=== PATIENT | female | born 1955 | race Caucasian/White ===

== ENCOUNTER 2020-03-14 09:48 | Outpatient (REF) | payer MEDICARE, MEDICAID, SELFPAY | END 2020-03-14 09:49 | disposition home or self-care (01) | LOC: HO.MAMMO 09:48 | PROVIDERS: PCP Nurse Practitioner Family; Visit Provider Nurse Practitioner Family | DX: Z13.89 Encounter for screening for other disorder (principal) ==

== ENCOUNTER 2020-03-14 10:40 | Outpatient (REF) | payer MEDICARE, SELFPAY | END 2020-03-14 10:41 | disposition home or self-care (01) | LOC: HO.LAB 10:40 | PROVIDERS: PCP Nurse Practitioner Family; Visit Provider Internal Medicine | DX: Z20.828 Contact with and (suspected) exposure to other viral communicable diseases (principal) | CPT/HCPCS: C9803; U0003 ==

== ENCOUNTER 2020-04-03 13:41 | Outpatient (REF) | payer MEDICARE, SELFPAY ==
--- NOTE | 2020-04-03 | XR_ITS ---
EXAMINATION: XR CHEST CLINICAL INFORMATION: Smoker, asthma. Nodule/granuloma right upper lobe. COMPARISON: Chest radiographs 08/18/2018, 12/06/2013. TECHNIQUE: 2 views of the chest were obtained. FINDINGS: There is old granuloma central right upper lobe on frontal view, unchanged since prior exam of 2013. The lungs are otherwise clear. There is no airspace consolidation or ground-glass opacity. No pleural reaction or effusion. The heart is normal in size. The hilar and mediastinal contours are unremarkable. No acute bony abnormality. XR/XR chest 2V IMPRESSION: No acute intrathoracic disease. Stable granuloma right upper lobe similar to 2014.
== END 2020-04-03 13:42 | disposition home or self-care (01) ==
LOC: HO.XRAY 13:41
PROVIDERS: PCP Nurse Practitioner Family; Visit Provider Nurse Practitioner Family
DX: R91.1 Solitary pulmonary nodule (principal)
CPT/HCPCS: 71046

== ENCOUNTER 2020-05-15 11:20 | Outpatient (REF) | payer MEDICARE, SELFPAY | END 2020-05-15 11:21 | disposition home or self-care (01) | LOC: HO.LAB 11:20 | PROVIDERS: PCP Nurse Practitioner Family; Visit Provider Internal Medicine | DX: Z20.822 Contact with and (suspected) exposure to COVID-19 (principal) | CPT/HCPCS: 36415; C9803; U0003; U0005 ==

== ENCOUNTER → 2020-05-19 09:45 | Outpatient (BNVA) | payer MEDICARE, SELFPAY | PROVIDERS: PCP Nurse Practitioner Family; Visit Provider Physician Assistant | DX: Z12.11 Encounter for screening for malignant neoplasm of colon (principal) | CPT/HCPCS: Q3014 ==

== ENCOUNTER 2020-06-19 08:53 | Outpatient (REF) | payer MEDICARE, SELFPAY | END 2020-06-19 08:54 | disposition home or self-care (01) | LOC: HO.LAB 08:53 | PROVIDERS: Visit Provider Internal Medicine | DX: Z20.822 Contact with and (suspected) exposure to COVID-19 (principal) | CPT/HCPCS: 36415; C9803; U0003; U0005 ==

== ENCOUNTER 2020-08-14 07:25 | Day surgery (SDC) | payer MEDICARE, SELFPAY ==
--- NOTE | 2020-08-13 09:16 | HO.ANESPROP2 ---
Documented by User: Acacia Benítez 08/13/20 09:17 HPI - Anesthesia Eval Consult details Narrative: 65yo F for Colonoscopy PMFSH Active Problems Active Problems: All Active Problems (Updated 08/08/20 @ 08:58 by Katarzyna Kern) Encounter for screening colonoscopy (Acute) Asthma (Acute) Past Medical History Medical History Arthritis Asthma COVID-19 vaccine administered Elevated cholesterol Hx of migraine headaches Family History Family History Father Hypertension Mother Liver cancer Social History Social History Household Members: Spouse Alcohol intake: current Alcohol intake frequency: holidays/special occasions only Alcohol type: beer Smoking Status: Current every day smoker Cigarettes Per Day: 4 Years Smoked: 53 Smoked in Last 30 Days: Yes Use of substances other than those prescribed or required for medical reasons: No Are you DNR?: No Advance Directives: No Advance Directives Information Provided: Yes Current occupational status: disabled Meds Allergies Allergy/AdvReac Type Severity Reaction Status Date / Time amitriptyline Allergy Unknown Unknown Verified 05/19/20 09:46 Home Medications Medication Instructions Recorded Confirmed Last Taken Type diclofenac sodium 75 mg 75 mg PO BID 05/19/20 08/08/20 Unknown History tablet,delayed release fluticasone propionate 50 1 inh INHALATION BID 05/19/20 08/08/20 Unknown History mcg/actuation blister powder for inhalation simvastatin 20 mg tablet 20 mg PO DAILY 05/19/20 08/08/20 Unknown History tramadol 50 mg tablet 50 mg PO BID PRN 05/19/20 08/08/20 Unknown History albuterol sulfate 2.5 mg INHALATION Q4H PRN 08/08/20 08/08/20 Unknown History albuterol sulfate [ProAir HFA] 2 puff INHALATION Q4-6H PRN 08/08/20 08/08/20 Unknown History cholecalciferol (vitamin D3) 50 mcg PO DAILY 08/08/20 08/08/20 Unknown History [Vitamin D3] loratadine 1 tab PO DAILY PRN 08/08/20 08/08/20 Unknown History sumatriptan succinate 1 tab PO DAILY PRN 08/08/20 08/08/20 Unknown History trazodone 1 tab PO BEDTIME 08/08/20 08/08/20 Unknown History Exam Exam Date and Time: August 13, 2020915 Assessment and Plan Assessment Anesthesia Assessment: Chart Reviewed Documented by User: Jayden Williamson MD 08/14/20 08:28 [facility] Past Medical History Medical History Arthritis Asthma COVID-19 vaccine administered Elevated cholesterol Hx of migraine headaches Family History Family History Father Hypertension Mother Liver cancer Social History Social History Household Members: Spouse Alcohol intake: current Alcohol intake frequency: holidays/special occasions only Alcohol type: beer Smoking Status: Current every day smoker Cigarettes Per Day: 4 Years Smoked: 53 Smoked in Last 30 Days: Yes Use of substances other than those prescribed or required for medical reasons: No Are you DNR?: No Advance Directives: No Advance Directives Information Provided: Yes Current occupational status: disabled Meds Allergies Allergy/AdvReac Type Severity Reaction Status Date / Time amitriptyline Allergy Unknown Unknown Verified 05/19/20 09:46 Home Medications Medication Instructions Recorded Confirmed Last Taken Type diclofenac sodium 75 mg 75 mg PO BID 05/19/20 08/08/20 Unknown History tablet,delayed release fluticasone propionate 50 1 inh INHALATION BID 05/19/20 08/08/20 Unknown History mcg/actuation blister powder for inhalation simvastatin 20 mg tablet 20 mg PO DAILY 05/19/20 08/08/20 Unknown History tramadol 50 mg tablet 50 mg PO BID PRN 05/19/20 08/08/20 Unknown History albuterol sulfate 2.5 mg INHALATION Q4H PRN 08/08/20 08/08/20 Unknown History albuterol sulfate [ProAir HFA] 2 puff INHALATION Q4-6H PRN 08/08/20 08/08/20 Unknown History cholecalciferol (vitamin D3) 50 mcg PO DAILY 08/08/20 08/08/20 Unknown History [Vitamin D3] loratadine 1 tab PO DAILY PRN 08/08/20 08/08/20 Unknown History sumatriptan succinate 1 tab PO DAILY PRN 08/08/20 08/08/20 Unknown History trazodone 1 tab PO BEDTIME 08/08/20 08/08/20 Unknown History Exam Airway Mallampati Class: III TM Dist: >3cm Neck ROM: Full Denture: Upper and Lower Loose/Missing/Broken Teeth: Yes Assessment and Plan Assessment Anesthesia Assessment: Anesthesia Plan Discussed Final Anesthetic Review NPO: Yes ASA Class: II Final Preanesthetic Review: No Changes in Pt Med Stat, Meds/Allgs Chart Reviewed, Consent Obtained/Reviewed and Anes Risks/Benef Reviewed Patient Risk: Intermediate Procedure Risk: Low Anesthetic Plan Anesthetic Plan: MAC: Disposition: Standard PACU
[2020-08-14 07:38] VITALS: BMI 29.9
[2020-08-14 07:46] VITALS: BP 112/45; PULSE 97; RESP 16; TEMP 36.6; O2SAT 97
[2020-08-14] MEDS: Lactated Ringers 1,000 ML 100 ML IVCONT (08:14)
--- NOTE | 2020-08-14 08:37 | MHC.SHP ---
Pre-Procedural Eval Section B Chief Complaint: Screening Relevant Family History (Specify if Yes): No Relevant Social History: Tobacco Use Present Medications: see Short Stay Collaborative assessment Medical History: Significant History (Arthritis Asthma COVID-19 vaccine administered Elevated cholesterol Hx of migraine headaches) History of Previous Operations: No relevant previous surgery Allergies: Allergies Allergy/AdvReac Type Severity Reaction Status Date / Time amitriptyline Allergy Unknown Unknown Verified 05/19/20 09:46 Review of Systems Sugical H&P ROS: Negative: Constitution, Cardiovascular, Respiratory, Neurological, Psychiatric, Hem-Onc, Allergic/Immunologic, Gastrointestinal, Genitourinary, Musculoskeletal, Integumentary, Endocrine and Eyes/Ears/Nose/Throat Exam Surgical H&P Exam: Normal: HEENT, Normal: Heart, Normal: Lungs, Normal: Extremities, Normal: Abdomen, Normal: Skin and Normal: Neurological Plan Diagnosis/Plan: Unchanged I have reviewed the history and physical and performed a pertinent physical examination on my patient. No changes have occurred unless specified.
--- NOTE | 2020-08-14 08:55 | P.BOP_ITS ---
Brief Operative Note Date of Service: 08/14/20 Pre-op diagnosis: colon screening Post-op diagnosis: same Procedure: see op note Surgeon: Tommie Prieto MD Anesthesia: MAC Was an Project [employer] used for this Procedure?: No Estimated blood loss (mL): 0 Condition: stable Disposition: PACU
--- NOTE | 2020-08-14 08:56 | W.PM.OPN ---
Operative Note Operative Note Date of Service: 08/14/20 Narrative: Operative Information Procedure Description: Colonoscopy COLONOSCOPY Instrument: Olympus variable stiffness pediatric scope 190L Colonoscopy Monitoring: Vital signs and clinical assessment, continuous EKG monitoring, Pulse oximetry, Carbon Dioxide monitoring and blood pressure monitoring were done throughout the procedure. Colon withdrawal time was 11 minutes. Procedure: The patient was placed in the left lateral decubitis position and pre-procedure medications were administered. After a digital rectal examination of the ano-rectum, the video colonoscope was inserted into the rectum and advanced through the colon to the cecum/TI. The colonoscope was slowly withdrawn in a retrograde panoramic fashion and the colon mucosa was carefully examined including a retroflexed view of the rectum. Findings and interventions are described below. Procedure Difficulty: easy Findings: Terminal Ileum-normal Cecum:normal Ascending Colon: normal Transverse Colon -normal Descending Colon:normal Sigmoid Colon: normal Rectum: Retroflexion with small internal hemorrhoids, grade I Anorectum - normal Colon preparation: [place] Bowel Preparation Scale Right colon; 3 Transverse colon: 3 Left colon; 2 (0 = Unprepared colon segment with mucosa not seen due to solid stool that cannot be cleared. 1 = Portion of mucosa of the colon segment seen, but other areas of the colon segment not well seen due to staining, residual stool and/or opaque liquid. 2 = Minor amount of residual staining, small fragments of stool and/or opaque liquid, but mucosa of colon segment seen well. 3 = Entire mucosa of colon segment seen well with no residual staining, small fragments of stool or opaque liquid) Impression and Post Procedure Diagnosis: internal hemorrhoids Plan: High fiber diet leaflet Avoid straining at stool, epsom salts and sitz bath, anusol supps or cream PRN Repeat Colonoscopy in 10 years or earlier if clinically indicated Above findings were reviewed with the patient and relevant handouts were provided if indicated.
[2020-08-14 09:00] VITALS: BP 85/44; PULSE 99; RESP 16; TEMP 36.1; O2SAT 99
[2020-08-14 09:15] VITALS: BP 124/70; PULSE 92; RESP 18; O2SAT 99
== END 2020-08-14 09:45 | disposition home or self-care (01) ==
PROVIDERS: PCP Nurse Practitioner Family; Visit Provider Internal Medicine Gastroenterology
PROC: 0DJD8ZZ Inspection of Lower Intestinal Tract, Via Natural or Artificial Opening Endoscopic (ICD-10-PCS; CPT 45378; principal; 2020-08-14 08:30)
DX: Z12.11 Encounter for screening for malignant neoplasm of colon (principal); K64.0 First degree hemorrhoids; E78.00 Pure hypercholesterolemia, unspecified; M19.90 Unspecified osteoarthritis, unspecified site; J45.909 Unspecified asthma, uncomplicated; Z79.51 Long term (current) use of inhaled steroids; Z79.899 Other long term (current) drug therapy; F17.210 Nicotine dependence, cigarettes, uncomplicated
CPT/HCPCS: G0121

== ENCOUNTER → 2020-09-02 10:53 | Outpatient (REF) | payer MEDICARE, SELFPAY ==
--- NOTE | ~2020-09-02 | NM_ITS ---
EXAMINATION: NM KIDNEY IMAGING WITH LASIX CLINICAL INFORMATION: Hydronephrosis. COMPARISON: Renal scan 08/08/2019. TECHNIQUE: Following intravenous administration of 10 mCi of 90m technetium DTPA, imaging over the posterior abdomen with attention to kidneys was obtained up to 30 minutes. At 30 minutes, 34 mg of IV Lasix is administered and imaging was obtained for another 30 minutes. FINDINGS: There is normal bilateral symmetrical renal perfusion with normal bilateral cortical uptake on the scan. There is progressive accumulation of activity in the right kidney pelvis. After Lasix administration, there is normal emptying of right kidney pelvis to almost baseline by 30 minutes. The left kidney pelvis was emptying prior to the Lasix administration and reached baseline at 20 minutes after Lasix injection. On renal analysis, the right kidney contributes 53.7% and left kidney contributes 46.3% of the renal function. Time from Lasix to half Lasix right kidney is 18.2 minutes and left kidney is 6.09 minutes. NM/NM renal flow w pharm int IMPRESSION: Normal left renal perfusion, cortical function and excretion with no obstruction. Normal right renal perfusion and cortical function with slight delayed excretion but no obstruction seen post Lasix. On reviewing CT abdomen exam 06/29/2019, there is not much difference in the size; however, the orientation of kidneys or angulation is slightly different resulting in different size measurements.
== END ==
LOC: HO.NUCMED 10:53
PROVIDERS: Visit Provider Urology
DX: N13.30 Unspecified hydronephrosis (principal)
CPT/HCPCS: 78708; A9539; J1940

== ENCOUNTER → 2020-09-24 13:00 | Outpatient (BNVA) | payer MEDICARE, SELFPAY | PROVIDERS: PCP Internal Medicine; Visit Provider Physician Assistant | DX: K64.9 Unspecified hemorrhoids (principal) | CPT/HCPCS: Q3014 ==

== ENCOUNTER 2020-12-25 11:08 | Outpatient (REF) | payer MEDICARE, SELFPAY ==
--- NOTE | ~2020-12-25 | MM_ITS ---
EXAMINATION: MM SCREENING DIGITAL BREAST TOMOSYNTHESIS, BILATERAL CLINICAL INFORMATION: Screening. Asymptomatic. The lifetime risk of breast cancer based on the Tyrer-Cuzick Model is 4%. COMPARISON: Mammography: 11/16/2018, 10/28/2017, 10/05/2016 TECHNIQUE: Digital breast tomosynthesis is performed in both the craniocaudal and mediolateral oblique views along with computer-aided detection (CAD). Synthesized 2D images are generated from the tomosynthesis. FINDINGS: There are scattered areas of fibroglandular density (ACR BI-RADS breast composition Category b). There are no significant masses, abnormal calcifications, or other abnormalities. Small circumscribed nodule mid upper outer left breast is decreased from prior exam. The axilla and skin contours are unremarkable. No significant changes. MM/MM tomosynthesis screening BI IMPRESSION: No mammographic evidence of malignancy. ASSESSMENT: BI-RADS 2: Benign RECOMMENDATION: Routine annual mammography screening. This patient's information was entered into a reminder system with a target due date for their next mammogram.
== END 2020-12-25 11:09 | disposition home or self-care (01) ==
LOC: HO.MAMMO 11:08
PROVIDERS: PCP Internal Medicine; Visit Provider Internal Medicine
DX: Z12.31 Encounter for screening mammogram for malignant neoplasm of breast (principal)
CPT/HCPCS: 77063; 77067

== ENCOUNTER 2021-01-06 12:48 | Outpatient (REF) | payer MEDICARE, SELFPAY ==
--- NOTE | ~2021-01-06 | MM_ITS ---
EXAMINATION: BONE DENSITOMETRY CLINICAL INDICATION: Encounter for screening for osteoporosis. COMPARISON: Previous BD dated 05/17/2013 and baseline BD dated 02/16/2011. TECHNIQUE: Using a [employer] DXA System (software version: 13.1) manufactured by [employer], dual-energy x-ray absorptiometry was performed of the lumbar spine and left hip. The images are of good technical quality. Summary results are attached. FINDINGS: AP SPINE L1-L2 (excluding L3 and L4): The data of L1-L4 has been changed to exclude the L3 and L4 vertebral bodies, because degenerative sclerosis at these levels may cause overestimation of lumbar spine density. Current: BMD 0.923 g/cm2, Z-score -0.4, T-score -2.0, osteopenia, 0.1% increase from previous, 12.0% decrease from baseline (<5% change is not significant). Prior: BMD 0.922 g/cm2. Baseline: BMD 1.049 g/cm2. LEFT FEMUR, NECK: Current: BMD 0.739 g/cm2, Z-score -0.6, T-score -2.2, osteopenia. Prior: BMD 0.796 g/cm2. Baseline: BMD 0.738 g/cm2. LEFT FEMUR, TOTAL: Current: BMD 0.909 g/cm2, Z-score 0.5, T-score -0.8, normal, 0.4% decrease from previous, 0.1% decrease from baseline (<5% change is not significant). Prior: BMD 0.913 g/cm2. Baseline: BMD 0.910 g/cm2. IDENTIFIED RISK FACTORS: Menopause, history of fracture (adult), tobacco use (current smoker). HISTORY OF FRACTURE: Other. MEDICATIONS: Calcium supplements or multivitamin, vitamin D. MM/XR DEXA axial skeleton IMPRESSION: 1. DIAGNOSIS: Osteopenia based on the lowest T-score value of -2.2 in the femoral neck applying World Health Organization criteria. 2. 10-YEAR FRACTURE RISK PREDICTION, FRAX: Major osteoporotic fracture (clinical spine, forearm, hip or shoulder) 11.4%. Hip fracture 3.1%. 3. Treatment Recommendations: NOF guidelines recommend consideration for treatment in postmenopausal women and men age 50 and older presenting with the following: -A hip or vertebral (clinical or morphometric) fracture. -T-score less than or equal to -2.5 at the femoral neck or spine after appropriate evaluation to exclude secondary causes. -Low bone mass at the hip or spine and a 10-year fracture probability by FRAX of greater than or equal to 3% for hip fracture or greater than or equal to 20% for major osteoporotic fracture based on the [place] adapted WHO algorithm. 4. Other Recommendations: All treatment decisions require clinical judgment and consideration of individual patient factors, including patient preferences, comorbidities, previous drug use, risk factors not captured in the FRAX model (e.g. frailty, falls, vitamin D deficiency, increased bone turnover, interval significant decline in bone density) and possible under or overestimation of fracture risk by FRAX. Additional medical evaluation for secondary cause of low bone mineral density may be appropriate. FUTURE SCAN RECOMMENDATION: People with diagnosed cases of osteoporosis or at high risk for fracture should have regular bone mineral density tests. For patients eligible for Medicare, routine testing is allowed once every 2 years. The testing frequency can be increased to one year for patients who have rapidly progressing disease, those who are receiving or discontinuing medical therapy to restore bone mass, or have additional risk factors.
== END 2021-01-06 12:49 | disposition home or self-care (01) ==
LOC: HO.MAMMO 12:48
PROVIDERS: Visit Provider Internal Medicine
DX: Z13.820 Encounter for screening for osteoporosis (principal); Z78.0 Asymptomatic menopausal state; F17.200 Nicotine dependence, unspecified, uncomplicated
CPT/HCPCS: 77080

== ENCOUNTER → 2021-02-25 11:04 | Outpatient (BNVA) | payer MEDICARE, SELFPAY | PROVIDERS: PCP Internal Medicine; Visit Provider Nurse Practitioner Family | DX: M25.521 Pain in right elbow (principal); M25.522 Pain in left elbow | CPT/HCPCS: 99212 ==

== ENCOUNTER 2021-03-13 08:27 | Outpatient (REF) | payer MEDICARE, SELFPAY ==
[2021-03-13 10:16] LABS: COVID-19 Test Negative (Negative); IDNOW Serial# 16C4AD1C
== END 2021-03-13 08:28 | disposition home or self-care (01) ==
LOC: HO.LAB 08:27
PROVIDERS: Visit Provider Internal Medicine
DX: Z20.822 Contact with and (suspected) exposure to COVID-19 (principal)
CPT/HCPCS: 36415; 87635; C9803

== ENCOUNTER 2021-08-12 12:15 | Outpatient (REF) | payer OTHER, SELFPAY ==
--- NOTE | ~2021-08-12 | XR_ITS ---
EXAMINATION: XR CHEST CLINICAL INFORMATION: Pulmonary nodule. COMPARISON: Chest radiographs 04/03/2020, 08/18/2018, 12/06/2013. TECHNIQUE: 2 views of the chest were obtained. FINDINGS: There is a chronic circumscribed granuloma or approximately 5 mm central right upper lobe similar to prior studies. This is associated with chronic calcified lower right peritracheal lymph nodes, again similar to prior exams. There is no interval new nodule, mass, airspace consolidation, or effusion. Heart is normal in size. The vascularity is normal. The hilar and mediastinal contours and bony structures are similar to prior studies. XR/XR chest 2V IMPRESSION: -No acute intrathoracic disease. -Old calcified granuloma central right upper lobe with calcified right paratracheal nodes similar to prior exams dating back to 2013.
== END 2021-08-12 12:16 | disposition home or self-care (01) ==
LOC: HO.XRAY 12:15
PROVIDERS: PCP Internal Medicine; Visit Provider Internal Medicine
DX: R91.1 Solitary pulmonary nodule (principal)
CPT/HCPCS: 71046

== ENCOUNTER 2021-12-31 10:37 | Outpatient (REF) | payer OTHER, SELFPAY ==
--- NOTE | ~2021-12-31 | MM_ITS ---
EXAMINATION: MM SCREENING DIGITAL BREAST TOMOSYNTHESIS, BILATERAL CLINICAL INFORMATION: Screening. Asymptomatic. The lifetime risk of breast cancer based on the Tyrer-Cuzick Model is 4%. COMPARISON: Mammography: 12/25/2020, 11/16/2018, 10/28/2017 TECHNIQUE: Digital breast tomosynthesis is performed in both the craniocaudal and mediolateral oblique views along with computer-aided detection (CAD). Synthesized 2D images are generated from the tomosynthesis. FINDINGS: There are scattered areas of fibroglandular density (ACR BI-RADS breast composition Category b). There are no significant masses, abnormal calcifications, or other abnormalities. Parenchymal pattern is similar to prior exams. There is no developing density or architectural abnormality. There is a small circumscribed nodule mid upper outer left breast, decreased in size since 2018 likely regressing cyst. Incidental low left axillary tail node again seen. The axilla and skin contours are unremarkable. MM/MM tomosynthesis screening BI IMPRESSION: No mammographic evidence of malignancy. ASSESSMENT: BI-RADS 2: Benign RECOMMENDATION: Routine annual mammography screening. This patient's information was entered into a reminder system with a target due date for their next mammogram.
== END 2021-12-31 10:38 | disposition home or self-care (01) ==
LOC: HO.MAMMO 10:37
PROVIDERS: Visit Provider Internal Medicine
DX: Z12.31 Encounter for screening mammogram for malignant neoplasm of breast (principal)
CPT/HCPCS: 77063; 77067

== ENCOUNTER 2022-01-20 13:59 | Outpatient (REF) | payer OTHER, SELFPAY ==
--- NOTE | ~2022-01-20 | CT_ITS ---
EXAMINATION: CT CHEST WITHOUT CONTRAST CLINICAL INFORMATION: Pulmonary nodule COMPARISON: Previous chest x-ray most recent July [address] of the abdomen and pelvis June 2019 TECHNIQUE: Multidetector volumetric CT imaging of the chest was done. Axial MIP volume rendering provided. Sagittal and coronal reformatted images were obtained. This CT examination was performed using dose optimization techniques as appropriate, variously including the following: *Automated exposure control *Adjustment of mA and/or kV according to patient size (this includes techniques or standardized protocols for targeted exams where dose is matched to indication/reason for exam; i.e. 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 2 mm question calcified right lower lobe nodule axial image 280 series 7. 2 mm question calcified right lower lobe nodule axial 278 series 7. MEDIASTINUM: There are calcified mediastinal and right hilar lymph nodes suggestive of old granulomatous disease. No other adenopathy. The mediastinum is otherwise normal. CORONARY ARTERY CALCIFICATION: Mild PLEURA: There is no pleural effusion. No pleural mass or thickening. AXILLA: No lymphadenopathy. UPPER ABDOMEN: Small calcification in the spleen likely related to old granulomatous disease. Stable small low-attenuation liver lesions likely representing cysts in the left lobe caudate lobe from the abdomen and pelvis June 2019 OSSEOUS STRUCTURES: Unremarkable. CT/CT chest wo IV con IMPRESSION: Calcified right pulmonary nodules and right hilar and mediastinal lymph nodes probably related to old granulomatous disease. Fleischner guidelines were followed.
== END 2022-01-20 14:00 | disposition home or self-care (01) ==
LOC: HO.CT 13:59
PROVIDERS: PCP Internal Medicine; Visit Provider Internal Medicine
DX: R91.1 Solitary pulmonary nodule (principal)
CPT/HCPCS: 71250

== ENCOUNTER → 2022-04-05 13:45 | Outpatient (BNVA) | payer OTHER, SELFPAY | PROVIDERS: PCP Internal Medicine; Visit Provider Nurse Practitioner Family | DX: R20.0 Anesthesia of skin (principal); R20.2 Paresthesia of skin | CPT/HCPCS: 99212 ==

== ENCOUNTER 2022-10-20 10:49 | Outpatient (REF) | payer OTHER, SELFPAY ==
--- NOTE | ~2022-10-20 | XR_ITS ---
EXAMINATION: XR PELVIS, HIP RIGHT CLINICAL INFORMATION: Elevated right hip pain. COMPARISON: None available. TECHNIQUE: AP view of the pelvis and right hip. FINDINGS: No fracture. Hip joint spaces are maintained. Alignment is anatomic. Sacroiliac joints and pubic symphysis are normal. No abnormal soft tissue calcifications. XR/XR pelvis 1-2V IMPRESSION: Unremarkable examination.
--- NOTE | ~2022-10-20 | XR_ITS ---
EXAMINATION: XR PELVIS, HIP RIGHT CLINICAL INFORMATION: Elevated right hip pain. COMPARISON: None available. TECHNIQUE: AP view of the pelvis and right hip. FINDINGS: No fracture. Hip joint spaces are maintained. Alignment is anatomic. Sacroiliac joints and pubic symphysis are normal. No abnormal soft tissue calcifications. XR/XR hip RT min 2V IMPRESSION: Unremarkable examination.
== END 2022-10-20 10:50 | disposition home or self-care (01) ==
LOC: HO.HHCX 10:49
PROVIDERS: Visit Provider Registered Nurse
DX: M25.551 Pain in right hip (principal); G89.29 Other chronic pain
CPT/HCPCS: 72170; 73502

== ENCOUNTER 2023-01-11 09:26 | Outpatient (REF) | payer OTHER, SELFPAY ==
[2023-01-11 12:20] LABS: Cholesterol 187 mg/dL (<200); HDL Cholesterol 49 mg/dL (>40); LDL Cholesterol Calculated 97 mg/dL (<100); Triglycerides 205 mg/dL (<150)
[2023-01-11 12:40] LABS: Vitamin D 25-OH Total 65.5 ng/mL (>30)
[2023-01-11 13:08] LABS: Reflex LDLD? No
== END 2023-01-11 09:27 | disposition home or self-care (01) ==
LOC: HO.HHCL 09:26
PROVIDERS: Visit Provider Internal Medicine
DX: E78.00 Pure hypercholesterolemia, unspecified (principal); M25.559 Pain in unspecified hip
CPT/HCPCS: 36415; 80061; 82306

== ENCOUNTER 2023-01-11 14:03 | Outpatient (REF) | payer OTHER, SELFPAY ==
--- NOTE | ~2023-01-11 | MM_ITS ---
EXAMINATION: MM SCREENING DIGITAL BREAST TOMOSYNTHESIS, BILATERAL CLINICAL INFORMATION: Screening. Asymptomatic. COMPARISON: Mammography: This study is compared with prior exams dating back to 2017. TECHNIQUE: Digital breast tomosynthesis is performed in both the craniocaudal and mediolateral oblique views along with computer-aided detection (CAD). Synthesized 2D images are generated from the tomosynthesis. FINDINGS: The breasts are almost entirely fatty (ACR BI-RADS breast composition Category a). There are no significant masses, abnormal calcifications, or other abnormalities. MM/MM tomosynthesis screening BI IMPRESSION: No mammographic evidence of malignancy. ASSESSMENT: BI-RADS BI-RADS 1 - Negative RECOMMENDATION: Routine annual mammography screening. 1 year F/U This examination should not preclude the clinical evaluation of a suspicious palpable abnormality. This patient's information was entered into a reminder system with a target due date for their next mammogram.
== END 2023-01-11 14:04 | disposition home or self-care (01) ==
LOC: HO.MAMMO 14:03
PROVIDERS: Visit Provider Internal Medicine
DX: Z12.31 Encounter for screening mammogram for malignant neoplasm of breast (principal)
CPT/HCPCS: 77063; 77067

== ENCOUNTER → 2023-01-11 14:30 | Outpatient (BNV) | payer OTHER, SELFPAY | PROVIDERS: Visit Provider Radiology Diagnostic Radiology | DX: Z12.31 Encounter for screening mammogram for malignant neoplasm of breast (principal) | CPT/HCPCS: 77063; 77067 ==

== ENCOUNTER 2023-01-21 11:01 | Outpatient (REF) | payer OTHER, SELFPAY ==
[2023-01-21 14:02] LABS: Blood Urea Nitrogen 13 mg/dL (9-16); Estimated Glomerular Filt Rate > 60
== END 2023-01-21 11:02 | disposition home or self-care (01) ==
LOC: HO.HHCL 11:01
PROVIDERS: Visit Provider Internal Medicine
DX: J45.30 Mild persistent asthma, uncomplicated (principal)
CPT/HCPCS: 36415; 82565; 84520

== ENCOUNTER 2023-03-15 10:10 | Outpatient (REF) | payer OTHER, SELFPAY | END 2023-03-15 10:11 | disposition home or self-care (01) | LOC: HO.CT 10:10 | PROVIDERS: PCP Internal Medicine; Visit Provider Internal Medicine | DX: R91.8 Other nonspecific abnormal finding of lung field (principal) | CPT/HCPCS: 71250 ==

== ENCOUNTER 2023-04-05 13:28 | Outpatient (AMB) | payer OTHER, SELFPAY ==
--- NOTE | 2023-04-05 13:29 | MHC.OFFVIS ---
Intake Vital Signs 04/05/23 13:30 Height 4 ft 9 in Weight 158 lb 1.143 oz BMI 34.2 BP 128/64 Blood Pressure Location Lt brachial Position Sitting Pulse 114 H Pulse Source Pulse Oximeter Temp 97.7 F Temp Source Skin Pulse Oximetry (%) 96 Oxygen Delivery Method Room Air Intake Visit Reasons: osteoarthritis Intake Note: Patient last seen 04/05/22 by Hawa, presents today for yearly follow up. Swimming Pool Serviceperson Required: Yes Swimming Pool Serviceperson Language: Software Release Manager Name: Erin Information Interpreted: clinical only Accompanied by: FLORENCE Khan Allergies sumatriptan Adverse Reaction (Severe, Verified 04/05/23 13:38) Facial Numbness HPI HPI Comments History of Present Illness Details Ms. Valles, a 66yoF presents for follow-up of osteoarthritis. Last seen in March 2022. Her primary language is Palauan and she presents today with her [employer] Osiris who she would like to translate for her. She currently takes tramadol 50 mg b.i.d. as needed and finds it to be helpful. Patient reports intermittent stabbing, shooting pain from the elbows to the hands x 2 years. She admits to hand numbness and tingling, worse on the right. Pain tends to be worse at night while in bed and improves with position changes and tramadol. Pain is worse with use. She admits to morning stiffness that lasts for under 1 hour. She states that she has braces to wear at night but finds them too uncomfortable. She denies joint swelling. Patient admits to long-term sleep disturbance, depression and anxiety. She admits to skin sensitivity and a feeling of ants crawling on her skin. [facility] Medical History (Updated 04/05/23 @ 13:49 by Jaylyn Mckee [facility]) Primary osteoarthritis involving multiple joints Numbness and tingling in both hands COVID-19 vaccine administered Arthritis Hx of migraine headaches Elevated cholesterol Asthma Surgical History Hx of LASIK H/O colonoscopy Family History Father Hypertension Mother Liver cancer Social History Household Members: Spouse Alcohol intake: current Alcohol intake frequency: holidays/special occasions only Alcohol type: beer Patient Tobacco Use Status: Current everyday Tobacco user Cigarettes Per Day: 1 Years Smoked: 53 Current occupational status: disabled Review of Systems Const All systems reviewed & are unremarkable except as noted in HPI and below Physical Exam Vital Signs: Last Vital Signs Temp 97.7 F 04/05/23 13:30 Pulse 114 H 04/05/23 13:30 BP 128/64 04/05/23 13:30 Pulse Ox 96 04/05/23 13:30 Oxygen Delivery Method Room Air 04/05/23 13:30 BMI result Body Mass Index 34.2 APPEARANCE: Patient in no acute distress, groomed, nourished EYES: no redness, eyelids normal EARS: External ear normal, canal clear and tympanic membrane normal. NOSE/SINUS: Airflow through both nares, no nasal discharge, no bleeding THROAT: Oral mucosa moist, no ulcerations HEART: Regular rhythm, S1-S2 heard, no murmurs, rubs or gallops. LUNG: Clear to auscultation, respiratory rate regular nonlabored. EXTREMITIES: No edema, no calf tenderness, normal peripheral pulses. NEURO: Oriented and alert x3. No focal weakness. Gait normal. SKIN: No inflammatory or neoplastic lesions. Normal color and turgor JOINT EXAM:?? Cervical Spine:? Full range of motion without pain; no tenderness. Thoracic Spine:? No scoliosis.? No tenderness on palpation. Lumbar Spine:? Alignment normal.? Full range of motion without pain, no tenderness. Hands: LEFT:? Normal pain-free range of motion without swelling, increased warmth or erythema. Slight tenderness to palpation at the base of the CMC and 5th MCP. Able to make a full fist and has a good tongue and groove machine operator strength. Negative Phalen's test. RIGHT: Normal pain-free range of motion without swelling, increased warmth or erythema. Slight tenderness to palpation at the base of the CMC and 5th MCP. Able to make a full fist and has a good tongue and groove machine operator strength. Negative Phalen's test. Wrists:? Normal pain-free range of motion without tenderness, swelling, increased warmth or erythema. Elbows: Normal pain-free range of motion without tenderness, swelling, increased warmth or erythema. Shoulders:?? Full range of motion without pain. No tenderness, weakness, swelling, increased warmth or erythema. Hips:? Full range of motion without pain. Hip bursa:? No tenderness. Knees:? Normal pain-free range of motion without tenderness, swelling, increased warmth or erythema.? There is no effusion or crepitation Ankles:? Normal pain-free range of motion without tenderness, swelling, increased warmth or erythema. Feet:? Normal pain-free range of motion without tenderness, swelling, increased warmth or erythema. Tender points:? Tenderness to digital palpation at the occiput, trapezius, second rib, lateral epicondyle, knees, greater trochanter and gluteal area bilaterally. Assessment & Plan Assessment & Plan (1) Numbness and tingling in both hands: Comment: Will trial cock-up splints. Code(s): R20.0 - Anesthesia of skin; R20.2 - Paresthesia of skin (2) Primary osteoarthritis involving multiple joints: Code(s): M15.9 - Polyosteoarthritis, unspecified (3) Carpal tunnel syndrome, bilateral: Code(s): G56.03 - Carpal tunnel syndrome, bilateral upper limbs Plan The patient has had multiple rheumatology work-up one in 2011 and again in September 2017 for joint pain and positive MIGUEL ANGEL. MIGUEL ANGEL titer was 1:80 on 10/13/2017: All subsequent serology negative for: Rheumatoid factor negative, CCP negative, CPK 73, sed rate 12, CRP 0.24, double-stranded DNA negative, scleroderma antibodies negative, ZOYA negative, Sjogren's antibodies negative, Lyme negative. #OA multiple Joints: Patient does not appear to have any active signs of inflammatory or autoimmune disease on exam today. She is experiencing pain from her elbows to hands with numbness and tingling, bilateral knee and shoulder pain. Her pain is worse with use. On exam she has mild tenderness to palpation at the base of the CMC and 5th MCP bilaterally. I think Osteoarthritis may be a contributing factor to her multiple joint pain. Patient also has with multiple fibromyalgia tender points on exam, history of long-term sleep disturbance and depression. There may be an aspect of fibromyalgia contributing to her pain. Encouraged patient to continue light daily activity. Continue amitriptyline and p.r.n. tramadol prescribed by PCP. Will obtain updated labs. I will add Voltarean gel that she can use forher knees. #CTS:Although she had a negative Phalen test on exam, carpal tunnel may be contributing to her pain numbness and tingling as well. Discussed EMG nerve conduction study but she wants to continue with cock-up splints for for now. She will contact the office if she has increased symptoms. 25 minutes spent reviewing chart, evaluating patient and documenting. Return to clinic 1 year or sooner if needed. Orders: Orders Aspartate Amino Transferase Today M15.9 - Polyosteoarthritis, unspecified, Z79.899 - Other detention (current) drug therapy Erythrocyte Sedimentation Rate Today M15.9 - Polyosteoarthritis, unspecified Alanine Aminotransferase Today M15.9 - Polyosteoarthritis, unspecified, Z79.899 - Other detention (current) drug therapy C Reactive Protein Today M15.9 - Polyosteoarthritis, unspecified Complete Blood Count Auto Diff Today M15.9 - Polyosteoarthritis, unspecified, Z79.899 - Other detention (current) drug therapy Creatinine Today M15.9 - Polyosteoarthritis, unspecified, Z79.899 - Other detention (current) drug therapy Medications: New diclofenac sodium 1% apply to knees, ankle, foot; for foot includes sole/toes/top of foot 2 grams topical BID 100 grams 1RF M15.9 - Polyosteoarthritis, unspecified Coding Level of Care Code Tele Est Pt Level 3 (52026) Diagnoses Numbness and tingling in both hands R20.0; R20.2 Primary osteoarthritis involving multiple joints M15.9 Carpal tunnel syndrome, bilateral G56.03
[2023-04-05 13:30] VITALS: BP 128/64; PULSE 114; TEMP 36.5; O2SAT 96; BMI 34.2
== END 2023-04-05 13:51 | disposition home or self-care (01) ==
LOC: HO.RHE 13:28
PROVIDERS: PCP Internal Medicine; Visit Provider Nurse Practitioner Family
DX: R20.0 Anesthesia of skin (principal); R20.2 Paresthesia of skin; M15.9 Polyosteoarthritis, unspecified; G56.03 Carpal tunnel syndrome, bilateral upper limbs
CPT/HCPCS: 99213

== ENCOUNTER → 2023-04-05 13:28 | Outpatient (BNVA) | payer OTHER, SELFPAY | PROVIDERS: PCP Internal Medicine; Visit Provider Nurse Practitioner Family ==

== ENCOUNTER 2023-08-18 10:21 | Outpatient (REF) | payer OTHER, SELFPAY ==
[2023-08-18 12:01] LABS: Alanine Aminotransferase 32 U/L (0-31); Albumin Level 4.2 g/dL (3.5-5.0); Alkaline Phosphatase 90 U/L (39-117); Anion Gap 14 (12-20); Aspartate Amino Transferase 32 U/L (5-31); Bilirubin Total 0.6 mg/dL (0.0-1.0); Blood Urea Nitrogen 13 mg/dL (9-16); Calcium 9.9 mg/dL (8.4-10.2); Carbon Dioxide 25 mmol/L (22-29); Chloride 106 mmol/L (96-108); Cholesterol 153 mg/dL (<200); Estimated Glomerular Filt Rate > 60; Glucose Random 87 mg/dL (60-115); HDL Cholesterol 60 mg/dL (>40); LDL Cholesterol Calculated 68 mg/dL (<100); Potassium 4.2 mmol/L (3.3-5.1); Sodium 141 mmol/L (135-145); Total Protein 7.7 g/dL (6.5-8.0); Triglycerides 125 mg/dL (<150)
[2023-08-18 12:20] LABS: Vitamin D 25-OH Total 30.1 ng/mL (>30)
[2023-08-18 12:29] LABS: Reflex LDLD? No
== END 2023-08-18 10:22 | disposition home or self-care (01) ==
LOC: HO.LAB 10:21
PROVIDERS: PCP Internal Medicine; Visit Provider Internal Medicine
DX: F17.210 Nicotine dependence, cigarettes, uncomplicated (principal); J45.21 Mild intermittent asthma with (acute) exacerbation
CPT/HCPCS: 36415; 80053; 80061; 82306

== ENCOUNTER 2024-02-08 09:45 | Outpatient (REF) | payer OTHER, SELFPAY ==
[2024-02-08 11:29] LABS: Alanine Aminotransferase 30 U/L (0-31); Albumin Level 4.2 g/dL (3.5-5.0); Alkaline Phosphatase 102 U/L (39-117); Aspartate Amino Transferase 37 U/L (5-31); Bilirubin Direct 0.2 mg/dL (0.0-0.5); Bilirubin Total 0.6 mg/dL (0.0-1.0); Total Protein 7.7 g/dL (6.5-8.0)
[2024-02-08 12:00] LABS: Gamma Glutamyl Transpeptidase 27 U/L (7-33)
[2024-02-08 12:13] LABS: HBS Num1 1.53 mIU/mL (0-7.99); HBc Num1 0.16 S/CO (0.00-0.79); Hepatitis A Antibody IgM 0.37 Index (0-0.79); Hepatitis B Core Antibody Nonreactive (Nonreactive); Hepatitis B Surface Antigen Negative (Negative); ~HepC Num1 0.23 S/CO (0.00-0.79); ~Hepatitis A Antibody IgM Nonreactive (Nonreactive); ~Hepatitis B Surface Antibody NONREACTIVE (Nonreactive); ~Hepatitis C Antibody Nonreactive (Nonreactive)
== END 2024-02-08 09:46 | disposition home or self-care (01) ==
LOC: HO.HHCL 09:45
PROVIDERS: Visit Provider Internal Medicine
DX: R79.89 Other specified abnormal findings of blood chemistry (principal)
CPT/HCPCS: 36415; 80076; 82977; 86704; 86706; 86709; 86803; 87340

== ENCOUNTER 2024-02-29 09:43 | Outpatient (REF) | payer OTHER, SELFPAY ==
--- NOTE | ~2024-02-29 | MM_ITS ---
EXAMINATION: MM SCREENING DIGITAL BREAST TOMOSYNTHESIS, BILATERAL CLINICAL INFORMATION: Screening. Asymptomatic. COMPARISON: Mammography: Comparison is made with available priors TECHNIQUE: Digital breast mammography with tomosynthesis is performed in both the craniocaudal and mediolateral oblique views along with computer-aided detection (CAD). FINDINGS: There are scattered areas of fibroglandular density (ACR BI-RADS breast composition Category b). There are no significant masses, abnormal calcifications, or other abnormalities. MM/MM tomosynthesis screening BI IMPRESSION: No mammographic evidence of malignancy. ASSESSMENT: BI-RADS BI-RADS 1 - Negative RECOMMENDATION: Routine annual mammography screening. 1 year F/U This examination should not preclude the clinical evaluation of a suspicious palpable abnormality. This patient's information was entered into a reminder system with a target due date for their next mammogram. Electronically signed by: Lena Church DO 03/06/2024 11:50 AM ALVARO
== END 2024-02-29 09:44 | disposition home or self-care (01) ==
LOC: HO.MAMMO 09:43
PROVIDERS: PCP Internal Medicine; Visit Provider Internal Medicine
DX: Z12.31 Encounter for screening mammogram for malignant neoplasm of breast (principal)
CPT/HCPCS: 77063; 77067

== ENCOUNTER → 2024-02-29 10:30 | Outpatient (BNV) | payer OTHER, SELFPAY | PROVIDERS: PCP Internal Medicine; Visit Provider Internal Medicine | DX: Z12.31 Encounter for screening mammogram for malignant neoplasm of breast (principal) | CPT/HCPCS: 77063; 77067 ==

== ENCOUNTER 2024-03-27 08:54 | Outpatient (REF) | payer OTHER, SELFPAY ==
--- NOTE | ~2024-03-27 | US_ITS ---
CLINICAL HISTORY: ELEVATED LIVER US abdomen complete with duplex and color Doppler Comparison: None Findings: The visualized pancreas, aorta, and inferior vena cava are unremarkable. Liver normal size and mildly echogenic throughout. Right lobe 15.1 cm length. Hepatic cysts caudate lobe measuring 1.5 x 1.1 x 1.1 cm and left lobe measuring 0.8 x 0.7 x 0.4 cm. Common duct mm diameter. Physiologic distention of the gallbladder. No gallstones or sludge. No gallbladder wall thickening. No pericholecystic fluid. No sonographic Goldstein sign. Main portal vein antegrade. Right kidney normal size, 9.1 cm in length. Normal cortical width and echotexture. No solid or cystic renal masses. No nephrolithiasis or hydronephrosis. Left kidney normal, 9.2 cm in length. Normal cortical width and echotexture. Parapelvic cyst measuring 0.9 x 0.9 x 0.7 cm. No nephrolithiasis or hydronephrosis. Spleen measures 9.1 cm. No splenic masses. Calcified splenic granulomas. No ascites. No lymphadenopathy. Impression: 1. Hepatic steatosis versus diffuse hepatocellular disease. Probable incidental hepatic cysts MRI would be confirmatory. 2. Parapelvic renal cyst on the left. This document has been electronically signed by: Adama Mei MD on 03/29/2024 10:13:08
== END 2024-03-27 08:55 | disposition home or self-care (01) ==
LOC: HO.US 08:54
PROVIDERS: PCP Internal Medicine; Visit Provider Internal Medicine
DX: K76.89 Other specified diseases of liver (principal); R74.01 Elevation of levels of liver transaminase levels
CPT/HCPCS: 76700

== ENCOUNTER → 2024-03-27 08:57 | Outpatient (BNV) | payer OTHER, SELFPAY | PROVIDERS: PCP Internal Medicine; Visit Provider Radiology Diagnostic Radiology | DX: K76.0 Fatty (change of) liver, not elsewhere classified (principal); N28.1 Cyst of kidney, acquired; K82.8 Other specified diseases of gallbladder; D73.89 Other diseases of spleen | CPT/HCPCS: 76700; 93976 ==

== ENCOUNTER 2024-04-05 13:04 | Outpatient (AMB) | payer OTHER, SELFPAY ==
[2024-04-05 13:13] VITALS: BP 142/80; PULSE 102; BMI 34.4
--- NOTE | 2024-04-05 13:13 | A.OFFVIS_ITS ---
Vital Signs 04/05/24 13:13 Height 4 ft 9 in Weight 159 lb 2.78 oz BMI 34.4 BP 142/80 H Blood Pressure Location Rt brachial Position Sitting Pulse 102 H Pulse Source Pulse Oximeter Intake Visit Reasons: Osteoarthritis multiple Joints Intake Note: Patient last seen by Jaylyn Mckee on 04/05/23. Presents today for Osteoarthritis multiple joints follow up. Plasma Specialist Required: No Accompanied by: Self / Same As Patient Allergies sumatriptan Adverse Reaction (Severe, Verified 04/05/24 13:16) Facial Numbness Medication List - Last Reconciled 04/05/24 by Mayelin Sandhu MD albuterol sulfate 2.5 mg inhalation Q4H PRN albuterol sulfate 90 mcg/actuation (ProAir HFA) 2 puffs inhalation Q4-6H PRN amitriptyline 25 mg PO BEDTIME cholecalciferol (vitamin D3) (Vitamin D3) 50 mcg PO DAILY [cock up splints As directed] diclofenac sodium 1% 2 grams topical BID fluticasone propionate 220 mcg/actuation (Flovent HFA) 0 mcg inhalation BID loratadine 1 tab PO DAILY PRN simvastatin 20 mg PO DAILY tramadol 50 mg PO BID PRN trazodone 1 tab PO BEDTIME HPI Comments Details: Patient is a 68-year-old Swedish-speaking female current everyday smoker who presents for follow up of polyarticular osteoarthritis. Provider spoke with patient in her confederated yakama language. Interval History: Patient last seen 03/2023 with Jaylyn Mckee. At that time she was complaining of symptoms concerning for carpal tunnel syndrome. She was recommended splinting however patient preferred other conservative management. Today patient does complain of left medial elbow pain well as hand pain. Rheumatologic History: Presents to Rheumatology for evaluation of polyarthralgia in the setting of positive MIGUEL ANGEL. The patient has had multiple rheumatology work-up one in 2011 and again in September 2017 for joint pain and positive MIGUEL ANGEL. MIGUEL ANGEL titer was 1:80 on 10/13/2017: All subsequent serology negative for: Rheumatoid factor negative, CCP negative, CPK 73, sed rate 12, CRP 0.24, double-stranded DNA negative, scleroderma antibodies negative, ZOYA negative, Sjogren's antibodies negative, Lyme negative. Current Rheumatology Medication(s): Tramadol 50mg 1-2 times per day [facility] Medical History (Updated 04/05/24 @ 14:20 by Mayelin Sandhu MD) Osteopenia Medial epicondylitis Primary osteoarthritis involving multiple joints Numbness and tingling in both hands COVID-19 vaccine administered Arthritis Hx of migraine headaches Elevated cholesterol Asthma Surgical History Hx of LASIK H/O colonoscopy Family History Father Hypertension Mother Liver cancer Social History Household Members: Spouse Alcohol intake: current Alcohol intake frequency: holidays/special occasions only Alcohol type: beer Patient Tobacco Use Status: Current everyday Tobacco user Cigarettes Per Day: 1 Years Smoked: 53 Current occupational status: disabled Review of Systems Const Details: Review of Systems Constitutional: Denies fever, chills, weight loss ENT: Denies vision changes, eye pain or eye redness, dental caries, dry mouth GI: Denies nausea, vomiting, diarrhea, abdominal pain, change in BM Pulm: Denies SOB, DING, hemoptysis, wheezing Cards: Denies chest pain, palpitations Skin: Denies Raynaud's, rash, nail changes, photosensitivity, CONFERENCE PLANNER: Denies headaches, weakness, paresthesias, recurrent falls MSK: as per HPI All other systems reviewed and are unremarkable except noted above Physical Exam Vital Signs: Last Vital Signs Pulse 102 H 04/05/24 13:13 BP 142/80 H 04/05/24 13:13 BMI result Body Mass Index 34.4 Const Other: Physical Examination CONSTITUITIONAL Patient alert and cooperative. Well appearing and in no apparent painful distress HEENT Conjunctiva and sclera clear. ?Pupils equal round and reactive to light. ?No ly mphadenopathy. ? CHEST/RESPIRATORY SYSTEM Normal respiratory effort and able to speak in complete sentences. ?Clear to auscultation bilaterally. ?No crackles, rales, rhonchi, wheezes heard. CARDIAC SYSTEM Regular rate and rhythm. ?S1 and S2 heard no murmurs. ?Radial pulses intact bilaterally MSK Hands: ?Good exhaust and muffler fitter strength bilaterally. No deformities noted. ?No synovitis noted to the MCPs, PIPs or DIPs. ?No tenderness to palpation of these joints. Wrists: ?Full range of motion at the wrists without pain. ?No tenderness to palpation or synovitis noted to the wrists. Elbows: Full range of motion without pain. No tenderness, weakness, swelling, increased warmth or erythema. Tenderness to palpation of the left medial epicondyle. Pain is exacerbated by resisted wrist flexion. This is a no tenderness of the right medial epicondyle. Shoulders: Full range of motion without pain. No tenderness, weakness, swelling, increased warmth or erythema. Knees: ?Full range of motion. ?No tenderness, swelling, increased warmth or erythema. Tender points:?No tenderness to palpation of the bilateral trapezius, sup raspinatus, greater trochanters, anterior costochondral junctions, bilateral gluteal areas, bilateral suboccipital muscle insertions SKIN Skin intact without rashes. Results Reviewed Results Reviewed: No recent labs for review. Assessment & Plan Assessment & Plan (1) Primary osteoarthritis involving multiple joints: Code(s): M15.9 - Polyosteoarthritis, unspecified Category: Medical Plan: #Polyarticular OA Patient with polyarticular osteoarthritis. Responding well to topical diclofenac. Continue same. Also responds well to 1-2 tablets per day of 50 mg tramadol Plan - Continue topical diclofenac 1% - Continue Tramadol 50mg 1-2 times per day - RTC 1 year (2) Medial epicondylitis: Code(s): M77.00 - Medial epicondylitis, unspecified elbow Category: Medical Qualifiers: Laterality: left Qualified Code(s): M77.02 - Medial epicondylitis, left elbow Plan: #Left medial epicondylitis Patient with examination consistent with left medial epicondylitis. Printed exercises for her and told her that she could also apply topical diclofenac to her elbow. Plan - Topical diclofenac - Printed exercises (3) Osteopenia: Code(s): M85.80 - Other specified disorders of bone density and structure, unspecified site Category: Medical Qualifiers: Osteopenia location: multiple sites Qualified Code(s): M85.89 - Other specified disorders of bone density and structure, multiple sites Plan: #Osteopenia Patient with osteopenia of the AP spine and left femur neck. Highest T-score - 2.2 Ensure vitamin-D supplementation Weight-bearing exercises Repeat DEXA Plan I spent 20 minutes reviewing the record and labs, taking a history, examining the patient, discussing the treatment plan and documenting in the medical record Orders: Orders XR DEXA axial skeleton Today M81.0 - Age-related osteoporosis without current pathological fracture Medications: Refilled diclofenac sodium 1% apply to knees, ankle, foot; for foot includes sole/toes/top of foot 2 grams topical BID 100 grams 1RF M15.9 - Polyosteoarthritis, unspecified Coding Level of Care Code Est Pt Level 3 (12582) Diagnoses Primary osteoarthritis involving multiple joints M15.9 Medial epicondylitis of left elbow M77.02 Laterality: left Osteopenia of multiple sites M85.89 Osteopenia location: multiple sites
== END 2024-04-05 13:49 | disposition home or self-care (01) ==
PROVIDERS: PCP Internal Medicine; Visit Provider Student in an Organized Health Care Education/Training Program
DX: M15.9 Polyosteoarthritis, unspecified (principal); M77.02 Medial epicondylitis, left elbow; M85.89 Other specified disorders of bone density and structure, multiple sites
CPT/HCPCS: 99213

== ENCOUNTER → 2024-04-05 13:04 | Outpatient (BNVA) | payer OTHER, SELFPAY | PROVIDERS: PCP Internal Medicine; Visit Provider Student in an Organized Health Care Education/Training Program | DX: M15.9 Polyosteoarthritis, unspecified (principal); M77.02 Medial epicondylitis, left elbow; M85.89 Other specified disorders of bone density and structure, multiple sites | CPT/HCPCS: 99212 ==

== ENCOUNTER → 2024-04-23 10:55 | Outpatient (BNV) | payer OTHER, SELFPAY | PROVIDERS: PCP Internal Medicine; Visit Provider Radiology Diagnostic Radiology | DX: N28.1 Cyst of kidney, acquired (principal); K76.0 Fatty (change of) liver, not elsewhere classified; Q44.6 Cystic disease of liver | CPT/HCPCS: 74183 ==

== ENCOUNTER 2024-04-23 11:09 | Outpatient (REF) | payer OTHER, SELFPAY ==
--- NOTE | ~2024-04-23 | MR_ITS ---
EXAMINATION: MRI Abdomen without and with contrast HISTORY: liver and renal cysts, please identify and r/o malignant features COMPARISON: Correlation is made with an abdominal ultrasound dated 03/27/2024. TECHNIQUE: Axial in and out of phase T1-weighted gradient echo, axial diffusion weighted, and axial and coronal haste T2 with fat saturation images were obtained through the abdomen. 3D MRCP Reconstructed images and thick slab imaging of the biliary tree were obtained. Subsequently, fat suppressed axial and coronal T1-weighted images were obtained after the intravenous administration of 7 mL Gadavist. FINDINGS: There is diffuse loss of signal intensity within the liver on opposed phase imaging consistent with steatosis. There is a 9 mm T2 hyperintense mass at the dome of the left lobe of the liver which does not demonstrate enhancement, consistent with a cyst. There is a 12 mm cyst in the caudate lobe. A smaller cyst is seen in the inferior tip of the right lobe. No enhancing liver mass is identified. There is no intra or extrahepatic biliary ductal dilatation. The hepatic and portal veins are patent. The gallbladder, spleen, pancreas, adrenals, and right kidney are unremarkable. There is a 1.3 cm cyst at the lower pole of the left kidney. No retroperitoneal lymphadenopathy or ascites is identified in the upper abdomen. The visualized bones demonstrate normal marrow signal intensity. MR/MR abdomen wo/w con IMPRESSION: 1. Hepatic steatosis. 2. Hepatic and left renal cysts as described. Electronically signed by: Preet Schwartz MD 04/23/2024 01:07 PM ALVARO
[2024-04-23] MEDS: gadobutroL 7.5 ML VIAL IVPUSH (12:14)
--- OUTSIDE RECORDS SUMMARY | 2024-04-23 16:04 | XMS_ITS | Encounter Summary ---
Demographics Address [address] [place] [address] Mobile Phone Home Phone Preferred Language es Marital Status Voodoo Affiliation Unknown Race Other Race Ethnic Group or Author Organization [employer] Address [address] [place] [address] Care Team Providers Care Assistant Strength Coach Name Role Phone Gracie Singer MD Primary Care Provider + Reason for Visit * Reason Onset Date Comments Durable Medical Equipment 04/10/2024 Encounter Details Date Type Department Care Team (Late st Contact Info) Description 04/10/2024 Telephone [facility] [address] [place], [place] [phone] Luly Stokes MA Durable Medical Equipment Social History Tobacco Use Types Packs/Day Years Used Date Smoking Tobacco: Every Day Cigarettes 0.5 49.8 Started: [birth year]/1974 Smokeless Tobacco: Never Comments:Started at age 13 y o, smoked 1/2ppd x 45y, cut down to 3 cig/d for the past year Alcohol Use Standard Drinks/Week Comments Yes 0 (1 standard drink = 0.6 oz pur e alcohol) oca Housing Stability Answer Date Recorded What is your housing situation today? I have miguel graves 07/25/[address] you li ve. Do you have problems with any of the following? None of the above 07/25/2023 Food Insecurity Answer Date Recorded Within the past 12 months, y ou worried that your food would run out before you got money to buy more: Never True 07/25/2023 Within the past 12 months,th e food you bought just didn't last and you didn't have enough money to get more: Never True Transportation Answer Date Recorded In the past 12 months, has l ack of transportation kept you from medical appts, meetings, work or from getting things needed for daily living? No 07/25/2023 Utilities Answer Date Recorded In the past 12 months, has t he electric, gas, oil or water company threatened to shut off services in your home? No 07/25/2023 Depression Answer Date Recorded Patient Health Questionnaire-2 Score 0 07/25/2023 Comments No Sex and Gender Information Value Date Recorded Sex Assigned at Female 01/25/2022 10:16 AM EDT Legal Sex Female 10:16 AM EDT Gender Identity Female 01/25/2022 10:16 AM EDT Sexual Orientation Straight 01/25/2022 10 :16 AM EDT documented as of this encounter Miscellaneous Notes * Telephone Encounter - Luly Stokes MA - 04/10/2024 11:49 AM EST Script for right ankle brace submitted through [employer] for processing. Supplier should contact patient. documented in this encounter Plan of Treatment Not on file documented as of this encounter Visit Diagnoses Not on filedocumented in this encounter Care Teams Assistant Strength Coach Relationship Specialty Start Date End Date Gracie Singer MD [address] [place] [id number] PCP - General Family Medicine 05/14/20 documented as of this encounter
--- OUTSIDE RECORDS SUMMARY | 2024-04-23 16:05 | XMS_ITS ---
Author Name Tio HAZEL Rodríguez Paul Gilliam Address [address] [place] [address] Phone [phone] [facility] Care Team Providers Care Senior Engineering Specialist Name Role Phone Julienne Kinsey Unavailable [phone] Unavailable Unavailable Unavailable Castrenone, Ashleigh Unavailable Unavailable Reason for Referral Not Available Allergies, adverse reactions, alerts No known allergies History of medication use Medication Class Instructions Start Date End Date traZODone 50 mg Tab TOME HANK TABLETA TOD OS LOS D AL ACOST2021-05-11 No Data Available VITAMIN D3 50 MCG (2,000 UNIT) TOME HANK C PSULA TODOS LOS D 2020-11-17 No Data Available Flovent HFA 220 MCG/ACT Aerosol TOME DOS INHALACIONES POR V A ORAL DOS VECES AL D A 2021-08-11 No Data Available Diclofenac Sodium 75 mg Tab delayed rel TOME HANK TABLETA DOS VECES AL D A CON ALIMENTO 2021-06-15 No Data Available Simvastatin 20 mg Tab TOME HANK TABLETA T ODOS LOS D EN LA NOCHE 2021-02-13 No Data Available Amitriptyline 25 mg Tab 1 tablet as needed 2022-02-01 No Data Available traMADol 50 mg Tab 1 tablet orally q 12 hours as needed 2022-02-01 No Data Available Artificial Tears 0.2-0.2-1 % Solution Ophthalmic 1 drop each eye at bedtime 2022-02-01 No Data Avail able Cyclobenzaprine 10 mg Tab TAKE 1/2 TABLE T POR V A ORAL TODOS LOS D AL ACOSTARSE 2022-10-20 No Data Available Naproxen 500 mg Tab TOME HANK TABLETA DOS VECES AL D A 2022-10-20 No Data Available SUMAtriptan Succinate 50 mg Tab TAKE 1 TABLET (50 MG) BY MOUTH 1 (ONE) TIME IF NEEDED FOR MIGRAINE. 2022-10-27 No Data Available Vitamin D3 50 MCG (1999 UT) Cap TOME HANK C PSULA TODOS LOS D 2023-05-11 No Data Available predniSONE 20 mg Tab TOME DOS TABLETAS P OR V A ORAL TODOS LOS D POR 5 D 2023-07-25 2023-09-16 CALCIUM 600 MG-VIT D3 5 MCG TB TOME 1 TA BLETA POR V A ORAL DOS VECES AL D A 2023-07-25 No Data Available Ventolin HFA 108 (90 Base) MCG/ACT Aerosol Solution TOME DOS INHALACIONES POR V A ORAL CUATRO VECES AL D A CUANDO SEA NECESARIO 2023-07-28 No Data Available Problem List Problem Status Onset Date Resolved Date Vitamin D deficiency Active 2022-02-01 N/A Insomnia Active 2022-02-01 N/A Dry eye syndrome of bilateral lacrimal glands Active 2022-02-01 N/A Obesity due to excess calories Active 2023-01-24 N/A Opioid use, uncomplicated Active 2022-02-01 N/ A Pulmonary fibrosis, unspecified Active 7 N/A Sacroiliitis, not elsewhere classified Active 16-02-07 N/A Migraine Active 2023-01-24 N/A Hyperlipidemia Active 2022-02-01 N/A 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 N/A Nerve pain Active 2023-09-16 N/A Major depressive disorder, recurrent, mild Active 2023-09-16 N/A Other problems related to [facility] facilities and other health care Active 2023-09-16 N/A Encounters Encounters Type Facility Date of Service Diagnosis/Co mplaint New patient,40-59min; chronic exacerbation, 2 stable chronic or 1 acute illness add add modifier 95 for video (do not use for phone, instead use 24038-77) [facility] [place] 02/01/2022 Hyperlipidemia, unspecifiedInsomnia, unspecifiedUnspecified asthma, uncomplicatedVitamin D deficiency, unspecifiedLow back pain, unspecifiedOpioid dependence, uncomplicatedDry eye syndrome of bilateral lacrimal glands New patient,40-59min; chronic exacerbation, 2 stable chronic or 1 acute illness add add modifier 95 for video (do not use for phone, instead use 49582-88) [facility], [place] 02[place]/2022 New patient,40-59min; chronic exacerbation, 2 stable chronic or 1 acute illness add add modifier 95 for video (do not use for phone, instead use 14352-69) [facility], ([place]) 02/[place]/2022 New patient,40-59min; chronic exacerbation, 2 stable chronic or 1 acute illness add add modifier 95 for video (do not use for phone, instead use 53316-62) [facility], [place] 02/[place]/2022 New patient,40-59min; chronic exacerbation, 2 stable chronic or 1 acute illness add add modifier 95 for video (do not use for phone, instead use 69755-48) [facility], [place] 02/[place]/2022 New patient,40-59min; chronic exacerbation, 2 stable chronic or 1 acute illness add add modifier 95 for video (do not use for phone, instead use 22004-18) [facility], [place] 02/[place]/2022 New patient,40-59min; chronic exacerbation, 2 stable chronic or 1 acute illness add add modifier 95 for video (do not use for phone, instead use 33156-08) [facility], [place] 02[place]/2022 New patient,40-59min; chronic exacerbation, 2 stable chronic or 1 acute illness add add modifier 95 for video (do not use for phone, instead use 43804-05) [facility], [place] 02/[place]/20[place] New patient,40-59min; chronic exacerbation, 2 stable chronic or 1 acute illness add add modifier 95 for video (do not use for phone, instead use 82222-93) [facility], [place] 02/[place]/2022 Estab. patient 30-39min; chronic exacerbation, 2 stable chronic or 1 acute illness add add modifier 95 for video, (do not use for phone, instead use 09751-32) [facility], [place] 01/24/2023 Hyperlipidemia, unspecifiedInsomnia, unspecifiedPulmonary fibrosis, unspecifiedVitamin D deficiency, unspecifiedSacroiliitis, not elsewhere classifiedOpioid dependence, uncomplicatedDry eye syndrome of bilateral lacrimal glandsOther obesity due to excess caloriesBody mass index (bmi) 31.0-31.9, adultMigraine, unspecified, not intractable, without status migrainosus Estab. patient 30-39min; chronic exacerbation, 2 stable chronic or 1 acute illness add add modifier 95 for video, (do not use for phone, instead use 73970-81) [facility], ([place] 01[place]/20[place] Estab. patient 30-39min; chronic exacerbation, 2 stable chronic or 1 acute illness add add modifier 95 for video, (do not use for phone, instead use 68218-82) [facility], [place]/20[place] Estab. patient 30-39min; chronic exacerbation, 2 stable chronic or 1 acute illness add add modifier 95 for video, (do not use for phone, instead use 40859-79) [facility], [place] 01[place]24/20[place] Estab. patient 30-39min; chronic exacerbation, 2 stable chronic or 1 acute illness add add modifier 95 for video, (do not use for phone, instead use 26109-16) [facility], ([place] 01[place]24/20[place] Estab. patient 30-39min; chronic exacerbation, 2 stable chronic or 1 acute illness add add modifier 95 for video, (do not use for phone, instead use 90109-70) [facility], ([place] 01[place]24/20[place] Estab. patient 30-39min; chronic exacerbation, 2 stable chronic or 1 acute illness add add modifier 95 for video, (do not use for phone, instead use 73914-39) [facility], ([place] 09[place]16/2023 Hyperlipidemia, unspecifiedInsomnia, unspecifiedPulmonary fibrosis, unspecifiedVitamin D deficiency, unspecifiedSacroiliitis, not elsewhere classifiedOpioid use, unspecified, uncomplicatedDry eye syndrome of bilateral lacrimal glandsOther obesity due to excess caloriesMigraine, unspecified, not intractable, without status migrainosusMajor depressive disorder, recurrent, mildFunctional disorders of polymorphonuclear neutrophilsNeuralgia and neuritis, unspecifiedOther problems related to medical facilities and other health care Estab. patient 30-39min; chronic exacerbation, 2 stable chronic or 1 acute illness add add modifier 95 for video, (do not use for phone, instead use 16199-33) [facility], [place] 09[place]/20[place] Estab. patient 30-39min; chronic exacerbation, 2 stable chronic or 1 acute illness add add modifier 95 for video, (do not use for phone, instead use 18356-59) [facility], [place] 09[place]16/2023 Estab. patient 30-39min; chronic exacerbation, 2 stable chronic or 1 acute illness add add modifier 95 for video, (do not use for phone, instead use 50746-67) [facility] ([place] 09[place]16/2023 Estab. patient 30-39min; chronic exacerbation, 2 stable chronic or 1 acute illness add add modifier 95 for video, (do not use for phone, instead use 67462-05) [facility] ([place] 09/16/2023 Estab. patient 30-39min; chronic exacerbation, 2 stable chronic or 1 acute illness add add modifier 95 for video, (do not use for phone, instead use 49529-22) [facility], [place] 09/16/2023 Estab. patient 30-39min; chronic exacerbation, 2 stable chronic or 1 acute illness add add modifier 95 for video, (do not use for phone, instead use 50115-85) [facility], [place] 09/[place]/2023 Immunizations Vaccine Date Status pneumococcal, unspecified formulation (PCV13) 17-12-29 Complete SARS-COV-2 (COVID-19) vaccine, UNSPECIFIED (covi d-19) 2021-04-18 Complete influenza, unspecified formulation (Influenza) 2 Complete zoster, unspecified formulation 2021-01-25 Complete Vital Signs Date of Collection Vitals 2022-02-01 04:58:22 Height - 144.78 cmWe ight - 62.6 kgBody Mass Index (BMI) - 29.86 kg/m2BP Diastolic - 74.0 mm[Hg]BP Systolic - 128.0 mm[Hg] 2023-01-24 11:05:42 Height - 149.86 cmWe ight - 69.85 kgBody Mass Index (BMI) - 31.1 kg/m2 2023-09-16 06:13:09 Height - 149.86 cmWe ight - 69.4 kgBody Mass Index (BMI) - 30.9 kg/m2 Social History Social History Social History Observation Description Effec tive Time Current Smoking Status Current every day smoker 2024-04-23 Sex Female History of Procedures Procedures Service Procedure code Service date Servicing provider Phone# New patient,40-59min; chronic exacerbation, 2 stable chronic or 1 acute illness add add modifier 95 for video (do not use for phone, instead use 32490-74) 12025 2022-02-01 No Data Available No Data Availa ble Pain Assessment - Pain Documented (1125F) 1125F 2022-02-01 No Data Available No Data Availa ble Medication List Documented (1159F) 1159F 2022-02-01 No Data Available No Data Kassie ilable Medication Review by prescribing provider or pharmacist documented (1160F) 1160F 2022-02-01 No Data Available No Data Kassie ilable Functional Status Assessed (1170F) 1170F 2022-02-01 No Data Available No Data Avail able Advance Care Directive Advance care planning discussion documented in the medical record (1158F) 1158F 2022-02-01 No Data Available No Data Availa ble SBP < 130 (3074F) 3074F 2022-02-01 No Data Available No Data Available DBP <80 (3078F) 3078F 2022-02-01 No Data Available No Data Available BMI obtained (3008F) 3008F 2022-02-01 No Data Availab le No Data Available Estab. patient 30-39min; chronic exacerbation, 2 stable chronic or 1 acute illness add add modifier 95 for video, (do not use for phone, instead use 48367-48) 54633 2023-01-24 No Data Available No Data Availa ble Medication List Documented (1159F) 1159F 2023-01-24 No Data Available No Data Kassie ilable Medication Review by prescribing provider or pharmacist documented (1160F) 1160F 2023-01-24 No Data Available No Data Kassie ilable Pain Assessment - Pain Documented (1125F) 1125F 2023-01-24 No Data Available No Data Availa ble BMI obtained (3008F) 3008F 2023-01-24 No Data Availab le No Data Available Advance care planning discussed and documented ? advance care plan or surrogate decision-maker was documented in the medical record. (1123F) 1123F 2023-01-24 No Data Available No Data Availa ble Estab. patient 30-39min; chronic exacerbation, 2 stable chronic or 1 acute illness add add modifier 95 for video, (do not use for phone, instead use 49546-54) 81621 2023-09-16 No Data Available No Data Availa ble Medication List Documented (1159F) 1159F 2023-09-16 No Data Available No Data Kassie ilable Medication Review by prescribing provider or pharmacist documented (1160F) 1160F 2023-09-16 No Data Available No Data Kassie ilable Pain Assessment - Pain Documented (1125F) 1125F 2023-09-16 No Data Available No Data Availa ble BMI obtained (3008F) 3008F 2023-09-16 No Data Availab le No Data Available Pain Assessment - Pain Documented (1125F) 1125F 2023-09-16 No Data Available No Data Availa ble Functional Status Assessed (1170F) 1170F 2023-09-16 No Data Available No Data Avail able Functional Status Functional Category Effective Dates Cognition Status: Oriented to Person, Pl dawna and Time 2022-02-01 ADL: Bathing Independent , D ressing Independent , Eating Independent , Ambulation Independent , Transferring Independent and Toileting Independent 2022-02-01 IADL: Medication Independent , Meal Prep Independent , Shopping Independent and Driving or Public Transport Needs Assistance 2022-02-01 Falls in last 6 Months: no 2022-02-01 Denies using assistive devices to ambula te. 2023-01-24 Mental Status Status Date AOx3 2023-01-24 Assessments Date of Service Assessments 2022-02-01 04:58:22 HyperlipidemiaInsomn iaAsthmaVitamin D deficiencyLumbagoOpioid dependence, uncomplicatedDry eye syndrome of bilateral lacrimal glands 2023-01-24 11:05:42 HyperlipidemiaInsomn iaPulmonary fibrosis, unspecifiedVitamin D deficiencySacroiliitis, not elsewhere classifiedOpioid dependence, uncomplicatedDry eye syndrome of bilateral lacrimal glandsObesity due to excess caloriesMigraine 2023-09-16 06:13:09 Other problems relat ed to medical facilities and other health careHyperlipidemiaInsomniaPulmonary fibrosis, unspecifiedVitamin D deficiencySacroiliitis, not elsewhere classifiedOpioid use, uncomplicatedDry eye syndrome of bilateral lacrimal glandsObesity due to excess caloriesMigraineMajor depressive disorder, recurrent, mildFunctional disorders of polymorphonuclear neutrophilsNerve pain Plan of Care Date of Service Plans 2022-02-01 04:58:22 Pain Assessment - NO pain documented (1126F)Medication Review by prescribing provider or pharmacist documented (1160F)Medication List Documented (1159F)Functional Status Assessed (1170F)Advance Care Directive Advance care planning discussion documented in the medical record (1158F)BMI obtained (3008F)sbdbTelevideo new patient,40-59min; chronic exacerbation, 2 stable chronic or 1 acute illness add modifier 95Continue to see PCP. Follow-up with [facility] as needed for any acute or disease education needs that may arise.Srnmbuv-keuybkqpdylaEiicbnv-olvatewkp-amitriptyline prnManaged-flovent HFAManagedvitamin D ajzupegrinTnmihdq-qjhbooxjXtlumqi-ibhefffj-follow up every 3 monthsManaged-artificial tears 2023-01-24 11:05:42 Medication Review by prescribing provider or pharmacist documented (1160F)Medication List Documented (1159F)Functional Status Assessed (1170F)Advance Care Directive Advance care planning discussion documented in the medical record (1158F)BMI obtained (3008F)Televideo 30-39min; chronic exacerbation, 2 stable chronic or 1 acute illness add modifier 95Advance care planning discussed and documented ? advance care plan or surrogate decision-maker was documented in the medical record. (1123F)Pain Assessment - Pain Documented (1125F)Advance care planning discussed and documented in the medical record ? beneficiary/patient did not wish to or was unable to provide an advance care plan or name a surrogate decision-maker. (1124F)Continue to see PCP. Follow-up with [facility] as needed for any acute or disease education needs that may arise.Dmrzhum-utlpyhdbrioqFyqxkpm-htzwczqnp-amitriptyline prnManaged-flovent HFAManagedvitamin D qtkncpyyrsPdronfw-nmcywvjmAzgcixo-ydgiyipv-follow up every 3 monthsManaged-artificial tearsBMI: 31.10Lifestyle interventions and continue f/u care with PCP.Sumatriptan Continue f/u care with PCP. 2023-09-16 06:13:09 Medication Review by prescribing provider or pharmacist documented (1160F)Medication List Documented (1159F)Functional Status Assessed (1170F)Advance Care Directive Advance care planning discussion documented in the medical record (1158F)BMI obtained (3008F)Televideo 30-39min; chronic exacerbation, 2 stable chronic or 1 acute illness add modifier 95Pain Assessment - Pain Documented (1125F)Advance care planning discussed and documented ? advance care plan or surrogate decision-maker was documented in the medical record. (1123F)Continue to see PCP. Follow-up with [facility] as needed for any acute or disease education needs that may arise.PAIN CONTINGENCY PLANWorsening Pain Member to call for the following symptoms: Decreased mobility/ Fall??/ Increased pain/ Increased pain meds/ Joint swellingPlanned intervention: Tylenol 1,000mg q6h/ Lidoderm patch 4% to affected area/ Voltaren gel to affected area/ Apply heat to affected areaManaged-atorvastatinDietary interventions, exercise as tolerable, and continue with PCP.Gietmmb-dxipngtkb-mbquowwjwsqks prnManaged-flovent HFAContinue f/u care with pulmonology.Managedvitamin D supplementManaged-tramadolContinue with PCP.Ikjtxyn-levdrbys-lnzowy up every 3 monthsManaged-artificial tearsBMI: 31.10Lifestyle interventions and continue f/u care with PCP.StableSumatriptan Continue f/u care with PCP and neurology.StableDecline wanting to start antidepressant. Denies SI/HIMonitor for worsening depression, coping mechanisms, and continue with PCP.StableMonitor for s/sx of infection and continue with PCP.StableAmitriptyline ROM exercises, monitor for adverse effects and continue with PCP. Goals Date Goal 2022-02-01 Remember to 2022-02-01 Call me if 2022-02-01 Keep it up 2023-01-24 Remember to contact EMS if developing emergent symptoms. 2023-01-24 Contact us if develo ping worsening migraines, s/sx of respiratory distress, difficulty sleeping or worsening pain. 2023-01-24 Continue taking medi cations as prescribed and f/u care and monitoring with PCP every 3-6 months. 2023-09-16 Remember to adhere t o dietary interventions and exercise as tolerable. 2023-09-16 Contact us if develo ping worsening pain, worsening depression, migraines, s/sx infection, excessive sedation or health-related concerns. 2023-09-16 Continue taking medi cations as prescribed and f/u care and monitoring with PCP every 3-6 months. Health Concerns Date Concern 2023-09-16 Visit completed usin g audio/video. Patient/Guardian agreed to visit via telehealth. Today, patient has chief complaint of: follow up care and comprehensive review.Reviewed Allergies, Medications, Active Medical conditions, past medical/surgical history, Social history. 2023-09-16 HCP: yes (Martha Vasquez s - sister). ACP: yes. Full code. 2023-09-16 Most recent hospital stay(s) or ER visit(s) and precipitating factors: denies in the last month. 2023-09-16 Informed verbal cons ent was obtained from this patient to communicate and provide care using virtual and other telecommunications tools. This patient has been explained the risks, if any, related to the encounter. I explained that care provided through video or audio communication cannot replace the need for physical examination or an in-person visit for some disorders or urgent problems.
--- OUTSIDE RECORDS SUMMARY | 2024-04-23 16:05 | XMS_ITS | Encounter Summary ---
Author Organization [employer] [facility] Address [address] [place] [address] Care Team Providers Care Psychological Operations Officer Name Role Phone Gracie Singer MD Primary Care Provider + Reason for Referral * Imaging (Routine) - Canceled Specialty Diagnoses / Procedures Referred By Karolyn cohen Referred To Contact Radiology Diagnoses Elevated liver function tests Liver cyst Renal cyst, acquired, left Procedures MRI (ABDOMEN AND PELVIS) WANDW/O CONTRAST Gracie Singer MD [address] [place] [address] Phone: tel: fax: [address] Phone: tel: fax: Referral ID Status Reason Start Date Expiration Date V isits Requested Visits Authorized [id number] Canceled 04/06/2024 04/06/2025 1 1 Encounter Details Date Type Department Care Team (Late st Contact Info) Description 04/04/2024 Telephone [facility] [address] [place], [place] [phone] Gracie Singer MD [address] [place], [place] [phone] Social History Tobacco Use Types Packs/Day Years [...] as of this encounter Miscellaneous Notes * Addendum Note - Gracie Singer MD - 04/06/2024 4:39 PM ESTAddended by: GRACIE SINGER on: 04/06/2024 04:39 PM Modules accepted: Orders * Telephone Encounter - Gracie Singer MD - 04/06/2024 4:37 PM EST MRI abd replaced as below. * Telephone Encounter - Shannan Flores - 04/04/2024 9:03 AM EST Incoming call from Mandie at [facility] requesting MRI order to be update to MRI Abdomen WWO Contrast . Please review and advise . documented in this encounter Plan of Treatment Scheduled Orders Name Type Priority Associated Diagnoses Orde r Schedule MRI (ABDOMEN AND PELVIS) WANDW/O CONTRAST Imaging Routine Elevated liver function tests Liver cyst Renal cyst, acquired, left Expected: 04/06/2024 (Approximate), Expires: 04/06/2025 documented as of this encounter Visit Diagnoses Diagnosis Elevated liver function tests- Primary Other abnormal blood chemistry Liver cyst Other specified disorders of liver Renal cyst, acquired, left documented in this encounter Care Teams Psychological Operations Officer Relationship Specialty Start Date End Date Gracie Singer MD [address] [place] [id number] PCP - General Family Medicine 05/14/20 documented as of this encounter
--- OUTSIDE RECORDS SUMMARY | 2024-04-23 16:05 | XMS_ITS | Encounter Summary ---
Demographics Address [address] [place] [address] Mobile Phone Home Phone Preferred Language es Marital Status Episcopal Affiliation Unknown Race Other Race Ethnic Group or Author Organization [employer] Address [address] [place] [address] Care Team Providers Care Candy Catcher Name Role Phone Gracie Singer MD Primary Care Provider + Reason for Visit * Reason Onset Date Comments Med Refill 10/14/2023 Encounter Details Date Type Department Care Team ([facility] st Contact Info) Description 10/14/2023 Telephone [facility] [address] [place], [place] [phone] Gracie Singer MD [address] [place], [place] [phone] Med Refill Social History Tobacco Use Types Packs/Day Years Used Date Smoking Tobacco: Some Days Cigarettes 0.5 49.8 Started: 07/12/1975 Smokeless Tobacco: [...] Patient Health Questionnaire-2 Score 0 07/25/2023 Comments Unknown Sex and Gender Information Value Date Recorded Sex Assigned at Female 01/25/2022 10:16 AM EDT Legal Sex Female 10:16 AM EDT Gender Identity Female 01/25/2022 10:16 AM EDT Sexual Orientation Straight 01/25/2022 10 :16 AM EDT documented as of this encounter Miscellaneous Notes * Telephone Encounter - Elizabet Epps LPN - 10/14/2023 1:18 PM EDT Medication was sent to [facility] #[id number] on 05/09/23 #90 with 3 refills. * Telephone Encounter - David Gallo - 10/14/2023 1:16 PM EDT TC from pt requesting medication refill. Medications needing refill: simvastatin (Zocor) 20 MG table To be sent to: [facility]/pharmacy #[address] documented in this encounter Plan of Treatment Not on file documented as of this encounter Visit Diagnoses Not on filedocumented in this encounter Care Teams Candy Catcher Relationship Specialty Start Date End Date Gracie Singer MD [address] [place] [address] PCP - General Family Medicine 05/14/20 documented as of this encounter
--- OUTSIDE RECORDS SUMMARY | 2024-04-23 16:05 | XMS_ITS | Encounter Summary ---
Author Organization [employer] Address [address] [facility] 7t [place] [address] Care Team Providers Care Dressmaking Teacher Name Role Phone Gracie Singer MD Primary Care Provider + Reason for Visit * Reason Onset Date Comments Appointment Request 06/23/2022 Encounter Details Date Type Department Care Team ([facility] st Contact Info) Description 06/23/2022 Telephone [facility] MEDICINE [address] [place], [place] [phone] Gracie Singer MD [address] [place], [place] [phone] Appointment Request Social History Tobacco Use Types Packs/Day Years Used Date Smoking Tobacco: Some Days Cigarettes Smokeless Tobacco: Never Alcohol Use Standard Drinks/Week Comments Yes 0 (1 standard drink = 0.6 oz pur e alcohol) rare Depression Answer Date Recorded Patient Health Questionnaire-2 Score 0 04/02/2022 Comments Unknown Sex and Gender Information Value Date Recorded Sex Assigned at Female 01/25/2022 10:16 AM EDT Legal Sex Female 10:16 AM EDT Gender Identity Female 01/25/2022 10:16 AM EDT Sexual Orientation Straight 01/25/2022 10 :16 AM EDT documented as of this encounter Miscellaneous Notes * Telephone Encounter - Di Zamarripa - 06/23/2022 4:27 PM EDT Tc from pt sister requesting to r/s appt for 07/09/2022. Pt sister states that they would like somelater the Марина. Please contact pt at [phone] documented in this encounter Plan of Treatment Not on file documented as of this encounter Visit Diagnoses Not on filedocumented in this encounter Care Teams Dressmaking Teacher Relationship Specialty Start Date End Date Gracie Singer MD [address] [place] [address] PCP - General Family Medicine 05/14/20 documented as of this encounter
--- OUTSIDE RECORDS SUMMARY | 2024-04-23 16:05 | XMS_ITS | Encounter Summary ---
Author Organization [employer] Address [address] [facility] 7t [place] [address] Care Team Providers Care Foiling Machine Adjuster Name Role Phone Gracie Singer MD Primary Care Provider + Reason for Referral * Imaging (Routine) - Canceled Specialty Diagnoses / Procedures Referred By Karolyn cohen Referred To Contact Radiology Diagnoses Liver cyst Elevated liver function tests Renal cyst, acquired, left Procedures MRI ABDOMEN PELVIS WO CONTRAST Gracie Singer MD [address] [place] [address] Phone: tel: fax: [facility] [address] [place] [address] Phone: tel: fax: Referral ID Status Reason Start Date Expiration Date V isits Requested Visits Authorized [id number] Canceled 04/02/2024 04/02/2025 1 1 Encounter Details Date Type Department Care Team (Late st Contact Info) Description 04/02/2024 Orders Only [facility] MEDICINE [address] [place], [place] [phone] Gracie Singer MD [address] [place], [place] [phone] Liver cyst (Primary Dx); Elevated liver function tests; Renal cyst, acquired, left Social History Tobacco Use Types Packs/Day Years [...] AM EDT documented as of this encounter Plan of Treatment Scheduled Orders Name Type Priority Associated Diagnoses Orde r Schedule MRI ABDOMEN PELVIS WO CONTRAST Imaging Routine Liver cyst Elevated liver function tests Renal cyst, acquired, left Expected: 04/02/2024 (Approximate), Expires: 04/02/2025 documented as of this encounter Visit Diagnoses Diagnosis Liver cyst- Primary Other specified disorders of liver Elevated liver function tests Other abnormal blood chemistry Renal cyst, acquired, left documented in this encounter Care Teams Foiling Machine Adjuster Relationship Specialty Start Date End Date Gracie Singer MD [address] [place] [id number] PCP - General Family Medicine 05/14/20 documented as of this encounter
--- OUTSIDE RECORDS SUMMARY | 2024-04-23 16:05 | XMS_ITS | Encounter Summary ---
Author Organization [employer] Address [address] [facility] 7t [place] [address] Care Team Providers Care Hospice Entrance Attendant Name Role Phone Gracie Singer MD Primary Care Provider + Encounter Details Date Type Department Care Team (Late st Contact Info) Description 04/03/2024 Telephone [facility] MEDICINE [address] [place], [place] [phone] Maria L Zhang, RN [address] [place], [place] [phone] Social History Tobacco Use Types Packs/Day Years [...] encounter Miscellaneous Notes * Telephone Encounter - Maria L Zhang RN - 04/03/2024 9:49 AM EST 2nd call attempted via [facility] Hims Clerk Davi #[id number] to advise of message from pcp RE; ABD US results. No answer, unable to leave v/m to return call to Red team RN as voicemail is not set up. * Telephone Encounter - Maria L Zhang RN - 04/03/2024 9:45 AM EST ----- Message from Gracie Singer MD sent at 04/02/2024 3:33 PM EST ----- Abd US on 03/27/24 showed 2 liver cysts (one is new, the one on left lobe is new, the other one is not), she also has fatty liver and a small renal cysts. Please call patient and tell her that the fatty liver + liver cysts may be the reason why her LFTs are a bit high but they don't seem to represent any type of malignancy. However, I would like to send her for an MRI liver to better identify those lesions, I will fu with her as scheduled or earlier PRN. documented in this encounter Plan of Treatment Not on file documented as of this encounter Visit Diagnoses Not on filedocumented in this encounter Care Teams Hospice Entrance Attendant Relationship Specialty Start Date End Date Gracie Singer MD [address] [place] [id number] PCP - General Family Medicine 05/14/20 documented as of this encounter
--- OUTSIDE RECORDS SUMMARY | 2024-04-23 16:05 | XMS_ITS | Encounter Summary ---
Author Organization [employer] Address 75 [facility] 7t [place] [address] Care Team Providers Care Glass Driller Name Role Phone Gracie Singer MD Primary Care Provider + Reason for Visit * Reason Onset Date Comments Nurse Triage 10/18/2022 Encounter Details Date Type Department Care Team ([facility] st Contact Info) Description 10/18/2022 Telephone [facility] MEDICINE [address] [place], [place] [phone] Gracie Singer MD [address] [place], [place] [phone] Nurse Triage Social History Tobacco Use Types Packs/Day Years [...] encounter Miscellaneous Notes * Telephone Encounter - Victoria Goldberg RN - 10/18/2022 11:40 AM EDT Triage call with [place] Nursing Teacher [place] [id number] Pt reports right hip pain which is of chronic nature but, much worse in the last week. Pt reports ,whole leg hurts, knee and ankle. Ankle and foot are swollen . Pt is walking with difficulty and limps. Pt reports once sitting down needs help to get up again. Pt is taking tramadol for pain which doesn't help at all. Pt is requesting to see PCP. Apt with PCP 10/27 @ 1115am. Insurance is verified as a ctive prior to booking. Protocol Used: Hip Pain (Adult) Protocol-Based Disposition: See in Office or Video Visit within 2 Weeks Video visit not offered Positive Triage Question: * Hip pain is a chronic symptom (recurrent or ongoing AND present > 4 weeks) * All higher-acuity triage questions were negative Care Advice Discussed: * Reassurance and Education - Hip Pain * Pain Medicines * Pain Medicines - Extra Notes and Warnings * Rest Your Hip for the Next Couple Days * Reasons To Call Back - Moderate pain (e.g., limping) lasts more than 3 days - Mild pain lasts more than 7 days - Signs of infection occur (e.g., spreading redness, warmth, fever) - You become worse * Use a Cold Pack for Pain * Use Heat on Area After 48 Hours * Telephone Encounter - Angie Celaya - 10/18/2022 11:20 AM EDT Symptoms: Hip Pain - Not From Injury, Leg Pain - Not From Injury, Foot or Ankle Swelling Outcome: Schedule an urgent appointment (within 1 hour) or talk to a nurse or provider soon Reason: Trouble walking The caller accepted this outcome Please contact pt at [phone] (Samoan) documented in this encounter Plan of Treatment Not on file documented as of this encounter Visit Diagnoses Not on filedocumented in this encounter Care Teams Glass Driller Relationship Specialty Start Date End Date Gracie Singer MD [address] [place] [address] PCP - General Family Medicine 05/14/20 documented as of this encounter
--- OUTSIDE RECORDS SUMMARY | 2024-04-23 16:05 | XMS_ITS | Encounter Summary ---
Demographics Address [address] [facility] [address] [place] [address] Mobile Phone Home Phone Preferred Language es Marital Status Advent Affiliation Unknown Race Other Race Ethnic Group or Author Organization [employer] Address [address] [facility] 7t [place] [address] Care Team Providers Care Ply Splicer Name Role Phone Gracie Singer MD Primary Care Provider + Reason for Visit * Reason Onset Date Comments Results 04/02/2024 Encounter Details Date Type Department Care Team ([facility] st Contact Info) Description 04/02/2024 Telephone [facility] MEDICINE [address] [place], [place] [phone] Glory Appiah RN Results Social History Tobacco Use Types Packs/Day Years [...] encounter Miscellaneous Notes * Telephone Encounter - Glory Appiah RN - 04/02/2024 4:37 PM EST TC to pt to relay message from provider as per below. Using u[employer] rod welder id# [id number]. shantell @[phone] with [facility] contact information for return call. Will retask for #2 attempt. ----- Message from Gracie Singer MD sent [...] on filedocumented in this encounter Care Teams Ply Splicer Relationship Specialty Start Date End Date Gracie Singer MD [address] [place] [phone] PCP - General Family Medicine 05/14/20 documented as of this encounter
--- OUTSIDE RECORDS SUMMARY | 2024-04-23 16:05 | XMS_ITS | Encounter Summary ---
Author Organization [employer] Address [address] [facility] [address] 7t [place] [address] Care Team Providers Care Director For Beauty School Name Role Phone Gracie Singer MD Primary Care Provider + Encounter Details Date Type Department Care Team (Late st Contact Info) Description 08/24/2023 Orders Only [facility] MEDICINE [address] [place], [place] [phone] Provider, MD John Social History Tobacco Use Types Packs/Day Years [...] as of this encounter Plan of Treatment Not on file documented as of this encounter Procedures Procedure Name Priority Date/Time Associated Diagnosis Comments HM COLONOSCOPY Routine 09/24/2020 8:23 AM EDT documented in this encounter Results * Hm Colonoscopy (09/24/2020 8:23 AM EDT) Historical Provider HEALTH MAINTENANCE Final Result documented in this encounter Visit Diagnoses Not on filedocumented in this encounter Care Teams Director For Beauty School Relationship Specialty Start Date End Date Gracie Singer MD [address] [place] [phone] PCP - General Family Medicine 05/14/20 documented as of this encounter
--- OUTSIDE RECORDS SUMMARY | 2024-04-23 16:05 | XMS_ITS | Encounter Summary ---
Demographics Address [address] [facility] [address] [place] [address] Mobile Phone Home Phone Preferred Language es Marital Status Tenriism Affiliation Unknown Race Other Race Ethnic Group or Author Organization [employer] Address [address] [facility] 7t [place] [address] Care Team Providers Care Loom Fixer Name Role Phone Gracie Singer MD Primary Care Provider + Reason for Visit * Reason Onset Date Comments Med Refill 04/11/2024 Encounter Details Date Type Department Care Team (Late st Contact Info) Description 04/11/2024 Refill [facility] MEDICINE 230 [place], [place] [phone] Gracie Singer MD [address] [place], [place] [phone] Mixed hyperlipidemia Social History Tobacco Use Types Packs/Day Years [...] Telephone Encounter - Elizabet Epps LPN - 04/12/2024 8:02 AM EST Last seen 03/07/24. * Telephone Encounter - Lopez Hernandez - 04/11/2024 4:42 PM EST TC from pt requesting medication refill. Medications needing refill : simvastatin (Zocor) 20 MG tablet 2. amitriptyline (Elavil) 25 MG tablet ( [facility] states new script needed) To be sent to: [facility]/pharmacy #[id number] documented in this encounter Plan of Treatment Not on file documented as of this encounter Visit Diagnoses Diagnosis Mixed hyperlipidemia documented in this encounter Care Teams Loom Fixer Relationship Specialty Start Date End Date Gracie Singer MD [address] [place] [address] PCP - General Family Medicine 05/14/20 documented as of this encounter
--- OUTSIDE RECORDS SUMMARY | 2024-04-23 16:05 | XMS_ITS | Encounter Summary ---
Author Organization [employer] Address [address] [facility] 7t [place] [address] Care Team Providers Care Envelope Fold Operator Name Role Phone Gracie Singer MD Primary Care Provider + Reason for Visit * Reason Onset Date Comments triage 08/16/2022 Encounter Details Date Type Department Care Team ([facility] st Contact Info) Description 08/16/2022 Telephone [facility] MEDICINE 230 [place], [place] [phone] Gracie Singer MD [address] [place], [place] [phone] triage Social History Tobacco Use Types Packs/Day Years [...] Telephone Encounter - Victoria Goldberg RN - 08/16/2022 1:39 PM EDT Triage call with [place] Molder [place] [id number] Pt sister is phone number listed. Pt is not with sister at this time. Pt is reported to have back pain. Pt sister is dying and will need to leave the area and would like to be checked before leaving.Unable to finish triage , sister is not on HIPPA and Pt not present at time of call due to phone isbroken. Advised for Pt to come to [facility] and Pt sister will give message to Pt. Protocol Used: Back Pain (Adult) Protocol-Based Disposition: See in Office or Video Visit within 3 Days Video visit not offered Positive Triage Question: * Moderate back pain (e.g., interferes with normal activities) and present > 3 days * All higher-acuity triage questions were negative * Telephone Encounter - Abram Martinez - 08/16/2022 11:04 AM EDT Symptoms: Hand or Wrist Pain - Not From Injury, Back Pain - Not From Injury Outcome: Schedule an urgent appointment (within 1 hour) or talk to a nurse or provider soon Reason: Severe pain now The caller accepted this outcome speaks hungarian documented in this encounter Plan of Treatment Not on file documented as of this encounter Visit Diagnoses Not on filedocumented in this encounter Care Teams Envelope Fold Operator Relationship Specialty Start Date End Date Gracie Singer MD [address] [place] [phone] PCP - General Family Medicine 05/14/20 documented as of this encounter
--- OUTSIDE RECORDS SUMMARY | 2024-04-23 16:05 | XMS_ITS | Encounter Summary ---
Author Organization [employer] Address [address] [facility] 7t [place] [address] Care Team Providers Care Supervisor Fabrication Department Name Role Phone Gracie Singer MD Primary Care Provider + Reason for Referral * Imaging (Routine) - Authorized Specialty Diagnoses / Procedures Referred By Karolyn cohen Referred To Contact Radiology Diagnoses Liver cyst Elevated liver function tests Renal cyst, acquired, left Procedures MR Abdomen w/ and w/o Contrast Gracie Singer MD [address] [place] [address] Phone: tel: fax: [address] Phone: tel: fax: Referral ID Status Reason Start Date Expiration Date V isits Requested Visits Authorized [id number] Authorized 04/10/2024 04/10/2025 1 1 Encounter Details Date Type Department Care Team (Late st Contact Info) Description 04/09/2024 Telephone [facility] [address] [place], [place] [phone] Gracie Singer MD [address] [place], [place] [phone] Social History Tobacco Use Types Packs/Day Years [...] Addendum Note - Gracie Singer MD - 04/10/2024 7:42 PM ESTAddended by: GRACIE SINGER on: 04/10/2024 07:42 PM Modules accepted: Orders * Telephone Encounter - Gracie Singer MD - 04/10/2024 7:40 PM EST MRI abd w/wo contrast ordered. * Telephone Encounter - Shannan Flores - 04/09/2024 12:25 PM EST Incoming call from Mand[place] [facility] [place] MRI order to be update to MRI Abdomen WWO Contrast . With out the Pelvis area. Please review and advise . documented in this encounter Plan of Treatment Not on file documented as of this encounter Procedures Procedure Name Priority Date/Time Associated Diagnosis Comments MR ABDOMEN W AND WO CONTRAST Routine 04/23/2024 10:55 AM EST Liver cyst Elevated liver function tests Renal cyst, acquired, left documented in this encounter Results * MR Abdomen w/ and w/o Contrast (04/23/2024 10:55 AM EST) Anatomical Region Laterality Modality Abdomen Magnetic Resonan ce 04/23/2024 10:5 5 AM EST Narrative 04/23/2024 1:10 PM EST ? [facility] ?[address] ?[place] [address] ? Magnetic Resonance Report ? Signed ? Patient: Love,Reena ?MR#: [id number] ?? 1 ? : 1955 ?Acct:[id number] ? Age/Sex: 69 / F ?ADM Date: 04/23/24 ? Loc: HO.MRI ? Attending Dr: Gracie Singer MD ? Ordering Physician: Gracie Singer MD ?? Date of Service: 04/23/24 ?? Procedure(s): MR abdomen wo/w con ?? Accession Number(s): [id number] ? cc: Gracie Singer MD ? EXAMINATION: ??MRI Abdomen without and with contrast ? HISTORY: liver and renal cysts, please identify and r/o malignant ?? features ? COMPARISON: ??Correlation is made with an abdominal ultrasound dated ?? 03/27/2024. ? TECHNIQUE: Axial in and out of phase T1-weighted gradient echo, axial ?? diffusion weighted, and axial and coronal haste T2 with fat saturation ?? images were obtained through the abdomen. 3D MRCP Reconstructed images ?? and thick slab imaging of the biliary tree were obtained. ? Subsequently, fat suppressed axial and coronal T1-weighted images were ?? obtained after the intravenous administration of 7 mL Gadavist. ? FINDINGS: ??There is diffuse loss of signal intensity within the liver ?? on opposed phase imaging consistent with steatosis. There is a 9 mm T2 ?? hyperintense mass at the dome of the left lobe of the liver which does ?? not demonstrate enhancement, consistent with a cyst. There is a 12 mm ?? cyst in the caudate lobe. A smaller cyst is seen in the inferior tip of ?? the right lobe. No enhancing liver mass is identified. There is no ?? intra or extrahepatic biliary ductal dilatation. The hepatic and portal ?? veins are patent. ? The gallbladder, spleen, pancreas, adrenals, and right kidney are ?? unremarkable. There is a 1.3 cm cyst at the lower pole of the left ?? kidney. No retroperitoneal lymphadenopathy or ascites is identified in ?? the upper abdomen. The visualized bones demonstrate normal marrow ?? signal intensity. ? MR/MR abdomen wo/w con ?? IMPRESSION: ? 1. Hepatic steatosis. ? 2. Hepatic and left renal cysts as described. ? Electronically signed by: ??Preet Schwartz MD ??04/23/2024 01:07 PM EST ? Dictated By: ?Preet Schwartz MD ? Signed By: ?<Electronically signed by Preet Schwartz MD in OV> ?04/23/24 1307 ? DD/ 1055 ? TD/TT: 04/23/24 1210 ? Glazing Machine Operator: ? Procedure Note Dali Hancock - 04/23/[address] [address] Magnetic Resonance Report Signed Patient: Felipe Love#: [id number] 1 : 5Acct:[id number] Age/Sex: 69 / FADM Date: 04/23/24 Loc: HO.MRI Attending Dr: Gracie Singer MD Ordering Physician: Gracie Singer MD Date of Service: 04/23/24 Procedure(s): MR abdomen wo/w con Accession Number(s): [id number] cc: Gracie Singer MD EXAMINATION: MRI Abdomen without and with contrast HISTORY: liver and renal cysts, please identify and r/o malignant features COMPARISON: Correlation is made with an abdominal ultrasound dated 03/27/2024. TECHNIQUE: Axial in and out of phase T1-weighted gradient echo, axial diffusion weighted, and axial and coronal haste T2 with fat saturation images were obtained through the abdomen. 3D MRCP Reconstructed images and thick slab imaging of the biliary tree were obtained. Subsequently, fat suppressed axial and coronal T1-weighted images were obtained after the intravenous administration of 7 mL Gadavist. FINDINGS: There is diffuse loss of signal intensity within the liver on opposed phase imaging consistent with steatosis. There is a 9 mm T2 hyperintense mass at the dome of the left lobe of the liver which does not demonstrate enhancement, consistent with a cyst. There is a 12 mm cyst in the caudate lobe. A smaller cyst is seen in the inferior tip of the right lobe. No enhancing liver mass is identified. There is no intra or extrahepatic biliary ductal dilatation. The hepatic and portal veins are patent. The gallbladder, spleen, pancreas, adrenals, and right kidney are unremarkable. There is a 1.3 cm cyst at the lower pole of the left kidney. No retroperitoneal lymphadenopathy or ascites is identified in the upper abdomen. The visualized bones demonstrate normal marrow signal intensity. MR/MR abdomen wo/w con IMPRESSION: 1. Hepatic steatosis. 2. Hepatic and left renal cysts as described. Electronically signed by: Preet Schwartz MD 04/23/2024 01:07 PM [facility] Dictated By: Preet Schwartz MD Signed By: <Electronically signed by Preet Schwartz MD in OV> 04/23/24 1307 DD/ 1055 TD/TT: 04/23/24 1210 Glazing Machine Operator: Gracie Singer MD IMG MRI PROCEDURES Final Result documented in this encounter Visit Diagnoses Diagnosis Liver cyst- Primary Other specified disorders of liver Elevated liver function tests Other abnormal blood chemistry Renal cyst, acquired, left documented in this encounter Care Teams Supervisor Fabrication Department Relationship Specialty Start Date End Date Gracie Singer MD [address] [place] [address] PCP - General Family Medicine 05/14/20 documented as of this encounter
--- OUTSIDE RECORDS SUMMARY | 2024-04-23 16:05 | XMS_ITS | Clinical Summary ---
Author Organization [employer] Address [address] [facility] [address] [place] [address] Care Team Providers Care Guest Service Representative Name Role Phone Gracie Singer MD Primary Care Provider + Allergies No known active allergies Medications acetaminophen (Tylenol) 500 MG tablet take 1-2 tablet (1000MG) by oral route TID as needed; max. 6 tabs/24 hours 017 Active albuterol (2.5 MG/3ML) 0.083% nebulizer solution Inhale 1 vial every 6 (six) hours. 019 Active loratadine (Claritin) 10 MG tablet take 1 tablet (10MG) by oral route every day as needed 022 Active pneumococcal polysaccharide (Pneumovax 23) 25 MCG/0.5ML vaccine Inject 0.5 mL into the shoulder, thigh, or buttocks. 020 Active zoster vaccine-recombina nt adjuvanted (Shingrix) 50 MCG/0.5ML vaccine Inject 0.5 mL into the shoulder, thigh, or buttocks. 020 Active cyclobenzaprine (Flexeril) 10 MG tabletIndications :Chronic right hip pain,Chronic right-sided low back pain without sciatica Take 0.5 tablets (5 mg) by mouth at bedtime. 10 tablet 023 Active naproxen (Naprosyn) 500 MG tabletIndications :Chronic right hip pain,Chronic right-sided low back pain without sciatica TOME HANK TABLETA DOS VECES AL ERIC 30 tablet 023 Active SUMAtriptan (Imitrex) 50 MG tabletIndications :Migraine without aura, not refractory Take 1 tablet (50 mg) by mouth 1 (one) time if needed for migraine. 9 tablet 11 024 2024 Active amitriptyline (Elavil) 25 MG tabletIndications :Migraine without aura, not refractory Take 1 tablet (25 mg) by mouth at bedtime. 90 tablet 3 024 2024 Active traZODone (Desyrel) 50 MG tabletIndications :Primary insomnia TAKE 1 TABLET BY MOUTH AT BEDTIME 90 tablet 3 Active albuterol 108 (90 Base) MCG/ACT inhalerIndication s:Mild persistent asthma without complication inhale 2 puffs by Inhalation route 4 times every day as needed for cough, SOB or wheeze 18 g 1 Active fluticasone (Flonase) 50 MCG/ACT nasal spray Administer 1 spray into each nostril Once per day. 16 g 2 Active fluticasone furoate (Arnuity Ellipta) 100 MCG/ACT inhaler Inhale 1 puff Once per day. 30 each 5 024 Active simvastatin (Zocor) 20 MG tabletIndications :Mixed hyperlipidemia TAKE 1 TABLET BY MOUTH AT BEDTIME 90 tablet 3 025 Active simvastatin (Zocor) 20 MG tabletIndications :Mixed hyperlipidemia TAKE 1 TABLET BY MOUTH AT BEDTIME 90 tablet 3 024 2024 Discontinued(R eorder (will not trigger notification to Pharmacy)) ergocalciferol (Vitamin D2) 1.25 MG (22633 UT) capsule Take 1 capsule (1.25 mg) by mouth 1 (one) time per week. 12 capsule 024 2024 Active Problems Problem Noted Date Diagnosed Date Renal cyst, acquired, left 04/02/2024 Elevated liver function tests 03/30/2024 Assessment & Plan (03/30/2024 4:29 PM EST): Mild elevation, repeat LFTs and GGT Advised to absolutely avoid ETOH Encounter for immunization 03/30/2024 Primary insomnia 03/30/2024 Assessment & Plan (03/30/2024 4:26 PM EST): Doing well on trazodone, she's out of meds. Refill for trazodone sent to pharmacy, she will fu PRN if sxs continue despite restarting meds. Elevated transaminase level 03/07/2024 Assessment & Plan (03/07/2024 12:38 PM EST): Most likely fatty liver, will order liver US. Sprain of right ankle 03/07/2024 Assessment & Plan (03/30/2024 4:30 PM EST): Old, recurrent Advised to wear ankle brace, restart PT exercises and fu prn Assessment & Plan (03/07/2024 12:37 PM EST): Advised to wear ankle brace prn to prevent falls. Tobacco dependence due to cigarettes 07/25/2023 Assessment & Plan (07/25/2023 10:12 AM EDT): - continues to smoke up to 3 cigarettes per day, has history of 35+ years - will order low-dose CT scan in March 2024. Mild intermittent asthma with exacerbation 07/24 Assessment & Plan (07/25/2023 10:10 AM EDT): - not improving with Albuterol. Counseled to increase Albuterol every 4 hours - start Prednisone BRD 40 mg x 5 days, take with breakfast - counseled to quit smoking - COVID/flu testing is negative - counseled to have RSV vaccine as soon as symptoms resolve Liver cyst 03/30/2023 Overview (03/30/2023): 1cm caudate cyst on [facility] CT scan (Chest CT fu lung nodule) on 03/15/23) Assessment & Plan (03/07/2024 12:36 PM EST): Order liver US. Mixed hyperlipidemia 04/02/2022 Assessment & Plan (03/30/2024 4:31 PM EST): On low dose simvastatin, check lipids and fu at next RV Advised to quit smoking Assessment & Plan (04/02/2022 1:27 PM EST): LDL is at goal on low dose simvastatin. Has mild hyperTG COunseled to quit smoking. Recommended moderate amount of exercise and increased consumption of fruit, vegetables, fish and high fiber foods. We discussed about avoiding consumption of highly saturated fats or trans fats. FU lipids in 12m, consider adjusting med then. 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 Last CT Scan on 2022 was stable, no need for further follow up. Assessment & Plan (01/21/2023 10:41 AM EDT): Will order FU CT scan, last CT was 01/20/22 Counseled to quit smoking Pt agreed to flu IZ Assessment & Plan (04/02/2022 1:25 PM EST): On 01/20/22 LDCT scan chest: <1cm calcified right lung nodules + mediastinal LN. Counseled to quit smoking. FU Chest CT on 12/2022 Vitamin D deficiency 04/07/2020 Assessment & Plan (10/27/2022 12:01 PM EDT): She is not taking supplementation, repeat Vit D levels and fu in 3 months Allergic rhinitis 01/20/2015 Hypercholesterolemia 01/20/2015 Assessment & Plan (01/21/2023 10:43 AM EDT): Pt technically not using statin due to noncompliance Due to cardio factors I recommenced to be compliant w/ simvastatin 20 mg qHS and will FU lipids in 6 m Assessment & Plan (10/27/2022 12:00 PM EDT): She is not taking medications at this time, last LDL was at goal counseled to quit smoking We discussed re rx options. She wants to be more strict with life style modifications. Recommended moderate amount of exercise and increased consumption of fruit, vegetables, fish and high fiber foods. We discussed about avoiding consumption of highly saturated fats or trans fats. repeat lipids on 2024 Migraine without aura, not refractory 01/20/2015 Assessment & Plan (07/25/2023 10:11 AM EDT): -doing well, continue Imitrex PRN Assessment & Plan (10/27/2022 12:00 PM EDT): Seems to be controlled continue amitriptyline qhs and take imitrex PRN only counseled to quit smoking and fu with me in 3 months Mild persistent asthma 01/20/2015 Assessment & Plan (03/30/2024 4:28 PM EST): Fairly well controlled, no recent asthma exacerbation Continue albuterol prn, advised to quit smoking Influenza IZ today. Assessment & Plan (01/21/2023 10:43 AM EDT): Cont albuterol q6hr for next few days then PRN, reconsult PRN Counseled to quit smoking Paresthesia of hand 01/20/2015 Smoker 01/20/2015 Assessment & Plan (03/07/2024 1:39 PM EST): Counseled to reduce smoking, has nicotine gum at home. Assessment & Plan (01/21/2023 10:44 AM EDT): Pt has lung nodules, we will FU w/ CT scan Assessment & Plan (10/27/2022 12:00 PM EDT): Counseled to quit smoking, she has nicotoine lozanges wit her pt has lung nodules that needs fu counseled regarding acupuncture and fu with me PRN Assessment & Plan (04/02/2022 1:26 PM EST): Counseled to quit smoking, wants to start w patch. Start 7mg/d patch And taper to prn nicotine gum. Counseled re acupuncture and walk in smoking cessation program on mornings. She agreed w POC. FU w me in 3m Overweight 01/20/2015 Resolved Problems Problem Noted Date Diagnosed Date Resolved Date Greater trochanteric pain syndrome 04/02/2022 07/25/2023 Assessment & Plan (10/27/2022 12:02 PM EDT): partially improved with tylenol and stretching exercises, will cancel PT referral at patient's request Pt agreed with POC at patient's request counseled her to come to walk in acupuncture counseled to quit smoking FU PRN Inflammation of sacroiliac joint 04/02/2022 07/25/2023 Primary osteoarthritis invol ving multiple joints 04/10/2018 07/25/2023 Encounters Date Type Department Care Team Description 04/11/2024 Refill [facility] [address] [place] [id number] Gracie Singer MD Mixed hyperlipidemia 04/10/2024 Telephone [facility] [address] [place] [phone] Luly Stokes CA Durable Medical Equipment 04/09/2024 Telephone [facility] [address] [place] [phone] Gracie Singer MD 04/04/2024 Telephone [facility] [address] [place] [phone] Gracie Singer MD 04/03/2024 Telephone [facility] [address] [place] [phone] Maria L Zhang, IJEOMA 04/02/2024 Telephone [facility] [address] [place] [address] [phone] Glory Appiah, RN Results 04/02/2024 Orders Only [facility] [address] [place] [phone] Gracie Singer MD Liver cyst (Primary Dx); Elevated liver function tests; Renal cyst, acquired, left 03/07/2024 11:30 AM EST Office Visit [facility] [address] [place] [phone] Gracie Singer MD Lung nodules (Primary Dx); Liver cyst; Elevated transaminase level; Smoker; Sprain of right ankle, unspecified ligament, subsequent encounter; Encounter for immunization 03/07/2024 Telephone [facility] [address] [place] [phone] Gracie Singer MD Durable Medical Equipment 03/07/2024 Travel 03/06/[address] [address] Luly Stokes MA Chart prep 02/29/2024 Orders Only [address] [phone] Gracie Singer MD 02/20/[address] [address] Gracie Singer MD Durable Medical Equipment 02/09/[address] [address] Sharyn Sidhu RN Results 01/25/[address] [address] Gracie Singer MD 01/24/2024 2:00 PM EDT Office Visit [address] [address] Gracie Singer MD Sprain of right ankle, unspecified ligament, initial encounter (Primary Dx); Mild persistent asthma without complication; Primary insomnia; Mixed hyperlipidemia; Elevated liver function tests; Encounter for immunization 01/24/[address] [address] Gracie Singer MD 01/24/2024 Travel from Last 3 Months Immunizations Name Administration Dates Next Due Hep B, adult 07/24/2013,02/08/2012,03/10/2010 Influenza High-dose Quadriva lent Preservative Free 01/21/2023,01/07/2022 Influenza injectable quadriv alent IIV4 with preservative 01/19/2018,04/19/2017,01/20/2015 Influenza injectable quadriv alent preservative free 02/10/2021,01/27/2020,01/09/2019,07/02 Influenza, High Dose Seasona l, Preservative Free 01/24/2024 Influenza, IIV3, injectable 12/11/2009 Influenza, Split (incl. los fied surface antigen) 02/06/2013,02/08/2012 Pneumococcal Conjugate PCV 20 01/07/2022 Pneumococcal Polysaccharide PPSV23 03/10/2010 RSV Bivalent 08/18/2023 TD (adult), 2 Lf tetanus tox oid, preservative free, adsorbed 06/26/2002 Tdap 03/07/2024,07/24/2013 Zoster, Recombinant 07/19/2018 Zoster, live 01/20/2015 Social History Tobacco Use Types Packs/Day Years [...] Orientation Straight 01/25/2022 10 :16 AM EDT Last Filed Vital Signs Vital Sign Reading Time Taken Comments Blood Pressure 137/74 03/07/2024 11:29 AM EST Pulse 102 03/07/2024 11:29 AM EST Temperature 36.2 ??C (97.2 ??F) 03/07/2024 11:[address] Respiratory Rate 16 03/07/2024 11:29 AM EST Oxygen Saturation 99% 03/07/2024 11:29 AM EST Inhaled Oxygen Concentration - - Weight 72.2 kg (159 lb 2 oz) 03/07/2024 11:29 AM EST Height 149.9 cm (4' 11 ) 03/07/2024 11:29 AM EST Body Mass Index 32.14 03/07/2024 11:29 AM EST Plan of Treatment Health Maintenance Due Date Last Done Comments CT Colonography 1955 FIT DNA/Cologuard 1955 FIT 1955 FOBT 1955 Sigmoidoscopy 1955 Alcohol/Substance Use Screening 1966 Hepatitis A Vaccines (1 of 2 - Risk 2-dose series) 1973 Lung Cancer Screening 2004 Zoster Vaccines (3 of 3) 09/13/2018 07/19/2018, 12/27 COVID-19 Vaccine ( season) 2023 04/22/2021, 06/12/2020, 05/15/2020 Depression Screening 07/24/2024 07/25/2023, 07/25/19 24 SDOH Screening 07/24/2024 07/25/2023 Lipid Panel 08/17/2024 08/18/2023, 12/26, 01/14/2022, Additional history exists Mammogram 02/28/2025 02/29/2024, 12/26, 12/31/2021, Additional history exists Tobacco Screening 03/07/2025 03/07/2024 Colonoscopy 09/24/2030 09/24/2020 Colorectal Cancer Screening 09/24/2030 DTaP/Tdap/Td Vaccines (3 - Td or Tdap) 03/07/2034 03/07/2024, 07/24/2013, 06/26/2002 Hepatitis B Vaccines Completed 07/24/2013, 02/08/2012, 03/10/2010 Pneumococcal Vaccine: 65+ Years Completed 01/07/2022, 03/10/2010 RSV Patients and Patients Aged 60 years or older Completed 08/18/2023 Influenza Vaccine Completed 01/24/2024, , 01/07/2022, Additional history exists Hepatitis C Screening Completed 02/08/2024 HIB Vaccines Aged Out No longer eligi ble based on patient's age to complete this topic HPV Vaccines Aged Out No longer eligi ble based on patient's age to complete this topic IPV Vaccines Aged Out No longer eligi ble based on patient's age to complete this topic Meningococcal Vaccine Aged Out No kana belén eligible based on patient's age to complete this topic RSV under 20 months Aged Out No longe r eligible based on patient's age to complete this topic Rotavirus Vaccines Aged Out No longer eligible based on patient's age to complete this topic Procedures Procedure Name Priority Date/Time Associated Diagnosis Comments MR ABDOMEN W AND WO CONTRAST Routine 04/23/2024 10:55 AM EST Liver cyst Elevated liver function tests Renal cyst, acquired, left US ABDOMEN COMPLETE Routine 03/29/2024 1 0:13 AM EST BI MAMMOGRAM SCREENING TOMOSYNTHESIS BILATERAL Routine 02/29/2024 9:47 AM EST GGT Routine 02/08/2024 9:50 AM EST Elevated liver function tests HEPATIC FUNCTION PANEL Routine 9:50 AM EST Elevated liver function tests HEPATITIS PANEL, GENERAL Routine 02/08/2024 9:50 AM EST Elevated liver function tests LIPID PANEL WITH REFLEX TO DIRECT LDL Routine 08/18/2023 10:43 AM EDT Tobacco dependence due to cigarettes HM COLONOSCOPY Routine 09/24/2020 8:23 AM EDT from Last 3 Months or Most Recently Relevant to Health Maintenance Results * MR Abdomen w/ and w/o Contrast (04/23/2024 10:55 AM EST) Anatomical Region Laterality Modality Abdomen Magnetic Resonan ce 04/23/2024 10:5 5 AM EST Narrative 04/23/2024 1:10 PM EST ? [facility] ?[address] ?[place] [address] ? Magnetic Resonance Report ? Signed ? Patient: Love,Reena ?MR#: [id number] ?? 1 ? : 1955 ?Acct:[id number] ? Age/Sex: 69 / F ?ADM Date: 04/23/24 ? Loc: HO.MRI ? Attending Dr: Gracie Singer MD ? Ordering Physician: Gracie Singer MD ?? Date of Service: 04/23/24 ?? Procedure(s): MR abdomen wo/w con ?? Accession Number(s): [id number] ? cc: Gracie Singer MD ? EXAMINATION: [...] DD/ 1055 ? TD/TT: 04/23/24 1210 ? [employer]essen Store Manager: ? Procedure Note Karissa, Image - 04/23/2024 [place] [address] Magnetic Resonance Report Signed Patient: Felipe Love#: [id number] 1 : 5Acct:[id number] Age/Sex: 69 / FADM Date: 04/23/24 Loc: HO.MRI Attending Dr: Gracie Singer MD Ordering Physician: Gracie Singer MD Date of Service: 04/23/24 Procedure(s): MR abdomen wo/w con Accession Number(s): [id number] cc: Gracie Singer MD EXAMINATION: MRI Abdomen [...] by: Preet Schwartz MD 04/23/2024 01:07 PM EST Dictated By: Preet Schwartz MD Signed By: <Electronically signed by Preet Schwartz MD in OV> 04/23/24 1307 DD/ 1055 TD/TT: 04/23/24 1210 Delicatessen Store Manager: us Gracie Singer MD IMG MRI PROCEDURES Final Result * US Abdomen Complete (03/29/2024 10:13 AM EST) Anatomical Region Laterality Modality Abdomen Ultrasound 03/29/2024 10:1 3 AM EST Narrative 03/29/2024 10:13 AM EST ? [facility] ?[address] ?[place] [address] ? Ultrasound Report ? Signed ? Patient: Love,Reena ?MR#: [id number] ?? 1 ? : 1955 ?Acct:[id number] ? Age/Sex: 68 / F ?ADM Date: 12/31/24 ? Loc: HO.US ? Attending Dr: Gracie Singer MD ? Ordering Physician: Gracie Singer MD ?? Date of Service: 03/27/24 ?? Procedure(s): US abdomen complete ?? Accession Number(s): [id number] ? cc: Gracie Singer MD ? CLINICAL HISTORY: ELEVATED LIVER ? US abdomen complete with duplex and color Doppler ? Comparison: None ? Findings: ?? The visualized pancreas, aorta, and inferior vena cava are unremarkable. ? Liver normal size and mildly echogenic throughout. Right lobe 15.1 cm ?? length. Hepatic cysts caudate lobe measuring 1.5 x 1.1 x 1.1 cm and left ?? lobe measuring 0.8 x 0.7 x 0.4 cm. ?? Common duct mm diameter. ?? Physiologic distention of the gallbladder. No gallstones or sludge. No ?? gallbladder wall thickening. No pericholecystic fluid. No sonographic ?? Goldstein sign. ?? Main portal vein antegrade. ? Right kidney normal size, 9.1 cm in length. Normal cortical width and ?? echotexture. No solid or cystic renal masses. No nephrolithiasis or ?? hydronephrosis. ?? Left kidney normal, 9.2 cm in length. Normal cortical width and ?? echotexture. Parapelvic cyst measuring 0.9 x 0.9 x 0.7 cm. No ?? nephrolithiasis or hydronephrosis. ? Spleen measures 9.1 cm. No splenic masses. Calcified splenic granulomas. ? No ascites. No lymphadenopathy. ? Impression: ?? 1. Hepatic steatosis versus diffuse hepatocellular disease. Probable ?? incidental hepatic cysts MRI would be confirmatory. ?? 2. Parapelvic renal cyst on the left. ? This document has been electronically signed by: Adama Mei MD on ?? 03/29/2024 10:13:08 ? Dictated By: ?Adama Mei MD ? Signed By: ?<Electronically signed by Adama Mei MD in OV> ?03/29/24 1013 ? DD/ 1013 ? TD/TT: 03/29/24 1013 ? Delicatessen Store Manager: ? Procedure Note Dali Hancock - 03/29/[address] [address] Ultrasound Report Signed Patient: Felipe Love#: [id number] 1 : 5Acct:[id number] Age/Sex: 68 / FADM Date: 03/27/24 Loc: HO.US Attending Dr: Gracie Singer MD Ordering Physician: Gracie Singer MD Date of Service: 03/27/24 Procedure(s): US abdomen complete Accession Number(s): [id number] cc: Gracie Singer MD CLINICAL HISTORY: ELEVATED LIVER US abdomen complete with duplex and color Doppler Comparison: None Findings: The visualized pancreas, aorta, and inferior vena cava are unremarkable. Liver normal size and mildly echogenic throughout. Right lobe 15.1 cm length. Hepatic cysts caudate lobe measuring 1.5 x 1.1 x 1.1 cm and left lobe measuring 0.8 x 0.7 x 0.4 cm. Common duct mm diameter. Physiologic distention of the gallbladder. No gallstones or sludge. No gallbladder wall thickening. No pericholecystic fluid. No sonographic Goldstein sign. Main portal vein antegrade. Right kidney normal size, 9.1 cm in length. Normal cortical width and echotexture. No solid or cystic renal masses. No nephrolithiasis or hydronephrosis. Left kidney normal, 9.2 cm in length. Normal cortical width and echotexture. Parapelvic cyst measuring 0.9 x 0.9 x 0.7 cm. No nephrolithiasis or hydronephrosis. Spleen measures 9.1 cm. No splenic masses. Calcified splenic granulomas. No ascites. No lymphadenopathy. Impression: 1. Hepatic steatosis versus diffuse hepatocellular disease. Probable incidental hepatic cysts MRI would be confirmatory. 2. Parapelvic renal cyst on the left. This document has been electronically signed by: Adama Mei MD on 03/29/2024 10:13:08 Dictated By: Adama Mei MD Signed By: <Electronically signed by Adama Mei MD in OV> 03/29/24 1013 DD/ 1013 TD/TT: 03/29/24 1013 Delicatessen Store Manager: us Gracie Singer MD IMG US PROCEDURES Edited Result - Final * BI Mammogram Screening Tomosynthesis Bilateral (02/29/2024 9:47 AM EST) Anatomical Region Laterality Modality Breast Bilateral Mammography 02/29/2024 9:47 AM EST Narrative 03/06/2024 11:53 AM EST ? [facility] ? [address] ?[place], [place] [address] ? Mammography Report ? Signed ? Patient: Love,Reena ?MR#: [id number] ?? 1 ? : 1955 ?Acct:[id number] ? Age/Sex: 68 / F ?ADM Date: 02/29/24 ? Loc: HO.MAMMO ? Attending Dr: Gracie Singer MD ? Ordering Physician: Gracie Singer MD ?Results: 1Ne ?? gative ? Date of Service: 02/29/24 ?Follow Up: 1 Year From Orig ?? inal Mammogram ? Procedure(s): MM tomosynthesis screening BI ?? Accession Number(s): [id number] ? cc: Gracie Singer MD ? EXAMINATION: ?? MM SCREENING DIGITAL BREAST TOMOSYNTHESIS, BILATERAL ? CLINICAL INFORMATION: ? Screening. Asymptomatic. ? COMPARISON: ?? Mammography: Comparison is made with available priors ? TECHNIQUE: ?? Digital breast mammography with tomosynthesis is performed in both the ?? craniocaudal and mediolateral oblique views along with computer-aided ?? detection (CAD). ? FINDINGS: ?? There are scattered areas of fibroglandular density (ACR BI-RADS breast ?? composition Category b). ? There are no significant masses, abnormal calcifications, or other ?? abnormalities. ? MM/MM tomosynthesis screening BI ?? IMPRESSION: ?? No mammographic evidence of malignancy. ? ASSESSMENT: ? BI-RADS BI-RADS 1 - Negative ? RECOMMENDATION: ?? Routine annual mammography screening. ? 1 year F/U ? This examination should not preclude the clinical evaluation of a ?? suspicious palpable abnormality. ? This patient's information was entered into a reminder system with a ?? target due date for their next mammogram. ? Electronically signed by: ??Lena Church DO ??03/06/2024 11:50 AM EST ? Dictated By: ?Lena Church DO ? Signed By: ?<Electronically signed by Lena Church, DO in OV> ? 03/06/24 1150 ? DD/ 0947 ? TD/TT: 02/29/24 1001 ? Delicatessen Store Manager: ? Procedure Note Dali Hancock - 03/06/2024 [facility] [address] [place], [place] [address] Mammography Report Signed Patient: Felipe Love#: [id number] 1 : 5Acct:[id number] Age/Sex: 68 / FADM Date: 02/29/24 Loc: HO.MAMMO Attending Dr: Gracie Singer MD Ordering Physician: Gracie Singer MDResults: 1Ne gative Date of Service: 02/29/24Follow Up: 1 Year From Orig inal Mammogram Procedure(s): MM tomosynthesis screening BI Accession Number(s): [id number] cc: Gracie Singer MD EXAMINATION: MM SCREENING DIGITAL BREAST TOMOSYNTHESIS, BILATERAL CLINICAL INFORMATION: Screening. Asymptomatic. COMPARISON: Mammography: Comparison is made with available priors TECHNIQUE: Digital breast mammography with tomosynthesis is performed in both the craniocaudal and mediolateral oblique views along with computer-aided detection (CAD). FINDINGS: There are scattered areas of fibroglandular density (ACR BI-RADS breast composition Category b). There are no significant masses, abnormal calcifications, or other abnormalities. MM/MM tomosynthesis screening BI IMPRESSION: No mammographic evidence of malignancy. ASSESSMENT: BI-RADS BI-RADS 1 - Negative RECOMMENDATION: Routine annual mammography screening. 1 year F/U This examination should not preclude the clinical evaluation of a suspicious palpable abnormality. This patient's information was entered into a reminder system with a target due date for their next mammogram. Electronically signed by: Lena Church DO 03/06/2024 11:50 AM EST Dictated By: Lena Church DO Signed By: <Electronically signed by Lena Church DO in OV> 03/06/24 1150 DD/ 0947 TD/TT: 02/29/24 1001 Delicatessen Store Manager: us Gracie Singer MD IMG BI PROCEDURES Final Result * Hepatitis Panel, General (02/08/2024 9:50 AM EST) Hepatitis A IgM Nonreactive Nonreactive [facility] Comment:IgM antibodies to DE JESUS V not detected; does not exclude earlyacute or recovered HAV infection. ~Hepatitis B Surface Antibody NONREACTIVE Nonreactive [facility] Comment:Nonreactive: < 8.00 mIU/mL Hepatitis B Core Antibody Nonreactive Nonreactive [facility] Hepatitis C Antibody Nonreactive Nonreactive [facility] Comment:Antibodies to HCV no t detected; does not exclude early acuteHCV infection. Hepatitis B Surface Ag Negative Negative [facility] [facility] Blood 02/08/2024 9:50 AM EST 02/08/2024 10:46 AM EST us Gracie Singer MD LAB BLOOD ORDERABLES Fin al Result [facility] [address] [place] [phone] * Gamma Glutamyl Transferase (GGT) (02/08/2024 9:50 AM EST) Gamma Glutamyl Transpeptidase 27 7 - 33 U/L [facility] Blood Venous blood specimen / Unknown 02/08/2024 9:50 AM EST 02/08/2024 10:46 AM EST Gracie Singer MD LAB BLOOD ORDERABLES Fin al Result Performing Organization Address [facility] Co de Phone Number [facility] [address] [place] [phone] * (ABNORMAL) Hepatic Function Panel (02/08/2024 9:50 AM EST) Pathologist [facility] Bilirubin, Total 0.6 0.0 - 1.0 mg/dL [facility] Bilirubin, Direct 0.2 0.0 - 0.5 mg/dL [facility] Aspartate Amino Transferase 37(H) 5 - 31 U/L [facility] Comment:Slight Hemolysis.Int erpret result with caution. Alanine Aminotransferase 30 0 - 31 U/L [facility] Total Protein 7.7 6.5 - 8.0 g/dL [facility] Albumin Level 4.2 3.5 - 5.0 g/dL [facility] Alkaline Phosphatase 102 39 - 117 U/L [facility] Blood Venous blood specimen / Unknown 02/08/2024 9:50 AM EST 02/08/2024 10:46 AM EST Gracie Singer MD LAB BLOOD ORDERABLES Fin al Result Performing Organization Address [facility]/ZIP Co de Phone Number [facility] [address] [place] [phone] * Lipid Panel with Reflex to Direct LDL (08/18/2023 10:43 AM EDT) Triglycerides 125 <150 mg/dL [facility] Comment:Desirable Triglyceri de: less than 150 mg/dLBorderline High Triglyceride 150-199 mg/dLHigh Triglyceride: 200-499 mg/dLVery High Triglyceride: greater than or equal to 5OO mg/dL Cholesterol 153 <200 mg/dL [facility] Comment:Desirable Cholestero l: less than 200 mg/dLBorderline High Cholesterol: 200-239 mg/dLHigh Cholesterol: greater than 239 mg/dL LDL Cholesterol Calculated 68 <100 mg/dL [facility] Comment:Desirable LDL: less than 100 mg/dLNear Optimal/Above Optimal LDL: 110- 129 mg/dLBorderline High LDL: 130-159 mg/dLHigh LDL: 160-189 mg/dLVery High LDL: greater than or equal to 190 mg/dL HDL Cholesterol 60 >40 mg/dL [facility] Comment:Desirable HDL: great er than 40 mg/dL Note: This HDL assay may give artificially low results in patients with liver disease. Blood 08/18/2023 10:4 3 AM EDT 08/18/2023 10:43 AM EDT us Gracie Singer MD LAB BLOOD ORDERABLES Fin al Result [facility] [address] [place] [phone] * Hm Colonoscopy (09/24/2020 8:23 AM EDT) us Historical Provider HEALTH MAINTENANCE Final Result from Last 3 Months or Most Recently Relevant to Health Maintenance Insurance [facility] DUAL [facility]PLETE * Guarantor: Reena Love Account Type Relation to Patient Date of Phone Billing Address Personal/Family Self [address] [place] [address] Advance Directives Documents on File Type Date Recorded Patient Risk Officer Expl anation Advance Directives and Living Will 02/08/2024 2:47 PM Health Care Proxy Care Teams Guest Service Representative Relationship Specialty Start Date End Date Gracie Singer MD [address] [place] [phone] PCP - General Family Medicine 05/14/20
--- OUTSIDE RECORDS SUMMARY | 2024-04-23 16:05 | XMS_ITS | Encounter Summary ---
Author Organization [employer] Address [address] [address] [place] [address] Care Team Providers Care Head Packager Name Role Phone Gracie Singer MD Primary Care Provider + Reason for Visit * Reason Comments Med Refill Encounter Details Date Type Department Care Team (Late st Contact Info) Description 11/01/2022 Refill [facility] [address] [place], [place] [phone] [facility] [address] [place] [address] Chronic right hip pain; Chronic right-sided low back pain without sciatica Social History Tobacco Use Types Packs/Day Years Used Date Smoking Tobacco: Every Day Cigarettes Smokeless Tobacco: Never Alcohol Use Standard Drinks/Week Comments Yes 0 (1 standard drink = 0.6 oz pur e alcohol) oca Depression Answer Date Recorded Patient Health Questionnaire-2 [...] as of this encounter Visit Diagnoses Diagnosis Chronic right hip pain Chronic right-sided low back pain without sciatica documented in this encounter Care Teams Head Packager Relationship Specialty Start Date End Date Gracie Singer MD [address] [place] [address] PCP - General Family Medicine 05/14/20 documented as of this encounter
== END 2024-04-23 11:10 | disposition home or self-care (01) ==
LOC: HO.MRI 11:09
PROVIDERS: PCP Internal Medicine; Visit Provider Internal Medicine
DX: K76.89 Other specified diseases of liver (principal); R79.89 Other specified abnormal findings of blood chemistry; N28.1 Cyst of kidney, acquired
CPT/HCPCS: 74183; A9585

== ENCOUNTER 2024-05-16 12:45 | Outpatient (REF) | payer OTHER, SELFPAY ==
--- OUTSIDE RECORDS SUMMARY | 2024-05-16 13:01 | XMS_ITS ---
Author Name Tio HAZEL Rodríguez Paul Gilliam Address [address] [place] [address] Phone [phone] [facility] Care Team Providers Care Liberal Arts Teacher Name Role Phone Julienne Kinsey Unavailable [phone] Unavailable Unavailable Unavailable Castrenone, Ashleigh Unavailable Unavailable [...] Active 2023-09-16 N/A Other problems related to [facility] facilities and other health care Active 2023-09-16 N/A Encounters Encounters Type Facility Date of Service Diagnosis/Co mplaint New patient,40-59min; chronic exacerbation, 2 stable chronic or 1 acute illness add add modifier 95 for video (do not use for phone, instead use 04777-66) [facility] [place] ([place]) 02/01/2022 Hyperlipidemia, unspecifiedInsomnia, unspecifiedUnspecified asthma, uncomplicatedVitamin D deficiency, unspecifiedLow back pain, unspecifiedOpioid dependence, uncomplicatedDry eye syndrome of bilateral lacrimal glands New patient,40-59min; chronic exacerbation, 2 stable chronic or 1 acute illness add add modifier 95 for video (do not use for phone, instead use 77874-42) [facility], [place] 02[place] New patient,40-59min; chronic exacerbation, 2 stable chronic or 1 acute illness add add modifier 95 for video (do not use for phone, instead use 13518-45) [facility], ([place]) 02/01/2022 New patient,40-59min; chronic exacerbation, 2 stable chronic or 1 acute illness add add modifier 95 for video (do not use for phone, instead use 91593-06) [facility] [place] 02[place]20[place] New patient,40-59min; chronic exacerbation, 2 stable chronic or 1 acute illness add add modifier 95 for video (do not use for phone, instead use 56829-09) [facility] [place] 02[place]/2022 New patient,40-59min; chronic exacerbation, 2 stable chronic or 1 acute illness add add modifier 95 for video (do not use for phone, instead use 80575-30) [facility] [place] 02[place]/2022 New patient,40-59min; chronic exacerbation, 2 stable chronic or 1 acute illness add add modifier 95 for video (do not use for phone, instead use 20494-74) [facility] [place] 02[place]01/2022 New patient,40-59min; chronic exacerbation, 2 stable chronic or 1 acute illness add add modifier 95 for video (do not use for phone, instead use 91709-03) [facility] [place] 02[place]/2022 New patient,40-59min; chronic exacerbation, 2 stable chronic or 1 acute illness add add modifier 95 for video (do not use for phone, instead use 49518-82) [facility] [place] 02[place]01/2022 Estab. patient 30-39min; chronic exacerbation, 2 stable chronic or 1 acute illness add add modifier 95 for video, (do not use for phone, instead use 03311-95) [facility] 01[place]24/2023 Hyperlipidemia, unspecifiedInsomnia, unspecifiedPulmonary fibrosis, unspecifiedVitamin D deficiency, unspecifiedSacroiliitis, not elsewhere classifiedOpioid dependence, uncomplicatedDry eye syndrome of bilateral lacrimal glandsOther obesity due to excess caloriesBody mass index (bmi) 31.0-31.9, adultMigraine, unspecified, not intractable, without status migrainosus Estab. patient 30-39min; chronic exacerbation, 2 stable chronic or 1 acute illness add add modifier 95 for video, (do not use for phone, instead use 48052-58) [facility] ([place] 01[place]24/20[place] Estab. patient 30-39min; chronic exacerbation, 2 stable chronic or 1 acute illness add add modifier 95 for video, (do not use for phone, instead use 15451-24) [facility] 01[place]24/20[place] Estab. patient 30-39min; chronic exacerbation, 2 stable chronic or 1 acute illness add add modifier 95 for video, (do not use for phone, instead use 95960-53) [facility] 01[place]24/20[place] Estab. patient 30-39min; chronic exacerbation, 2 stable chronic or 1 acute illness add add modifier 95 for video, (do not use for phone, instead use 91585-10) [facility] [place] 01[place]24/20[place] Estab. patient 30-39min; chronic exacerbation, 2 stable chronic or 1 acute illness add add modifier 95 for video, (do not use for phone, instead use 50896-00) [facility] 01/24/2023 Estab. patient 30-39min; chronic exacerbation, 2 stable chronic or 1 acute illness add add modifier 95 for video, (do not use for phone, instead use 32575-84) [facility], ([place] 09/16/2023 Hyperlipidemia, unspecifiedInsomnia, unspecifiedPulmonary fibrosis, unspecifiedVitamin [...] (do not use for phone, instead use 17652-21) [facility] 09[place]16[place]20[place] Estab. patient 30-39min; chronic exacerbation, 2 stable chronic or 1 acute illness add add modifier 95 for video, (do not use for phone, instead use 51910-59) [facility] 09[place]16[place]20[place] Estab. patient 30-39min; chronic exacerbation, 2 stable chronic or 1 acute illness add add modifier 95 for video, (do not use for phone, instead use 59512-89) [facility] [place] 09[place]16[place]20[place] Estab. patient 30-39min; chronic exacerbation, 2 stable chronic or 1 acute illness add add modifier 95 for video, (do not use for phone, instead use 38174-45) [facility] ([place] 09/16/2023 Estab. patient 30-39min; chronic exacerbation, 2 stable chronic or 1 acute illness add add modifier 95 for video, (do not use for phone, instead use 68000-46) [facility], [place] 09/16/2023 Estab. patient 30-39min; chronic exacerbation, 2 stable chronic or 1 acute illness add add modifier 95 for video, (do not use for phone, instead use 38273-30) [facility] [place] 09[place]2023 Immunizations Vaccine Date Status pneumococcal, unspecified [...] Current Smoking Status Current every day smoker 2024-05-16 Sex Female History of Procedures Procedures Service Procedure code Service date Servicing provider Phone# New patient,40-59min; chronic exacerbation, 2 stable chronic or 1 acute illness add add modifier 95 for video (do not use for phone, instead use 81954-55) 18972 2022-02-01 No Data Available No Data Availa ble Pain Assessment - Pain Documented on a Pain Scale (1125F) 1125F 2022-02-01 No Data Available No Data Kassie ilable Medication List Documented (1159F) 1159F 2022-02-01 No [...] (do not use for phone, instead use 53296-66) 63946 2023-01-24 No Data Available No Data Availa ble Medication List Documented (1159F) 1159F 2023-01-24 No Data Available No Data Kassie ilable Medication Review by prescribing provider or pharmacist documented (1160F) 1160F 2023-01-24 No Data Available No Data Kassie ilable Pain Assessment - Pain Documented on a Pain Scale (1125F) 1125F 2023-01-24 No Data Available No Data Kassie ilable BMI obtained (3008F) 3008F 2023-01-24 No Data [...] (do not use for phone, instead use 28641-85) 34001 2023-09-16 No Data Available No Data Availa ble Medication List Documented (1159F) 1159F 2023-09-16 No Data Available No Data Kassie ilable Medication Review by prescribing provider or pharmacist documented (1160F) 1160F 2023-09-16 No Data Available No Data Kassie ilable Pain Assessment - Pain Documented on a Pain Scale (1125F) 1125F 2023-09-16 No Data Available No Data Kassie ilable BMI obtained (3008F) 3008F 2023-09-16 No Data Availab le No Data Available Pain Assessment - Pain Documented on a Pain Scale (1125F) 1125F 2023-09-16 No Data Available No Data Kassie ilable Functional Status Assessed (1170F) 1170F 2023-09-16 No [...] acute or disease education needs that may arise.Tdmzuhv-ytjuasmloatgLqndcii-dgunryfap-amitriptyline prnManaged-flovent HFAManagedvitamin D zbghdjdrngHafbcrn-yoxemlhwZzdyfta-mcvnhaox-follow up every 3 monthsManaged-artificial tears 2023-01-24 11:05:42 [...] acute or disease education needs that may arise.Gpcjfne-zdghrnfpewdhCyfsxvl-dmqjlveyi-amitriptyline prnManaged-flovent HFAManagedvitamin D xawnpygqhkOwmjqwr-pbowbiziRnvnnse-akbvhlim-follow up every 3 monthsManaged-artificial tearsBMI: 31.10Lifestyle interventions [...] interventions, exercise as tolerable, and continue with PCP.Ckvdhfa-bxutmacpu-hbucklfxcazpw prnManaged-flovent HFAContinue f/u care with pulmonology.Managedvitamin D supplementManaged-tramadolContinue with PCP.Uipcsfd-bndqkjjf-soeour up every 3 monthsManaged-artificial tearsBMI: 31.10Lifestyle interventions [...] Health Concerns Date Concern 2023-09-16 Visit completed urmila g audio/video. Patient/Guardian agreed to visit via [...]
== END 2024-05-16 12:46 | disposition home or self-care (01) ==
LOC: HO.MAMMO 12:45
PROVIDERS: PCP Internal Medicine; Visit Provider Student in an Organized Health Care Education/Training Program
DX: M81.0 Age-related osteoporosis without current pathological fracture (principal)
CPT/HCPCS: 77080

== ENCOUNTER → 2024-05-16 12:53 | Outpatient (BNV) | payer OTHER, SELFPAY | PROVIDERS: PCP Internal Medicine; Visit Provider Radiology Diagnostic Radiology | DX: E28.39 Other primary ovarian failure (principal) | CPT/HCPCS: 77080 ==

== ENCOUNTER 2024-07-03 14:20 | Outpatient (AMB) | payer OTHER, SELFPAY ==
--- NOTE | 2024-07-03 14:22 | A.OFFVIS_ITS ---
Intake Visit Reasons: renal cysts Intake Note: New Patient presents for initial visit for renal cysts Urology Medications: none Blood Thinner: none Community Health Coordinator Required: Yes Community Health Coordinator Name: [id number] Accompanied by: Sister Allergies sumatriptan Adverse Reaction (Severe, Verified 07/03/24 14:58) Facial Numbness Medication List - Last Reconciled 07/03/24 by MAIN Fermin albuterol sulfate 2.5 mg inhalation Q4H PRN albuterol sulfate 90 mcg/actuation (ProAir HFA) 2 puffs inhalation Q4-6H PRN amitriptyline 25 mg PO BEDTIME cholecalciferol (vitamin D3) (Vitamin D3) 50 mcg PO DAILY [cock up splints As directed] diclofenac sodium 1% 2 grams topical BID fluticasone propionate 220 mcg/actuation (Flovent HFA) 0 mcg inhalation BID loratadine 1 tab PO DAILY PRN simvastatin 20 mg PO DAILY tramadol 50 mg PO BID PRN trazodone 1 tab PO BEDTIME HPI Comments Details: Reena is a very pleasant 69-year-old Tuvaluan-speaking female patient of Dr. Singer was accompanied by her sister at today's office visit and is requesting translation services by her sister. She has a past medical history of osteopenia, osteoarthritis, migraines, hypercholesteremia, and asthma. She presents to the office today as a new patient for renal cysts. In discussion with the patient today she discusses having had recent abdominal ultrasound for elevated liver enzymes at which time left renal cyst was noted and recommendations were made for MRI for further assessment evaluation. MRI results reviewed with the patient today 04/21 there is a 1.3 cm cyst at the lower pole of the left kidney. No retroperitoneal lymphadenopathy or ascites is identified in the upper abdomen. The visualized bones demonstrate normal marrow signal intensity. She otherwise denies any bothersome urinary issues. She denies urinary urgency, urinary frequency, incontinence, nocturia, hematuria, dysuria, foul smelling urine, changes to urinary stream, flank pain, fever, and or chills. She is happy with her current voiding parameters. In office urinalysis results reviewed with the patient today. We discussed at length potential causes of renal cysts as well as surveillance monitoring. All questions were answered. She otherwise offers no other issues or concerns at this time. [facility] Medical History Osteopenia Medial epicondylitis Primary osteoarthritis involving multiple joints Numbness and tingling in both hands COVID-19 vaccine administered Arthritis Hx of migraine headaches Elevated cholesterol Asthma Surgical History Hx of LASIK H/O colonoscopy Family History Father Hypertension Mother Liver cancer Social History Household Members: Spouse Alcohol intake: current Alcohol intake frequency: holidays/special occasions only Alcohol type: beer Patient Tobacco Use Status: Current everyday Tobacco user Cigarettes Per Day: 1 Years Smoked: 53 Current occupational status: disabled Review of Systems Const All systems reviewed & are unremarkable except as noted in HPI and below Physical Exam Const General: cooperative, healthy appearing, comfortable, no acute distress, well developed, alert and awake Orientation/consciousness: patient oriented x3 Limitations: no limitations HEENT Head: Yes normal to inspection, Yes normocephalic and Yes atraumatic Ears: hearing grossly normal bilaterally Eyes General: appearance normal, both eyes and all related structures Neck Neck: Yes normal visual inspection and Yes trachea midline Chest Chest palpation & inspection: normal inspection of the chest Resp Effort & Inspection: normal respiratory effort and able to speak in complete sentences Cardio Rate: regular rate GI Inspection: Yes normal to inspection General: Yes no CVA tenderness Back/Spine/Pelvis Back: no CVA tenderness Skin General skin exam: no rashes or lesions noted Neuro General: patient oriented x3 Extrem General: Yes normal to inspection Psych Appearance: grossly normal and well kempt Mental Status: mental status grossly normal Speech and movement: Normal speech and movement present and Clear speech present Affect: normal affect Attitude: cooperative Thought process: Normal thought process present Thought content: Normal thought content present Insight: Fair insight present (Psych) Judgement: Fair judgement present (Psych) Results AMB Urinalysis, Automated UA Leukoctes 0 Michele/uL Last Edit by Alan Coronel on 07/03/24 15:18 UA Nitrite Last Edit by Alan Coronel on 07/03/24 15:18 UA Urobilinogen 0.2 mg/dL Last Edit by Alan Coronel on 07/03/24 15:18 UA Protein 0 mg/dL Last Edit by 800APPeduardo [employer] on 07/03/24 15:18 UA pH 6.0 Last Edit by Zifficorrina [employer] on 07/03/24 15:18 UA Blood 0 Cleve/uL Last Edit by [employer] on 07/03/24 15:18 UA Specific Barbeau 1.025 Last Edit by 800APPeduardo Coronel on 07/03/24 15:18 UA Ketone Last Edit by Zifficorrina Coronel on 07/03/24 15:18 UA Bilirubin 0 mg/dL Last Edit by [employer] on 07/03/24 15:18 UA Glucose 0 mg/dL Last Edit by 800APPeduardo [employer] on 07/03/24 15:18 Results Reviewed Results Reviewed: Date of Service: 04/23/24 Procedure(s): MR abdomen wo/w con FINDINGS: There is diffuse loss of signal intensity within the liver on opposed phase imaging consistent with steatosis. There is a 9 mm T2 hyperintense mass at the dome of the left lobe of the liver which does not demonstrate enhancement, consistent with a cyst. There is a 12 mm cyst in the caudate lobe. A smaller cyst is seen in the inferior tip of the right lobe. No enhancing liver mass is identified. There is no intra or extrahepatic biliary ductal dilatation. The hepatic and portal veins are patent. The gallbladder, spleen, pancreas, adrenals, and right kidney are unremarkable. There is a 1.3 cm cyst at the lower pole of the left kidney. No retroperitoneal lymphadenopathy or ascites is identified in the upper abdomen. The visualized bones demonstrate normal marrow signal intensity. IMPRESSION: 1. Hepatic steatosis. 2. Hepatic and left renal cysts as described. Assessment & Plan Assessment & Plan (1) Renal cyst: Code(s): N28.1 - Cyst of kidney, acquired Category: Medical Plan In office urinalysis results reviewed with the patient today; as noted above. Recent abdominal ultrasound as well as abdominal MRI results reviewed with the patient today; as noted above. Patient currently denies any bothersome urinary issues. Patient reports be happy with current voiding parameters. We discussed potential causes of renal cysts as well as surveillance monitoring. Will obtain renal ultrasound in 6 months. Follow-up in 6 months with imaging to be completed prior; or sooner with any issues, concerns, and or questions. Orders: Orders AMB Urinalysis Automated Today Z13.9 - Encounter for screening, unspecified US renal BI 6 Months N28.1 - Cyst of kidney, acquired Patient Instructions: The patient had an opportunity to ask questions regarding the treatment plan. All questions were answered. Physical exam, labs, and imaging were discussed and reviewed in detail. As well as risks, benefits, and discussion of treatment choices. No major barriers to understanding were identified. The patient expressed understanding and agreement with the above treatment plan. The patient was made aware they should contact our office by phone for worsening of their current condition, the appearance of new symptoms, or with any questions or concerns. Compliance is encouraged with any medications and follow up testing that is ordered. It is a privilege to be allowed the opportunity to participate in? your urological care.? Again, if you have any questions or concerns If you have any questions or concerns please do not hesitate to contact me. The office is [phone]. This note is constructed using voice recognition software. While every effort has been made to ensure accuracy steamboat pilot errors may have been included. Yours sincerely, RADHIKA Fermin Coding Level of Care Code New Pt Level 3 (15333) Diagnoses Renal cyst N28.1
--- OUTSIDE RECORDS SUMMARY | 2024-07-03 17:27 | XMS_ITS | Clinical Summary ---
Author Organization [employer] Address [address] [facility] 7[address] [place] [address] Care Team Providers Care Tariff Supervisor Name Role Phone Gracie Singer MD Primary [...] VECES AL ERIC 30 tablet 023 Active amitriptyline (Elavil) 25 MG tabletIndications :Migraine [...] Once per day. 16 g 2 Active simvastatin (Zocor) 20 MG tabletIndications :Mixed hyperlipidemia TAKE 1 TABLET BY MOUTH AT BEDTIME 90 tablet 3 Active fluticasone furoate (Arnuity Ellipta) 100 MCG/ACT inhaler Inhale 1 puff Once per day. 1 each 5 Active SUMAtriptan (Imitrex) 50 MG tabletIndications :Migraine without aura, not refractory Take 1 tablet (50 mg) by mouth 1 (one) time if needed for migraine. 9 tablet 2 025 2025 Active SUMAtriptan (Imitrex) 50 MG tabletIndications :Migraine without aura, not refractory Take 1 tablet (50 mg) by mouth 1 (one) time if needed for migraine. 9 tablet 11 024 2024 Discontinued(R eorder (will not trigger notification to Pharmacy)) fluticasone furoate (Arnuity Ellipta) 100 MCG/ACT inhaler Inhale 1 puff Once per day. 30 each 5 024 2024 Discontinued(R eorder (will not trigger notification to Pharmacy)) ergocalciferol (Vitamin D2) 1.25 MG (03280 UT) capsule Take 1 capsule (1.25 mg) by mouth 1 (one) time per week. 12 capsule 1 025 2024 Discontinued(T herapy completed) Active Problems Problem Noted Date Diagnosed Date Fatty liver 06/27/2024 Assessment & Plan (06/27/2024 4:12 PM EDT): Albumin is within normal limits, AST and ALT slightly elevated. She will follow-up with GI next month Will need liver ultrasound next year to follow-up on liver cysts Advised to avoid alcohol, discussed about weight reduction Diabetes due to undrl condition w oth diabetic n euro comp 06/27/2024 Assessment & Plan (06/27/2024 4:11 PM EDT): Resolved, it was probably triggered by steroid injection. Will check RBS on A1c once per year only. Counseled re more frequent low calorie/carb meals. Encouraged physical activity as tolerated. Class 1 obesity due to exces s calories with serious comorbidity and body mass index (BMI) of 33.0 to 33.9 in adult 06/27/2024 Assessment & Plan (06/27/2024 4:13 PM EDT): Discussed re weight reduction options including exercise, life style modifications, diet. Recommended to decrease soda and sugary beverage consumption, increase protein intake with meals (at least 1 portion of protein with each meal) to assist with satiety, increase dietary fiber Recommended at least 150 min/week of moderate intensity exercise. Renal cyst, acquired, left 04/02/2024 Assessment & Plan (06/27/2024 4:12 PM EDT): Asymptomatic, follow-up with urology Encounter for immunization 03/30/2024 Primary insomnia 03/30/2024 Assessment & Plan (03/30/2024 4:26 PM EST): Doing well on trazodone, she's out of meds. Refill for trazodone sent to pharmacy, she will fu PRN if sxs continue despite restarting meds. Sprain of right ankle 03/07/2024 Assessment & Plan (03/30/2024 4:30 PM EST): Old, recurrent Advised to wear ankle brace, restart PT exercises and fu prn Assessment & Plan (03/07/2024 12:37 PM EST): Advised to wear ankle brace prn to prevent falls. Elevated liver function tests 03/07/2024 Assessment & Plan (06/27/2024 3:43 PM EDT): >>ASSESSMENT AND PLAN FOR ELEVATED TRANSAMINASE LEVEL WRITTEN ON 03/07/2024 12:38 PM BY UMESH CORREA Most likely fatty liver, will order liver US. Assessment & Plan (03/30/2024 4:29 PM EST): Mild elevation, repeat LFTs and GGT Advised to absolutely avoid ETOH Tobacco dependence due to cigarettes 07/25/2023 Assessment [...] 03/30/2023 Overview (03/30/2023): 1cm caudate cyst on [facility] scan (Chest CT fu lung nodule) [...] aura, not refractory 01/20/2015 Assessment & Plan (06/27/2024 4:13 PM EDT): Doing well on amitriptyline nightly Take Tylenol as needed headache or Imitrex for severe migraine. Monitor BP and call back as needed if BP is above 140/90 repeatedly. Follow-up with me in 3 to 4 months Advised to quit smoking Assessment & Plan (07/25/2023 10:11 AM EDT): -doing well, continue Imitrex PRN Assessment & Plan (10/27/2022 12:00 PM EDT): Seems to be controlled continue amitriptyline qhs and take imitrex PRN only counseled to quit smoking and fu with me in 3 months Mild persistent asthma 01/20/2015 Assessment & Plan (06/27/2024 4:15 PM EDT): Uncontrolled, restart fluticasone daily Advised to quit smoking. Use albuterol as needed only She declined COVID and influenza immunization today. Advised to get RSV immunization at the nearest pharmacy Assessment & Plan (03/30/2024 4:28 PM EST): Fairly well controlled, no recent asthma exacerbation Continue albuterol prn, advised to quit smoking Influenza IZ today. Assessment & Plan (01/21/2023 10:43 AM EDT): Cont albuterol q6hr for next few days then PRN, reconsult PRN Counseled to quit smoking Paresthesia of hand 01/20/2015 Smoker 01/20/2015 Assessment & Plan (06/27/2024 4:13 PM EDT): Advised to quit smoking, she has nicotine gum. I gave her information regarding acupuncture clinic. Declined prescription for Wellbutrin Assessment & Plan (03/07/2024 1:39 PM EST): [...] w POC. FU w me in 3m Resolved Problems Problem Noted Date Diagnosed Date [...] osteoarthritis invol ving multiple joints 04/10/2018 07/25/2023 Overweight 01/20/2015 06/27/2024 Encounters Date Type Department Care Team Description 06/27/2024 3:30 PM EDT Office Visit [facility] [address] [place] [phone] Gracie Singer MD Mild persistent asthma without complication (Primary Dx); Renal cyst, acquired, left; Fatty liver; 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); Class 1 obesity due to excess calories with serious comorbidity and body mass index (BMI) of 33.0 to 33.9 in adult; Smoker; Migraine without aura, not refractory; Dietary counseling; Exercise counseling 06/27/2024 Travel 06/26/2024 Telephone [facility] [address] [place] [address] [phone] Gracie Singer MD Chart prep 05/23/2024 Telephone [facility] [address] [place] [phone] Gracie Singer MD Results 05/22/2024 Orders Only [facility] [address] [place] [address], [place] [phone] Gracie Singer MD 05/09/2024 Telephone [facility] [address] [place] [phone] Yadi Bain RN 05/08/2024 Orders Only [facility] [address] [place] [address], [place] [phone] Gracie Singer MD Elevated liver function tests (Primary Dx); Liver cyst; Renal cyst, acquired, left 04/25/2024 Telephone [facility] [address] [place] [phone] Gracie Singer MD Durable Medical Equipment 04/11/2024 Refill [facility] [address] [place] [address] [phone] Gracie Singer MD Mixed hyperlipidemia 04/10/2024 Telephone [facility] [address] [place] [address] [phone] Luly Stokes MA Durable Medical Equipment 04/09/2024 Telephone [facility] [address] [place] [address] [phone] Gracie Singer MD 04/04/2024 Telephone [facility] [address] [place] [phone] Gracie Singer MD from Last 3 Months Immunizations Name Administration [...] Date Smoking Tobacco: Every Day Cigarettes 0.5 50 Started: 07/12/1974 Smokeless Tobacco: Never Tobacco Cessation:Ready to Q uit: Not Asked; Counseling Given: Not Answered Comments:Started at age 13 yo, smoked 1/2ppd x 45y, cut down to 3 cig/d for the past year Alcohol Use Standard Drinks/Week Comments Yes 0 (1 standard drink = 0.6 oz pur e alcohol) oca Housing Stability Answer Date Recorded What is your housing situation today? I have miguel ely 07/25/[address] you li [...] Date Recorded Patient Health Questionnaire-2 Score 0 06/27/2024 Internet Access Answer Date Recorded Internet Access Q1 No 06/27/2024 Internet Access Q2 I do not want or need it 04/2024 Comments No Sex and Gender Information Value Date Recorded Sex Assigned at Female 01/25/2022 10:16 AM EDT Legal Sex Female 10:16 AM EDT Gender Identity Female 01/25/2022 10:16 AM EDT Sexual Orientation Straight 01/25/2022 10 :16 AM EDT Last Filed Vital Signs Vital Sign Reading Time Taken Comments Blood Pressure 140/90 06/27/2024 3:59 PM EDT Pulse 107 06/27/2024 3:32 PM EDT Temperature 36.1 ??C (97 ??F) 06/27/2024 3:32 PM EDT Respiratory Rate 20 06/27/2024 3:32 PM EDT Oxygen Saturation 97% 06/27/2024 3:32 PM EDT Inhaled Oxygen Concentration - - Weight 75.4 kg (166 lb 4 oz) 06/27/2024 3:32 PM EDT Height 149.9 cm (4' 11 ) 06/27/2024 3:32 PM EDT Body Mass Index 33.58 06/27/2024 3:32 PM EDT Plan of Treatment Health Maintenance Due Date Last Done Comments CT Colonography 1955 FIT DNA/Cologuard 1955 FIT 1955 FOBT 1955 Sigmoidoscopy 1955 Diabetes: Foot Exam 1964 Eye Exam 1964 Alcohol/Substance Use Screening 1966 Diabetes: Urine Protein Screening 1973 Hepatitis A Vaccines (1 of 2 - Risk 2-dose series) 1973 Lung Cancer Screening 2004 COVID-19 Vaccine ( season) 2023 04/22/2021, 06/12/2020, 05/15/2020 Lipid Panel 08/17/2024 08/18/2023, 12/26, 01/14/2022, Additional history exists Diabetes: Hemoglobin A1C 12/27/2024 06/27/2024 Mammogram 02/28/2025 02/29/2024, 12/26, 12/31/2021, Additional history exists Depression Screening 06/27/2025 06/27/2024, 06/28/19 SDOH Screening 06/27/2025 06/27/2024 Tobacco Screening 06/27/2025 06/27/2024 Colonoscopy 09/24/2030 09/24/2020 Colorectal Cancer Screening 09/24/2030 DTaP/Tdap/Td Vaccines (3 - Td or Tdap) 03/07/2034 03/07/2024, 07/24/2013, 06/26/2002 Hepatitis B Vaccines Completed 07/24/2013, 02/08/2012, 03/10/2010 Pneumococcal Vaccine: 50+ Years Completed 01/07/2022, 03/10/2010 RSV Patients and Patients Aged 60 years or older Completed 08/18/2023 Influenza Vaccine Completed 01/24/2024, , 01/07/2022, Additional history exists Hepatitis C Screening Completed 02/08/2024 Zoster Vaccines Completed 04/26/2024, 06/27, 01/20/2015 HIB Vaccines Aged Out No longer eligi [...] Procedure Name Priority Date/Time Associated Diagnosis Comments POCT GLYCATED HEMOGLOBIN, TOTAL Routine 06/27/2024 3:55 PM EDT 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) POCT GLUCOSE Routine 06/27/2024 3:55 PM EDT 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) BD DEXA AXIAL Routine 05/16/2024 12:53 PM EST MR ABDOMEN W AND WO CONTRAST Routine 04/23/2024 10:55 AM EST Liver cyst Elevated liver function tests Renal cyst, acquired, left BI MAMMOGRAM SCREENING TOMOSYNTHESIS BILATERAL Routine 02/29/2024 9:47 AM EST HEPATITIS PANEL, GENERAL Routine 02/08/2024 9:50 AM EST Elevated liver function tests LIPID PANEL WITH REFLEX TO DIRECT LDL Routine 08/18/2023 10:43 AM EDT Tobacco dependence due to cigarettes HM COLONOSCOPY Routine 09/24/2020 8:23 AM EDT from Last 3 Months or Most Recently Relevant to Health Maintenance Results * POCT HGB A1C (06/27/2024 3:55 PM EDT) Hemoglobin A1C 5.6 4.0 - 6.0 % QC Media Lot # [id number] Lot# Expiration Date 120,526 Blood 06/27/2024 3:55 PM EDT Gracie Singer MD POINT OF CARE TEST ENTER /EDIT ORDERABLES Final Result * POCT Glucose (06/27/2024 3:55 PM EDT) Glucose Blood, POC 131 60 - 200 mg/dL QC Media Lot # [id number] Lot# Expiration Date 101,425 Blood Capillary blood specimen / Unknown 06/27/2024 3:55 PM EDT Gracie Singer MD POINT OF CARE TEST ENTER /EDIT ORDERABLES Final Result * BD DEXA Axial (05/16/2024 12:53 PM EST) Anatomical Region Laterality Modality Body Radiographic Susan ging 05/16/2024 12:5 3 PM EST Narrative 05/21/2024 8:26 AM EST ? [facility] ? [address] ?[place] [address] ? Mammography Report ? Signed ? Patient: Love,Reena ?MR#: [id number] ?? 1 ? : 1955 ?Acct:[id number] ? Age/Sex: 69 / F ?ADM Date: 02/19/25 ? Loc: HO.MAMMO ? Attending Dr: Mayelin Sandhu MD ? Ordering Physician: Mayelin Sandhu MD ?Results: ? Date of Service: 05/16/24 ?Follow Up: ? Procedure(s): XR DEXA axial skeleton ?? Accession Number(s): [id number] ? cc: Mayelin Sandhu MD; Gracie Singer MD ? EXAMINATION: ??DXA BONE DENSITY AXIAL ? HISTORY: ??Estrogen deficiency ? TECHNIQUE: [email or web address] Dual energy absorptiometry (DEXA) ?? of the lumbar spine, total left hip, and femoral neck was performed. ? COMPARISON: Comparison is made with the prior examination dated ?? 01/06/2021. ? FINDINGS: ? The bone mineral density of the lumbar spine is 0.884 with a T-score of ?? -2.3, and a Z-score of -0.9. ? This represents a BMD change of -4.2% compared to the prior exam. ??This ?? is not statistically significant. ? The bone mineral density of the left total hip is 0.933 with a T-score ?? of -0.6, and a Z-score of 0.7. ? This represents BMD change of 2.6% compared to the prior exam. ??This is ?? not statistically significant. ? The bone mineral density of the left femoral neck is 0.794 with a ?? T-score of -1.8, and a Z-score of -0.2. ? This represents BMD change of 7.4% compared to the prior exam. ? FRACTURE RISK: ?? The FRAX index suggests a ten year probability of major osteoporotic ?? fracture of 9.7%, and of hip fracture 2.4%. ? MM/XR DEXA axial skeleton ?? IMPRESSION: ?? Based on bone mineral density, and according to World Health ?? Organization (WHO) criteria, the diagnosis is consistent with ?? osteopenia. ? All bone density values are in grams per centimeter squared (g/cm2). ?? Statistically, 68% of repeat scans fall within 1 SD (+/- 0.010 g/cm2 ?? for AP spine L1-L4) and 1 SD (+/- 0.012 g/cm2 for femur total) ?? FRAX is a trademark of the [employer]'s ?? [employer] Met[employer] Disease, a World Health Organization (WHO) ?? Collaborating Center. ? Electronically signed by: ??Preet Schwartz MD ??05/21/2024 08:22 AM EST ?? RP ? Dictated By: ?Preet Schwartz MD ? Signed By: ?<Electronically signed by Preet Schwartz MD in OV> ?05/21/24 0822 ? DD/ 1253 ? TD/TT: 05/16/24 1320 ? Re Etcher: ? Procedure Note Karissa, Image - 05/21/2024 [facility] [address] [place] [address] Dr. [place], [place] [address] Mammography Report Signed Patient: Felipe Love#: [id number] 1 : 5Acct:[id number] Age/Sex: 69 / FADM Date: 05/16/24 Loc: [facility] Attending Dr: Mayelin Sandhu MD Ordering Physician: Mayelin Sandhuesults: Date of Service: 05/16/24Follow Up: Procedure(s): XR DEXA axial skeleton Accession Number(s): [id number] cc: Mayelin Sanhdu MD; Gracie Singer MD EXAMINATION: DXA BONE DENSITY AXIAL HISTORY: Estrogen deficiency TECHNIQUE: [email or web address] Dual energy absorptiometry (DEXA) of the lumbar spine, total left hip, and femoral neck was performed. COMPARISON: Comparison is made with the prior examination dated 01/06/2021. FINDINGS: The bone mineral density of the lumbar spine is 0.884 with a T-score of -2.3, and a Z-score of -0.9. This represents a BMD change of -4.2% compared to the prior exam. This is not statistically significant. The bone mineral density of the left total hip is 0.933 with a T-score of -0.6, and a Z-score of 0.7. This represents BMD change of 2.6% compared to the prior exam. This is not statistically significant. The bone mineral density of the left femoral neck is 0.794 with a T-score of -1.8, and a Z-score of -0.2. This represents BMD change of 7.4% compared to the prior exam. FRACTURE RISK: The FRAX index suggests a ten year probability of major osteoporotic fracture of 9.7%, and of hip fracture 2.4%. MM/XR DEXA axial skeleton IMPRESSION: Based on bone mineral density, and according to World Health Organization (WHO) criteria, the diagnosis is consistent with osteopenia. All bone density values are in grams per centimeter squared (g/cm2). Statistically, 68% of repeat scans fall within 1 SD (+/- 0.010 g/cm2 for AP spine L1-L4) and 1 SD (+/- 0.012 g/cm2 for femur total) FRAX is a trademark of the [employer] Disease, a World Health Organization (WHO) Collaborating Center. Electronically signed by: Preet Schwartz MD 05/21/2024 08:22 AM [facility] Dictated By: Preet Schwartz MD Signed By: <Electronically signed by Preet Schwartz MD in OV> 05/21/24 0822 DD/ 1253 TD/TT: 05/16/24 1320 Re Etcher: [facility] External Provider IMG DXA PROCEDURES Final Result * MR Abdomen w/ and w/o Contrast (04/23/2024 10:55 AM EST) Anatomical Region Laterality Modality Abdomen Magnetic Resonan ce 04/23/2024 10:5 5 AM EST Narrative 04/23/2024 1:10 PM EST ? [facility] ?[address] ?[place] [address] ? Magnetic Resonance Report ? Signed ? Patient: Love,Reena ?MR#: [id number] ?? 1 ? : 1955 ?Acct:[id number] ? Age/Sex: 69 / F ?ADM Date: 04/23/24 ? Loc: HO.MRI ? Attending Dr: Gracie Singer MD ? Ordering Physician: Gracie Singer MD ?? Date of Service: 04/23/24 ?? Procedure(s): MR abdomen wo/w con ?? Accession Number(s): [id number] ? cc: Gracie Singer MD ? EXAMINATION: [...] DD/ 1055 ? TD/TT: 04/23/24 1210 ? Re Etcher: ? Procedure Note Karissa, Image - 04/23/2024 [place] [address] Magnetic Resonance Report Signed Patient: Felipe Love#: [id number] 1 : 5Acct:[id number] Age/Sex: 69 / FADM Date: 04/23/24 Loc: HO.MRI Attending Dr: Gracie Singer MD Ordering Physician: Gracie Singer MD Date of Service: 04/23/24 Procedure(s): MR abdomen wo/w con Accession Number(s): [id number] cc: Gracie Singer MD EXAMINATION: MRI Abdomen [...] Preet Schwartz MD 04/23/2024 01:07 PM EST RP Dictated By: Preet Schwartz MD Signed By: <Electronically signed by Preet Schwartz MD in OV> 04/23/24 1307 DD/ 1055 TD/TT: 04/23/24 1210 Re Etcher: Gracie Singer MD IMG MRI PROCEDURES Final Result * BI Mammogram Screening Tomosynthesis Bilateral (02/29/2024 9:47 AM EST) Anatomical Region Laterality Modality Breast Bilateral Mammography 02/29/2024 9:47 AM EST Narrative 03/06/2024 11:53 AM EST ? [facility] ? [address] ?[place] [address] ? Mammography Report ? Signed ? Patient: Love,Reena ?MR#: [id number] ?? 1 ? : 1955 ?Acct:[id number] ? Age/Sex: 68 / F ?ADM Date: 02/29/24 ? Loc: HO.MAMMO ? Attending Dr: Gracie Singer MD ? Ordering Physician: Gracie Singer MD ?Results: 1Ne ?? gative ? Date of Service: 02/29/24 ?Follow Up: 1 Year From Orig ?? inal Mammogram ? Procedure(s): MM tomosynthesis screening BI ?? Accession Number(s): [id number] ? cc: Gracie Singer MD ? EXAMINATION: [...] by Lena Church, DO in OV> ? /01/18 1150 ? DD/ 0947 ? TD/TT: 02/29/24 1001 ? Re Etcher: ? Procedure Note Dongodfreyter, Image - 03/06/2024 [facility] [address] [place] [address] Mammography Report Signed Patient: Felipe Love#: [id number] 1 : 5Acct:[id number] Age/Sex: 68 / FADM Date: 02/29/24 Loc: HO.MAMMO Attending Dr: Gracie Singer MD Ordering Physician: Gracie Singer MDResults: 1Ne gative Date of Service: 02/29/24Follow Up: 1 Year From Orig inal Mammogram Procedure(s): MM tomosynthesis screening BI Accession Number(s): [id number] cc: Gracie Singer MD EXAMINATION: MM SCREENING [...] 03/06/24 1150 DD/ 0947 TD/TT: 02/29/24 1001 Re Etcher: Gracie Singer MD IMG BI PROCEDURES Final Result * Hepatitis Panel, General (02/08/2024 9:50 AM EST) Hepatitis A IgM Nonreactive Nonreactive [facility] Comment:IgM antibodies to DE JESUS V not detected; does not exclude earlyacute or recovered HAV infection. ~Hepatitis B Surface Antibody NONREACTIVE Nonreactive [facility] Comment:Nonreactive: < 8.00 mIU/mL Hepatitis B Core Antibody Nonreactive Nonreactive [facility] Hepatitis C Antibody Nonreactive Nonreactive [facility] Comment:Antibodies to HCV no t detected; does not exclude early acuteHCV infection. Hepatitis B Surface Ag Negative Negative [facility] Blood 02/08/2024 9:50 AM EST 02/08/2024 10:46 AM EST us Gracie Singer MD LAB BLOOD ORDERABLES Fin al Result [facility] [address] [place] [address] [phone] * Lipid Panel with Reflex to Direct LDL (08/18/2023 10:43 AM EDT) Triglycerides 125 <150 mg/dL [facility] Comment:Desirable Triglyceri de: less than 150 mg/dLBorderline High Triglyceride 150-199 mg/dLHigh Triglyceride: 200-499 mg/dLVery High Triglyceride: greater than or equal to 5OO mg/dL Cholesterol 153 <200 mg/dL [facility] Comment:Desirable Cholestero l: less than 200 mg/dLBorderline High Cholesterol: 200-239 mg/dLHigh Cholesterol: greater than 239 mg/dL LDL Cholesterol Calculated 68 <100 mg/dL [facility] Comment:Desirable LDL: less than 100 mg/dLNear Optimal/Above Optimal LDL: 110- 129 mg/dLBorderline High LDL: 130-159 mg/dLHigh LDL: 160-189 mg/dLVery High LDL: greater than or equal to 190 mg/dL HDL Cholesterol 60 >40 mg/dL [facility] Comment:Desirable HDL: great er than 40 mg/dL Note: This HDL assay may give artificially low results in patients with liver disease. Blood 08/18/2023 10:4 3 AM EDT 08/18/2023 10:43 AM EDT Gracie Singer MD LAB BLOOD ORDERABLES Fin al Result [facility] [address] [place] [address] [phone] * Hm Colonoscopy (09/24/2020 8:23 AM EDT) us Historical Provider HEALTH MAINTENANCE Final Result from Last 3 Months or Most Recently Relevant to Health Maintenance Insurance * Guarantor: Reena Love Account Type Relation to Patient Date of Phone Billing Address Personal/Family Self 1955 [address] [place] [address] [facility] DUAL COMPLETE Advance Directives Documents on File Type Date Recorded 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
--- OUTSIDE RECORDS SUMMARY | 2024-07-03 17:27 | XMS_ITS | Encounter Summary ---
Author Organization [employer] Address [address] [facility] [address] [place] [address] Care Team Providers Care Cyber Forensics Analyst Name Role Phone Gracie Singer MD Primary Care Provider + Reason for Visit * Reason Comments Med Refill Encounter Details Date Type Department Care Team ([facility] st Contact Info) Description 11/01/2022 Refill [facility] [address] [place], [place] [phone] [facility] [address] [place], [place] [phone] Chronic right hip pain; Chronic right-sided low [...] sciatica documented in this encounter Care Teams Cyber Forensics Analyst Relationship Specialty Start Date End Date Gracie Singer MD [address] [place], [place] [phone] PCP - General Family Medicine 05/14/20 documented as of this encounter
--- OUTSIDE RECORDS SUMMARY | 2024-07-03 17:27 | XMS_ITS | Encounter Summary ---
Author Organization [employer] Address [address] [place] [address] Care Team Providers Care Fabrication Operator Name Role Phone Gracie Singer MD Primary Care Provider + Reason for Visit * Reason Onset Date Comments triage 08/16/2022 Encounter Details Date Type Department Care Team ([facility] st Contact Info) Description 08/16/2022 Telephone [facility] MED[facility]INE [address] [place], [place] [phone] Gracie Singer MD [address] [place], [place] [phone] triage Social History Tobacco Use Types Packs/Day [...] 08/16/2022 1:39 PM EDT Triage call with [place] [id number] Pt sister is phone number listed. Pt [...] isbroken. Advised for Pt to come to [facility] and Pt sister will give message to Pt. Protocol Used: Back Pain (Adult) Protocol-Based Disposition: See in Office or Video Visit within 3 Days Video visit not offered Positive Triage Question: * Moderate back pain (e.g., interferes with normal activities) and present > 3 days * All higher-acuity triage questions were negative * Telephone Encounter - Abram Juan - 08/16/2022 11:04 AM EDT Symptoms: Hand or Wrist Pain - Not From Injury, Back Pain - Not From Injury Outcome: Schedule an urgent appointment (within 1 hour) or talk to a nurse or provider soon Reason: Severe pain now The caller accepted this outcome speaks kazakh documented in this encounter Plan of Treatment Not on file documented as of this encounter Visit Diagnoses Not on filedocumented in this encounter Care Teams Fabrication Operator Relationship Specialty Start Date End Date Gracie Singer MD [address] [place] [id number] PCP - General Family Medicine 05/14/20 documented as of this encounter
--- OUTSIDE RECORDS SUMMARY | 2024-07-03 17:27 | XMS_ITS | Encounter Summary ---
Author Organization [employer] Address [address] [place] [address] Care Team Providers Care Locker Attendant Name Role Phone Gracie Singer MD Primary Care Provider + Reason for Visit * Reason Onset Date Comments Med Refill 10/14/2023 Encounter Details Date Type Department Care Team ([facility] st Contact Info) Description 10/14/2023 Telephone [facility] MEDICINE [address] [place], [place] [phone] Gracie Singer MD [address] [place], [place] [phone] Med Refill Social History Tobacco Use Types Packs/Day Years Used Date Smoking Tobacco: Some Days Cigarettes 0.5 50 Started: 07/12/1974 Smokeless Tobacco: Never Comments:Started at [...] 1:18 PM EDT Medication was sent to [facility] #[id number] on 05/09/23 #90 with 3 refills. * Telephone Encounter - David Gallo - 10/14/2023 1:16 PM EDT TC from pt requesting medication refill. Medications needing refill: simvastatin (Zocor) 20 MG table To be sent to: [facility]/pharmacy #[id number] documented in this encounter Plan of Treatment Not on file documented as of this encounter Visit Diagnoses Not on filedocumented in this encounter Care Teams Locker Attendant Relationship Specialty Start Date End Date Gracie Singer MD [address] [place] [address] PCP - General Family Medicine 05/14/20 documented as of this encounter
--- OUTSIDE RECORDS SUMMARY | 2024-07-03 17:27 | XMS_ITS | Encounter Summary ---
Author Organization [employer] Address [address] [facility] 7t [place] [address] Care Team Providers Care Fuel Agent Name Role Phone Gracie Singer MD Primary Care Provider + Reason for Visit * Reason Onset Date Comments Appointment Request 06/23/2022 Encounter Details Date Type Department Care Team ([facility] st Contact Info) Description 06/23/2022 Telephone [facility] MEDICINE [address] [place], [place] [phone] Gracie Singer MD [address] [place], [place] [phone] Appointment Request Social History Tobacco Use Types [...] states that they would like somelater the June. Please contact pt at [phone] documented in this encounter Plan of Treatment Not on file documented as of this encounter Visit Diagnoses Not on filedocumented in this encounter Care Teams Fuel Agent Relationship Specialty Start Date End Date Gracie Singer MD [address] [place] [address] PCP - General Family Medicine 05/14/20 documented as of this encounter
--- OUTSIDE RECORDS SUMMARY | 2024-07-03 17:27 | XMS_ITS | Encounter Summary ---
Author Organization [employer] Address [address] [place] [address] Care Team Providers Care Oracle Identity Management Consultant Name Role Phone Gracie Singer MD Primary Care Provider + Encounter Details Date Type Department Care Team (Late st Contact Info) Description 08/24/2023 Orders Only [facility] MEDICINE [address] [place], [place] [phone] Provider, MD John Social History Tobacco Use [...] your housing situation today? I have miguel sing 07/25/[address] you li [...] on filedocumented in this encounter Care Teams Oracle Identity Management Consultant Relationship Specialty Start Date End Date Gracie Singer MD [address] [place] [id number] PCP - General Family Medicine 05/14/20 documented as of this encounter
--- OUTSIDE RECORDS SUMMARY | 2024-07-03 17:27 | XMS_ITS | Encounter Summary ---
Author Organization [employer] [facility] Address [address] [facility] 7t [place] [address] Care Team Providers Care Corporation Secretary Name Role Phone Gracie Singer MD Primary Care Provider + Reason for Visit * Reason Onset Date Comments Nurse Triage 10/18/2022 Encounter Details Date Type Department Care Team ([facility] st Contact Info) Description 10/18/2022 Telephone [facility] MEDICINE [address] [place], [place] [phone] Gracie Singer MD [address] [place], [place] [phone] Nurse Triage Social History Tobacco Use Types [...] 10/18/2022 11:40 AM EDT Triage call with [place] [employer] Worker [place] [id number] Pt reports right hip pain which is [...] accepted this outcome Please contact pt at [phone] (Syriac) documented in this encounter Plan of Treatment Not on file documented as of this encounter Visit Diagnoses Not on filedocumented in this encounter Care Teams Corporation Secretary Relationship Specialty Start Date End Date Gracie Singer MD [address] [place] [phone] PCP - General Family Medicine 05/14/20 documented as of this encounter
--- OUTSIDE RECORDS SUMMARY | 2024-07-03 17:27 | XMS_ITS ---
Author Name Jarad DIGITAL AD TRAFFICKER,SENIOR WAREHOUSE CLERK,FN P,PRINCIPAL NETWORK ARCHITECT, Radha Address [address] [place] [phone] Phone [phone] [facility] Care Team Providers Care Hydrocrane Operator Name Role Phone Radha Abraham Unavailable [phone] Ashleigh Núñez Unavailable Unavailable Reason for Referral Not Available [...] Active 2023-09-16 N/A Other problems related to [facility] facilities and other health care Active 2023-09-16 N/A Encounters Encounters Type Facility Date of Service Diagnosis/Co mplaint New patient,40-59min; chronic exacerbation, 2 stable chronic or 1 acute illness add add modifier 95 for video (do not use for phone, instead use 39106-59) [facility] ([place]) 02/01/2022 Hyperlipidemia, unspecifiedInsomnia, unspecifiedUnspecified asthma, uncomplicatedVitamin D deficiency, unspecifiedLow back pain, unspecifiedOpioid dependence, uncomplicatedDry eye syndrome of bilateral lacrimal glands New patient,40-59min; chronic exacerbation, 2 stable chronic or 1 acute illness add add modifier 95 for video (do not use for phone, instead use 37912-95) [facility], ([place] 02/01/2022 New patient,40-59min; chronic exacerbation, 2 stable chronic or 1 acute illness add add modifier 95 for video (do not use for phone, instead use 68111-97) [facility] [place] New patient,40-59min; chronic exacerbation, 2 stable chronic or 1 acute illness add add modifier 95 for video (do not use for phone, instead use 13835-30) [facility] [place] 02/[place]/2022 New patient,40-59min; chronic exacerbation, 2 stable chronic or 1 acute illness add add modifier 95 for video (do not use for phone, instead use 12813-96) [facility] [place] 02/01/2022 New patient,40-59min; chronic exacerbation, 2 stable chronic or 1 acute illness add add modifier 95 for video (do not use for phone, instead use 21110-64) [facility] [place] 02/01/2022 New patient,40-59min; chronic exacerbation, 2 stable chronic or 1 acute illness add add modifier 95 for video (do not use for phone, instead use 05147-14) [facility] [place] 02/01/2022 New patient,40-59min; chronic exacerbation, 2 stable chronic or 1 acute illness add add modifier 95 for video (do not use for phone, instead use 67993-42) [facility], [place] 02/01/2022 New patient,40-59min; chronic exacerbation, 2 stable chronic or 1 acute illness add add modifier 95 for video (do not use for phone, instead use 63950-15) [facility] [place] 02/01/2022 Estab. patient 30-39min; chronic exacerbation, 2 stable chronic or 1 acute illness add add modifier 95 for video, (do not use for phone, instead use 27736-86) [facility] [place] 01/24/2023 Hyperlipidemia, unspecifiedInsomnia, unspecifiedPulmonary fibrosis, unspecifiedVitamin D deficiency, unspecifiedSacroiliitis, not elsewhere classifiedOpioid dependence, uncomplicatedDry eye syndrome of bilateral lacrimal glandsOther obesity due to excess caloriesBody mass index (bmi) 31.0-31.9, adultMigraine, unspecified, not intractable, without status migrainosus Estab. patient 30-39min; chronic exacerbation, 2 stable chronic or 1 acute illness add add modifier 95 for video, (do not use for phone, instead use 70868-34) [facility], [place] 01/24/2023 Estab. patient 30-39min; chronic exacerbation, 2 stable chronic or 1 acute illness add add modifier 95 for video, (do not use for phone, instead use 11851-12) [facility], ([place] 01/24/2023 Estab. patient 30-39min; chronic exacerbation, 2 stable chronic or 1 acute illness add add modifier 95 for video, (do not use for phone, instead use 21776-11) [facility] [place] 01/24/2023 Estab. patient 30-39min; chronic exacerbation, 2 stable chronic or 1 acute illness add add modifier 95 for video, (do not use for phone, instead use 81832-36) [facility] [place] 01/24/2023 Estab. patient 30-39min; chronic exacerbation, 2 stable chronic or 1 acute illness add add modifier 95 for video, (do not use for phone, instead use 68048-41) [facility] [place] 01/24/2023 Estab. patient 30-39min; chronic exacerbation, 2 stable chronic or 1 acute illness add add modifier 95 for video, (do not use for phone, instead use 11733-81) [facility] [place] 09/16/2023 Hyperlipidemia, unspecifiedInsomnia, unspecifiedPulmonary fibrosis, [...] (do not use for phone, instead use 60984-55) [facility] [place] 09/16/2023 Estab. patient 30-39min; chronic exacerbation, 2 stable chronic or 1 acute illness add add modifier 95 for video, (do not use for phone, instead use 11056-49) [facility] ([place] 09/16/2023 Estab. patient 30-39min; chronic exacerbation, 2 stable chronic or 1 acute illness add add modifier 95 for video, (do not use for phone, instead use 82467-92) [facility] [place] 09[place]/2023 Estab. patient 30-39min; chronic exacerbation, 2 stable chronic or 1 acute illness add add modifier 95 for video, (do not use for phone, instead use 13425-30) [facility] ([place] 09/16/2023 Estab. patient 30-39min; chronic exacerbation, 2 stable chronic or 1 acute illness add add modifier 95 for video, (do not use for phone, instead use 09987-51) [facility], [place] 09/16/2023 Estab. patient 30-39min; chronic exacerbation, 2 stable chronic or 1 acute illness add add modifier 95 for video, (do not use for phone, instead use 31948-25) [facility] [place] 09/[place]/2023 Immunizations Vaccine Date Status pneumococcal, unspecified [...] Current Smoking Status Current every day smoker 2024-07-03 Sex Female History of Procedures Procedures Service Procedure code Service date Servicing provider Phone# New patient,40-59min; chronic exacerbation, 2 stable chronic or 1 acute illness add add modifier 95 for video (do not use for phone, instead use 70136-88) 11091 2022-02-01 No Data Available No Data Availa [...] (do not use for phone, instead use 49189-16) [id number] 2023-01-24 No Data Available No Data Availa [...] (do not use for phone, instead use 83223-04) 62652 2023-09-16 No Data Available No Data Availa [...] acute or disease education needs that may arise.Zntythc-ruiiccbarltlPebibtp-ackvpcmsl-amitriptyline prnManaged-flovent HFAManagedvitamin D udpgpbtrhtEexomvu-zvhreoqtVwopkbo-uebofnnb-follow up every 3 monthsManaged-artificial tears 2023-01-24 11:05:42 [...] acute or disease education needs that may arise.Oivxnjz-efksdhhyurtcRnuvvlx-omnrsfqoi-amitriptyline prnManaged-flovent HFAManagedvitamin D llunigyihsPjnpkqr-uqlefielSsntywg-hgbvjgxj-follow up every 3 monthsManaged-artificial tearsBMI: 31.10Lifestyle interventions [...] interventions, exercise as tolerable, and continue with PCP.Vdukvfh-pzlmrfarl-dnfrhqszculhn prnManaged-flovent HFAContinue f/u care with pulmonology.Managedvitamin D supplementManaged-tramadolContinue with PCP.Uyfuwev-eapnkvga-ylfvoy up every 3 monthsManaged-artificial tearsBMI: 31.10Lifestyle interventions [...] Health Concerns Date Concern 2023-09-16 Visit completed in g audio/video. Patient/Guardian agreed to visit via [...]
== END 2024-07-03 14:58 | disposition home or self-care (01) ==
LOC: HO.HUSH 14:21
PROVIDERS: PCP Internal Medicine; Visit Provider Nurse Practitioner Family
DX: Z13.9 Encounter for screening, unspecified (principal); N28.1 Cyst of kidney, acquired
CPT/HCPCS: 99203

== ENCOUNTER → 2024-07-03 14:20 | Outpatient (BNVA) | payer OTHER, SELFPAY | PROVIDERS: PCP Internal Medicine; Visit Provider Nurse Practitioner Family | DX: N28.1 Cyst of kidney, acquired (principal) | CPT/HCPCS: 81003; 99202 ==

== ENCOUNTER 2024-08-01 10:48 | Outpatient (REF) | payer OTHER, SELFPAY ==
[2024-08-01 12:15] LABS: Hematocrit 42.1 % (37.0-47.0); Hemoglobin 14.1 g/dl (12.0-16.0); Mean Corpuscular HGB Conc 33.5 g/dl (31.0-35.0); Mean Corpuscular Hemoglobin 29.4 pg (27.0-33.0); Mean Corpuscular Volume 87.7 fL (80.0-98.0); Mean Platelet Volume 10.2 fL (9.4-12.3); Platelet Count 231 X10*3/uL (160-400); Red Cell Distribution Width 12.4 % (11.0-16.0); White Blood Count 7.7 X10*3/uL (4.8-10.8)
[2024-08-01 12:19] LABS: INTERNATIONAL NORM RATIO 0.9 (0.9-1.1); Prothrombin Time 10.7 SEC (10.9-12.4)
[2024-08-01 12:51] LABS: Estimated Average Glucose 111 mg/dL; Hemoglobin A1C 130.0266 umol/L; Hemoglobin A1c % 5.5 % (<6.0); Total Hemoglobin (HGBA1C) 3599.3679 umol/L
[2024-08-01 12:58] LABS: Alanine Aminotransferase 35 U/L (0-31); Albumin Level 4.4 g/dL (3.5-5.0); Alkaline Phosphatase 93 U/L (39-117); Anion Gap 12 (12-20); Aspartate Amino Transferase 36 U/L (5-31); Bilirubin Total 0.6 mg/dL (0.0-1.0); Blood Urea Nitrogen 14 mg/dL (9-16); C Reactive Protein 0.31 mg/dL (< or = 0.50); Calcium 9.7 mg/dL (8.4-10.2); Carbon Dioxide 26 mmol/L (22-29); Chloride 105 mmol/L (96-108); Cholesterol 216 mg/dL (<200); Estimated Glomerular Filt Rate > 60; Glucose Random 84 mg/dL (60-115); HDL Cholesterol 50 mg/dL (>40); Iron 96 mcg/dL (30-160); LDL Cholesterol Calculated 126 mg/dL (<100); Percent Iron Saturation 35 % (15-50); Potassium 3.9 mmol/L (3.3-5.1); Sodium 139 mmol/L (135-145); Total Iron Binding Capacity 274 mcg/dL (228-428); Total Protein 7.5 g/dL (6.5-8.0); Triglycerides 200 mg/dL (<150); Unsaturated Iron Binding 178 ug/dL
--- OUTSIDE RECORDS SUMMARY | 2024-08-01 13:00 | XMS_ITS | Clinical Summary ---
Author Organization [employer] Address [address] [facility] 7t [place] [address] Care Team Providers Care Asw/Asuw Tactical Air Controller Name Role Phone Gracie Singer MD Primary [...] TABLETA DOS VECES AL ERIC 30 tablet 3 Active amitriptyline (Elavil) 25 [...] 03/30/2023 Overview (03/30/2023): 1cm caudate cyst on [facility] CT scan (Chest CT fu lung [...] Encounters Date Type Department Care Team Description 08/01/2024 Orders Only GENERIC EXTERNAL DATA DEPARTMENT Provider, Generic External Data 07/18/[address] [address] Gracie Singer MD 06/27/2024 3:30 PM EDT Office Visit [address] [address] Gracie Singer MD Mild persistent asthma without complication (Primary Dx); Renal cyst, acquired, left; Fatty liver; Diabetes due to undrl condition w oth diabetic neuro comp ([facility]); Class 1 obesity due to excess calories with serious comorbidity and body mass index (BMI) of 33.0 to 33.9 in adult; Smoker; Migraine without aura, not refractory; Dietary counseling; Exercise counseling 06/27/2024 Travel 06/26/[address] [address] Gracie Singer MD Chart prep 05/23/[address] [address] Gracie Singer MD Results 05/22/2024 Orders Only [address] [address] Gracie Singer MD 05/09/[address] [address] Yadi Bain RN 05/08/2024 Orders Only [address] [address] Gracie Singer MD Elevated liver function tests [...] 2023 04/22/2021, 06/12/2020, 05/15/2020 Lipid Panel 08/17/2024 08/01/2024, 07/27, 01/11/2023, Additional history exists Diabetes: Hemoglobin A1C 12/27/2024 08/01/2024, 04/0 04/2024 Mammogram 02/28/2025 02/29/2024, 12/26, 12/31/2021, Additional history exists Depression Screening 06/27/2025 06/27/2024, 06/28/19 25 SDOH Screening 06/27/2025 06/27/2024 Tobacco Screening 06/27/2025 [...] Procedure Name Priority Date/Time Associated Diagnosis Comments LIPID PANEL, STANDARD Routine 08/01/2024 11:51 AM EDT C-REACTIVE PROTEIN Routine 08/01/2024 11 :51 AM EDT IRON AND TOTAL IRON BINDING CAPACITY Routine 08/01/2024 11:51 AM EDT COMPREHENSIVE METABOLIC PANEL Routine 08/01/2024 11:51 AM EDT HEMOGLOBIN A1C Routine 08/01/2024 11:51 AM EDT PROTHROMBIN TIME-INR Routine 08/01/2024 11:51 AM EDT CBC Routine 08/01/2024 11:51 AM EDT POCT GLYCATED HEMOGLOBIN, TOTAL Routine 06/27/2024 3:55 [...] 9:50 AM EST Elevated liver function tests HM COLONOSCOPY Routine 09/24/2020 8:23 AM EDT from Last 3 Months or Most Recently Relevant to Health Maintenance Results * (ABNORMAL) Prothrombin Time-INR (08/01/2024 11:51 AM EDT) Prothrombin Time 10.7(L) 10.9 - 12.4 SEC [facility] INTERNATIONAL NORM RATIO 0.9 0.9 - 1.1 [facility] Comment:INTERNATIONAL NORMAL IZED RATIO (INR) REFERENCE RANGES Reference RangeFor patients not on anticoagulant therapy: 0.9 - 1.1INR ranges for oral anticoagulanttherapy:For prevention and treatment of venous thrombosis and pulmonary embolism: 2.0 - 3.0For acute myocardial infarction with aspirin therapy: 2.0 - 3.0For acute myocardial infarction without aspirin therapy: 3.0 - 4.0For patients with mechanical prosthetic heart valves: 2.5 - 3.5 08/01/2024 11:5 1 AM EDT 08/01/2024 11:51 AM EDT us Generic External Data Provider LAB BLOOD ORDERAB LES Final Result Performing Organization Address City/Va Hospital/ZIP Co de Phone Number [facility] [address] [place] [phone] * CBC (08/01/2024 11:51 AM EDT) White Blood Count 7.7 4.8 - 10.8 X10*3/uL [facility] Red Blood Count 4.80 4.20 - 5.50 X10*6/uL [facility] Hemoglobin 14.1 12.0 - 16.0 g/dl [facility] Hematocrit 42.1 37.0 - 47.0 % [facility] Mean Corpuscular Volume 87.7 80.0 - 98.0 fL [facility] Mean Corpuscular Hemoglobin 29.4 27.0 - 33.0 pg [facility] Mean Corpuscular HGB Conc 33.5 31.0 - 35.0 g/dl [facility] Red Cell Distribution Width 12.4 11.0 - 16.0 % [facility] Platelet Count 231 160 - 400 X10*3/uL [facility] Mean Platelet Volume 10.2 9.4 - 12.3 fL [facility] NRBC Pct Auto 0.0 0.0 - 0.2 /100WBC [facility] NRBC Abs Auto 0.000 0.0 - 0.012 X10*3/uL [facility] 08/01/2024 11:5 1 AM EDT 08/01/2024 11:51 AM EDT us Generic External Data Provider LAB BLOOD ORDERAB LES Final Result [facility] [address] [place] [address] [phone] * Hemoglobin A1c (08/01/2024 11:51 AM EDT) Hemoglobin A1c 5.5 <6.0 % [facility] Comment:Hemoglobin A1C Refer ence Range Adults: 4.8 - 6.0 % Non diabetic: < 6.0 % Goal: < 7.0 %Additional Action Suggested: > 8.0 %Note: Hemoglobin A1c results are invalid for patients with abnormal amounts of HbF. Blood transfusions may impact the HbA1c concentration in the patient sample. Estimated Average Glucose 111 mg/dL [facility] Comment:eAG = Estimated ave rage glucose which is %A1C expressed asaverage glucose, using the formula of the A3N-PekxjwvAdvnilg Glucose study (ADAG), Diabetes Care, Vol.31,#8,Oct. 2007 08/01/2024 11:5 1 AM EDT 08/01/2024 11:51 AM EDT us Generic External Data Provider LAB BLOOD ORDERAB LES Final Result [facility] [address] [place] [phone] * POCT HGB A1C (06/27/2024 3:55 PM EDT) Hemoglobin A1C 5.6 4.0 - 6.0 % QC Media Lot # [id number] Lot# Expiration Date [id number] Blood 06/27/2024 3:55 PM EDT us Gracie Singer MD POINT OF CARE TEST ENTER /EDIT ORDERABLES Final Result * POCT Glucose (06/27/2024 3:55 PM EDT) Glucose Blood, POC 131 60 - 200 mg/dL QC Media Lot # [id number] Lot# Expiration Date [id number] Blood Capillary blood specimen / Unknown 06/27/2024 3:55 PM EDT us Gracie Singer MD POINT OF CARE TEST ENTER /EDIT ORDERABLES Final Result * BD DEXA Axial (05/16/2024 12:53 PM EST) Anatomical Region Laterality Modality Body Radiographic Susan ging 05/16/2024 12:5 3 PM EST Narrative 05/21/2024 8:26 AM EST ? [facility] ? [address] ?[place], [place] [address] ? Mammography Report ? Signed ? Patient: Love,Reena ?MR#: [id number] ?? 1 ? : 1955 ?Acct:[id number] ? Age/Sex: 69 / F ?ADM Date: 05/16/24 ? Loc: HO.MAMMO ? Attending Dr: Maeylin Sandhu MD ? Ordering Physician: Mayelin Sandhu MD ?Results: ? Date of Service: 05/16/ ?Follow Up: ? Procedure(s): XR DEXA axial skeleton ?? Accession Number(s): [id number] ? cc: Mayelin Sandhu MD; Gracie Singer MD ? EXAMINATION: ??DXA BONE DENSITY AXIAL ? HISTORY: ??Estrogen deficiency ? TECHNIQUE: Tjobs Recruit Dual energy absorptiometry (DEXA) ?? of the [...] is a trademark of the [employer]'s ?? [facility] Metabolic Bone Disease, a World Health Organization (WHO) ?? Collaborating Center. ? Electronically signed by: ??Preet Schwartz MD ??05/21/2024 08:22 AM EST ?? RP ? Dictated By: ?Preet Schwartz MD ? Signed By: ?<Electronically signed by Preet Schwartz MD in OV> ?05/21/24821 ? DD/ 1253 ? TD/TT: 05/16/24 1320 ? Online Affiliate Marketing Manager: ? Procedure Note Donotuseinterpreter, Image - 05/21/2024 [facility] [address] [place], [place] [address] Mammography Report Signed Patient: Felipe Love#: [id number] 1 : 5Acct:[id number] Age/Sex: 69 / FADM Date: 05/16/24 Loc: HO.ANSHULO Attending Dr: Mayelin Sandhu MD Ordering Physician: Mayelin Sandhuesults: Date of Service: 05/16/24Follow Up: Procedure(s): XR DEXA axial skeleton Accession Number(s): [id number] cc: Mayelin Sandhu MD; Gracie Singer MD EXAMINATION: DXA BONE DENSITY AXIAL HISTORY: Estrogen deficiency TECHNIQUE: Tjobs Recruit Dual energy absorptiometry (DEXA) of the lumbar [...] of the [employer] [employer] Disease, a World Health Organization (WHO) Collaborating Center. Electronically signed by: Preet Schwartz MD 05/21/2024 08:22 AM EST RP Dictated By: Preet Schwartz MD Signed By: <Electronically signed by Preet Schwartz MD in OV> 05/21/24 0822 DD/ 1253 TD/TT: 05/16/24 1320 Online Affiliate Marketing Manager: [facility] External Provider IMG DXA PROCEDURES Final Result * BI Mammogram Screening Tomosynthesis Bilateral (02/29/2024 9:47 AM EST) Anatomical Region Laterality Modality Breast Bilateral Mammography 02/29/2024 9:47 AM EST Narrative 03/06/2024 11:53 AM EST ? [facility] [place] ? [address] ?[place] [address] ? Mammography Report ? Signed ? Patient: Love,Reena ?MR#: [id number] ?? 1 ? : 1955 ?Acct:[id number] ? Age/Sex: 68 / F ?ADM Date: 12/04/24 ? Loc: HO.MAMMO ? Attending : Gracie Singer MD ? Ordering Physician: Gracie Singer MD ?Results: 1Ne ?? gative ? Date of Service: 02/29/24 ?Follow Up: 1 Year From Orig ?? inal Mammogram ? Procedure(s): MM tomosynthesis screening BI ?? Accession Number(s): [id number] ? cc: Gracie Singer MD ? EXAMINATION: [...] in OV> ? 03/06/24 1150 ? DD/ 6 ? TD/TT: 02/29/24 1001 ? Online Affiliate Marketing Manager: ? Procedure Note Donotvoninterpreter, Image - 03/06/2024 [facility] [address] [place], [place] [address] Mammography Report Signed Patient: Felipe Love#: [id number] 1 : 5Acct:[id number] Age/Sex: 68 / FADM Date: 02/29/24 Loc: HO.MAMMO Attending Dr: Gracie Singer MD Ordering Physician: Gracie Singer MDResults: 1Ne gative Date of Service: 02/29/24Follow Up: 1 Year From Orig ina Mammogram Procedure(s): MM tomosynthesis screening BI Accession Number(s): [id number] cc: Gracie Singer MD EXAMINATION: MM SCREENING [...] 03/06/24 1150 DD/ 0947 TD/TT: 02/29/24 1001 Online Affiliate Marketing Manager: Gracie Singer MD IMG BI PROCEDURES Final Result * Hepatitis Panel, General (02/08/2024 9:50 AM EST) Hepatitis A IgM Nonreactive Nonreactive [facility] Comment:IgM antibodies to DE JESUS V not detected; does not exclude earlyacute or recovered HAV infection. ~Hepatitis B Surface Antibody NONREACTIVE Nonreactive [facility] Comment:Nonreactive: < 8.00 mIU/mL Hepatitis B Core Antibody Nonreactive Nonreactive [facility] Hepatitis C Antibody Nonreactive Nonreactive [facility] Comment:Antibodies to HCV no t detected; does not exclude early acuteHCV infection. Hepatitis B Surface Ag Negative Negative [facility] Blood 02/08/2024 9:50 AM EST 02/08/2024 10:46 AM EST Gracie Singer MD LAB BLOOD ORDERABLES Fin al Result [facility] [address] [place] [address] [phone] * Hm Colonoscopy (09/24/2020 8:23 AM EDT) Historical Provider HEALTH MAINTENANCE Final Result from Last 3 Months or Most Recently Relevant to Health Maintenance Insurance [place] [place] [id number] [facility] DUAL COMPLETE * Guarantor: Yvonne Loveaida Account Type Relation to Patient Date of Phone Billing Address Personal/Family Self [address] [place] [address] Advance Directives Documents on File Type Date Recorded 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
--- OUTSIDE RECORDS SUMMARY | 2024-08-01 13:00 | XMS_ITS | Encounter Summary ---
Author Organization [employer] Address [address] [facility] [address] [place] [address] Care Team Providers Care Director Of Partner Marketing Name Role Phone Gracie Singer MD Primary Care Provider + Reason for Visit * Reason Onset Date Comments Med Refill 10/14/2023 Encounter Details Date Type Department Care Team ([facility] st Contact Info) Description 10/14/2023 Telephone [facility] [address] [place], [place] [phone] Gracie Singer MD [address] [place], [place] [phone] Med Refill Social History Tobacco Use Types [...] 1:18 PM EDT Medication was sent to [facility][id number] on 05/09/23 #90 with 3 refills. * Telephone Encounter - aDvid Gallo - 10/14/2023 1:16 PM EDT TC from pt requesting medication refill. Medications needing refill: simvastatin (Zocor) 20 MG table To be sent to: [facility]/pharmacy #[id number] documented in this encounter Plan of Treatment Not on file documented as of this encounter Visit Diagnoses Not on filedocumented in this encounter Care Teams Director Of Partner Marketing Relationship Specialty Start Date End Date Gracie Singer MD [address] [place] [address] PCP - General Family Medicine 05/14/20 documented as of this encounter
--- OUTSIDE RECORDS SUMMARY | 2024-08-01 13:00 | XMS_ITS | Encounter Summary ---
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 Please contact pt at [phone] documented in this encounter Plan of Treatment Not on file documented as of this encounter Visit Diagnoses Not on filedocumented in this encounter Care Teams Business Process Consultant Relationship Specialty Start Date End Date Gracie Singer MD [address] [place] [phone] PCP - General Family Medicine 05/14/20 documented as of this encounter
--- OUTSIDE RECORDS SUMMARY | 2024-08-01 13:00 | XMS_ITS | Encounter Summary ---
Demographics Address [address] [facility] [address] [place] [address] Mobile Phone Home Phone Work Phone Preferred Language es Marital Status Hinduism Affiliation Unknown Race Other Race Ethnic Group Unknown Author Organization [employer] Address [address] [facility] [address] [place] [address] Care Team Providers Care State Highway Police Officer Name Role Phone Gracie Singer MD Primary Care Provider + Encounter Details Date Type Department Care Team (Late st Contact Info) Description 08/01/2024 Orders Only GENERIC EXTERNAL DATA DEPARTMENT Provider, Generic External Data Social History Tobacco Use Types Packs/Day Years [...] as of this encounter Plan of Treatment Pending Results Name Type Priority Associated Diagnoses Date /Time Comprehensive Metabolic Panel Lab Routine 08/01/2024 11:51 AM EDT Iron And Total Iron Binding Capacity Lab Routine 08/01/2024 11:51 AM EDT C-reactive Protein Lab Routine 2024 11:51 AM EDT Lipid Panel, Standard Lab Routine 09/2024 11:51 AM EDT documented as of this encounter Procedures Procedure Name Priority Date/Time Associated Diagnosis Comments IRON AND TOTAL IRON BINDING CAPACITY Routine 08/01/2024 11:51 AM EDT PROTHROMBIN TIME-INR Routine 08/01/2024 11:51 AM EDT CBC Routine 08/01/2024 11:51 AM EDT C-REACTIVE PROTEIN Routine 08/01/2024 11 :51 AM EDT HEMOGLOBIN A1C Routine 08/01/2024 11:51 AM EDT LIPID PANEL, STANDARD Routine 08/01/2024 11:51 AM EDT COMPREHENSIVE METABOLIC PANEL Routine 08/01/2024 11:51 AM EDT documented in this encounter Results * Hemoglobin A1c (08/01/2024 11:51 AM EDT) Hemoglobin A1c 5.5 <6.0 % [facility] Comment:Hemoglobin A1C Refer ence Range Adults: 4.8 - 6.0 % Non diabetic: < 6.0 % Goal: < 7.0 %Additional Action Suggested: > 8.0 %Note: Hemoglobin A1c results are invalid for patients with abnormal amounts of HbF. Blood transfusions may impact the HbA1c concentration in the patient sample. Estimated Average Glucose 111 mg/dL [facility] Comment:eAG = Estimated ave rage glucose which is %A1C expressed asaverage glucose, using the formula of the L9B-GztcwbqHztrrsn Glucose study (ADAG), Diabetes Care, Vol.31,#8,Oct. 2007 08/01/2024 11:5 1 AM EDT 08/01/2024 11:51 AM EDT Generic External Data Provider LAB BLOOD ORDERAB LES Final Result Performing Organization Address [facility] Co de Phone Number [facility] [address] [place] [phone] * (ABNORMAL) Prothrombin Time-INR (08/01/2024 11:51 AM EDT) Prothrombin Time 10.7(L) 10.9 - 12.4 SEC [facility] INTERNATIONAL NORM RATIO 0.9 0.9 - 1.1 [facility] Comment:INTERNATIONAL NORMAL IZED RATIO (INR) REFERENCE [...] 1 AM EDT 08/01/2024 11:51 AM EDT Generic External Data Provider LAB BLOOD ORDERAB LES Final Result Performing Organization Address [facility] Co de Phone Number [facility] [address] [place] [phone] * CBC (08/01/2024 11:51 AM EDT) White Blood Count 7.7 4.8 - 10.8 X10*3/uL [facility] Red Blood Count 4.80 4.20 - 5.50 X10*6/uL [facility] Hemoglobin 14.1 12.0 - 16.0 g/dl [facility] Hematocrit 42.1 37.0 - 47.0 % [facility] Mean Corpuscular Volume 87.7 80.0 - 98.0 fL [facility] Mean Corpuscular Hemoglobin 29.4 27.0 - 33.0 pg [facility] Mean Corpuscular HGB Conc 33.5 31.0 - 35.0 g/dl [facility] Red Cell Distribution Width 12.4 11.0 - 16.0 % [facility] Platelet Count 231 160 - 400 X10*3/uL [facility] Mean Platelet Volume 10.2 9.4 - 12.3 fL [facility] NRBC Pct Auto 0.0 0.0 - 0.2 /100WBC [facility] NRBC Abs Auto 0.000 0.0 - 0.012 X10*3/uL [facility] 08/01/2024 11:5 1 AM EDT 08/01/2024 11:51 AM EDT us Generic External Data Provider LAB BLOOD ORDERAB LES Final Result Performing Organization Address City/State/[facility] Co de Phone Number [facility] [address] [place] [phone] documented in this encounter Visit Diagnoses Not on filedocumented in this encounter Care Teams State Highway Police Officer Relationship Specialty Start Date End Date Gracie Singer MD [address] [place] [phone] PCP - General Family Medicine 05/14/20 documented as of this encounter
--- OUTSIDE RECORDS SUMMARY | 2024-08-01 13:00 | XMS_ITS ---
Author Name Jaard SUPERVISOR KNITTING,STILL CLEANER,FN P,PRINCIPAL PROGRAMMER, Radha Address [address] [place] [phone] Phone [phone] [facility] Care Team Providers Care Crystalizer Name Role Phone Radha Abraham Unavailable [phone] Ashleigh Núñez Unavailable Unavailable Reason for Referral [...] Active 2023-09-16 N/A Other problems related to [facility] facilities and other health care Active 2023-09-16 N/A Encounters Encounters Type Facility Date of Service Diagnosis/Co mplaint New patient,40-59min; chronic exacerbation, 2 stable chronic or 1 acute illness add add modifier 95 for video (do not use for phone, instead use 03993-45) [facility] [place]2022 Hyperlipidemia, unspecifiedInsomnia, unspecifiedUnspecified asthma, uncomplicatedVitamin D deficiency, unspecifiedLow back pain, unspecifiedOpioid dependence, uncomplicatedDry eye syndrome of bilateral lacrimal glands New patient,40-59min; chronic exacerbation, 2 stable chronic or 1 acute illness add add modifier 95 for video (do not use for phone, instead use 12901-57) [facility] [place] 02[place]/2022 New patient,40-59min; chronic exacerbation, 2 stable chronic or 1 acute illness add add modifier 95 for video (do not use for phone, instead use 30267-52) [facility] [place] 02/[place]/2022 New patient,40-59min; chronic exacerbation, 2 stable chronic or 1 acute illness add add modifier 95 for video (do not use for phone, instead use 12832-28) [facility] [place] 02/[place]/2022 New patient,40-59min; chronic exacerbation, 2 stable chronic or 1 acute illness add add modifier 95 for video (do not use for phone, instead use 03976-18) [facility] [place] 02/01/2022 New patient,40-59min; chronic exacerbation, 2 stable chronic or 1 acute illness add add modifier 95 for video (do not use for phone, instead use 86921-45) [facility] [place] 02/01/2022 New patient,40-59min; chronic exacerbation, 2 stable chronic or 1 acute illness add add modifier 95 for video (do not use for phone, instead use 87362-25) [facility] [place] 02/01/2022 New patient,40-59min; chronic exacerbation, 2 stable chronic or 1 acute illness add add modifier 95 for video (do not use for phone, instead use 69103-07) [facility] [place] 02/01/2022 New patient,40-59min; chronic exacerbation, 2 stable chronic or 1 acute illness add add modifier 95 for video (do not use for phone, instead use 66314-82) [facility] [place] 02/01/2022 Estab. patient 30-39min; chronic exacerbation, 2 stable chronic or 1 acute illness add add modifier 95 for video, (do not use for phone, instead use 44942-92) [facility] [place] 01/24/2023 Hyperlipidemia, unspecifiedInsomnia, unspecifiedPulmonary fibrosis, unspecifiedVitamin D deficiency, unspecifiedSacroiliitis, not elsewhere classifiedOpioid dependence, uncomplicatedDry eye syndrome of bilateral lacrimal glandsOther obesity due to excess caloriesBody mass index (bmi) 31.0-31.9, adultMigraine, unspecified, not intractable, without status migrainosus Estab. patient 30-39min; chronic exacerbation, 2 stable chronic or 1 acute illness add add modifier 95 for video, (do not use for phone, instead use 23165-74) [facility], ([place] 01/24/2023 Estab. patient 30-39min; chronic exacerbation, 2 stable chronic or 1 acute illness add add modifier 95 for video, (do not use for phone, instead use 44655-10) [facility] [place] 01/24/2023 Estab. patient 30-39min; chronic exacerbation, 2 stable chronic or 1 acute illness add add modifier 95 for video, (do not use for phone, instead use 42853-71) [facility] [place] 01/24/2023 Estab. patient 30-39min; chronic exacerbation, 2 stable chronic or 1 acute illness add add modifier 95 for video, (do not use for phone, instead use 03785-91) [facility] [place] 01/24/2023 Estab. patient 30-39min; chronic exacerbation, 2 stable chronic or 1 acute illness add add modifier 95 for video, (do not use for phone, instead use 55351-12) [facility] [place] 01/24/2023 Estab. patient 30-39min; chronic exacerbation, 2 stable chronic or 1 acute illness add add modifier 95 for video, (do not use for phone, instead use 64192-19) [facility] [place] 09/16/2023 Hyperlipidemia, unspecifiedInsomnia, unspecifiedPulmonary fibrosis, unspecifiedVitamin [...] (do not use for phone, instead use 82423-91) [facility] [place] 09/16/2023 Estab. patient 30-39min; chronic exacerbation, 2 stable chronic or 1 acute illness add add modifier 95 for video, (do not use for phone, instead use 67347-79) [facility] [place] 09/16/2023 Estab. patient 30-39min; chronic exacerbation, 2 stable chronic or 1 acute illness add add modifier 95 for video, (do not use for phone, instead use 35477-50) [facility] ([place] 09/16/2023 Estab. patient 30-39min; chronic exacerbation, 2 stable chronic or 1 acute illness add add modifier 95 for video, (do not use for phone, instead use 26512-47) [facility] ([place] 09/16/2023 Estab. patient 30-39min; chronic exacerbation, 2 stable chronic or 1 acute illness add add modifier 95 for video, (do not use for phone, instead use 60590-92) [facility] [place] 09/16/2023 Estab. patient 30-39min; chronic exacerbation, 2 stable chronic or 1 acute illness add add modifier 95 for video, (do not use for phone, instead use 92935-63) [facility] ([place] 09/16/2023 Immunizations Vaccine Date Status pneumococcal, unspecified [...] (do not use for phone, instead use 99990-07) [id number] 2022-02-01 No Data Available No Data Availa [...] (do not use for phone, instead use 64413-46) [id number] 2023-01-24 No Data Available No Data Availa [...] (do not use for phone, instead use 04626-27) [id number] 2023-09-16 No Data Available No Data Availa [...] acute or disease education needs that may arise.Awkvcgo-yozbgwedwnfbPfzxjki-rkvhqfphx-amitriptyline prnManaged-flovent HFAManagedvitamin D uogqhunixvIjwtdmj-vrusxgegVvekyvy-pktacdlu-follow up every 3 monthsManaged-artificial tears 2023-01-24 11:05:42 [...] acute or disease education needs that may arise.Yncqapk-bfiugpyisgsyGirdcey-apbptbuue-amitriptyline prnManaged-flovent HFAManagedvitamin D bbjahdkbykGszmrxl-tpfqrhogHgfsoqv-frgxossq-follow up every 3 monthsManaged-artificial tearsBMI: 31.10Lifestyle interventions [...] interventions, exercise as tolerable, and continue with PCP.Voruleu-aurnzhbry-otkbsrcxunmxn prnManaged-flovent HFAContinue f/u care with pulmonology.Managedvitamin D supplementManaged-tramadolContinue with PCP.Cvjubvr-qzmjgfoe-tkzeho up every 3 monthsManaged-artificial tearsBMI: 31.10Lifestyle interventions [...]
--- OUTSIDE RECORDS SUMMARY | 2024-08-01 13:00 | XMS_ITS | Encounter Summary ---
Author Organization [employer] Address [address] [facility] [address] [place] [address] Care Team Providers Care Director Of Student Aid Name Role Phone Gracie Singer MD Primary Care Provider + Reason for Visit * Reason Onset Date Comments Nurse Triage 10/18/2022 Encounter Details Date Type Department Care Team ([facility] st Contact Info) Description 10/18/2022 Telephone [facility] [address] [place], [place] [phone] Gracie Singer MD [address] [place], [place] [phone] Nurse Triage Social History Tobacco Use Types [...] 10/18/2022 11:40 AM EDT Triage call with [place] [employer] [id number] Pt reports right hip pain which is [...] accepted this outcome Please contact pt at [phone] (Wallisian) documented in this encounter Plan of Treatment Not on file documented as of this encounter Visit Diagnoses Not on filedocumented in this encounter Care Teams Director Of Student Aid Relationship Specialty Start Date End Date Gracie Singer MD [address] [place] [phone] PCP - General Family Medicine 05/14/20 documented as of this encounter
--- OUTSIDE RECORDS SUMMARY | 2024-08-01 13:00 | XMS_ITS | Encounter Summary ---
Author Organization [employer] Address [address] [facility] [address] [place] [address] Care Team Providers Care Precision Farming Specialist Name Role Phone Gracie Singer MD Primary Care Provider + Encounter Details Date Type Department Care Team (Late st Contact Info) Description 08/24/2023 Orders Only [facility] [address] [place], [place] [phone] ProviderJohn MD Social History Tobacco Use Types [...] on filedocumented in this encounter Care Teams Precision Farming Specialist Relationship Specialty Start Date End Date Gracie Singer MD [address] [place] [phone] PCP - General Family Medicine 05/14/20 documented as of this encounter
--- OUTSIDE RECORDS SUMMARY | 2024-08-01 13:00 | XMS_ITS | Encounter Summary ---
Author Organization [employer] Address [address] [facility] [address] [place] [address] Care Team Providers Care Vice President Supply Chain Name Role Phone Gracie Singer MD Primary Care Provider + Reason for Visit * Reason Onset Date Comments triage 08/16/2022 Encounter Details Date Type Department Care Team ([facility] st Contact Info) Description 08/16/2022 Telephone [facility] [address] [place], [place] [phone] Gracie Singer MD [address] [place], [place] [phone] triage Social History Tobacco Use Types Packs/Day [...] 08/16/2022 1:39 PM EDT Triage call with [place] [employer] [place] [id number] Pt sister is phone number listed. Pt [...] isbroken. Advised for Pt to come to [facility] and Pt sister will give message [...] now The caller accepted this outcome speaks bulgarian documented in this encounter Plan of Treatment Not on file documented as of this encounter Visit Diagnoses Not on filedocumented in this encounter Care Teams Vice President Supply Chain Relationship Specialty Start Date End Date Gracie Singer MD [address] [place] [phone] PCP - General Family Medicine 05/14/20 documented as of this encounter
--- OUTSIDE RECORDS SUMMARY | 2024-08-01 13:00 | XMS_ITS | Encounter Summary ---
Author Organization [employer] Address [address] [facility] [address] [place] [address] Care Team Providers Care City Tax Auditor Name Role Phone Gracie Singer MD Primary Care Provider + Reason for Visit * Reason Comments Med Refill Encounter Details Date Type Department Care Team (Late st Contact Info) Description 11/01/2022 Refill [facility] [address] [place], [place] [phone] [facility] [address] [place], [place] [phone] Chronic right hip pain; Chronic right-sided low [...] sciatica documented in this encounter Care Teams City Tax Auditor Relationship Specialty Start Date End Date Gracie Singer MD [address] [place], [place] [phone] PCP - General Family Medicine 05/14/20 documented as of this encounter
[2024-08-01 13:14] LABS: Ferritin 233 ng/mL (10-250)
[2024-08-02 04:00] LABS: Hepatitis A Antibody IgG REACTIVE (Nonreactive); ~Hepatitis A Antibody IgG 7.81 S/CO (0.00-0.99)
[2024-08-02 04:41] LABS: HBS Num1 1.09 mIU/mL (0-7.99); HBc Num1 0.14 S/CO (0.00-0.79); HBsAGNum1 0.26 S/CO (0.00-0.99); HIV AB/AG Nonreactive (Nonreactive); HIV Num 1 0.08 S/CO (0.00-0.99); Hepatitis B Core Antibody Nonreactive (Nonreactive); Hepatitis B Surface Antigen Negative (Negative); ~HepC Num1 0.16 S/CO (0.00-0.79); ~Hepatitis B Surface Antibody NONREACTIVE (Nonreactive); ~Hepatitis C Antibody Nonreactive (Nonreactive)
[2024-08-02 07:28] LABS: Immunoglobulin A 355 mg/dL (70-320); Immunoglobulin G 1203 mg/dL (600-1540)
[2024-08-02 07:49] LABS: Alpha 1 Anti-trypsin 139 mg/dL (83-199); Ceruloplasmin 25 mg/dL (14-48)
[2024-08-02 12:53] LABS: Alpha Fetoprotein 2.8 ng/mL
[2024-08-02 13:54] LABS: Transglutaminase IgA <1.0 U/mL
[2024-08-03 15:27] LABS: ANA Pattern 2 Nuclear, Homogeneous; Anti Nuclear Antibody Screen POSITIVE (NEGATIVE)
[2024-08-03 15:43] LABS: Mitochondrial Antibodies NEGATIVE (NEGATIVE)
[2024-08-05 14:13] LABS: Liver Kidney Microsomal Ab <=20.0 U (<=20.0); Smooth Muscle Antibody <20 U (<20)
[2024-08-08 14:35] LABS: Phosphatidylethanol 16:0-18:1 44; Phosphatidylethanol 16:0-18:2 30
== END 2024-08-01 10:49 | disposition home or self-care (01) ==
LOC: HO.LAB 10:48
PROVIDERS: PCP Internal Medicine; Visit Provider Internal Medicine
DX: R79.89 Other specified abnormal findings of blood chemistry (principal); R10.13 Epigastric pain; Z83.79 Family history of other diseases of the digestive system; Z80.0 Family history of malignant neoplasm of digestive organs; Z79.899 Other long term (current) drug therapy
CPT/HCPCS: 36415; 80053; 80061; 80321; 82103; 82105; 82390; 82728; 82784; 83036; 83540; 84443; 85027; 85610; 86015; 86038; 86039; 86140; 86364; 86376; 86381; 86704; 86706; 86708; 86803; 87340; 87389; 99202

== ENCOUNTER 2024-08-01 10:48 | Outpatient (AMB) | payer OTHER, SELFPAY ==
--- NOTE | 2024-08-01 10:53 | A.OFFVIS_ITS ---
Vital Signs 08/01/24 10:55 Height 4 ft 9 in Weight 160 lb 14.999 oz BMI 34.8 BP 139/60 Blood Pressure Location Lt brachial Position Sitting Pulse 90 Intake Visit Reasons: Elevated LFTs & Liver Cyst Intake Note: Reena presents in the office as a new patient for Elevated LFTs and Liver Cyst. CC: Epigastric pains and pains that go to the RUQ. She states that it happens every day on and off. No irregular bowel movements. Pains usually after eating. Rail Walker Required: Yes Allergies sumatriptan Adverse Reaction (Severe, Verified 08/01/24 10:55) Facial Numbness HPI Comments Details: 69 y.o F with PMH of asthma, migraines, arthritis who is here for elevated LFTs and abnormal MRI. Pt herself reports epigastric pain x 2 weeks. Pain is sharp without any nausea, vomiting, regurgitation, dysphagia. Often post prandial. Not related to activity. No assoc with shortness of breath. In addition has been noted to have abnormal LFTs. MRI done for liver cysts captured on US Abd shows few benign appearing cysts. Does occ drink more than 2 drinks per session but that happens a few times a year. Reports extensive hx of liver disease from her mothers side. Most of their uncles had liver disease. Mom from liver cancer as well. Was told that weak liver runs in the family. Mother: liver cancer Has never had egd. colo 2020 - normal. [facility] Medical History Osteopenia Medial epicondylitis Primary osteoarthritis involving multiple joints Numbness and tingling in both hands COVID-19 vaccine administered Arthritis Hx of migraine headaches Elevated cholesterol Asthma Surgical History Hx of LASIK H/O colonoscopy Family History Father Hypertension Mother Liver cancer Social History Household Members: Spouse Alcohol intake: current Alcohol intake frequency: holidays/special occasions only Alcohol type: beer Patient Tobacco Use Status: Current everyday Tobacco user Cigarettes Per Day: 1 Years Smoked: 53 Current occupational status: disabled Review of Systems Const All systems reviewed & are unremarkable except as noted in HPI and below Physical Exam Vital Signs: Last Vital Signs Pulse 90 08/01/24 10:55 BP 139/60 08/01/24 10:55 BMI result Body Mass Index 34.8 No apparent distress Nonicteric Abdomen soft, nondistended Alert and oriented x3, normal gait Assessment & Plan Assessment & Plan (1) Elevated LFTs: Code(s): R79.89 - Other specified abnormal findings of blood chemistry Category: Medical (2) Family history of liver disease: Code(s): Z83.79 - Family history of other diseases of the digestive system Category: Medical (3) Family history of liver cancer: Code(s): Z80.0 - Family history of malignant neoplasm of digestive organs Category: Medical (4) Epigastric pain: Code(s): R10.13 - Epigastric pain Plan Reviewed that hepatic steatosis likely 2/2 metALD. However given extensive fam hx of liver disease of unknown etiology, will check for hereditary conditions such as wilsons, AATD, hemochromatosis etc as well as other chronic liver diseases work up. Plan: - Labs ordered as below - Will also get updated CBC and CMP for fib 4 assessment Post prandial epigastric pain appears to be reflux related though no distinct pyrosis reported. No assoc sx of SOB, palpitations, exertional worsening to suspect cardiac pain at this time. Plan: - Omeprazole 20 mg once daily x 8-12 weeks - Avoidance of trigger foods Follow up 3 months Orders: Orders MIGUEL ANGEL Reflex Titer and Pattern Today R7. - Other specified abnormal findings of blood chemistry Ceruloplasmin Today R7. - Other specified abnormal findings of blood chemistry Comprehensive Met. Panel Today R7.89 - Other specified abnormal findings of blood chemistry Hepatitis A IgG Today R7.89 - Other specified abnormal findings of blood chemistry Hepatitis B Surface Antigen Today R7.89 - Other specified abnormal findings of blood chemistry HIV Ab/Ag Today R79.89 - Other specified abnormal findings of blood chemistry Immunoglobulin A Today R79.89 - Other specified abnormal findings of blood chemistry Immunoglobulin G Today R79.89 - Other specified abnormal findings of blood chemistry Lipid Panel Today R79.89 - Other specified abnormal findings of blood chemistry Liver Kidney Microsomal Ab Today R79. - Other specified abnormal findings of blood chemistry Phosphatidylethanol, Blood Today R79.89 - Other specified abnormal findings of blood chemistry Smooth Muscle Antibody Today R79.89 - Other specified abnormal findings of blood chemistry TSH reflex Free T4 Today R79.89 - Other specified abnormal findings of blood chemistry Alpha 1 Anti-trypsin Today R79.89 - Other specified abnormal findings of blood chemistry Alpha Fetoprotein Today R79.89 - Other specified abnormal findings of blood chemistry C Reactive Protein Today R79.89 - Other specified abnormal findings of blood chemistry Complete Blood Count no Diff Today R79.89 - Other specified abnormal findings of blood chemistry Ferritin Today R79.89 - Other specified abnormal findings of blood chemistry Hepatitis B Core Antibody Today R79.89 - Other specified abnormal findings of blood chemistry Hepatitis B Surface Antibody Today R79.89 - Other specified abnormal findings of blood chemistry Hepatitis C Antibody Today R79.89 - Other specified abnormal findings of blood chemistry IRON PROFILE Today R79.89 - Other specified abnormal findings of blood chemistry Hemoglobin A1c Today R79.89 - Other specified abnormal findings of blood chemistry Mitochondrial Antibody Today R79.89 - Other specified abnormal findings of blood chemistry Prothrombin Time INR Today R79.89 - Other specified abnormal findings of blood chemistry Transglutaminase IgA Today R79.89 - Other specified abnormal findings of blood chemistry Medications: New omeprazole 20 mg PO DAILY 90 days 90 caps 0RF Coding Level of Care Code New Pt Level 4 (76403) Diagnoses Elevated LFTs R79.89 Family history of liver disease Z83.79 Family history of liver cancer Z80.0 Epigastric pain R10.13
[2024-08-01 10:55] VITALS: BP 139/60; PULSE 90; BMI 34.8
--- OUTSIDE RECORDS SUMMARY | 2024-08-01 12:08 | XMS_ITS | Clinical Summary ---
Author Organization [employer] Address [address] [facility] 7t [place] [address] Care Team Providers Care After School Program Director Name Role Phone Gracie Singer MD Primary Care Provider + Allergies No known active allergies Medications acetaminophen (Tylenol) 500 MG tablet take 1-2 tablet (1000MG) by oral route TID as needed; max. 6 tabs/24 hours 7 Active albuterol (2.5 MG/3ML) 0.083% nebulizer solution Inhale 1 vial every 6 (six) hours. 9 Active loratadine (Claritin) 10 MG tablet take 1 tablet (10MG) by oral route every day as needed 2 Active pneumococcal polysaccharide (Pneumovax 23) 25 MCG/0.5ML vaccine Inject 0.5 mL into the shoulder, thigh, or buttocks. 0 Active zoster vaccine-recombinan t adjuvanted (Shingrix) 50 MCG/0.5ML vaccine Inject 0.5 mL into the shoulder, thigh, or buttocks. 0 Active cyclobenzaprine (Flexeril) 10 MG tabletIndications: Chronic right hip pain,Chronic right-sided low back pain without sciatica Take 0.5 tablets (5 mg) by mouth at bedtime. 10 tablet 3 Active naproxen (Naprosyn) 500 MG tabletIndications: Chronic right hip pain,Chronic right-sided low back pain without sciatica TOME HANK TABLETA DOS VECES AL REIC 30 tablet 3 Active amitriptyline (Elavil) 25 MG tabletIndications: Migraine without aura, not refractory Take 1 tablet (25 mg) by mouth at bedtime. 90 tablet 3 4 025 Active traZODone (Desyrel) 50 MG tabletIndications: Primary insomnia TAKE 1 TABLET BY MOUTH AT BEDTIME 90 tablet 3 4 Active albuterol 108 (90 Base) MCG/ACT inhalerIndications :Mild persistent asthma without complication inhale 2 puffs by Inhalation route 4 times every day as needed for cough, SOB or wheeze 18 g 1 4 Active fluticasone (Flonase) 50 MCG/ACT nasal spray Administer 1 spray into each nostril Once per day. 16 g 2 4 Active simvastatin (Zocor) 20 MG tabletIndications: Mixed hyperlipidemia TAKE 1 TABLET BY MOUTH AT BEDTIME 90 tablet 3 5 Active fluticasone furoate (Arnuity Ellipta) 100 MCG/ACT inhaler Inhale 1 puff Once per day. 1 each 5 5 Active SUMAtriptan (Imitrex) 50 MG tabletIndications: Migraine without aura, not refractory Take 1 tablet (50 mg) by mouth 1 (one) time if needed for migraine. 9 tablet 2 5 026 Active Active Problems Problem Noted Date Diagnosed Date [...] 03/30/2023 Overview (03/30/2023): 1cm caudate cyst on [facility] scan (Chest CT fu lung nodule) [...] Encounters Date Type Department Care Team Description 07/18/[address] [address] Gracie Singer MD 06/27/2024 3:30 PM EDT Office Visit [address] [address] Gracie Singer MD Mild persistent asthma without complication (Primary Dx); Renal cyst, acquired, left; Fatty liver; Diabetes due to undrl condition w oth diabetic neuro comp ([facility]); Class 1 obesity due to excess calories with serious comorbidity and body mass index (BMI) of 33.0 to 33.9 in adult; Smoker; Migraine without aura, not refractory; Dietary counseling; Exercise counseling 06/27/2024 Travel 06/26/[address] [address] Gracie Singer MD Chart prep 05/23/[address] [address] Gracie Singer MD Results 05/22/2024 Orders Only [facility] [address] [place] [address] Gracie Singer MD 05/09/[address] [address] Yadi Bain RN 05/08/2024 Orders Only [address] [address] Gracie Singer MD Elevated liver function tests (Primary Dx); Liver cyst; Renal cyst, acquired, left from Last 3 Months Immunizations Name Administration [...] Date Smoking Tobacco: Every Day Cigarettes 0.5 50.1 Started: 07/12/1974 Smokeless Tobacco: Never Tobacco Cessation:Ready [...] DEXA AXIAL Routine 05/16/2024 12:53 PM EST BI MAMMOGRAM SCREENING TOMOSYNTHESIS BILATERAL Routine [...] EST Narrative 05/21/2024 8:26 AM EST ? [facility] ? [address] ?[place] [address] ? Mammography Report ? Signed ? Patient: Love,Reena ?MR#: [id number] ?? 1 ? : 1955 ?Acct:[id number] ? Age/Sex: 69 / F ?ADM Date: 05/16/24 ? Loc: HO.MAMMO ? Attending Dr: Mayelin Sandhu MD ? Ordering Physician: Mayelin Sandhu MD ?Results: ? Date of Service: 05/16/24 ?Follow Up: ? Procedure(s): XR DEXA axial skeleton ?? Accession Number(s): [id number] ? cc: Mayelin Sandhu MD; Gracie Singer MD ? EXAMINATION: ??DXA BONE DENSITY AXIAL ? HISTORY: ??Estrogen deficiency ? TECHNIQUE: [employer] Dual energy absorptiometry (DEXA) ?? of the [...] is a trademark of the [employer]'s ?? [place] for Metabolic Bone Disease, a World Health Organization (WHO) ?? Collaborating Center. ? Electronically signed by: ??Preet Schwartz MD ??05/21/2024 08:22 AM EST ?? RP ? Dictated By: ?Preet Schwartz MD ? Signed By: ?<Electronically signed by Preet Schwartz MD in OV> ?05/21/24 0822 ? DD/ 1253 ? TD/TT: 05/16/24 1320 ? Molecular Geneticist: ? Procedure Note Karissa, Image - 05/21/2024 [facility] [address] [place] [address] Dr. Barry, [place] [address] Mammography Report Signed Patient: Felipe Love#: [id number] 1 : 5Acct:[id number] Age/Sex: 69 / FADM Date: 05/16/24 Loc: RICCARDOO Attending Dr: Mayelin Sandhu MD Ordering Physician: Mayelin Sandhu MDResults: Date of Service: 05/16/24Follow Up: Procedure(s): XR DEXA axial skeleton Accession Number(s): [id number] cc: Mayelin Sandhu MD; Gracie Singer MD EXAMINATION: DXA BONE DENSITY AXIAL HISTORY: Estrogen deficiency TECHNIQUE: [employer] Dual energy absorptiometry (DEXA) of the lumbar [...] is a trademark of the [employer]'s [place] for Metabolic Bone Disease, a World Health Organization (WHO) Collaborating Center. Electronically signed by: Preet Schwartz MD 05/21/2024 08:22 AM EST RP Dictated By: Preet Schwartz MD Signed By: <Electronically signed by Preet Schwartz MD in OV> 05/21/24 0822 DD/ 1253 TD/TT: 05/16/24 1320 Molecular Geneticist: [facility] External Provider IMG DXA PROCEDURES Final Result * BI Mammogram Screening Tomosynthesis Bilateral (02/29/2024 9:47 AM EST) Anatomical Region Laterality Modality Breast Bilateral Mammography 02/29/2024 9:47 AM EST Narrative 03/06/2024 11:53 AM EST ? [facility] [place] ? [address] ?[place] [address] ? Mammography Report ? Signed ? Patient: Love,Reena ?MR#: [id number] ?? 1 ? : 1955 ?Acct:[id number] ? Age/Sex: 68 / F ?ADM Date: 12/04/24 ? Loc: HO.MAMMO ? Attending Dr: Gracie Singer MD ? Ordering Physician: Gracie Singer MD ?Results: 1Ne ?? gative ? Date of Service: 02/29/24 ?Follow Up: 1 Year From Orig ?? inal Mammogram ? Procedure(s): MM tomosynthesis screening BI ?? Accession Number(s): [id number] ? cc: Gracie Singer MD ? EXAMINATION: [...] ??Lena Church DO ??03/06/2024 11:50 AM EST ?? RP ? Dictated By: ?Lena Church DO ? Signed By: ?<Electronically signed by Lena Church, DO in OV> ? 03/06/24 1150 ? DD/ 0947 ? TD/TT: 02/29/24 1001 ? Molecular Geneticist: ? Procedure Note Karissa, Image - 03/06/2024 [facility] [address] [place] [address] Mammography Report Signed Patient: Felipe Love#: [id number] 1 : 5Acct:[id number] Age/Sex: 68 / FADM Date: 02/29/24 Loc: HO.MAMMO Attending Dr: Gracie Singer MD Ordering Physician: Gracie Singer MDResults: 1Ne gative Date of Service: 02/29/24Follow Up: 1 Year From Orig ina Mammogram Procedure(s): MM tomosynthesis screening BI Accession Number(s): [id number] cc: Gracie Singer MD EXAMINATION: MM SCREENING [...] 03/06/24 1150 DD/ 0947 TD/TT: 02/29/24 1001 Molecular Geneticist: Gracie Singer MD IMG BI PROCEDURES Final Result * Hepatitis Panel, General (02/08/2024 9:50 AM EST) Hepatitis A IgM Nonreactive Nonreactive [facility] Comment:IgM antibodies to DE JESUS V not detected; does not exclude earlyacute or recovered HAV infection. ~Hepatitis B Surface Antibody NONREACTIVE Nonreactive [facility] Comment:Nonreactive: < 8.00 mIU/mL Hepatitis B Core Antibody Nonreactive Nonreactive [facility] Hepatitis C Antibody Nonreactive Nonreactive [facility] Comment:Antibodies to HCV no t detected; does not exclude early acuteHCV infection. Hepatitis B Surface Ag Negative Negative [facility] Blood 02/08/2024 9:50 AM EST 02/08/2024 10:46 AM EST us Gracie Singer MD LAB BLOOD ORDERABLES Fin al Result [facility] [address] [place] [address] [phone] * Lipid Panel with Reflex to Direct LDL (08/18/2023 10:43 AM EDT) Triglycerides 125 <150 mg/dL [facility] Comment:Desirable Triglyceri de: less than 150 mg/dLBorderline High Triglyceride 150-199 mg/dLHigh Triglyceride: 200-499 mg/dLVery High Triglyceride: greater than or equal to 5OO mg/dL Cholesterol 153 <200 mg/dL [facility] Comment:Desirable Cholestero l: less than 200 mg/dLBorderline High Cholesterol: 200-239 mg/dLHigh Cholesterol: greater than 239 mg/dL LDL Cholesterol Calculated 68 <100 mg/dL [facility] Comment:Desirable LDL: less than 100 mg/dLNear Optimal/Above Optimal LDL: 110- 129 mg/dLBorderline High LDL: 130-159 mg/dLHigh LDL: 160-189 mg/dLVery High LDL: greater than or equal to 190 mg/dL HDL Cholesterol 60 >40 mg/dL [facility] Comment:Desirable HDL: great er than 40 mg/dL Note: This HDL assay may give artificially low results in patients with liver disease. Blood 08/18/2023 10:4 3 AM EDT 08/18/2023 10:43 AM EDT us Gracie Singer MD LAB BLOOD ORDERABLES Fin al Result [facility] [address] [place] [address] [phone] * Hm Colonoscopy (09/24/2020 8:23 AM EDT) Historical Provider HEALTH MAINTENANCE Final Result from Last 3 Months or Most Recently Relevant to Health Maintenance Insurance [facility] * Guarantor: Reena Love Account Type Relation to Patient Date of Phone Billing Address Personal/Family Self [address] [place] [address] Advance Directives Documents on File Type Date Recorded Patient 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
--- OUTSIDE RECORDS SUMMARY | 2024-08-01 12:08 | XMS_ITS | Encounter Summary ---
Author Organization [employer] Address [address] [facility] 7t [place] [address] Care Team Providers Care Netbackup Administrator Name Role Phone Gracie Singer MD Primary Care Provider + Reason for Visit * Reason Onset Date Comments Nurse Triage 10/18/2022 Encounter Details Date Type Department Care Team ([facility] st Contact Info) Description 10/18/2022 Telephone [facility] [address] [place], [place] [phone] Gracie Singer MD [address] [place], [place] [phone] Nurse Triage Social History Tobacco Use Types [...] 10/18/2022 11:40 AM EDT Triage call with [place] Superintendent [place] [id number] Pt reports right hip pain which is [...] accepted this outcome Please contact pt at [phone] (Micronesian) documented in this encounter Plan of Treatment Not on file documented as of this encounter Visit Diagnoses Not on filedocumented in this encounter Care Teams Netbackup Administrator Relationship Specialty Start Date End Date Gracie Singer MD [address] [place] [phone] PCP - General Family Medicine 05/14/20 documented as of this encounter
--- OUTSIDE RECORDS SUMMARY | 2024-08-01 12:08 | XMS_ITS ---
Author Name Jarad NET SQL DEVELOPER,HYDROELECTRIC COMPONENT MACHINIST,FN P,FUR BUYER, Radha Address [address] [place] [address] Phone [phone] [facility] Care Team Providers Care [place] Stayer Machine Operator Name Role Phone Radha Abraham Unavailable [phone] Ashleigh Núñez Unavailable Unavailable Reason for Referral [...] Active 2023-09-16 N/A Other problems related to [facility] facilities and other health care Active 2023-09-16 N/A Encounters Encounters Type Facility Date of Service Diagnosis/Co mplaint New patient,40-59min; chronic exacerbation, 2 stable chronic or 1 acute illness add add modifier 95 for video (do not use for phone, instead use 50886-54) [facility] [place] 02/01/2022 Hyperlipidemia, unspecifiedInsomnia, unspecifiedUnspecified asthma, uncomplicatedVitamin D deficiency, unspecifiedLow back pain, unspecifiedOpioid dependence, uncomplicatedDry eye syndrome of bilateral lacrimal glands New patient,40-59min; chronic exacerbation, 2 stable chronic or 1 acute illness add add modifier 95 for video (do not use for phone, instead use 91478-24) [facility] ([place] 02/01/2022 New patient,40-59min; chronic exacerbation, 2 stable chronic or 1 acute illness add add modifier 95 for video (do not use for phone, instead use 28572-33) [facility] [place] 02/01/2022 New patient,40-59min; chronic exacerbation, 2 stable chronic or 1 acute illness add add modifier 95 for video (do not use for phone, instead use 93323-36) [facility] [place] 02/01/2022 New patient,40-59min; chronic exacerbation, 2 stable chronic or 1 acute illness add add modifier 95 for video (do not use for phone, instead use 69216-39) [facility] [place] 02/01/2022 New patient,40-59min; chronic exacerbation, 2 stable chronic or 1 acute illness add add modifier 95 for video (do not use for phone, instead use 09059-58) [facility] [place] 02/01/2022 New patient,40-59min; chronic exacerbation, 2 stable chronic or 1 acute illness add add modifier 95 for video (do not use for phone, instead use 20419-77) [facility] [place] 02/01/2022 New patient,40-59min; chronic exacerbation, 2 stable chronic or 1 acute illness add add modifier 95 for video (do not use for phone, instead use 30077-35) [facility] [place] 02/01/2022 New patient,40-59min; chronic exacerbation, 2 stable chronic or 1 acute illness add add modifier 95 for video (do not use for phone, instead use 77408-61) [facility] [place] 02/01/2022 Estab. patient 30-39min; chronic exacerbation, 2 stable chronic or 1 acute illness add add modifier 95 for video, (do not use for phone, instead use 81373-15) [facility] [place] 01/24/2023 Hyperlipidemia, unspecifiedInsomnia, unspecifiedPulmonary fibrosis, unspecifiedVitamin D deficiency, unspecifiedSacroiliitis, not elsewhere classifiedOpioid dependence, uncomplicatedDry eye syndrome of bilateral lacrimal glandsOther obesity due to excess caloriesBody mass index (bmi) 31.0-31.9, adultMigraine, unspecified, not intractable, without status migrainosus Estab. patient 30-39min; chronic exacerbation, 2 stable chronic or 1 acute illness add add modifier 95 for video, (do not use for phone, instead use 39110-39) [facility] ([place] 01/24/2023 Estab. patient 30-39min; chronic exacerbation, 2 stable chronic or 1 acute illness add add modifier 95 for video, (do not use for phone, instead use 01110-60) [facility], ([place] 01/24/2023 Estab. patient 30-39min; chronic exacerbation, 2 stable chronic or 1 acute illness add add modifier 95 for video, (do not use for phone, instead use 66618-74) [facility] [place] 01/24/2023 Estab. patient 30-39min; chronic exacerbation, 2 stable chronic or 1 acute illness add add modifier 95 for video, (do not use for phone, instead use 09771-84) [facility] [place] 01/24/2023 Estab. patient 30-39min; chronic exacerbation, 2 stable chronic or 1 acute illness add add modifier 95 for video, (do not use for phone, instead use 18076-85) [facility] [place] 01/24/2023 Estab. patient 30-39min; chronic exacerbation, 2 stable chronic or 1 acute illness add add modifier 95 for video, (do not use for phone, instead use 19846-26) [facility] ([place] 09/16/2023 Hyperlipidemia, unspecifiedInsomnia, unspecifiedPulmonary fibrosis, unspecifiedVitamin [...] (do not use for phone, instead use 49248-54) [facility] [place] 09/16/2023 Estab. patient 30-39min; chronic exacerbation, 2 stable chronic or 1 acute illness add add modifier 95 for video, (do not use for phone, instead use 66889-44) [facility] [place] 09/16/2023 Estab. patient 30-39min; chronic exacerbation, 2 stable chronic or 1 acute illness add add modifier 95 for video, (do not use for phone, instead use 71667-13) [facility] ([place] 09/16/2023 Estab. patient 30-39min; chronic exacerbation, 2 stable chronic or 1 acute illness add add modifier 95 for video, (do not use for phone, instead use 92255-41) [facility] ([place] 09/16/2023 Estab. patient 30-39min; chronic exacerbation, 2 stable chronic or 1 acute illness add add modifier 95 for video, (do not use for phone, instead use 28011-39) [facility] [place] 09/16/2023 Estab. patient 30-39min; chronic exacerbation, 2 stable chronic or 1 acute illness add add modifier 95 for video, (do not use for phone, instead use 02124-35) [facility] ([place] 09/16/2023 Immunizations Vaccine Date Status pneumococcal, unspecified [...] Current Smoking Status Current every day smoker 2024-08-01 Sex Female History of Procedures Procedures Service Procedure code Service date Servicing provider Phone# New patient,40-59min; chronic exacerbation, 2 stable chronic or 1 acute illness add add modifier 95 for video (do not use for phone, instead use 44564-72) [id number] 2022-02-01 No Data Available No Data Availa [...] (do not use for phone, instead use 81421-98) [id number] 2023-01-24 No Data Available No Data Availa [...] (do not use for phone, instead use 96108-39) [address] 2023-09-16 No Data Available No Data Availa [...] acute or disease education needs that may arise.Ainlacq-ynatgwgyugpfSdirnaq-jkakzyaew-amitriptyline prnManaged-flovent HFAManagedvitamin D muyzqglwfiXrggfyb-pobtocpvXwkwacg-ddvexnbr-follow up every 3 monthsManaged-artificial tears 2023-01-24 11:05:42 [...] acute or disease education needs that may arise.Qtsmnvf-ytlgiovkjzsdKmutqxa-txuucswwt-amitriptyline prnManaged-flovent HFAManagedvitamin D donfpqmtwgLroqitr-yqcqfzksKdddgiw-iadzyhoc-follow up every 3 monthsManaged-artificial tearsBMI: 31.10Lifestyle interventions [...] interventions, exercise as tolerable, and continue with PCP.Ikabkbn-udorzaosg-xviklbmcxwwzu prnManaged-flovent HFAContinue f/u care with pulmonology.Managedvitamin D supplementManaged-tramadolContinue with PCP.Hqzhazl-hzhwvxju-guuzax up every 3 monthsManaged-artificial tearsBMI: 31.10Lifestyle interventions [...]
--- OUTSIDE RECORDS SUMMARY | 2024-08-01 12:08 | XMS_ITS | Encounter Summary ---
Author Organization [employer] Address [address] [place] [address] Care Team Providers Care Pelt Salter Name Role Phone Gracie Singer MD Primary Care Provider + Reason for Visit * Reason Onset Date Comments Med Refill 10/14/2023 Encounter Details Date Type Department Care Team ([facility] st Contact Info) Description 10/14/2023 Telephone [facility] [address] [place], [place] [phone] Gracie Singer MD [address] [place], [place] [phone] Med Refill Social History Tobacco Use Types Packs/Day Years Used Date Smoking Tobacco: Some Days Cigarettes 0.5 50.1 Started: 07/12/1975 Smokeless Tobacco: Never Comments:Started at [...] 1:18 PM EDT Medication was sent to [facility] #[id number] on 05/09/23 #90 with 3 refills. * Telephone Encounter - David Gallo - 10/14/2023 1:16 PM EDT TC from pt requesting medication refill. Medications needing refill: simvastatin (Zocor) 20 MG table To be sent to: [facility]/pharmacy #[id number] documented in this encounter Plan of Treatment Not on file documented as of this encounter Visit Diagnoses Not on filedocumented in this encounter Care Teams Pelt Salter Relationship Specialty Start Date End Date Gracie Singer MD [address] [place] [address] PCP - General Family Medicine 05/14/20 documented as of this encounter
--- OUTSIDE RECORDS SUMMARY | 2024-08-01 12:08 | XMS_ITS | Encounter Summary ---
Author Organization [employer] Address [address] [facility] 7t [place] [address] Care Team Providers Care Beauty Operator Apprentice Name Role Phone Gracie Singer MD Primary Care Provider + Reason for Visit * Reason Comments Med Refill Encounter Details Date Type Department Care Team (Late st Contact Info) Description 11/01/2022 Refill [facility] [address] [place], [place] [phone] [facility] [address] [place], [place] [phone] Chronic right hip pain; Chronic right-sided low [...] sciatica documented in this encounter Care Teams Beauty Operator Apprentice Relationship Specialty Start Date End Date Gracie Singer MD [address] [place], [place] [phone] PCP - General Family Medicine 05/14/20 documented as of this encounter
--- OUTSIDE RECORDS SUMMARY | 2024-08-01 12:08 | XMS_ITS | Encounter Summary ---
Author Organization [employer] Address [address] [facility] [address] [place] [address] Care Team Providers Care Metal Off Bearer Name Role Phone Gracie Singer MD Primary Care Provider + Encounter Details Date Type Department Care Team (Late st Contact Info) Description 08/24/2023 Orders Only [facility] [address] [place], [place] [phone] ProviderJohn MD Social History Tobacco Use Types Packs/Day Years [...] on filedocumented in this encounter Care Teams Metal Off Bearer Relationship Specialty Start Date End Date Gracie Singer MD [address] [place] [address] PCP - General Family Medicine 05/14/20 documented as of this encounter
--- OUTSIDE RECORDS SUMMARY | 2024-08-01 12:08 | XMS_ITS | Encounter Summary ---
Author Organization [employer] Address [address] [facility] 7t [place] [address] Care Team Providers Care Tire Tester Name Role Phone Gracie Singer MD Primary Care Provider + Reason for Visit * Reason Onset Date Comments triage 08/16/2022 Encounter Details Date Type Department Care Team ([facility] st Contact Info) Description 08/16/2022 Telephone [facility] [address] [place], [place] [phone] Gracie Singer MD [address] [place], [place] [phone] triage Social History Tobacco Use Types Packs/Day [...] 08/16/2022 1:39 PM EDT Triage call with [place] Administrator [place] [id number] Pt sister is phone number listed. Pt [...] isbroken. Advised for Pt to come to [facility] and Pt sister will give message [...] now The caller accepted this outcome speaks yoruba documented in this encounter Plan of Treatment Not on file documented as of this encounter Visit Diagnoses Not on filedocumented in this encounter Care Teams Tire Tester Relationship Specialty Start Date End Date Gracie Singer MD [address] [place] [address] PCP - General Family Medicine 05/14/20 documented as of this encounter
--- OUTSIDE RECORDS SUMMARY | 2024-08-01 12:08 | XMS_ITS | Encounter Summary ---
Author Organization [employer] Address [address] [facility] 7t [place] [address] Care Team Providers Care Judicial Registrar Name Role Phone Gracie Singer MD Primary Care Provider + Reason for Visit * Reason Onset Date Comments Appointment Request 06/23/2022 Encounter Details Date Type Department Care Team ([facility] st Contact Info) Description 06/23/2022 Telephone [facility] [address] [place], [place] [phone] Gracie Singer MD [address] [place], [place] [phone] Appointment Request Social History Tobacco Use Types [...] somelater the Марина. Please contact pt at [phone] documented in this encounter Plan of Treatment Not on file documented as of this encounter Visit Diagnoses Not on filedocumented in this encounter Care Teams Judicial Registrar Relationship Specialty Start Date End Date Gracie Singer MD [address] [place] [address] PCP - General Family Medicine 05/14/20 documented as of this encounter
== END 2024-08-01 11:18 | disposition home or self-care (01) ==
LOC: HO.HGI 10:48
PROVIDERS: PCP Internal Medicine; Visit Provider Internal Medicine
DX: R79.89 Other specified abnormal findings of blood chemistry (principal); Z83.79 Family history of other diseases of the digestive system; Z80.0 Family history of malignant neoplasm of digestive organs; R10.13 Epigastric pain
CPT/HCPCS: 99204

== ENCOUNTER 2024-08-24 06:53 | Outpatient (REF) | payer OTHER, SELFPAY ==
--- NOTE | ~2024-08-24 | CT_ITS ---
EXAMINATION: CT ABDOMEN AND PELVIS WITH CONTRAST CLINICAL INFORMATION: Family history of malignant neoplasm of the chest were COMPARISON: MR abdomen 04/23/2024 CT abdomen and pelvis 06/29/2019. TECHNIQUE: Multidetector volumetric images were obtained from the superior aspect of the liver through the pubic symphysis following administration 85 mL of Omnipaque 350 intravenous contrast. Sagittal and coronal reformatted images were obtained on the technologist's workstation. Oral contrast: Yes This CT examination was performed using dose optimization techniques as appropriate, variously including the following: *Automated exposure control *Adjustment of mA and/or kV according to patient size (this includes techniques or standardized protocols for targeted exams where dose is matched to indication/reason for exam; i.e. extremities or head) *Use of iterative reconstruction technique FINDINGS: LUNG BASES: Lung bases are clear bilaterally. Minimal linear atelectasis or scarring in the lingular right middle lobe. No effusions. Heart size normal. GE junction appears normal. LIVER, GALLBLADDER, AND BILIARY TREE: The liver is normal in size and shape. There is mild steatosis. No suspicious focal hepatic lesion or biliary ductal dilatation is present. There is a 9 mm cyst in segment 4A. There is a 1.4 cm cyst in segment 1. The gallbladder is unremarkable with no evidence of radiopaque gallstones, gallbladder wall thickening, or obvious pericholecystic inflammatory changes. PANCREAS: Unremarkable. SPLEEN: Unremarkable. ADRENAL GLANDS: Unremarkable. KIDNEYS AND URETERS: The kidneys are normal in size, shape, and attenuation. No hydronephrosis, hydroureter, or calculi seen. No perinephric stranding. There are tiny bilateral cysts present. No suspicious lesions. BLADDER: Underdistended but grossly normal. GASTROINTESTINAL TRACT: The colon is normal in caliber and course without wall thickening or inflammation. There is a redundant sigmoid colon noted. No rectal abnormality. Appendix visualized. Small bowel is normal in caliber and course. There is no inflammation or wall thickening. GE junction, stomach, duodenal sweep appear normal. ABDOMINAL WALL: No significant hernia is appreciated. LYMPH NODES: None enlarged by size criteria. VASCULAR: Mild atheromatous calcification of the aorta and iliac arteries. No aneurysm. PELVIC VISCERA: The uterus and adnexa are unremarkable. OSSEOUS STRUCTURES: No suspicious lytic or blastic bone lesions. Mild spinal degenerative changes. CT/CT abdomen pelvis w IV con IMPRESSION: 1. There are no acute or suspicious findings in the abdomen or pelvis. 2. Mild diffuse fatty infiltration of the liver. There are a few scattered liver simple cysts. 3. There are tiny bilateral benign renal cysts. Kidneys are otherwise normal. Electronically signed by: Eren Ortiz MD 08/24/2024 09:01 AM EDT
[2024-08-24] MEDS: iohexoL 350 MG/ML 100 ML INFUS..BTL IV (08:50)
== END 2024-08-24 06:54 | disposition home or self-care (01) ==
LOC: HO.CT 06:53
PROVIDERS: PCP Internal Medicine; Visit Provider Internal Medicine
DX: R10.9 Unspecified abdominal pain (principal); Z80.0 Family history of malignant neoplasm of digestive organs
CPT/HCPCS: 74177; Q9967

== ENCOUNTER → 2024-08-24 06:54 | Outpatient (BNV) | payer OTHER, SELFPAY | PROVIDERS: PCP Internal Medicine; Visit Provider Radiology Diagnostic Radiology | DX: K76.89 Other specified diseases of liver (principal) | CPT/HCPCS: 74177 ==

== ENCOUNTER 2024-10-17 11:04 | Outpatient (REF) | payer OTHER, SELFPAY ==
--- NOTE | ~2024-10-17 | XR_ITS ---
EXAMINATION: XR CHEST 2 VIEWS HISTORY: variation of BP >30, r/o aortic dissection COMPARISON: Comparison is made with the prior examination dated 08/12/2021. FINDINGS: PA and lateral views of the chest are submitted. Again seen is a calcified granuloma in the right upper lobe. The lungs are otherwise clear. There is no pleural effusion, pneumothorax, or pulmonary vascular congestion. The heart is normal in size. There are calcified right paratracheal lymph nodes. The bones are intact. XR/XR chest 2V IMPRESSION: No acute cardiopulmonary abnormality. If there is clinical concern for aortic dissection, CT angiography could be performed. Electronically signed by: Preet Schwartz MD 10/17/2024 12:24 PM EDT
--- OUTSIDE RECORDS SUMMARY | 2024-10-17 12:06 | XMS_ITS ---
Author Name Jarad TUCKING MACHINE OPERATOR,[employer],FN P,PROPERTY INSURANCE AGENT, Radha Address [address] [place] [address] Phone [phone] [facility] Care Team Providers Care Skimmer Name Role Phone Radha Abraham Unavailable [phone] Ashleigh Núñez Unavailable Unavailable Reason for Referral [...] List Problem Status Onset Date Resolved Date Synopsis Vitamin D deficiency Active 2022-02-01 N/A Marlyn gedvitamin D supplement Insomnia Active 2022-02-01 N/A Managed-trazod one-amitripty line prn Dry eye syndrome of bilateral lacrimal glands Active 2022-02-01 N/A Manage d-artificial tears Obesity due to excess calories Active 2023-01-24 N/A BMI: 31.10Lifest yle interventions and continue f/u care with PCP. Opioid use, uncomplicated Active 2022-02-01 N/A Gzomage-ecctugsp-iowbgh up every 3 months Pulmonary fibrosis, unspecified Active 2022-02-01 N/A Managed-flovent HFAContinue f/u care with pulmonology. Sacroiliitis, not elsewhere classified Active 2022-02-01 N/A Managed-tra madolContinue with PCP. Migraine Active 2023-01-24 N/A StableSumatrip alfredo Continue f/u care with PCP and neurology. Hyperlipidemia Active 2022-02-01 N/A Managed-at orvastatinDietary interventions, exercise as tolerable, and continue with PCP. 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 Nerve pain Active 2023-09-16 N/A StableAmitript yline ROM exercises, monitor for adverse effects and continue with PCP. Major depressive disorder, recurrent, mild Active 2023-09-16 N/A StableDecline wa nting to start antidepressant. Denies SI/HIMonitor for worsening depression, coping mechanisms, and continue with PCP. Other problems related to medical facilities and other health care Active 2023-09-16 N/A PAIN CONTIN GENCY PLANWorsening Pain Member to call for the following symptoms: Decreased mobility/ Fall / Increased pain/ Increased pain meds/ Joint swellingPlanned intervention: Tylenol 1,000mg q6h/ Lidoderm patch 4% to affected area/ Voltaren gel to affected area/ Apply heat to affected area Encounters Encounters Type Facility Date of Service Diagnosis/Co mplaint New patient,40-59min; chronic exacerbation, 2 stable chronic or 1 acute illness add add modifier 95 for video (do not use for phone, instead use 01511-12) [facility] Hyperlipidemia, unspecifiedInsomnia, unspecifiedUnspecified asthma, uncomplicatedVitamin D deficiency, unspecifiedLow back pain, unspecifiedOpioid dependence, uncomplicatedDry eye syndrome of bilateral lacrimal glands New patient,40-59min; chronic exacerbation, 2 stable chronic or 1 acute illness add add modifier 95 for video (do not use for phone, instead use 60206-81) [facility] New patient,40-59min; chronic exacerbation, 2 stable chronic or 1 acute illness add add modifier 95 for video (do not use for phone, instead use 24250-19) [facility] New patient,40-59min; chronic exacerbation, 2 stable chronic or 1 acute illness add add modifier 95 for video (do not use for phone, instead use 56033-47) [facility] New patient,40-59min; chronic exacerbation, 2 stable chronic or 1 acute illness add add modifier 95 for video (do not use for phone, instead use 42971-40) [facility] New patient,40-59min; chronic exacerbation, 2 stable chronic or 1 acute illness add add modifier 95 for video (do not use for phone, instead use 46322-00) [facility] New patient,40-59min; chronic exacerbation, 2 stable chronic or 1 acute illness add add modifier 95 for video (do not use for phone, instead use 22705-10) [facility] New patient,40-59min; chronic exacerbation, 2 stable chronic or 1 acute illness add add modifier 95 for video (do not use for phone, instead use 06922-30) [facility] New patient,40-59min; chronic exacerbation, 2 stable chronic or 1 acute illness add add modifier 95 for video (do not use for phone, instead use 20628-25) [facility] Estab. patient 30-39min; chronic exacerbation, 2 stable chronic or 1 acute illness add add modifier 95 for video, (do not use for phone, instead use 78069-47) [facility] Hyperlipidemia, unspecifiedInsomnia, unspecifiedPulmonary fibrosis, unspecifiedVitamin D deficiency, unspecifiedSacroiliitis, not elsewhere classifiedOpioid dependence, uncomplicatedDry eye syndrome of bilateral lacrimal glandsOther obesity due to excess caloriesBody mass index (bmi) 31.0-31.9, adultMigraine, unspecified, not intractable, without status migrainosus Estab. patient 30-39min; chronic exacerbation, 2 stable chronic or 1 acute illness add add modifier 95 for video, (do not use for phone, instead use 73915-25) [facility] Estab. patient 30-39min; chronic exacerbation, 2 stable chronic or 1 acute illness add add modifier 95 for video, (do not use for phone, instead use 60062-86) [facility] Estab. patient 30-39min; chronic exacerbation, 2 stable chronic or 1 acute illness add add modifier 95 for video, (do not use for phone, instead use 19109-20) [facility] Estab. patient 30-39min; chronic exacerbation, 2 stable chronic or 1 acute illness add add modifier 95 for video, (do not use for phone, instead use 01973-27) [facility] Estab. patient 30-39min; chronic exacerbation, 2 stable chronic or 1 acute illness add add modifier 95 for video, (do not use for phone, instead use 76846-21) [facility] Estab. patient 30-39min; chronic exacerbation, 2 stable chronic or 1 acute illness add add modifier 95 for video, (do not use for phone, instead use 07204-35) [facility] Hyperlipidemia, unspecifiedInsomnia, unspecifiedPulmonary fibrosis, unspecifiedVitamin D [...] (do not use for phone, instead use 14391-72) [facility] Estab. patient 30-39min; chronic exacerbation, 2 stable chronic or 1 acute illness add add modifier 95 for video, (do not use for phone, instead use 16366-82) [facility] Estab. patient 30-39min; chronic exacerbation, 2 stable chronic or 1 acute illness add add modifier 95 for video, (do not use for phone, instead use 35794-86) [facility]20[place] Estab. patient 30-39min; chronic exacerbation, 2 stable chronic or 1 acute illness add add modifier 95 for video, (do not use for phone, instead use 38571-66) [facility] Estab. patient 30-39min; chronic exacerbation, 2 stable chronic or 1 acute illness add add modifier 95 for video, (do not use for phone, instead use 28574-29) [facility] Estab. patient 30-39min; chronic exacerbation, 2 stable chronic or 1 acute illness add add modifier 95 for video, (do not use for phone, instead use 24554-51) [facility] Immunizations Vaccine Date Status pneumococcal, unspecified formulation (PCV13) 17-12-29 Complete SARS-COV-2 (COVID-19) vaccine, UNSPECIFIED (covi d-19) 2021-04-18 Complete influenza, unspecified formulation (Influenza) Complete zoster, unspecified formulation 2021-01-25 Complete Vital [...] Current Smoking Status Current every day smoker 2024-10-17 Sex Female History of Procedures Procedures Service Procedure code Service date Servicing provider Phone# New patient,40-59min; chronic exacerbation, 2 stable chronic or 1 acute illness add add modifier 95 for video (do not use for phone, instead use 02962-47) [id number] 2022-02-01 No Data Available No Data Availa [...] (do not use for phone, instead use 91580-90) [id number] 2023-01-24 No Data Available No Data Availa [...] Available Advance care planning discussed and documented advance care plan or surrogate decision-maker was documented in the medical record. (1123F) 1123F 2023-01-24 No Data Available No Data Availa ble Estab. patient 30-39min; chronic exacerbation, 2 stable chronic or 1 acute illness add add modifier 95 for video, (do not use for phone, instead use 16255-79) [id number] 2023-09-16 No Data Available No Data Availa [...] acute or disease education needs that may arise.Sqxxhyg-ieprbgrbzbbzDzwudlh-ytnawlytc-amitriptyline prnManaged-flovent HFAManagedvitamin D imllebhvbvHoyemeo-zcmwxgnkRcvykqa-tcouhmcw-follow up every 3 monthsManaged-artificial tears 2023-01-24 11:05:42 Medication Review by prescribing provider or pharmacist documented (1160F)Medication List Documented (1159F)Functional Status Assessed (1170F)Advance Care Directive Advance care planning discussion documented in the medical record (1158F)BMI obtained (3008F)Televideo 30-39min; chronic exacerbation, 2 stable chronic or 1 acute illness add modifier 95Advance care planning discussed and documented advance care plan or surrogate decision-maker was documented in the medical record. (1123F)Pain Assessment - Pain Documented (1125F)Advance care planning discussed and documented in the medical record beneficiary/patient did not wish to or was unable to provide an advance care plan or name a surrogate decision-maker. (1124F)Continue to see PCP. Follow-up with [facility] as needed for any acute or disease education needs that may arise.Mdmlvpb-npifsajlxulmWjqgijz-veadwqxjv-amitriptyline prnManaged-flovent HFAManagedvitamin D bctjygorliAcyvzqx-nxtyzqumFzueonc-ocnghwef-follow up every 3 monthsManaged-artificial tearsBMI: 31.10Lifestyle interventions [...] Documented (1125F)Advance care planning discussed and documented advance care plan or surrogate decision-maker was documented in the medical record. (1123F)Continue to see PCP. Follow-up with [facility] as needed for any acute or disease education needs that may arise.PAIN CONTINGENCY PLANWorsening Pain Member to call for the following symptoms: Decreased mobility/ Fall / Increased pain/ Increased pain meds/ Joint swellingPlanned intervention: Tylenol 1,000mg q6h/ Lidoderm patch 4% to affected area/ Voltaren gel to affected area/ Apply heat to affected areaManaged-atorvastatinDietary interventions, exercise as tolerable, and continue with PCP.Phfzsnw-deopgrfxj-wldgqxojbrvcm prnManaged-flovent HFAContinue f/u care with pulmonology.Managedvitamin D supplementManaged-tramadolContinue with PCP.Ovvzshg-ahdglfld-bsymyw up every 3 monthsManaged-artificial tearsBMI: 31.10Lifestyle interventions [...]
== END 2024-10-17 11:05 | disposition home or self-care (01) ==
LOC: HO.HHCX 11:04
PROVIDERS: PCP Internal Medicine
DX: I10 Essential (primary) hypertension (principal)
CPT/HCPCS: 71046

== ENCOUNTER → 2024-10-17 11:22 | Outpatient (BNV) | payer OTHER, SELFPAY | PROVIDERS: PCP Internal Medicine; Visit Provider Radiology Diagnostic Radiology | DX: I10 Essential (primary) hypertension (principal) | CPT/HCPCS: 71046 ==

== ENCOUNTER 2024-11-13 12:10 | Outpatient (REF) | payer OTHER, SELFPAY ==
[2024-11-13 13:30] LABS: Anion Gap 13 (12-20); Blood Urea Nitrogen 14 mg/dL (9-16); Calcium 9.7 mg/dL (8.4-10.2); Carbon Dioxide 28 mmol/L (22-29); Chloride 104 mmol/L (96-108); Estimated Glomerular Filt Rate > 60; Potassium 4.2 mmol/L (3.3-5.1); Sodium 141 mmol/L (135-145)
--- OUTSIDE RECORDS SUMMARY | 2024-11-13 13:33 | XMS_ITS ---
Author Name Jarad VASCULAR SONOGRAPHER,SCALP TREATMENT OPERATOR,FN P,DUE DILIGENCE COORDINATOR, Radha Address [address] [place] [address] Phone [phone] [facility] Care Team Providers Care Phone Technician Name Role Phone Radha Abraham Unavailable [phone] Ashleigh Núñez Unavailable Unavailable Reason for Referral [...] PCP. Opioid use, uncomplicated Active 2022-02-01 N/A Ltnnfav-kmznldbi-wdzhur up every 3 months Pulmonary fibrosis, unspecified [...] (do not use for phone, instead use 38648-18) [facility] Hyperlipidemia, unspecifiedInsomnia, unspecifiedUnspecified asthma, uncomplicatedVitamin D deficiency, unspecifiedLow back pain, unspecifiedOpioid dependence, uncomplicatedDry eye syndrome of bilateral lacrimal glands New patient,40-59min; chronic exacerbation, 2 stable chronic or 1 acute illness add add modifier 95 for video (do not use for phone, instead use 29587-15) [facility] New patient,40-59min; chronic exacerbation, 2 stable chronic or 1 acute illness add add modifier 95 for video (do not use for phone, instead use 57689-72) [facility] New patient,40-59min; chronic exacerbation, 2 stable chronic or 1 acute illness add add modifier 95 for video (do not use for phone, instead use 13801-82) [facility] New patient,40-59min; chronic exacerbation, 2 stable chronic or 1 acute illness add add modifier 95 for video (do not use for phone, instead use 86801-65) [facility] New patient,40-59min; chronic exacerbation, 2 stable chronic or 1 acute illness add add modifier 95 for video (do not use for phone, instead use 23614-68) [facility] New patient,40-59min; chronic exacerbation, 2 stable chronic or 1 acute illness add add modifier 95 for video (do not use for phone, instead use 61572-00) [facility] New patient,40-59min; chronic exacerbation, 2 stable chronic or 1 acute illness add add modifier 95 for video (do not use for phone, instead use 79876-07) [facility] New patient,40-59min; chronic exacerbation, 2 stable chronic or 1 acute illness add add modifier 95 for video (do not use for phone, instead use 75370-35) [facility] Estab. patient 30-39min; chronic exacerbation, 2 stable chronic or 1 acute illness add add modifier 95 for video, (do not use for phone, instead use 11548-71) [facility]20[place] Hyperlipidemia, unspecifiedInsomnia, unspecifiedPulmonary fibrosis, unspecifiedVitamin D deficiency, unspecifiedSacroiliitis, not elsewhere classifiedOpioid dependence, uncomplicatedDry eye syndrome of bilateral lacrimal glandsOther obesity due to excess caloriesBody mass index (bmi) 31.0-31.9, adultMigraine, unspecified, not intractable, without status migrainosus Estab. patient 30-39min; chronic exacerbation, 2 stable chronic or 1 acute illness add add modifier 95 for video, (do not use for phone, instead use 59739-94) [facility] Estab. patient 30-39min; chronic exacerbation, 2 stable chronic or 1 acute illness add add modifier 95 for video, (do not use for phone, instead use 14032-87) [facility] Estab. patient 30-39min; chronic exacerbation, 2 stable chronic or 1 acute illness add add modifier 95 for video, (do not use for phone, instead use 78273-28) [facility] Estab. patient 30-39min; chronic exacerbation, 2 stable chronic or 1 acute illness add add modifier 95 for video, (do not use for phone, instead use 36098-06) [facility] Estab. patient 30-39min; chronic exacerbation, 2 stable chronic or 1 acute illness add add modifier 95 for video, (do not use for phone, instead use 76557-00) [facility]/20[place] Estab. patient 30-39min; chronic exacerbation, 2 stable chronic or 1 acute illness add add modifier 95 for video, (do not use for phone, instead use 55251-39) [facility]20[place] Hyperlipidemia, unspecifiedInsomnia, unspecifiedPulmonary fibrosis, unspecifiedVitamin [...] (do not use for phone, instead use 97398-15) [facility]/20[place] Estab. patient 30-39min; chronic exacerbation, 2 stable chronic or 1 acute illness add add modifier 95 for video, (do not use for phone, instead use 56465-00) [facility]/20[place] Estab. patient 30-39min; chronic exacerbation, 2 stable chronic or 1 acute illness add add modifier 95 for video, (do not use for phone, instead use 44556-03) [facility]/20[place] Estab. patient 30-39min; chronic exacerbation, 2 stable chronic or 1 acute illness add add modifier 95 for video, (do not use for phone, instead use 89285-25) [facility]20[place] Estab. patient 30-39min; chronic exacerbation, 2 stable chronic or 1 acute illness add add modifier 95 for video, (do not use for phone, instead use 85424-03) [facility]/20[place] Estab. patient 30-39min; chronic exacerbation, 2 stable chronic or 1 acute illness add add modifier 95 for video, (do not use for phone, instead use 20104-98) [facility] Immunizations Vaccine Date Status pneumococcal, unspecified formulation (PCV13) 20 17-12-29 Complete SARS-COV-2 (COVID-19) vaccine, UNSPECIFIED (covi [...] Current Smoking Status Current every day smoker 2024-11-13 Sex Female History of Procedures Procedures Service Procedure code Service date Servicing provider Phone# New patient,40-59min; chronic exacerbation, 2 stable chronic or 1 acute illness add add modifier 95 for video (do not use for phone, instead use 59157-15) [id number] 2022-02-01 No Data Available No Data Availa [...] (do not use for phone, instead use 59315-80) [id number] 2023-01-24 No Data Available No Data Availa [...] (do not use for phone, instead use 53901-39) 58720 2023-09-16 No Data Available No Data Availa [...] acute or disease education needs that may arise.Ttmmkms-thiiyucpqbufBhvzobo-mehehyzpp-amitriptyline prnManaged-flovent HFAManagedvitamin D yueszrsiwwFiwhdbb-hxswsrjfTjuuqrm-zzbcxcse-follow up every 3 monthsManaged-artificial tears 2023-01-24 11:05:42 [...] acute or disease education needs that may arise.Oimxbdl-puyzmoiehlrfKulxoos-irbzvhave-amitriptyline prnManaged-flovent HFAManagedvitamin D kdmveknkkrOdrmmev-ilzdddijChmgqbu-jojlcqpm-follow up every 3 monthsManaged-artificial tearsBMI: 31.10Lifestyle interventions [...] interventions, exercise as tolerable, and continue with PCP.Gqbjgnm-xzczjsbry-iiuyjfihluxfu prnManaged-flovent HFAContinue f/u care with pulmonology.Managedvitamin D supplementManaged-tramadolContinue with PCP.Ocwgppx-fxkixqbs-iijoiv up every 3 monthsManaged-artificial tearsBMI: 31.10Lifestyle interventions [...]
--- OUTSIDE RECORDS SUMMARY | 2024-11-13 13:33 | XMS_ITS | Clinical Summary ---
Author Organization [employer] Address [address] [place] [address] Care Team Providers Care Auto Transmission Technician Name Role Phone Gracie Singer MD Primary Care Provider + Allergies No known active allergies Medications acetaminophen (Tylenol) 500 MG tablet take 1-2 tablet (1000MG) by oral route TID as needed; max. 6 tabs/24 hours 017 Active albuterol (2.5 MG/3ML) 0.083% nebulizer solution Inhale 1 vial every 6 (six) hours. 019 Active pneumococcal polysaccharide (Pneumovax 23) 25 MCG/0.5ML [...] MOUTH AT BEDTIME 90 tablet 3 024 Active albuterol 108 (90 Base) MCG/ACT inhalerIndication s:Mild persistent asthma without complication inhale 2 puffs by Inhalation route 4 times every day as needed for cough, SOB or wheeze 18 g 1 024 Active simvastatin (Zocor) 20 MG tabletIndications :Mixed hyperlipidemia TAKE 1 TABLET BY MOUTH AT BEDTIME 90 tablet 3 025 Active fluticasone furoate (Arnuity Ellipta) 100 MCG/ACT inhaler Inhale 1 puff Once per day. 1 each 5 025 Active SUMAtriptan (Imitrex) 50 MG tabletIndications :Migraine without aura, not refractory TAKE 1 TABLET (50 MG) BY MOUTH 1 (ONE) TIME IF NEEDED FOR MIGRAINE. 9 tablet 2 025 2025 Active losartan (Cozaar) 25 MG tabletIndications :Hypertension, unspecified type Take 1 tablet (25 mg) by mouth Once per day. 90 tablet 3 025 2025 Active triamcinolone (Kenalog) 0.1 % cream Apply topically if needed each day for rash or irritation. Mix with cerave cream and apply to affected areas 80 g 1 025 Active loratadine (Claritin) 10 MG tablet take 1 tablet (10MG) by oral route every day as needed 022 2024 Discontinued(T herapy completed) fluticasone (Flonase) 50 MCG/ACT nasal spray Administer 1 spray into each nostril Once per day. 16 g 2 024 2024 Discontinued(T herapy completed) losartan (Cozaar) 25 MG tabletIndications :Hypertension, unspecified type Take 1 tablet (25 mg) by mouth Once per day. 30 tablet 11 025 2024 Discontinued(R eorder (will not trigger notification to Pharmacy)) Active Problems Problem Noted Date Diagnosed Date Pulmonary fibrosis, unspecified 11/13/2024 Assessment & Plan (11/13/2024 1:16 PM EDT): No evidence of disease as of [address] scan, will repeat CT scan due to history of smoking Hypertension 11/13/2024 Assessment & Plan (11/13/2024 1:12 PM EDT): Controlled. Compliant w/meds Continue losartan and HCTZ same dose Counseled re low salt diet/increase moderate physical activity. Check home BP BIW and prn CP/DE JESUS/DING Non smoking patient. Follow-up in 6-month Pruritus 11/13/2024 Assessment & Plan (11/13/2024 1:18 PM EDT): Unclear if related to dermatitis, will Rx triamcinolone cream to mix with OTC moisturizing cream Advised to follow-up with GI as it could be related to slight increase in bili's? Rule out celiac disease due to high IgA? Fatty liver 06/27/2024 Assessment & Plan (11/13/2024 1:15 PM EDT): Most recent LFTs on July 2024 remained stable in the mid 30s. Other liver tests including hepatitis profile and autoimmune profile is within normal limits. We discussed importance of cutting down on alcohol, any type of alcohol including beer, use of Tylenol excessively more than 2 g/day and follow-up with GI Will check lipid profile in 6 months along with LFTs, will consider DC in simvastatin Assessment & Plan (06/27/2024 4:12 PM EDT): Albumin is within normal limits, AST and ALT slightly elevated. She will follow-up with GI next month Will need liver ultrasound next year to follow-up on liver cysts Advised to avoid alcohol, discussed about weight reduction Diabetes due to undrl condition w oth diabetic n euro comp 06/27/2024 Assessment & Plan (11/13/2024 1:20 PM EDT): Cystoscopy having resolved, she has prediabetes now. Unclear if DM was triggered by steroid injections in the past. Will continue monitoring A1c twice per year now, advised importance of cutting down on calorie intake, increase exercise and quit smoking Continue off medications. Reportedly seen by ophthalmology at [facility] in [place], will request records No evidence of diabetic neuropathy, foot examination within normal limits Assessment & Plan (06/27/2024 4:11 PM EDT): [...] 03/30/2023 Overview (03/30/2023): 1cm caudate cyst on [facility] scan (Chest CT fu lung nodule) [...] mediastinal calcified lymph nodes Assessment & Plan (11/13/2024 1:17 PM EDT): Most likely related to old granulomatous disease, she will continue yearly chest CT scan due to history of heavy smoker> 37-[id number] smoking history Assessment & Plan (03/07/2024 12:35 PM EST): [...] hand 01/20/2015 Smoker 01/20/2015 Assessment & Plan (11/13/2024 1:18 PM EDT): Actively smoking, cutting down with nicotine gum. Discussed importance of quitting smoking, she is to follow-up on a low-dose chest CT scan Assessment & Plan (06/27/2024 4:13 PM EDT): [...] Encounters Date Type Department Care Team Description 11/13/2024 11:30 AM EDT Office Visit [facility] [address] [place] [phone] Gracie Singer MD 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); Hypertension, unspecified type; Lung nodules; Pruritus; Fatty liver; Smoker; Pulmonary fibrosis, unspecified (CMS/HCC) 11/13/2024 Travel 11/12/[address] [address] Gracie Singer MD chart prep 10/31/2024 10:00 AM EDT Clinical Support [address] [address] Denice Mcfarlane RN Hypertension, unspecified type [I10] 10/31/2024 Travel 10/17/2024 10:00 AM EDT Office Visit [address] [address] Judy Haley CNP Hypertension, unspecified type (Primary Dx); Blood pressure alteration 10/17/2024 Results Follow-Up [address] [address] Judy Hlaey CNP XR Chest 2 Views 10/16/[address] [address] April Longo MA CHARTPREP 10/16/[address] [address] Gracie Singer MD Nurse Triage 10/11/[address] [address] Gracie Singer MD Nurse Triage 09/27/[address] [address] Gracie Singer MD Ragini recall 09/24/[address] [address] Gracie Singer MD Medication Question 09/23/[address] [address] Gracie Singer MD Migraine without aura, not refractory 09/17/[address] [address] Gracie Singer MD Med Refill 09/17/[address] [address] Gracie Singer MD Med Refill from Last 3 Months Immunizations Immunization Administration Dates Next Due Hep B, adult [...] Date Smoking Tobacco: Every Day Cigarettes 0.5 50.3 Started: 07/12/1974 Passive Smoke Exposure: Current Smokeless Tobacco: Never Tobacco Cessation:Ready to Q uit: Not Asked; Counseling Given: Not Answered Comments:Started at age 13 yo, smoked 1/2ppd x 45y, cut down to 3 cig/d for the past year Alcohol Use Standard Drinks/Week Comments Yes 0 (1 standard drink = 0.6 oz pur e alcohol) oca Alcohol Answer Date Recorded How often do you have a drink containing alcohol ? 2 10/17/2024 How many drinks containing a lcohol do you have on a typical day when you are drinking? 0 10/17/2024 How often do you have six or more drinks on one occasion? 1 10/17/2024 Depression Answer Date Recorded Patient Health Questionnaire-9 Score 0 11/13/2024 Patient Health Questionnaire-9 Score 0 11/13/2024 Last PHQ-9: Questionnaire Data Not on file 0 11/13/2024 Housing Stability Answer Date Recorded What is [...] Date Recorded Patient Health Questionnaire-2 Score 0 11/13/2024 Internet Access Answer Date Recorded Internet Access [...] Sign Reading Time Taken Comments Blood Pressure 126/62 11/13/2024 11:04 AM EDT Pulse 105 11/13/2024 11:04 AM EDT Temperature 37.3 C (99.2 F) 11/13/2024 11:04 AM EDT Respiratory Rate 18 11/13/2024 11:04 AM EDT Oxygen Saturation 97% 11/13/2024 11:04 AM EDT Inhaled Oxygen Concentration - - Weight 74.8 kg (165 lb) 11/13/2024 11:04 AM EDT Height 149.9 cm (4' 11 ) 11/13/2024 11:04 AM EDT Body Mass Index 33.33 11/13/2024 11:04 AM EDT Plan of Treatment Health Maintenance Due Date Last Done Comments CT Colonography 1955 FIT DNA/Cologuard 1955 FIT 1955 FOBT 1955 Sigmoidoscopy 1955 Eye Exam 1964 Diabetes: Urine Protein Screening 1973 Hepatitis A Vaccines (1 of 2 - Risk 2-dose series) 1973 Lung Cancer Screening 2004 COVID-19 Vaccine ( season) 2023 04/22/2021, 04/18/2021, 06/12/2020, Additional history exists Influenza Vaccine (#1) 2024 , 01/21/2023, 01/07/2022, Additional history exists Mammogram 02/28/2025 02/29/2024, 12/26, 12/31/2021, Additional history exists Diabetes: Hemoglobin A1C 05/16/2025 025, 08/01/2024, 06/27/2024 SDOH Screening 06/27/2025 06/27/2024 Lipid Panel 08/01/2025 08/01/2024, 07/27, 01/11/2023, Additional history exists Alcohol/Substance Use Screening 11/13/2025 11/13/2024 Depression Screening 11/13/2025 11/13/2024, 11/14/19 25 Diabetes: Foot Exam 11/13/2025 11/13/2024, 11/13/2024, 11/13/2024, Additional history exists Tobacco Screening 11/13/2025 11/13/2024 Colonoscopy 09/24/2030 09/24/2020 Colorectal Cancer Screening 09/24/2030 DTaP/Tdap/Td Vaccines (3 - Td or Tdap) 03/07/2034 03/07/2024, 07/24/2013, 06/26/2002 Hepatitis B Vaccines Completed 07/24/2013, 02/08/2012, 03/10/2010 Pneumococcal Vaccine: 50+ Years Completed 01/07/2022, 12/25/2021, 03/10/2010 RSV Patients and Patients Aged 60 years or older Completed 08/18/2023 Zoster Vaccines Completed 04/26/2024, 12/28, 07/19/2018, Additional history exists Hepatitis C Screening Completed 08/01/2024, 024 HIB Vaccines Aged Out No longer eligi ble based on patient's age to complete this topic HPV Vaccines Aged Out No longer eligi ble based on patient's age to complete this topic IPV Vaccines Aged Out No longer eligi ble based on patient's age to complete this topic Meningococcal B Vaccine Aged Out No l onger eligible based on patient's age to complete [...] Procedure Name Priority Date/Time Associated Diagnosis Comments BASIC METABOLIC PANEL Routine 11/13/2024 12:14 PM EDT Hypertension, unspecified type POCT GLYCATED HEMOGLOBIN, TOTAL Routine 11/13/2024 11:07 AM EDT 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) POCT GLUCOSE Routine 11/13/2024 11:05 AM EDT 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) ECG 12-LEAD Routine 10/17/2024 11:50 AM EDT Hypertension, unspecified type XR CHEST 2 VIEWS Routine 10/17/2024 10:4 0 AM EDT Hypertension, unspecified type CT ABDOMEN PELVIS W CONTRAST Routine 08/24/2024 7:25 AM EDT HEPATITIS C ANTIBODY Routine 08/01/2024 11:51 AM EDT LIPID PANEL, STANDARD Routine 08/01/2024 11:51 AM EDT BI MAMMOGRAM SCREENING TOMOSYNTHESIS BILATERAL Routine 02/29/2024 9:47 AM EST HM COLONOSCOPY Routine 09/24/2020 8:23 AM EDT from Last 3 Months or Most Recently Relevant to Health Maintenance Results * (ABNORMAL) Basic Metabolic Panel (11/13/2024 12:14 PM EDT) Pathologist [facility] Sodium 141 135 - 145 mmol/L [facility] Potassium 4.2 3.3 - 5.1 mmol/L [facility] Chloride 104 96 - 108 mmol/L [facility] Carbon Dioxide 28 22 - 29 mmol/L [facility] Anion Gap 13 12 - 20 [facility] Urea Nitrogen (BUN) 14 9 - 16 mg/dL [facility] Creatinine, Serum 0.72 0.5 - 1.4 mg/dL [facility] Estimated Glomerular Filt Rate >60 [facility] Comment:Chronic Kidney Disea se: Estimated GFR < 60 mL/min/[id number] Kidney Disease: Estimated GFR < 15 mL/min/1.73m2 Glucose 135(H) 60 - 115 mg/dL [facility] Calcium 9.7 8.4 - 10.2 mg/dL [facility] Blood Venous blood specimen / Unknown 11/13/2024 12:14 PM EDT 11/13/2024 1:04 PM EDT Judy Haley [facility] LAB BLOOD ORDERABLES Dolly l Result [facility] [address] [place] [phone] * (ABNORMAL) POCT HGB A1C (11/13/2024 11:07 AM EDT) Pathologist [facility] Hemoglobin A1C 5.8(A) 4.0 - 5.7 % QC Media Lot # [id number] Lot# Expiration Date ,[id number] Blood 11/13/2024 11:0 7 AM EDT Gracie Singer MD POINT OF CARE TEST ENTER /EDIT ORDERABLES Final Result * POCT Glucose (11/13/2024 11:05 AM EDT) Pathologist [facility] Glucose Blood, POC 142 60 - 200 mg/dL QC Media Lot # [id number] Lot# Expiration Date 797,025 Blood Capillary blood specimen / Unknown 11/13/2024 11:05 AM EDT Gracie Singer MD POINT OF CARE TEST ENTER /EDIT ORDERABLES Final Result * ECG 12 lead (10/17/2024 11:50 AM EDT) Narrative Judy Haley CNP - 10/17/2024 11:50 AM EDT HR 103, NSR, abnormal R progression Judy Haley [facility] ECG ORDERABLES Final Res ult * XR Chest 2 Views (10/17/2024 10:40 AM EDT) Anatomical Region Laterality Modality Chest Radiographic Susan ging 10/17/2024 10:4 0 AM EDT Narrative 10/17/2024 12:27 PM EDT [address] [address] XRay Report Signed Patient: Reena Riley MR#: [id number] : 1955 Acct:[id number] Age/Sex: 69 / F ADM Date: 10/17/24 Loc: HO.HHCX Attending Dr: Judy Haley WEB CONTENT EXECUTIVE Ordering Physician: Judy Haley Date of Service: 10/17/24 Procedure(s): XR chest 2V Accession Number(s): [id number] cc: Gracie Singer MD; Judy Haley EXAMINATION: XR CHEST 2 VIEWS HISTORY: variation of BP >30, r/o aortic dissection COMPARISON: Comparison is made with the prior examination dated 08/12/2021. FINDINGS: PA and lateral views of the chest are submitted. Again seen is a calcified granuloma in the right upper lobe. The lungs are otherwise clear. There is no pleural effusion, pneumothorax, or pulmonary vascular congestion. The heart is normal in size. There are calcified right paratracheal lymph nodes. The bones are intact. XR/XR chest 2V IMPRESSION: No acute cardiopulmonary abnormality. If there is clinical concern for aortic dissection, CT angiography could be performed. Electronically signed by: Preet Schwartz MD 10/17/2024 12:24 PM EDT RP Dictated By: Preet Schwartz MD Signed By: <Electronically signed by Preet Schwartz MD in OV> 10/17/24 1224 DD/ 1040 TD/TT: 10/17/24 1050 Instructor Of Nursing: Procedure Note Donotuseinterpreter, Image - 10/17/[address] [address] XRay Report Signed Patient: Felipe Riley#: [id number] : 5Acct:[id number] Age/Sex: 69 / FADM Date: 10/17/24 Loc: [facility] Attending Dr: Judy Haley WEB CONTENT EXECUTIVE Ordering Physician: Judy Haley Date of Service: 10/17/24 Procedure(s): XR chest 2V Accession Number(s): [id number] cc: Gracie Singer MD; Judy Haley EXAMINATION: XR CHEST 2 VIEWS HISTORY: variation of BP >30, r/o aortic dissection COMPARISON: Comparison is made with the prior examination dated 08/12/2021. FINDINGS: PA and lateral views of the chest are submitted. Again seen is a calcified granuloma in the right upper lobe. The lungs are otherwise clear. There is no pleural effusion, pneumothorax, or pulmonary vascular congestion. The heart is normal in size. There are calcified right paratracheal lymph nodes. The bones are intact. XR/XR chest 2V IMPRESSION: No acute cardiopulmonary abnormality. If there is clinical concern for aortic dissection, CT angiography could be performed. Electronically signed by: Preet Schwartz MD 10/17/2024 12:24 PM EDT RP Dictated By: Preet Schwartz MD Signed By: <Electronically signed by Preet Schwartz MD in OV> 10/17/24 1224 DD/ 1040 TD/TT: 10/17/24 1050 Instructor Of Nursing: Judy Haley SUPPLY REQUIREMENTS OFFICER IMG XR PROCEDURES Final R esult * CT Abdomen Pelvis w/ Contrast (08/24/2024 7:25 AM EDT) Anatomical Region Laterality Modality Body, Pelvis, Abdomen Computed T omography 08/24/2024 7:25 AM EDT Narrative 08/24/2024 9:03 AM EDT [place] [address] CT Scan Report Signed Patient: Reena Riley MR#: [id number] : 1955 Acct:[id number] Age/Sex: 69 / F ADM Date: 08/24/24 Loc: HO.CT Attending Dr: Jia Sims MD Ordering Physician: Jia Sims MD Date of Service: 08/24/24 Procedure(s): CT abdomen pelvis w IV con Accession Number(s): [id number] cc: Gracie Singer MD; Jia Sims MD Report Number: [id number]: Total DLP = 369.00 mGy-cm EXAMINATION: CT ABDOMEN AND PELVIS WITH CONTRAST CLINICAL INFORMATION: Family history of malignant neoplasm of the chest were COMPARISON: MR abdomen 04/23/2024 CT abdomen and pelvis 06/29/2019. TECHNIQUE: Multidetector volumetric images were obtained from the superior aspect of the liver through the pubic symphysis following administration 85 mL of Omnipaque 350 intravenous contrast. Sagittal and coronal reformatted images were obtained on the technologist's workstation. Oral contrast: Yes This CT examination was performed using dose optimization techniques as appropriate, variously including the following: *Automated exposure control *Adjustment of mA and/or kV according to patient size (this includes techniques or standardized protocols for targeted exams where dose is matched to indication/reason for exam; i.e. extremities or head) *Use of iterative reconstruction technique FINDINGS: LUNG BASES: Lung bases are clear bilaterally. Minimal linear atelectasis or scarring in the lingular right middle lobe. No effusions. Heart size normal. GE junction appears normal. LIVER, GALLBLADDER, AND BILIARY TREE: The liver is normal in size and shape. There is mild steatosis. No suspicious focal hepatic lesion or biliary ductal dilatation is present. There is a 9 mm cyst in segment 4A. There is a 1.4 cm cyst in segment 1. The gallbladder is unremarkable with no evidence of radiopaque gallstones, gallbladder wall thickening, or obvious pericholecystic inflammatory changes. PANCREAS: Unremarkable. SPLEEN: Unremarkable. ADRENAL GLANDS: Unremarkable. KIDNEYS AND URETERS: The kidneys are normal in size, shape, and attenuation. No hydronephrosis, hydroureter, or calculi seen. No perinephric stranding. There are tiny bilateral cysts present. No suspicious lesions. BLADDER: Underdistended but grossly normal. GASTROINTESTINAL TRACT: The colon is normal in caliber and course without wall thickening or inflammation. There is a redundant sigmoid colon noted. No rectal abnormality. Appendix visualized. Small bowel is normal in caliber and course. There is no inflammation or wall thickening. GE junction, stomach, duodenal sweep appear normal. ABDOMINAL WALL: No significant hernia is appreciated. LYMPH NODES: None enlarged by size criteria. VASCULAR: Mild atheromatous calcification of the aorta and iliac arteries. No aneurysm. PELVIC VISCERA: The uterus and adnexa are unremarkable. OSSEOUS STRUCTURES: No suspicious lytic or blastic bone lesions. Mild spinal degenerative changes. CT/CT abdomen pelvis w IV con IMPRESSION: 1. There are no acute or suspicious findings in the abdomen or pelvis. 2. Mild diffuse fatty infiltration of the liver. There are a few scattered liver simple cysts. 3. There are tiny bilateral benign renal cysts. Kidneys are otherwise normal. Electronically signed by: Eren Ortiz MD 08/24/2024 09:01 AM EDT Dictated By: Eren Ortiz MD Signed By: <Electronically signed by Eren Ortiz MD in OV> 08/24/24 0901 DD/ 0725 TD/TT: 08/24/24 0750 Instructor Of Nursing: Procedure Note Donotuseinterpreter, Image - 08/24/[address] [place] [address] [address] Scan Report Signed Patient: Felipe Riley#: [id number] : 5Acct:[id number] Age/Sex: 69 / FADM Date: 08/24/24 Loc: HO.CT Attending Dr: Jia Sims MD Ordering Physician: Jia Sims MD Date of Service: 08/24/24 Procedure(s): CT abdomen pelvis w IV con Accession Number(s): [id number] cc: Gracie Singer MD; Jia Sims MD Report Number: [id number]: Total DLP = 369.00 mGy-cm EXAMINATION: CT ABDOMEN AND PELVIS WITH CONTRAST CLINICAL INFORMATION: Family history of malignant neoplasm of the chest were COMPARISON: MR abdomen 04/23/2024 CT abdomen and pelvis 06/29/2019. TECHNIQUE: Multidetector volumetric images were obtained from the superior aspect of the liver through the pubic symphysis following administration 85 mL of Omnipaque 350 intravenous contrast. Sagittal and coronal reformatted images were obtained on the technologist's workstation. Oral contrast: Yes This CT examination was performed using dose optimization techniques as appropriate, variously including the following: *Automated exposure control *Adjustment of mA and/or kV according to patient size (this includes techniques or standardized protocols for targeted exams where dose is matched to indication/reason for exam; i.e. extremities or head) *Use of iterative reconstruction technique FINDINGS: LUNG BASES: Lung bases are clear bilaterally. Minimal linear atelectasis or scarring in the lingular right middle lobe. No effusions. Heart size normal. GE junction appears normal. LIVER, GALLBLADDER, AND BILIARY TREE: The liver is normal in size and shape. There is mild steatosis. No suspicious focal hepatic lesion or biliary ductal dilatation is present. There is a 9 mm cyst in segment 4A. There is a 1.4 cm cyst in segment 1. The gallbladder is unremarkable with no evidence of radiopaque gallstones, gallbladder wall thickening, or obvious pericholecystic inflammatory changes. PANCREAS: Unremarkable. SPLEEN: Unremarkable. ADRENAL GLANDS: Unremarkable. KIDNEYS AND URETERS: The kidneys are normal in size, shape, and attenuation. No hydronephrosis, hydroureter, or calculi seen. No perinephric stranding. There are tiny bilateral cysts present. No suspicious lesions. BLADDER: Underdistended but grossly normal. GASTROINTESTINAL TRACT: The colon is normal in caliber and course without wall thickening or inflammation. There is a redundant sigmoid colon noted. No rectal abnormality. Appendix visualized. Small bowel is normal in caliber and course. There is no inflammation or wall thickening. GE junction, stomach, duodenal sweep appear normal. ABDOMINAL WALL: No significant hernia is appreciated. LYMPH NODES: None enlarged by size criteria. VASCULAR: Mild atheromatous calcification of the aorta and iliac arteries. No aneurysm. PELVIC VISCERA: The uterus and adnexa are unremarkable. OSSEOUS STRUCTURES: No suspicious lytic or blastic bone lesions. Mild spinal degenerative changes. CT/CT abdomen pelvis w IV con IMPRESSION: 1. There are no acute or suspicious findings in the abdomen or pelvis. 2. Mild diffuse fatty infiltration of the liver. There are a few scattered liver simple cysts. 3. There are tiny bilateral benign renal cysts. Kidneys are otherwise normal. Electronically signed by: Eren Ortiz MD 08/24/2024 09:01 AM EDT RP Dictated By: Eren Ortiz MD Signed By: <Electronically signed by Eren Ortiz MD in OV> 08/24/24 0901 DD/ 0725 TD/TT: 08/24/24 0750 Instructor Of Nursing: [facility] External Provider IMG CT PROCEDURES Edited Result - Final * Hepatitis C Ab (08/01/2024 11:51 AM EDT) Pathologist [facility] Hepatitis C Antibody Nonreactive Nonreactive [facility] Comment:Antibodies to HCV no t detected; does not exclude early acuteHCV infection. 08/01/2024 11:5 1 AM EDT 08/01/2024 11:51 AM EDT Generic External Data Provider LAB BLOOD ORDERAB LES Final Result [facility] [address] [place] [phone] * (ABNORMAL) Lipid Panel, Standard (08/01/2024 11:51 AM EDT) Triglycerides 200(H) <150 mg/dL [facility] Comment:Desirable Triglyceri de: less than 150 mg/dLBorderline High Triglyceride 150-199 mg/dLHigh Triglyceride: 200-499 mg/dLVery High Triglyceride: greater than or equal to 5OO mg/dL Cholesterol 216(H) <200 mg/dL [facility] Comment:Desirable Cholestero l: less than 200 mg/dLBorderline High Cholesterol: 200-239 mg/dLHigh Cholesterol: greater than 239 mg/dL LDL Cholesterol Calculated 126(H) <100 mg/dL [facility] Comment:Desirable LDL: less than 100 mg/dLNear Optimal/Above Optimal LDL: 110- 129 mg/dLBorderline High LDL: 130-159 mg/dLHigh LDL: 160-189 mg/dLVery High LDL: greater than or equal to 190 mg/dL HDL Cholesterol 50 >40 mg/dL [facility] Comment:Desirable HDL: great er than 40 mg/dL Note: This HDL assay may give artificially low results in patients with liver disease. 08/01/2024 11:5 1 AM EDT 08/01/2024 11:51 AM EDT us Generic External Data Provider LAB BLOOD ORDERAB LES Final Result [facility] [address] [place] [phone] * BI Mammogram Screening Tomosynthesis Bilateral (02/29/2024 9:47 AM EST) Anatomical Region Laterality Modality Breast Bilateral Mammography 02/29/2024 9:47 AM EST Narrative 03/06/2024 11:53 AM EST [facility] [address] [place] [address] Mammography Report Signed Patient: Reena Love MR#: [id number] 1 : 1955 Acct:[id number] Age/Sex: 68 / F ADM Date: 02/29/24 Loc: HO.MAMMO Attending Dr: Gracie Singer MD Ordering Physician: Gracie Singer MD Results: 1Ne gative Date of Service: 02/29/24 Follow Up: 1 Year From Orig inal Mammogram Procedure(s): MM tomosynthesis screening BI Accession Number(s): [id number] cc: Gracie Singer MD EXAMINATION: MM SCREENING [...] 03/06/24 1150 DD/ 0947 TD/TT: 02/29/24 1001 Instructor Of Nursing: Procedure Note Donotuseinterpreter, Image - 03/06/2024 [facility] [address] [place] [address] Mammography Report Signed Patient: Felipe Love#: [id number] 1 : 5Acct:[id number] Age/Sex: 68 / FADM Date: 02/29/24 Loc: [facility] Attending Dr: Gracie Singer MD Ordering Physician: Gracie Singer MDResults: 1Ne gative Date of Service: 02/29/24Follow Up: 1 Year From Orig inal Mammogram Procedure(s): MM tomosynthesis screening BI Accession Number(s): [id number] cc: Gracie Singer MD EXAMINATION: MM SCREENING [...] 03/06/24 1150 DD/ 0947 TD/TT: 02/29/24 1001 Instructor Of Nursing: Gracie Singer MD IMG BI PROCEDURES Final Result * Hm Colonoscopy (09/24/2020 8:23 AM EDT) Historical Provider HEALTH MAINTENANCE Final Result from Last 3 Months or Most Recently Relevant to Health Maintenance Insurance * Guarantor: Reena Love Account Type Relation to Patient Date of Phone Billing Address Personal/Family Self 1955 [address] [place] [address] [facility] DUAL COMPLETE Advance Directives Documents on File Type Date Recorded 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
== END 2024-11-13 12:11 | disposition home or self-care (01) ==
LOC: HO.HHCL 12:10
PROVIDERS: PCP Internal Medicine; Visit Provider Internal Medicine
DX: I10 Essential (primary) hypertension (principal); E08.49 Diabetes mellitus due to underlying condition with other diabetic neurological complication
CPT/HCPCS: 36415; 80048; 82570

== ENCOUNTER 2024-12-12 12:35 | Outpatient (REF) | payer OTHER, SELFPAY ==
--- NOTE | ~2024-12-12 | US_ITS ---
EXAMINATION: US DOPPLER ARTERIAL ULTRASOUND UPPER EXTREMITY, BILATERAL CLINICAL INFORMATION: Blood pressure alteration. COMPARISON: None available. TECHNIQUE: Color Doppler arterial ultrasound of the arteries with spectral Doppler analysis in the upper extremities which included: Subclavian, axillary, brachial, radial and ulnar arteries. FINDINGS: Peak systolic velocities and waveforms as follow: RIGHT UPPER EXTREMITY: Subclavian artery, proximal segment: 169 cm/s and biphasic. Superior artery mid segment: 131 cm/s and biphasic. Superiorly artery distal segment: 155 cm/s and biphasic. Axillary artery: 115 cm/s and biphasic. Brachial artery proximal segment: 123 cm/s and triphasic. Brachial artery mid segment: 126 cm/s and triphasic. Brachial artery distal segment: 118 cm/s and triphasic. Radial artery midsegment: 94 cm/s and triphasic. Ulnar artery midsegment: 71 cm/s and triphasic. LEFT UPPER EXTREMITY: Subclavian artery, proximal segment: 139 cm/s and triphasic. Superior artery mid segment: 120 cm/s and biphasic. Superiorly artery distal segment: 128 cm/s and biphasic. Axillary artery: 125 cm/s and biphasic. Brachial artery proximal segment: 127 cm/s and biphasic. Brachial artery mid segment: 106 cm/s and biphasic. Brachial artery distal segment: 96 cm/s and biphasic. Radial artery midsegment: 54 cm/s and biphasic. Ulnar artery midsegment: 53 cm/s and biphasic. US/US arterial duplex UE BI IMPRESSION: Normal patency of the interrogated arteries with mild to moderate inflow disease. . Electronically signed by: Jonh Paulino MD 12/12/2024 02:29 PM EDT
--- OUTSIDE RECORDS SUMMARY | 2024-12-12 16:01 | XMS_ITS ---
Author Name Jose Silverio APRN Address [address] [place] [address] Phone [phone] [facility] Care Team Providers Care Charge Entry Clerk Name Role Phone Kristen Silverio Unavailable [phone] Ashleigh Núñez Unavailable Unavailable Reason for Referral Not Available Allergies, adverse reactions, alerts No known allergies History of medication use Medication Class Instructions Start Date End Date traZODone 50 mg Tab TOME HANK TABLETA TOD OS LOS D AL ACOST2021-05-11 No Data Available VITAMIN D3 50 MCG (2,000 UNIT) TOME HANK C PSULA TODOS LOS D 2020-11-17 2024-12-03 Arnuity Ellipta 100 MCG/ACT Aerosol Powder Breath Activated INHALE 1 PUFF ONCE PER DAY. 2021-08-11 No Data Available Diclofenac Sodium 75 [...] HANK C PSULA TODOS LOS D 2023-05-11 2024-12-03 predniSONE 20 mg Tab TOME DOS TABLETAS P OR V A ORAL TODOS LOS D POR 5 D 2023-07-25 2023-09-16 CALCIUM 600 MG-VIT D3 5 MCG TB TOME 1 TA BLETA POR V A ORAL DOS VECES AL D A 2023-07-25 No Data Available Ventolin HFA 108 (90 Base) MCG/ACT Aerosol Solution Inhalation TOME DOS INHALACIONES POR V A ORAL CUATRO VECES AL D A CUANDO SEA NECESARIO 2023-07-28 No Data Available Omeprazole 20 mg Cap delayed rel TOME 1 C PSULA POR V A ORAL TODOS LOS D 2024-08-01 No Data Available Losartan Potassium 25 mg Tab TOME 1 TABL ETA POR V A ORAL TODOS LOS D 2024-10-17 No Data Available Triamcinolone Acetonide 0.1 % Crm PLEASE SEE ATTACHED FOR DETAILED DIRECTIONS 2024-11-13 No Data Available Narcan 4 mg/0.1ML Liquid Nasal use 1 spr ay in one nostril in the event of opioid overdose. Call 911 after use 2024-12-03 No Data Available Problem List Problem Status Onset Date Resolved Date Synopsis Dry eye syndrome of bilateral lacrimal glands Active 2022-02-01 N/A Manage d-artificial tearsNo current concerns. Pulmonary fibrosis, unspecified Active 2022-02-01 N/A Rx Arnuity Ellip alfredo VentolinManaged by pulmonaryLast Exacerbation - long time agoOxygen n oneSmoking hx 3 cigs a day. Passive exposure: N/A Readiness to quit: YESOpen to receiving information about state s smoking cessation: YESPt educated about difference between maintenance and rescue medication and importance of correct use of each. Keep rescue medication close at hand. Continue using medications, reviewed oxygen use precautions if applicable, reviewed s/sx of respiratory distress and continue f/u care and monitoring with PCP or pulmonary every 3-6 months. Sacroiliitis, not elsewhere classifiedChronic joint painChronic pain with opioid use Active 2022-02-01 N/A [facility] 9/8/25Rx TramadolUnder PCP, PM PRNNarcan available? No, will send todayHas tolerance and inability to cut down or stop. Overdose prevention discussed. Be cautious with use. There is risk for dependence/respiratory depression/falls/cognitiv e dysfunction. This diagnosis does not reflect addiction, or inappropriate management, but notes physiologic dependence such that with abrupt cessation the patient may experience adverse events from withdrawal of the medication.Continue current management for now and follow up. Call CB if pain worsens or if decreased mobility, stiffness, joint swelling develop. Migraine Active 2023-01-24 N/A [facility] 12/03/24Rx; Sumatriptan amitriptyline Recommendations: - Magnesium Oxide 400mg QHS for prophylaxis- Riboflavin 400mg daily for prophylaxis -Avoid NSAID overuse to prevent rebound headachesSleep hygiene: Follow regular patterns of sleeping, eating, exercise, stress reduction.Stay well hydratedPay attention to and avoid triggers (Keep headache log to help identify)RTC if headaches intensify, patterns change, or if unable to control under current management. 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 YESRecommendations: Heart healthy diet rich in vegetables, fruits, fiber rich whole grains, lean meats and poultry, fish at least twice weekly, fat-free or 1% dairy products, low in saturated and trans fats, cholesterol, sodium and added sugars. Mediterranean diet if possible Regular exercise as tolerated (Ex. 30 min waking 5x/week, start slow, work up over time) Weight managementFollow up with PCP as scheduled Major depressive disorder, recurrent, mildInsomnia Active 2023-09-16 N/A [facility] 12/03Rx: Amitriptyline, TrazodonePHQ-4: 4Hospitalizations: noneManaged by psychFeels stable. Denies s/h ideationsRecommendations: Notify provider with any changes in behavior, difficulty sleeping, or new/worsening depressive symptoms. Get help immediately if you have suicidal and or homicidal ideations. Contact the Suicide & Crisis Lifeline by calling or texting [phone] or call CB/PCP specialist for help.Sleep hygiene: Establish regular sleep schedule, even on days off. Avoid TV/media at bedtime or in bedroom, keep bedroom temp comfortable, use dark curtains, white noise. No over-stimulating activities prior to bed. Practice relaxation techniques, stress management Practice regular exercise (but not within 90 minutes of bedtime) Avoid Caffeine after lunchtime (Caffeine half-life exceeds 4 hours), no heavy meals 2 hours before bed Do not use Alcohol to induce sleep (worsens Insomnia) Do not take someone else's sleeping pills Do not self- medicate Other problems related to medical facilities and other health care Active 2023-09-16 N/A [facility]24Worsening Pain Member to call for the following symptoms: Decreased mobility/ Fall / Increased pain/ Increased pain meds/ Joint swellingPlanned intervention: Tylenol 1,000mg q6h/ Lidoderm patch 4% to affected area/ Voltaren gel to affected area/ Apply heat to affected area Hypertension Active 2024-12-03 N/A [facility] 12/03/24R x: LosartanRecommendations: Take medications at the same times each day. Encourage low sodium diet. Encouraged daily blood pressure checks and tracking. Instructed patient to notify CB or PCP if blood pressure >140/90 or <90/50.Pt does not have a BP cuff at home, requesting one. Will place task. Also advised if not covered by insurance, they can use OTC benefits. Pt verbalizes agreement. GERD (gastroesophageal reflux disease) Active 2024-12-03 N/A [facility] 12/03/24Rx: OmeprazoleRecommendations : Take medications at the same times each day. Encourage low sodium diet. Encouraged daily blood pressure checks and tracking. Instructed patient to notify CB or PCP if blood pressure >140/90 or <90/50.Pt does not have a BP cuff at home, requesting one. Will place task. Also advised if not covered by insurance, they can use OTC benefits. Pt verbalizes agreement. 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 N/A Pt denies knowledgeReports stable labsd Encounters Encounters Type Facility Date of Service Diagnosis/Co mplaint New patient,40-59min; chronic exacerbation, 2 stable chronic or 1 acute illness add add modifier 95 for video (do not use for phone, instead use [id number]) [facility] ([place] 02[place]01/2022 Hyperlipidemia, unspecifiedInsomnia, unspecifiedUnspecified asthma, uncomplicatedVitamin D deficiency, unspecifiedLow back pain, unspecifiedOpioid dependence, uncomplicatedDry eye syndrome of bilateral lacrimal glands New patient,40-59min; chronic exacerbation, 2 stable chronic or 1 acute illness add add modifier 95 for video (do not use for phone, instead use 11643-30) [facility] 02[place]/20[place] New patient,40-59min; chronic exacerbation, 2 stable chronic or 1 acute illness add add modifier 95 for video (do not use for phone, instead use [id number]) [facility] ([place] 02[place]/2022 New patient,40-59min; chronic exacerbation, 2 stable chronic or 1 acute illness add add modifier 95 for video (do not use for phone, instead use 39427-58) [facility] ([place] 02[place]01/2022 New patient,40-59min; chronic exacerbation, 2 stable chronic or 1 acute illness add add modifier 95 for video (do not use for phone, instead use 60014-66) [facility] ([place] 02[place]01/2022 New patient,40-59min; chronic exacerbation, 2 stable chronic or 1 acute illness add add modifier 95 for video (do not use for phone, instead use 99584-99) [facility] ([place] 02/01/2022 New patient,40-59min; chronic exacerbation, 2 stable chronic or 1 acute illness add add modifier 95 for video (do not use for phone, instead use 38884-61) [facility], ([place]) 02/01/2022 New patient,40-59min; chronic exacerbation, 2 stable chronic or 1 acute illness add add modifier 95 for video (do not use for phone, instead use 49840-47) [facility], ([place]) 02/01/2022 New patient,40-59min; chronic exacerbation, 2 stable chronic or 1 acute illness add add modifier 95 for video (do not use for phone, instead use 70206-08) [facility] ([place] 02[place]01/2022 Estab. patient 30-39min; chronic exacerbation, 2 stable chronic or 1 acute illness add add modifier 95 for video, (do not use for phone, instead use 69286-18) [facility] [place] 01[place]24/2023 Hyperlipidemia, unspecifiedInsomnia, unspecifiedPulmonary fibrosis, unspecifiedVitamin D deficiency, unspecifiedSacroiliitis, not elsewhere classifiedOpioid dependence, uncomplicatedDry eye syndrome of bilateral lacrimal glandsOther obesity due to excess caloriesBody mass index (bmi) 31.0-31.9, adultMigraine, unspecified, not intractable, without status migrainosus Estab. patient 30-39min; chronic exacerbation, 2 stable chronic or 1 acute illness add add modifier 95 for video, (do not use for phone, instead use 63322-00) [facility] ([place] 01[place]24/2023 Estab. patient 30-39min; chronic exacerbation, 2 stable chronic or 1 acute illness add add modifier 95 for video, (do not use for phone, instead use 50931-53) [facility] [place] 01[place]24/2023 Estab. patient 30-39min; chronic exacerbation, 2 stable chronic or 1 acute illness add add modifier 95 for video, (do not use for phone, instead use 93659-73) [facility] [place] 01[place]24/2023 Estab. patient 30-39min; chronic exacerbation, 2 stable chronic or 1 acute illness add add modifier 95 for video, (do not use for phone, instead use 98854-30) [facility] [place] 01[place]24/2023 Estab. patient 30-39min; chronic exacerbation, 2 stable chronic or 1 acute illness add add modifier 95 for video, (do not use for phone, instead use 77352-43) [facility] [place] 01/24/2023 Estab. patient 30-39min; chronic exacerbation, 2 stable chronic or 1 acute illness add add modifier 95 for video, (do not use for phone, instead use 79422-89) [facility], ([place]) 09/16/2023 Hyperlipidemia, unspecifiedInsomnia, unspecifiedPulmonary fibrosis, [...] (do not use for phone, instead use 90617-32) [facility] [place] 09[place]16/2023 Estab. patient 30-39min; chronic exacerbation, 2 stable chronic or 1 acute illness add add modifier 95 for video, (do not use for phone, instead use 28922-43) [facility] [place] 09/16/2023 Estab. patient 30-39min; chronic exacerbation, 2 stable chronic or 1 acute illness add add modifier 95 for video, (do not use for phone, instead use 32924-31) [facility] [place] 09/16/2023 Estab. patient 30-39min; chronic exacerbation, 2 stable chronic or 1 acute illness add add modifier 95 for video, (do not use for phone, instead use 37475-90) [facility], ([place] 09[place]16/20[place] Estab. patient 30-39min; chronic exacerbation, 2 stable chronic or 1 acute illness add add modifier 95 for video, (do not use for phone, instead use 09338-09) [facility] ([place] 09/16/20[place] Estab. patient 30-39min; chronic exacerbation, 2 stable chronic or 1 acute illness add add modifier 95 for video, (do not use for phone, instead use 71896-39) [facility] ([place] 09/16/2023 Estab. patient 10-29min; 1 minor problem; add add modifier 95 for video, modifier 93 for phone [facility] ([place]) 12/03/2024 Hyperlipidemia, unspecifiedT ype 2 diabetes mellitus with other specified complicationType 2 diabetes mellitus with diabetic neuropathy, unspecifiedPulmonary fibrosis, unspecifiedMajor depressive disorder, recurrent, mildInsomnia, unspecifiedSacroiliitis, not elsewhere classifiedOther chronic painOpioid use, unspecified, uncomplicatedPain in unspecified jointEssential (primary) hypertensionMigraine, unspecified, not intractable, without status migrainosusGastro-esophageal reflux disease without esophagitisDry eye syndrome of bilateral lacrimal glandsOther problems related to medical facilities and other health care Estab. patient 10-29min; 1 minor problem; add add modifier 95 for video, modifier 93 for [facility], ([place] 12/03/2024 Estab. patient 10-29min; 1 minor problem; add add modifier 95 for video, modifier 93 for [facility], ([place]) 12/03/2024 Estab. patient 10-29min; 1 minor problem; add add modifier 95 for video, modifier 93 for [facility] ([place] 12/03/20[place] Estab. patient 10-29min; 1 minor problem; add add modifier 95 for video, modifier 93 for [facility] ([place] 12/03/2024 Estab. patient 10-29min; 1 minor problem; add add modifier 95 for video, modifier 93 for [facility] ([place] 12/03/2024 Estab. patient 10-29min; 1 minor problem; add add modifier 95 for video, modifier 93 for [facility] 12/03/2024 Type 2 diabetes mellitus wit h diabetic neuropathy, unspecifiedType 2 diabetes mellitus with other specified complicationEssential (primary) hypertension Estab. patient 10-29min; 1 minor problem; add add modifier 95 for video, modifier 93 for [facility] 12/03/2024 Type 2 diabetes mellitus wit h diabetic neuropathy, unspecifiedType 2 diabetes mellitus with other specified complicationEssential (primary) hypertensionBody mass index (bmi) 33.0-33.9, adult Estab. patient 10-29min; 1 minor problem; add add modifier 95 for video, modifier 93 for [facility] ([place] 12/03/2024 Immunizations Vaccine Date Status pneumococcal, unspecified formulation [...] kgBody Mass Index (BMI) - 30.9 kg/m2 2024-12-03 04:47:47 Weight - 74.84 kgBod y Mass Index (BMI) - 33.33 kg/m2BP Diastolic - 62.0 mm[Hg]BP Systolic - 126.0 mm[Hg]Pain Scale - 10.0 {score} Social History Social History Social History Observation Description Effec tive Time Current Smoking Status Current every day smoker 2024-12-12 Sex Female History of Procedures Procedures Service Procedure code Service date Servicing provider Phone# New patient,40-59min; chronic exacerbation, 2 stable chronic or 1 acute illness add add modifier 95 for video (do not use for phone, instead use [id number]) [id number] 2022-02-01 No Data Available No Data Availa [...] (do not use for phone, instead use 84675-88) [id number] 2023-01-24 No Data Available No Data Availa [...] (do not use for phone, instead use 92166-03) 47216 2023-09-16 No Data Available No Data Availa [...] No Data Available No Data Avail able Estab. patient 10-29min; 1 minor problem; add add modifier 95 for video, modifier 93 for phone [id number] 2024-12-03 No Data Available No Data Availa ble Medication List Documented (1159F) 1159F 2024-12-03 No Data Available No Data Kassie ilable Medication Review by prescribing provider or pharmacist documented (1160F) 1160F 2024-12-03 No Data Available No Data Kassie ilable Functional Status Assessed (1170F) 1170F 2024-12-03 No Data Available No Data Avail able Advance Care Directive Advance care planning discussion documented in the medical record (1158F) 1158F 2024-12-03 No Data Available No Data Availa ble Advance care planning discussed and documented advance care plan or surrogate decision-maker was documented in the medical record. (1123F) 1123F 2024-12-03 No Data Available No Data Availa ble SBP < 130 (3074F) 3074F 2024-12-03 No Data Available No Data Available DBP <80 (3078F) 3078F 2024-12-03 No Data Available No Data Available Pain Assessment - Pain Documented on a Pain Scale (1125F) 1125F 2024-12-03 No Data Available No Data Kassie ilable Functional Status Functional Category Effective Dates Cognition Status: Oriented to Person, Pl cesia and Time 2022-02-01 ADL: Bathing Independent , [...] recurrent, mildFunctional disorders of polymorphonuclear neutrophilsNerve pain 2024-12-03 04:47:47 Type 2 diabetes jillian itus with hyperlipidemia and neuropathyPulmonary fibrosis, unspecifiedMajor depressive disorder, recurrent, mildInsomniaSacroiliitis, not elsewhere classifiedChronic joint painChronic pain with opioid useHypertensionMigraineGERD (gastroesophageal reflux disease)Dry eye syndrome of bilateral lacrimal glandsOther problems related to medical facilities and other health care Plan of Care Date of Service Plans 2022-02-01 04:58:22 Pain Assessment - NO pain documented (1126F)Medication Review by prescribing provider or pharmacist documented (1160F)Medication List Documented (1159F)Functional Status Assessed (1170F)Advance Care Directive Advance care planning discussion documented in the medical record (1158F)BMI obtained (3008F)sbdbTelevideo new patient,40-59min; chronic exacerbation, 2 stable chronic or 1 acute illness add modifier 95Continue to see PCP. Follow-up with [facility] as needed for any acute or disease education needs that may arise.Jsrpnkq-hsndtaxsbyyxDawkuxr-ujlbsmpjm-amitriptyline prnManaged-flovent HFAManagedvitamin D eevfibklwiKbigrjx-eqifguitLnwsonz-ceirwoze-follow up every 3 monthsManaged-artificial tears 2023-01-24 11:05:42 [...] acute or disease education needs that may arise.Vbtfiud-vzwovxmkbsfdErxijav-lnppwyfkn-amitriptyline prnManaged-flovent HFAManagedvitamin D olubqdkbboHnmhomk-dvntxmjaNgmtplj-hblfgabk-follow up every 3 monthsManaged-artificial tearsBMI: 31.10Lifestyle interventions [...] record. (1123F)Continue to see PCP. [facility]up with [facility] as needed for any acute or disease education needs that may arise.PAIN CONTINGENCY PLANWorsening Pain Member to call for the following symptoms: Decreased mobility/ Fall / Increased pain/ Increased pain meds/ Joint swellingPlanned intervention: Tylenol 1,000mg q6h/ Lidoderm patch 4% to affected area/ Voltaren gel to affected area/ Apply heat to affected areaManaged-atorvastatinDietary interventions, exercise as tolerable, and continue with PCP.Jpbxjdc-ibisfkxft-xmqcuzlaxylkx prnManaged-flovent HFAContinue f/u care with pulmonology.Managedvitamin D supplementManaged-tramadolContinue with PCP.Dxclotw-nbqjbmyn-koarzk up every 3 monthsManaged-artificial tearsBMI: 31.10Lifestyle interventions and continue f/u care with PCP.StableSumatriptan Continue f/u care with PCP and neurology.StableDecline wanting to start antidepressant. Denies SI/HIMonitor for worsening depression, coping mechanisms, and continue with PCP.StableMonitor for s/sx of infection and continue with PCP.StableAmitriptyline ROM exercises, monitor for adverse effects and continue with PCP. 2024-12-03 04:47:47 Medication Review by prescribing provider or pharmacist documented (1160F)Medication List Documented (1159F)Functional Status Assessed (1170F)Advance Care Directive Advance care planning discussion documented in the medical record (1158F)SBP < 130 (3074F)DBP <80 (3078F)Advance care planning discussed and documented advance care plan or surrogate decision-maker was documented in the medical record. (1123F)Estab. patient 20-29min; 1 stable chronic or 2 minor; add add modifier 95 for video, modifier 93 for phonePain Assessment - Pain Documented on a Pain Scale (1125F)Continue to see PCP. Follow-up with [facility] as needed for any acute or disease education needs that may arise.[facility] 12/03/24Hemoglobin A1C 11/13/2024 5.8 (A) 4.0 - 5.7 % FinalDM Rx: Diet managed HLD Rx SimvastatinNeuropathy: Amitriptyline CESIA or ARB? YESRecommendations: Heart healthy diet rich in vegetables, fruits, fiber rich whole grains, lean meats and poultry, fish at least twice weekly, fat-free or 1% dairy products, low in saturated and trans fats, cholesterol, sodium and added sugars. Mediterranean diet if possible Regular exercise as tolerated (Ex. 30 min waking 5x/week, start slow, work up over time) Weight managementFollow up with PCP as scheduledRx Arnuity Elliptan VentolinManaged by pulmonaryLast Exacerbation - long time agoOxygen n oneSmoking hx 3 cigs a day. Passive exposure: N/A Readiness to quit: YESOpen to receiving information about state s smoking cessation: YESPt educated about difference between maintenance and rescue medication and importance of correct use of each. Keep rescue medication close at hand. Continue using medications, reviewed oxygen use precautions if applicable, reviewed s/sx of respiratory distress and continue f/u care and monitoring with PCP or pulmonary every 3-6 months.[facility] 12/03/24Rx: Amitriptyline, TrazodonePHQ-4: 4Hospitalizations: noneManaged by psychFeels stable. Denies s/h ideationsRecommendations: Notify provider with any changes in behavior, difficulty sleeping, or new/worsening depressive symptoms. Get help immediately if you have suicidal and or homicidal ideations. Contact the Suicide & Crisis Lifeline by calling or texting 988 or call CB/PCP specialist for help.Sleep hygiene: Establish regular sleep schedule, even on days off. Avoid TV/media at bedtime or in bedroom, keep bedroom temp comfortable, use dark curtains, white noise. No over-stimulating activities prior to bed. Practice relaxation techniques, stress management Practice regular exercise (but not within 90 minutes of bedtime) Avoid Caffeine after lunchtime (Caffeine half-life exceeds 4 hours), no heavy meals 2 hours before bed Do not use Alcohol to induce sleep (worsens Insomnia) Do not take someone else's sleeping pills Do not self- medicateECCA 12/03/24Rx TramadolUnder PCP, PM PRNNarcan available? No, will send todayHas tolerance and inability to cut down or stop. Overdose prevention discussed. Be cautious with use. There is risk for dependence/respiratory depression/falls/cognitive dysfunction. This diagnosis does not reflect addiction, or inappropriate management, but notes physiologic dependence such that with abrupt cessation the patient may experience adverse events from withdrawal of the medication.Continue current management for now and follow up. Call CB if pain worsens or if decreased mobility, stiffness, joint swelling develop.[facility] 12/03/24Rx: LosartanRecommendations: Take medications at the same times each day. Encourage low sodium diet. Encouraged daily blood pressure checks and tracking. Instructed patient to notify CB or PCP if blood pressure >140/90 or <90/50.Pt does not have a BP cuff at home, requesting one. Will place task. Also advised if not covered by insurance, they can use OTC benefits. Pt verbalizes agreement.[facility] 12/03/24Rx; Sumatriptan amitriptyline Recommendations: - Magnesium Oxide 400mg QHS for prophylaxis- Riboflavin 400mg daily for prophylaxis -Avoid NSAID overuse to prevent rebound headachesSleep hygiene: Follow regular patterns of sleeping, eating, exercise, stress reduction.Stay well hydratedPay attention to and avoid triggers (Keep headache log to help identify)RTC if headaches intensify, patterns change, or if unable to control under current management.[facility] 12/03/24Rx: OmeprazoleRecommendations: Take medications at the same times each day. Encourage low sodium diet. Encouraged daily blood pressure checks and tracking. Instructed patient to notify CB or PCP if blood pressure >140/90 or <90/50.Pt does not have a BP cuff at home, requesting one. Will place task. Also advised if not covered by insurance, they can use OTC benefits. Pt verbalizes agreement.Managed-artificial tearsNo current concerns.PAIN CONTINGENCY PLANECCA 12/03/24Worsening Pain Member to call for the following symptoms: Decreased mobility/ Fall / Increased pain/ Increased pain meds/ Joint swellingPlanned intervention: Tylenol 1,000mg q6h/ Lidoderm patch 4% to affected area/ Voltaren gel to affected area/ Apply heat to affected areaAt least 50% of time spent counseling patient, discussing diagnosis, treatment plan, complicance, and coordinating follow up care. Goals Date Goal 2022-02-01 Remember to 2022-02-01 [...] and monitoring with PCP every 3-6 months. 2024-12-03 Continue taking medi cations as directed and keep all follow up appointments with established PCP and Specialist. Health Concerns Date Concern 2024-12-03 Patient/Guardian agr eeed to visit via telehealth. Today, patient has chief complaint of: annual visit.Visit completed via:[x] audio and video; [ ] audio onlyInformed verbal consent was obtained from this patient to communicate and provide care using virtual and other telecommunications tools. This patient has been explained the risks, if any, related to the encounter. I explained that care provided through video or audio communication cannot replace the need for physical examination or an in-person visit for some disorders or urgent problems. 2024-12-03 Concerns for today's visit:No acute concerns or needs.Reviewed allergies, medications, active medical conditions, past medical and surgical history, social history. 2024-12-03 Most recent hospital stay or ER visit:No ER visits or hospitalizations documented in [facility] in last year.Member denies ER visits or hospitalizations in last year.Discussed our goal of helping the member have more days at home rather than in the ER or the hospital. 2024-12-03 Open HEDIS Measures: Reviewed 2024-12-03 Advance Care Planphillip peña ConversationAdvance Care Plan and Serious Illness ConversationDate of Conversation: 12/03/2024Life Limiting Diagnosis: Diagnosis: COPDCurrently on Hospice SELECT:Do you have a Durable Power of Mattress Specialist for Healthcare, or Healthcare Proxy Or Guardianship? YESIf so, Who? Sister Martha Fournier you have a written Advance Directive? Has Advance DirectivePrognostic Understanding: Appropriate understanding of prognosisInformation: Patient wants to be fully informedTo prognostic communication: Curable/managable condition, life expectancy several yearsGoals: Be near familyFears/Worries: painStrength: FaithDiscussion: extensive discussion with family about goals and wishesCode Status: YES CPR: Attempt ResuscitationGoals of Care: Curative: Attempt to sustain life by all medically effective meansNutrition goals: Feeding through new or existing surgically placed tube is okTos plan: Advised patient to discuss wishes with proxyOther details of discussion: info documented 2024-12-03 Functional Assessmen tCognition Status: Oriented to Person, Place and TimeADL: Bathing Needs Assistance , Dressing Needs Assistance , Eating Independent , Ambulation Independent , Transferring Independent and Toileting IndependentIADL: Medication Independent , Meal Prep Needs Assistance , Shopping Needs Assistance , Driving or Public Transport Needs Assistance , Housework Needs Assistance , Finances IndependentHow many falls within the last 6 months? noneNear falls within the last 6 months?Do you feel unsteady on your feet? NoDo you worry about falling? NoDME used with ambulation: NoneSocial Supports - # of Interactions with Friends/Family in a typical week: daily
--- OUTSIDE RECORDS SUMMARY | 2024-12-12 16:01 | XMS_ITS | Clinical Summary ---
Author Organization [employer] Address [address] [facility] 7t [place] [address] Care Team Providers Care Rug Cutter Name Role Phone Gracie Singer MD Primary [...] ophthalmology at eye and LASIK clinic in [place], will request records No evidence of diabetic [...] 03/30/2023 Overview (03/30/2023): 1cm caudate cyst on [facility] CT scan (Chest CT [...] scan due to history of heavy smoker> 68-[id number] smoking history Assessment & Plan (03/07/2024 12:35 [...] Description 11/13/2024 11:30 AM EDT Office Visit [facility] [address] [place] [phone] Gracie Singer MD 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); Hypertension, unspecified type; Lung nodules; Pruritus; Fatty liver; Smoker; Pulmonary fibrosis, unspecified (CMS/HCC) 11/13/2024 Telephone [facility] [address] [place] [address] Gracie Singer MD Record request from Eye [facility] 11/13/2024 Telephone [facility] [address] [place] [address] Gracie Singer MD LUNG SCREENING REF 11/13/2024 Travel 11/12/[address] [address] Gracie Singer MD chart prep 10/31/2024 10:00 AM EDT Clinical Support [address] [address] Denice Mcfarlane RN Hypertension, unspecified type [I10] 10/31/2024 Travel 10/17/2024 10:00 AM EDT Office Visit [address] [address] Judy Haley CNP Hypertension, unspecified type (Primary Dx); Blood pressure alteration 10/17/2024 Results Follow-Up [address] [address] Judy Haley CNP XR Chest 2 Views 10/16/[address] [address] April Longo [place] CHARTPREP 10/16/[address] [address] Gracie Singer MD Nurse Triage 10/11/[address] [address] Gracie Singer MD Nurse Triage 09/27/[address] [address] Gracie Singer MD Ragini recall 09/24/[address] [address] Gracie Singer MD Medication Question 09/23/[address] [address] Gracie Singer MD Migraine without aura, not refractory 09/17/2024 Telephone [facility] [address] [place] [address] Gracie Singer MD Med Refill 09/17/2024 Telephone [facility] [address] [place] [address] Gracie Singer MD Med Refill from Last [...] Date Smoking Tobacco: Every Day Cigarettes 0.5 50.4 Started: 07/12/1974 Passive Smoke Exposure: Current Smokeless [...] FOBT 1955 Sigmoidoscopy 1955 Eye Exam 1964 Hepatitis A Vaccines (1 of 2 - Risk 2-dose series) 1973 Lung Cancer Screening 2004 COVID-19 Vaccine ( season) 2024 04/22/2021, 04/18/2021, 06/12/2020, Additional history exists Influenza [...] 11/13/2025 11/13/2024, 11/13/2024, 11/13/2024, Additional history exists Diabetes: Urine Protein Screening 11/13/2025 11/13/2024 Tobacco Screening 11/13/2025 11/13/2024 Colonoscopy 09/24/2030 09/24/2020 [...] Procedure Name Priority Date/Time Associated Diagnosis Comments VASC US UPPER EXTREMITY ARTERIAL DUPLEX BILATERAL Routine 12/12/2024 1:16 PM EDT Blood pressure alteration ALBUMIN, RANDOM URINE W/CREATININE Routine 11/13/2024 12:14 PM EDT Diabetes due to undrl condition w oth diabetic neuro comp ([facility]) BASIC METABOLIC PANEL Routine 11/13/2024 12:14 PM EDT Hypertension, unspecified type POCT GLYCATED HEMOGLOBIN, TOTAL Routine 11/13/2024 11:07 AM EDT Diabetes due to undrl condition w oth diabetic neuro comp ([facility]) POCT GLUCOSE Routine 11/13/2024 11:05 AM EDT Diabetes due to undrl condition w oth diabetic neuro comp ([facility]) ECG 12-LEAD Routine 10/17/2024 11:50 AM EDT Hypertension, unspecified type XR CHEST 2 VIEWS Routine 10/17/2024 10:4 0 AM EDT Hypertension, unspecified type HEPATITIS C ANTIBODY Routine 08/01/2024 11:51 AM EDT LIPID PANEL, STANDARD Routine 08/01/2024 11:51 AM EDT BI MAMMOGRAM SCREENING TOMOSYNTHESIS BILATERAL Routine 02/29/2024 9:47 AM EST HM COLONOSCOPY Routine 09/24/2020 8:23 AM EDT from Last 3 Months or Most Recently Relevant to Health Maintenance Results * Vascular US upper extremity arterial duplex bilateral (12/12/2024 1:16 PM EDT) 12/12/2024 1:16 PM EDT Narrative [facility] - 12/12/2024 2:33 PM EDT [place] [address] Ultrasound Report Signed Patient: Reena Riley MR#: [id number] : 1955 Acct:[id number] Age/Sex: 69 / F ADM Date: 12/12/24 Loc: HO. Attending Dr: Judy Haley MUCK HAULER Ordering Physician: Judy Haley NP Date of Service: 12/12/24 Procedure(s): US arterial duplex UE BI Accession Number(s): [id number] cc: Gracie Singer MD; Judy Haley NP Reason for Exam: BP ALTERATION IN LT AND RT UPPER EXTREMITIES EXAMINATION: US DOPPLER ARTERIAL ULTRASOUND UPPER EXTREMITY, BILATERAL CLINICAL INFORMATION: Blood pressure alteration. COMPARISON: None available. TECHNIQUE: Color Doppler arterial ultrasound of the arteries with spectral Doppler analysis in the upper extremities which included: Subclavian, axillary, brachial, radial and ulnar arteries. FINDINGS: Peak systolic velocities and waveforms as follow: RIGHT UPPER EXTREMITY: Subclavian artery, proximal segment: 169 cm/s and biphasic. Superior artery mid segment: 131 cm/s and biphasic. Superiorly artery distal segment: 155 cm/s and biphasic. Axillary artery: 115 cm/s and biphasic. Brachial artery proximal segment: 123 cm/s and triphasic. Brachial artery mid segment: 126 cm/s and triphasic. Brachial artery distal segment: 118 cm/s and triphasic. Radial artery midsegment: 94 cm/s and triphasic. Ulnar artery midsegment: 71 cm/s and triphasic. LEFT UPPER EXTREMITY: Subclavian artery, proximal segment: 139 cm/s and triphasic. Superior artery mid segment: 120 cm/s and biphasic. Superiorly artery distal segment: 128 cm/s and biphasic. Axillary artery: 125 cm/s and biphasic. Brachial artery proximal segment: 127 cm/s and biphasic. Brachial artery mid segment: 106 cm/s and biphasic. Brachial artery distal segment: 96 cm/s and biphasic. Radial artery midsegment: 54 cm/s and biphasic. Ulnar artery midsegment: 53 cm/s and biphasic. US/US arterial duplex UE BI IMPRESSION: Normal patency of the interrogated arteries with mild to moderate inflow disease. . Electronically signed by: Jonh Paulino MD 12/12/2024 02:29 PM EDT Dictated By: Jonh Gould MD Signed By: <Electronically signed by Jonh Chambers MD in [place]> 12/12/24 1429 DD/ 1316 TD/TT: 12/12/24 1345 Specialty Molder: Procedure Note Donotuseinterpreter, Image - 12/12/2024 [place] [address] Ultrasound Report Signed Patient: Felipe Riley#: [id number] : 5Acct:[id number] Age/Sex: 69 / FADM Date: 12/12/24 Loc: HO.US Attending Dr: Judy Haley NP Ordering Physician: Judy Haley NP Date of Service: 12/12/24 Procedure(s): US arterial duplex UE BI Accession Number(s): [id number] cc: Gracie Singer MD; Judy Haley NP Reason for Exam: BP ALTERATION IN LT AND RT UPPER EXTREMITIES EXAMINATION: US DOPPLER ARTERIAL ULTRASOUND UPPER EXTREMITY, BILATERAL CLINICAL INFORMATION: Blood pressure alteration. COMPARISON: None available. TECHNIQUE: Color Doppler arterial ultrasound of the arteries with spectral Doppler analysis in the upper extremities which included: Subclavian, axillary, brachial, radial and ulnar arteries. FINDINGS: Peak systolic velocities and waveforms as follow: RIGHT UPPER EXTREMITY: Subclavian artery, proximal segment: 169 cm/s and biphasic. Superior artery mid segment: 131 cm/s and biphasic. Superiorly artery distal segment: 155 cm/s and biphasic. Axillary artery: 115 cm/s and biphasic. Brachial artery proximal segment: 123 cm/s and triphasic. Brachial artery mid segment: 126 cm/s and triphasic. Brachial artery distal segment: 118 cm/s and triphasic. Radial artery midsegment: 94 cm/s and triphasic. Ulnar artery midsegment: 71 cm/s and triphasic. LEFT UPPER EXTREMITY: Subclavian artery, proximal segment: 139 cm/s and triphasic. Superior artery mid segment: 120 cm/s and biphasic. Superiorly artery distal segment: 128 cm/s and biphasic. Axillary artery: 125 cm/s and biphasic. Brachial artery proximal segment: 127 cm/s and biphasic. Brachial artery mid segment: 106 cm/s and biphasic. Brachial artery distal segment: 96 cm/s and biphasic. Radial artery midsegment: 54 cm/s and biphasic. Ulnar artery midsegment: 53 cm/s and biphasic. US/US arterial duplex UE BI IMPRESSION: Normal patency of the interrogated arteries with mild to moderate inflow disease. . Electronically signed by: Jonh Paulino MD 12/12/2024 02:29 PM EDT Dictated By: Jonh Gould MD Signed By: <Electronically signed by Jonh Chambers MDin OV> 12/12/24 1429 DD/ 1316 TD/TT: 12/12/24 1345 Specialty Molder: Judy Haley TAX MANAGER CV VASCULAR PROCEDURES Ed ited Result - Final [facility] [address] [place] [phone] * Albumin, Random Urine W/Creatinine (11/13/2024 12:14 PM EDT) Creatinine, Urine 36.99 mg/dL [facility] Microalbumin Urine <5.0 mg/L [facility] Microalbum Creatinine Ratio Ur TNP <30 ug/mg cr [facility] Comment:Unable to calculate albumin/creatinine ratio due to lowmicroalbumin or creatinine result. Urine (Urine, Random) 11/13/2024 12:14 PM EDT 11/13/2024 1:10 PM EDT us Gracie Singer MD LAB URINE ORDERABLES Fin al Result [facility] [address] [place] [address] [phone] * (ABNORMAL) Basic Metabolic Panel (11/13/2024 12:14 PM EDT) Sodium 141 135 - 145 mmol/L [facility] Potassium 4.2 3.3 - 5.1 mmol/L [facility] Chloride 104 96 - 108 mmol/L [facility] Carbon Dioxide 28 22 - 29 mmol/L [facility] Anion Gap 13 12 - 20 [facility] Urea Nitrogen (BUN) 14 9 - 16 mg/dL [facility] Creatinine, Serum 0.72 0.5 - 1.4 mg/dL [facility] Estimated Glomerular Filt Rate >60 [facility] Comment:Chronic Kidney Disea se: Estimated GFR < 60 mL/min/1.04s8Jvcnbi Kidney Disease: Estimated GFR < 15 mL/min/1.73m2 Glucose 135(H) 60 - 115 mg/dL [facility] Calcium 9.7 8.4 - 10.2 mg/dL [facility] Blood Venous blood specimen / Unknown 11/13/2024 12:14 PM EDT 11/13/2024 1:04 PM EDT us Alexxis Haley TAX MANAGER LAB BLOOD ORDERABLES Dolly l Result [facility] [address], [place] [phone] * (ABNORMAL) POCT HGB A1C (11/13/2024 11:07 AM EDT) Hemoglobin A1C 5.8(A) 4.0 - 5.7 % QC Media Lot # [id number] Lot# Expiration Date 162, Blood 11/13/2024 11:[address] [facility] Gracie Singer MD POINT OF CARE TEST ENTER /EDIT ORDERABLES Final Result * POCT Glucose (11/13/2024 11:05 AM EDT) Glucose Blood, POC 142 60 - 200 mg/dL QC Media Lot # [id number] Lot# Expiration Date 145,171 Blood Capillary blood specimen / Unknown 11/13/2024 11:[address] [facility] Gracie Singer MD POINT OF CARE TEST ENTER /EDIT ORDERABLES Final Result * ECG 12 lead (10/17/2024 11:50 AM EDT) Narrative Judy Haley [facility] - 10/17/2024 11:50 AM EDT HR 103, NSR, abnormal R progression Result [facility] ECG ORDERABLES Final Res ult * XR Chest 2 Views (10/17/2024 10:40 AM EDT) Anatomical Region Laterality Modality Chest Radiographic Susan ging 10/17/2024 10:4 0 AM EDT Narrative 10/17/2024 12:27 PM EDT [address] [address] XRay Report Signed Patient: Reena Riley MR#: [id number] : 1955 Acct:[id number] Age/Sex: 69 / F ADM Date: 10/17/24 Loc: BOAZ Attending Dr: Judy Haley MUCK HAULER Ordering Physician: Judy Haley Date of Service: 10/17/24 Procedure(s): XR chest 2V Accession Number(s): [id number] cc: Gracie Singer MD; Judy Haley EXAMINATION: [...] 10/17/24 1224 DD/ 1040 TD/TT: 10/17/24 1050 Specialty Molder: Procedure Note Donotuseinterpreter, Image - 10/17/[address] [address] XRay Report Signed Patient: Felipe Riley#: [id number] : 5Acct:[id number] Age/Sex: 69 / FADM Date: 10/17/24 Loc: BOAZ Attending Dr: Judy Haley MUCK HAULER Ordering Physician: Judy Haley Date of Service: 10/17/24 Procedure(s): XR chest 2V Accession Number(s): [id number] cc: Gracie Singer MD; Haley,Alexxis EXAMINATION: XR CHEST 2 VIEWS HISTORY: variation [...] 10/17/24 1224 DD/ 1040 TD/TT: 10/17/24 1050 Specialty Molder: [facility] TAX MANAGER IMG XR PROCEDURES Final R esult * Hepatitis C Ab (08/01/2024 11:51 AM EDT) Hepatitis C Antibody Nonreactive Nonreactive [facility] Comment:Antibodies to HCV no t detected; does not exclude early acuteHCV infection. 08/01/2024 11:5 1 AM EDT 08/01/2024 11:51 AM EDT Generic External Data Provider LAB BLOOD ORDERAB LES Final Result [facility] [address] [place] [address] [phone] * (ABNORMAL) Lipid Panel, Standard (08/01/2024 11:51 AM EDT) Triglycerides 200(H) <150 mg/dL [facility] Comment:Desirable Triglyceri de: less than 150 mg/dLBorderline High Triglyceride 150-199 mg/dLHigh Triglyceride: 200-499 mg/dLVery High Triglyceride: greater than or equal to 5OO mg/dL Cholesterol 216(H) <200 mg/dL [facility] Comment:Desirable Cholestero l: less than 200 mg/dLBorderline High Cholesterol: 200-239 mg/dLHigh Cholesterol: greater than 239 mg/dL LDL Cholesterol Calculated 126(H) <100 mg/dL [facility] Comment:Desirable LDL: less than 100 mg/dLNear Optimal/Above Optimal LDL: 110- 129 mg/dLBorderline High LDL: 130-159 mg/dLHigh LDL: 160-189 mg/dLVery High LDL: greater than or equal to 190 mg/dL HDL Cholesterol 50 >40 mg/dL [facility] Comment:Desirable HDL: great er than 40 mg/dL Note: This HDL assay may give artificially low results in patients with liver disease. 08/01/2024 11:5 1 AM EDT 08/01/2024 11:51 AM EDT us Generic External Data Provider LAB BLOOD ORDERAB LES Final Result Performing Organization Address City/State/[facility] Co de Phone Number [facility] [address] [place] [phone] * BI Mammogram Screening Tomosynthesis Bilateral (02/29/2024 9:47 AM EST) Anatomical Region Laterality Modality Breast Bilateral Mammography 02/29/2024 9:47 AM EST Narrative 03/06/2024 11:53 AM EST [facility] [address] [place] [address] Mammography Report Signed Patient: Reena Love MR#: [id number] 1 : 1955 Acct:[id number] Age/Sex: 68 / F ADM Date: 02/29/24 Loc: PASTOR.MAMMO Attending Dr: Gracie Singer MD Ordering Physician: Gracie Singer MD Results: 1Ne gative Date of Service: 02/29/24 Follow Up: 1 Year From Orig inal Mammogram Procedure(s): MM tomosynthesis screening BI Accession Number(s): [id number] cc: Gracie Singer MD EXAMINATION: MM SCREENING [...] 03/06/24 1150 DD/ 0947 TD/TT: 02/29/24 1001 Specialty Molder: Procedure Note Donotuseinterpreter, Image - 03/06/2024 [facility] [address] [place] [address] Mammography Report Signed Patient: Lizet LoveR#: [id number] 1 : 5Acct:[id number] Age/Sex: 68 / FADM Date: 02/29/24 Loc: HO.MAMMO Attending Dr: Gracie Singer MD Ordering Physician: Gracie Singer MDResults: 1Ne gative Date of Service: 02/29/24Follow Up: 1 Year From Orig inal Mammogram Procedure(s): MM tomosynthesis screening BI Accession Number(s): [id number] cc: Gracie Sniger MD EXAMINATION: MM SCREENING DIGITAL BREAST TOMOSYNTHESIS, [...] 03/06/24 1150 DD/ 0947 TD/TT: 02/29/24 1001 Specialty Molder: Gracie Singer MD IMG BI PROCEDURES Final Result * Hm Colonoscopy (09/24/2020 8:23 AM EDT) Historical Provider HEALTH MAINTENANCE Final Result from Last 3 Months or Most Recently Relevant to Health Maintenance Insurance * Guarantor: Reena Love Account Type Relation to Patient Date of Phone Billing Address Personal/Family Self 1955 [address] [facility] [address] [place] [address] 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
--- OUTSIDE RECORDS SUMMARY | 2024-12-12 16:02 | XMS_ITS | Encounter Summary ---
Demographics Address [address] [facility] [address] [place] [address] Mobile Phone Work Phone Preferred Language es Marital Status Anglican Affiliation Unknown Race Other Race Ethnic Group Unknown Author Organization [employer] Address [address] [facility] 7t [place] [address] Care Team Providers Care Road Contractor Name Role Phone Gracie Singer MD Primary Care Provider + Reason for Visit * Reason Onset Date Comments Med Refill 10/14/2023 Encounter Details Date Type Department Care Team (Late st Contact Info) Description 10/14/2023 Telephone [facility] [address] [place], [place] [phone] Gracie Singer MD [address] [place], [place] [phone] Med Refill Social History Tobacco Use Types Packs/Day Years Used Date Smoking Tobacco: Some Days Cigarettes 0.5 50.4 Started: 07/12/1974 Smokeless Tobacco: Never Comments:Started at [...] 1:18 PM EDT Medication was sent to [id number] on 05/09/23 #90 with 3 refills. * Telephone Encounter - David Gallo - 10/14/2023 1:16 PM EDT TC from pt requesting medication refill. Medications needing refill: simvastatin (Zocor) 20 MG table To be sent to: [facility]/pharmacy #[address] documented in this encounter Plan of Treatment Not on file documented as of this encounter Visit Diagnoses Not on filedocumented in this encounter Care Teams Road Contractor Relationship Specialty Start Date End Date Gracie Singer MD [address] [place] [address] PCP - General Family Medicine 05/14/20 documented as of this encounter
--- OUTSIDE RECORDS SUMMARY | 2024-12-12 16:02 | XMS_ITS | Encounter Summary ---
Author Organization [employer] Address [address] [facility] [address] [place] [address] Care Team Providers Care Association Executive Name Role Phone Gracie Singer MD Primary Care Provider + Encounter Details Date Type Department Care Team (Late st Contact Info) Description 08/24/2023 Orders Only [facility] [address] [place], [place] [phone] Provider, MD John Social History Tobacco Use [...] is your housing situation today? I have miguelrochelle graves 07/25/[address] you [...] on filedocumented in this encounter Care Teams Association Executive Relationship Specialty Start Date End Date Gracie Singer MD [address] [place] [phone] PCP - General Family Medicine 05/14/20 documented as of this encounter
--- OUTSIDE RECORDS SUMMARY | 2024-12-12 16:02 | XMS_ITS | Encounter Summary ---
Author Organization [employer] Address [address] [facility] 7t [place] [address] Care Team Providers Care Data Security Analyst Name Role Phone Gracie Singer MD Primary Care Provider + Reason for Visit * Reason Onset Date Comments Appointment Request 06/23/2022 Encounter Details Date Type Department Care Team ([facility] st Contact Info) Description 06/23/2022 Telephone [facility] [address] [place], [place] [phone] Gracie Singer MD [address] [place], [place] [phone] Appointment Request Social History Tobacco Use Types [...] somelater the Марина. Please contact pt at [phone] documented in this encounter Plan of Treatment Not on file documented as of this encounter Visit Diagnoses Not on filedocumented in this encounter Care Teams Data Security Analyst Relationship Specialty Start Date End Date Gracie Singer MD [address] [place] [phone] PCP - General Family Medicine 05/14/20 documented as of this encounter
--- OUTSIDE RECORDS SUMMARY | 2024-12-12 16:02 | XMS_ITS | Encounter Summary ---
Author Organization [employer] Address [address] [facility] 7t [place] [address] Care Team Providers Care Steno Pool Supervisor Name Role Phone Gracie Singer MD Primary Care Provider + Reason for Visit * Reason Comments Med Refill Encounter Details Date Type Department Care Team ([facility] st Contact Info) Description 11/01/2022 Refill [facility] [address] [place], [place] [phone] [facility] [address] [place] [address] Chronic right hip pain; Chronic right-sided low [...] sciatica documented in this encounter Care Teams Steno Pool Supervisor Relationship Specialty Start Date End Date Gracie Singer MD [address] [place] [address] PCP - General Family Medicine 05/14/20 documented as of this encounter
--- OUTSIDE RECORDS SUMMARY | 2024-12-12 16:02 | XMS_ITS | Encounter Summary ---
Author Organization [employer] Address [address] [facility] 7t [place] [address] Care Team Providers Care Sales Development Specialist Name Role Phone Gracie Singer MD Primary Care Provider + Reason for Visit * Reason Onset Date Comments Nurse Triage 10/18/2022 Encounter Details Date Type Department Care Team (Late st Contact Info) Description 10/18/2022 Telephone [facility] MEDICINE [address] [place], [place] [phone] Gracie Singer MD [address] [place], [place] [phone] Nurse Triage Social History Tobacco Use Types [...] 10/18/2022 11:40 AM EDT Triage call with [employer] Ride Operator ID [id number] Pt reports right hip pain which is [...] accepted this outcome Please contact pt at [phone] (Icelandic) documented in this encounter Plan of Treatment Not on file documented as of this encounter Visit Diagnoses Not on filedocumented in this encounter Care Teams Sales Development Specialist Relationship Specialty Start Date End Date Gracie Singer MD [address] [place] [id number] PCP - General Family Medicine 05/14/20 documented as of this encounter
--- OUTSIDE RECORDS SUMMARY | 2024-12-12 16:02 | XMS_ITS | Encounter Summary ---
Author Organization [employer] Address [address] [facility] 7t [place] [address] Care Team Providers Care Supervisor Scenic Arts Name Role Phone Gracie Singer MD Primary Care Provider + Reason for Visit * Reason Onset Date Comments triage 08/16/2022 Encounter Details Date Type Department Care Team (Late st Contact Info) Description 08/16/2022 Telephone [facility] MEDICINE [address] [place], [place] [phone] Gracie Singer MD [address] [place], [place] [phone] triage Social History Tobacco Use Types Packs/Day [...] 08/16/2022 1:39 PM EDT Triage call with [email or web address] S[employer] Administrator [place] [id number] Pt sister is phone number listed. Pt [...] isbroken. Advised for Pt to come to [facility] and Pt sister will give message [...] now The caller accepted this outcome speaks greek documented in this encounter Plan of Treatment Not on file documented as of this encounter Visit Diagnoses Not on filedocumented in this encounter Care Teams Supervisor Scenic Arts Relationship Specialty Start Date End Date Gracie Singer MD [address] [place] [phone] PCP - General Family Medicine 05/14/20 documented as of this encounter
--- OUTSIDE RECORDS SUMMARY | 2024-12-12 16:02 | XMS_ITS | Encounter Summary ---
Author Organization [email or web address] Address [address] [facility] 7t [place] [address] Care Team Providers Care Welder/Installer Name Role Phone Gracie Singer MD Primary Care Provider + Reason for Visit * Reason Onset Date Comments Nurse Triage 10/11/2024 Encounter Details Date Type Department Care Team (Late st Contact Info) Description 10/11/2024 Telephone [facility] MEDICINE 230 [place], [place] [phone] Gracie Singer MD 230 [place], [place] [phone] Nurse Triage Social History Tobacco Use Types Packs/Day Years Used Date Smoking Tobacco: Every Day Cigarettes 0.5 50.4 Started: [birth year]/12/1975 Smokeless Tobacco: [...] encounter Miscellaneous Notes * Telephone Encounter - David Gallo - 10/11/2024 2:55 PM EDT Tc from pt returning your call regarding message prior. * Telephone Encounter - Elizabeth Almendarez RN - 10/11/2024 2:41 PM EDT Symptom: High Blood Pressure - Caller Reports Outcome: Schedule an urgent appointment (within 1 hour) or talk to a nurse or provider soon Reason: Getting worse The caller accepted this outcome. Pt getting headaches * Telephone Encounter - Lopez Hernandez - 10/11/2024 2:07 PM EDT Symptom: High Blood Pressure - Caller Reports Outcome: Schedule an urgent appointment (within 1 hour) or talk to a nurse or provider soon Reason: Getting worse The caller accepted this outcome. Pt getting headaches documented in this encounter Plan of Treatment Not on file documented as of this encounter Visit Diagnoses Not on filedocumented in this encounter Care Teams Welder/Installer Relationship Specialty Start Date End Date Gracie Singer MD [address] [place] [phone] PCP - General Family Medicine 05/14/20 documented as of this encounter
== END 2024-12-12 12:36 | disposition home or self-care (01) ==
LOC: HO.US 12:35
PROVIDERS: PCP Internal Medicine
DX: R68.89 Other general symptoms and signs (principal); Z01.818 Encounter for other preprocedural examination
CPT/HCPCS: 93930

== ENCOUNTER → 2024-12-12 13:16 | Outpatient (BNV) | payer OTHER, SELFPAY | PROVIDERS: PCP Internal Medicine; Visit Provider Radiology Diagnostic Radiology | DX: I73.9 Peripheral vascular disease, unspecified (principal) | CPT/HCPCS: 93930 ==

== ENCOUNTER 2025-01-02 10:58 | Outpatient (AMB) | payer OTHER, SELFPAY ==
--- NOTE | 2025-01-02 11:00 | A.OFFVIS_ITS ---
Vital Signs 01/02/25 11:03 Height 4 ft 9 in Weight 160 lb BMI 34.6 BP 116/56 L Blood Pressure Location Lt brachial Position Sitting Pulse 97 Intake Visit Reasons: 3 f/u r/s 10/29 Intake Note: Reena presents in the office as a 3 month follow up. CC: She states that she is having itchiness in her body and not sure where it is coming from. She states it is all over her body to the point where she is unable to sleep. She was told it could be her liver so she wanted to get it checked out. Research And Development Chemist Required: Yes Allergies sumatriptan Adverse Reaction (Severe, Verified 01/02/25 11:04) Facial Numbness HPI Comments Details: 69 y.o F with PMH of asthma, migraines, arthritis who is here for elevated LFTs and abnormal MRI. Pt herself reports epigastric pain x 2 weeks. Pain is sharp without any nausea, vomiting, regurgitation, dysphagia. Often post prandial. Not related to activity. No assoc with shortness of breath. In addition has been noted to have abnormal LFTs. MRI done for liver cysts captured on US Abd shows few benign appearing cysts. Does occ drink more than 2 drinks per session but that happens a few times a y ear. Reports extensive hx of liver disease from her mothers side. Most of their uncles had liver disease. Mom from liver cancer as well. Was told that weak liver runs in the family. Mother: liver cancer Has never had egd. colo 2020 - normal. 01/02/25: Here for follow up with her sister Martha. Work up reviewed, has elevated cholesterol despite simvastatin. Fib 4 1.84- will order elastography. Liver cysts are simple (benign). Otherwise no acute GI issues. [facility] Osteopenia Medial epicondylitis Primary osteoarthritis involving multiple joints Numbness and tingling in both hands COVID-19 vaccine administered Arthritis Hx of migraine headaches Elevated cholesterol Asthma Surgical History Hx of LASIK H/O colonoscopy Family History Father Hypertension Mother Liver cancer Social History Household Members: Spouse Alcohol intake: current Alcohol intake frequency: holidays/special occasions only Alcohol type: beer Patient Tobacco Use Status: Current everyday Tobacco user Cigarettes Per Day: 1 Years Smoked: 53 Current occupational status: disabled Review of Systems Const All systems reviewed & are unremarkable except as noted in HPI and below Physical Exam Exam Exam: No apparent distress Nonicteric Abdomen soft, nondistended Alert and oriented x3, normal gait Vital Signs: Last Vital Signs Pulse 97 01/02/25 11:03 BP 116/56 L 01/02/25 11:03 BMI result Body Mass Index 34.6 Assessment & Plan Assessment & Plan (1) Elevated LFTs: Code(s): R79.89 - Other specified abnormal findings of blood chemistry Category: Medical (2) Family history of liver disease: Code(s): Z83.79 - Family history of other diseases of the digestive system Category: Medical (3) Family history of liver cancer: Code(s): Z80.0 - Family history of malignant neoplasm of digestive organs Category: Medical (4) Epigastric pain: Code(s): R10.13 - Epigastric pain Plan Reviewed that hepatic steatosis likely 2/2 metALD. No surveillance imaging indicated for liver cysts at this time. Given indeterminate Fib 4, will obtain elastography. Will also switch statin to mod intensity. Plan: - Stop simvastatin - Start rosuvastatin 5 mg daily at bedtime - Repeat CBC CMP and lipid panel in 3 months - Elastography ordered Follow up 4 months Orders: Orders US abdomen comp w elastography Today R79.89 - Other specified abnormal findings of blood chemistry Comprehensive Met. Panel 3 Months E78.5 - Hyperlipidemia, unspecified, R79.89 - Other specified abnormal findings of blood chemistry Prothrombin Time INR 3 Months E78.5 - Hyperlipidemia, unspecified, R79.89 - Other specified abnormal findings of blood chemistry Complete Blood Count no Diff 3 Months E78.5 - Hyperlipidemia, unspecified, R79.89 - Other specified abnormal findings of blood chemistry Lipid Panel 3 Months E78.5 - Hyperlipidemia, unspecified, R79.89 - Other specified abnormal findings of blood chemistry Medications: New rosuvastatin 5 mg PO DAILY 90 tabs 0RF Coding Level of Care Code Est Pt Level 4 (95513) Diagnoses Elevated LFTs R79.89 Family history of liver disease Z83.79 Family history of liver cancer Z80.0 Epigastric pain R10.13
[2025-01-02 11:03] VITALS: BP 116/56; PULSE 97; BMI 34.6
== END 2025-01-02 11:23 | disposition home or self-care (01) ==
LOC: HO.HGI 10:59
PROVIDERS: PCP Internal Medicine; Visit Provider Internal Medicine
DX: R79.89 Other specified abnormal findings of blood chemistry (principal); Z83.79 Family history of other diseases of the digestive system; Z80.0 Family history of malignant neoplasm of digestive organs; R10.13 Epigastric pain
CPT/HCPCS: 99214

== ENCOUNTER → 2025-01-02 10:58 | Outpatient (BNVA) | payer OTHER, SELFPAY | PROVIDERS: PCP Internal Medicine; Visit Provider Internal Medicine | DX: R79.89 Other specified abnormal findings of blood chemistry (principal); R10.13 Epigastric pain; L29.9 Pruritus, unspecified; Z83.79 Family history of other diseases of the digestive system; Z80.0 Family history of malignant neoplasm of digestive organs; E78.5 Hyperlipidemia, unspecified; Z72.0 Tobacco use | CPT/HCPCS: 99212 ==

== ENCOUNTER 2025-01-07 15:44 | Outpatient (REF) | payer OTHER, SELFPAY ==
--- NOTE | ~2025-01-07 | US_ITS ---
CLINICAL HISTORY: cyst of kidney Renal ultrasound Comparison: CT/[place]/SR - CT ABDOMEN PELVIS W IV CON - 08/24/24 07:25 EDT Findings: The kidneys are normal in echotexture bilaterally. No hydronephrosis. The right kidney is normal in size, measuring 9.6cm in length. The left kidney is normal in size, measuring 8.9cm in length. There is a simple cyst in the lower pole measuring 1.4 x 1.1 x 1.1 cm, similar to the prior study. Impression: No acute findings. 1.4 cm left renal simple cyst. This document has been electronically signed by: Ashley Bruner MD on 01/07/2025 16:37:53
--- OUTSIDE RECORDS SUMMARY | 2025-01-07 15:46 | XMS_ITS ---
Author Name Ashley Terry NP Address [address] [place] [address] Phone [phone] [facility] Care Team Providers Care Case Assembler Name Role Phone Ashley Terry Unavailable [phone] Ashleigh Núñez Unavailable Unavailable Reason for Referral Not Available Allergies, adverse reactions, alerts No known allergies History of medication use Medication Class Instructions Start Date End Date traZODone 50 mg Tab TOME HANK TABLETA TOD OS LOS D AL 2021-05-11 No Data Available VITAMIN D3 50 MCG [...] No Data Available Vitamin D3 50 MCG (2000 UT) Cap TOME HANK C PSULA TODOS [...] with opioid use Active 2022-02-01 N/A [facility] 12/03/24Rx TramadolUnder PCP, PM PRNNarcan available? No, [...] & Crisis Lifeline by calling or texting 158 or call CB/PCP specialist for help.Sleep hygiene: [...] care Active 2023-09-16 N/[facility]Worsening Pain Member to call for the following symptoms: Decreased mobility/ Fall / Increased pain/ Increased pain meds/ Joint swellingPlanned intervention: Tylenol 1,000mg q6h/ Lidoderm patch 4% to affected area/ Voltaren gel to affected area/ Apply heat to affected area Hypertension Active 2024-12-03 N/A [facility] 12/03/24R x: LosartanRecommendations: Take medications at the [...] GERD (gastroesophageal reflux disease) Active 2024-12-03 N/A [facility] 12/03/24Rx: OmeprazoleRecommendations : Take medications at the [...] (do not use for phone, instead use 77397-77) [facility] [place] 02/[place]/2022 Hyperlipidemia, unspecifiedInsomnia, unspecifiedUnspecified asthma, uncomplicatedVitamin D deficiency, unspecifiedLow back pain, unspecifiedOpioid dependence, uncomplicatedDry eye syndrome of bilateral lacrimal glands New patient,40-59min; chronic exacerbation, 2 stable chronic or 1 acute illness add add modifier 95 for video (do not use for phone, instead use 11186-35) [facility] [place] 02/01/2022 New patient,40-59min; chronic exacerbation, 2 stable chronic or 1 acute illness add add modifier 95 for video (do not use for phone, instead use 09560-49) [facility] [place] 02/01/2022 New patient,40-59min; chronic exacerbation, 2 stable chronic or 1 acute illness add add modifier 95 for video (do not use for phone, instead use 91651-46) [facility] [place] 02/01/2022 New patient,40-59min; chronic exacerbation, 2 stable chronic or 1 acute illness add add modifier 95 for video (do not use for phone, instead use 42767-11) [facility] [place] 02/01/2022 New patient,40-59min; chronic exacerbation, 2 stable chronic or 1 acute illness add add modifier 95 for video (do not use for phone, instead use 78216-65) [facility] [place] 02/[place] New patient,40-59min; chronic exacerbation, 2 stable chronic or 1 acute illness add add modifier 95 for video (do not use for phone, instead use 20284-39) [facility] [place] 02/01/2022 New patient,40-59min; chronic exacerbation, 2 stable chronic or 1 acute illness add add modifier 95 for video (do not use for phone, instead use 18760-93) [facility] [place] 02/[place]/2022 New patient,40-59min; chronic exacerbation, 2 stable chronic or 1 acute illness add add modifier 95 for video (do not use for phone, instead use 68666-38) [facility] [place] 02/01/2022 Estab. patient 30-39min; chronic exacerbation, 2 stable chronic or 1 acute illness add add modifier 95 for video, (do not use for phone, instead use 24361-03) [facility] [place] 01/24/2023 Hyperlipidemia, unspecifiedInsomnia, unspecifiedPulmonary fibrosis, unspecifiedVitamin D deficiency, unspecifiedSacroiliitis, not elsewhere classifiedOpioid dependence, uncomplicatedDry eye syndrome of bilateral lacrimal glandsOther obesity due to excess caloriesBody mass index (bmi) 31.0-31.9, adultMigraine, unspecified, not intractable, without status migrainosus Estab. patient 30-39min; chronic exacerbation, 2 stable chronic or 1 acute illness add add modifier 95 for video, (do not use for phone, instead use 77382-41) [facility] [place] 01/24/2023 Estab. patient 30-39min; chronic exacerbation, 2 stable chronic or 1 acute illness add add modifier 95 for video, (do not use for phone, instead use 85572-50) [facility] [place] 01/24/2023 Estab. patient 30-39min; chronic exacerbation, 2 stable chronic or 1 acute illness add add modifier 95 for video, (do not use for phone, instead use 30612-57) [facility] [place] 01/24/2023 Estab. patient 30-39min; chronic exacerbation, 2 stable chronic or 1 acute illness add add modifier 95 for video, (do not use for phone, instead use 33825-22) [facility] [place] 01/24/2023 Estab. patient 30-39min; chronic exacerbation, 2 stable chronic or 1 acute illness add add modifier 95 for video, (do not use for phone, instead use 39751-19) [facility] [place] 01/24/2023 Estab. patient 30-39min; chronic exacerbation, 2 stable chronic or 1 acute illness add add modifier 95 for video, (do not use for phone, instead use 05642-70) [facility] [place] 09[place]16/2023 Hyperlipidemia, unspecifiedInsomnia, unspecifiedPulmonary fibrosis, [...] (do not use for phone, instead use 51244-68) [facility] [place] 09/16/2023 Estab. patient 30-39min; chronic exacerbation, 2 stable chronic or 1 acute illness add add modifier 95 for video, (do not use for phone, instead use 61728-43) [facility] [place] 09/16/2023 Estab. patient 30-39min; chronic exacerbation, 2 stable chronic or 1 acute illness add add modifier 95 for video, (do not use for phone, instead use 41656-82) [facility] [place] 09/16/2023 Estab. patient 30-39min; chronic exacerbation, 2 stable chronic or 1 acute illness add add modifier 95 for video, (do not use for phone, instead use 28033-00) [facility] [place] 09/16/2023 Estab. patient 30-39min; chronic exacerbation, 2 stable chronic or 1 acute illness add add modifier 95 for video, (do not use for phone, instead use 99109-90) [facility] [place] 09/16/2023 Estab. patient 30-39min; chronic exacerbation, 2 stable chronic or 1 acute illness add add modifier 95 for video, (do not use for phone, instead use 85804-99) [facility] [place] 09/16/2023 Estab. patient 10-29min; 1 minor problem; add add modifier 95 for video, modifier 93 for phone [facility] ([place] 12/03/2024 Hyperlipidemia, unspecifiedT ype 2 diabetes mellitus with other specified complicationType 2 diabetes mellitus with diabetic neuropathy, unspecifiedPulmonary fibrosis, unspecifiedInsomnia, unspecifiedMajor depressive disorder, recurrent, mildOther chronic painSacroiliitis, not elsewhere classifiedPain in unspecified jointOpioid use, unspecified, uncomplicatedEssential (primary) hypertensionMigraine, unspecified, not intractable, without status migrainosusGastro-esophageal reflux disease without esophagitisDry eye syndrome of bilateral lacrimal glandsOther problems related to medical facilities and other health careNicotine dependence, cigarettes, uncomplicated Estab. patient 10-29min; 1 minor problem; add add modifier 95 for video, modifier 93 for phone [facility] [place]03[place]20[place] Estab. patient 10-29min; 1 minor problem; add add modifier 95 for video, modifier 93 for phone [facility] [place] 12/03/20[place] Estab. patient 10-29min; 1 minor problem; add add modifier 95 for video, modifier 93 for phone [facility] [place] 12/03/20[place] Estab. patient 10-29min; 1 minor problem; add add modifier 95 for video, modifier 93 for phone [facility] [place] 12/03/2024 Estab. patient 10-29min; 1 minor problem; add add modifier 95 for video, modifier 93 for phone [facility] [place] 12/03/2024 Estab. patient 10-29min; 1 minor problem; add add modifier 95 for video, modifier 93 for phone [facility] [place] 12/03/2024 Estab. patient 10-29min; 1 minor problem; add add modifier 95 for video, modifier 93 for phone [facility] [place] 12/03/2024 Estab. patient 10-29min; 1 minor problem; add add modifier 95 for video, modifier 93 for phone [facility] [place] 12/03/2024 Estab. patient 10-29min; 1 minor problem; add add modifier 95 for video, modifier 93 for phone [facility] [place] 12/03/2024 Immunizations Vaccine Date Status pneumococcal, [...] Current Smoking Status Current every day smoker 2025-01-07 Sex Female History of Procedures Procedures Service Procedure code Service date Servicing provider Phone# New patient,40-59min; chronic exacerbation, 2 stable chronic or 1 acute illness add add modifier 95 for video (do not use for phone, instead use 81236-24) [id number] 2022-02-01 No Data Available No Data Availa [...] (do not use for phone, instead use 61945-06) 13913 2023-01-24 No Data Available No Data Availa [...] (do not use for phone, instead use 56233-47) 99076 2023-09-16 No Data Available No Data Availa [...] 95 for video, modifier 93 for phone 07930 2024-12-03 No Data Available No Data Availa [...] No Data Available No Data Kassie ilable SBP < 130 (3074F) 3074F 2024-12-03 No Data Available No Data Available DBP <80 (3078F) 3078F 2024-12-03 No Data Available No Data Available Most recent A1c (HbA1c) or GMI level <7% (3044F) 3044F 2024-12-03 No Data Available No Data Availa ble Functional Status Functional Category Effective Dates Cognition [...] acute or disease education needs that may arise.Zpxkulc-aysrxosrhiwlXdtpilx-ctbhfjywp-amitriptyline prnManaged-flovent HFAManagedvitamin D iepnjfpmboCdgfvly-nyydyoqgBaezoev-nrpwdvga-follow up every 3 monthsManaged-artificial tears 2023-01-24 11:05:42 [...] acute or disease education needs that may arise.Tkeadnj-mtcjfnuduikiJwkugoa-nmachdnar-amitriptyline prnManaged-flovent HFAManagedvitamin D mpmosdrjdoNpmkqso-dedumgjuQjynhmm-dvjcqjny-follow up every 3 monthsManaged-artificial tearsBMI: 31.10Lifestyle interventions [...] record. (1123F)Continue to see PCP. [facility] any acute or disease education needs that may arise.PAIN CONTINGENCY PLANWorsening Pain Member to call for the following symptoms: Decreased mobility/ Fall / Increased pain/ Increased pain meds/ Joint swellingPlanned intervention: Tylenol 1,000mg q6h/ Lidoderm patch 4% to affected area/ Voltaren gel to affected area/ Apply heat to affected areaManaged-atorvastatinDietary interventions, exercise as tolerable, and continue with PCP.Qyzyczc-mlhttkidm-ibyjluvmgcbcj prnManaged-flovent HFAContinue f/u care with pulmonology.Managedvitamin D supplementManaged-tramadolContinue with PCP.Bbrpbod-xiliqofd-jonpaj up every 3 monthsManaged-artificial tearsBMI: 31.10Lifestyle interventions [...] & Crisis Lifeline by calling or texting 530 or call CB/PCP specialist for help.Sleep hygiene: [...] Health Concerns Date Concern 2024-12-03 Patient/Guardian agr eed to visit via telehealth. Today, patient has [...] SELECT:Do you have a Durable Power of Panel Saw Operator for Healthcare, or Healthcare Proxy Or Guardianship? [...]
--- OUTSIDE RECORDS SUMMARY | 2025-01-07 15:47 | XMS_ITS | Encounter Summary ---
Author Organization [employer] Address [address] [facility] 7t [place] [address] Care Team Providers Care Biostatistics Manager Name Role Phone Gracie Singer MD Primary Care Provider + Reason for Visit * Reason Onset Date Comments Nurse Triage 10/18/2022 Encounter Details Date Type Department Care Team (Late st Contact Info) Description 10/18/2022 Telephone [facility] MEDICINE [address] [place], [place] [phone] Gracie Singer MD [address] [place], [place] [phone] Nurse Triage Social History Tobacco Use Types [...] 10/18/2022 11:40 AM EDT Triage call with [employer] Shop Supervisor ID [id number] Pt reports right hip pain which is [...] accepted this outcome Please contact pt at [phone] (Ugandan) documented in this encounter Plan of Treatment Not on file documented as of this encounter Visit Diagnoses Not on filedocumented in this encounter Care Teams Biostatistics Manager Relationship Specialty Start Date End Date Gracie Singer MD [address] [place] [phone] PCP - General Family Medicine 05/14/20 documented as of this encounter
--- OUTSIDE RECORDS SUMMARY | 2025-01-07 15:47 | XMS_ITS | Encounter Summary ---
Author Organization [employer] Address [address] [facility] [address]t [place] [address] Care Team Providers Care Devops Name Role Phone Gracie Singer MD Primary Care Provider + Reason for Visit * Reason Onset Date Comments Nurse Triage 10/11/2024 Encounter Details Date Type Department Care Team (Late st Contact Info) Description 10/11/2024 Telephone [facility] MEDICINE [address] [place], [place] [phone] Gracie Singer MD [address] [place], [place] [phone] Nurse Triage Social History Tobacco Use Types Packs/Day Years Used Date Smoking Tobacco: Every Day Cigarettes 0.5 50.5 Started: 07/12/1975 Smokeless Tobacco: Never Comments:Started at [...] on filedocumented in this encounter Care Teams Devops Relationship Specialty Start Date End Date Gracie Singer MD [address] [place] [id number] PCP - General Family Medicine 05/14/20 documented as of this encounter
--- OUTSIDE RECORDS SUMMARY | 2025-01-07 15:47 | XMS_ITS | Encounter Summary ---
Author Organization [employer] Address [address] [facility] 7t [place] [address] Care Team Providers Care Senior Net C Developer Name Role Phone Gracie Singer MD Primary Care Provider + Reason for Visit * Reason Comments Med Refill Encounter Details Date Type Department Care Team ([facility] st Contact Info) Description 11/01/2022 Refill [facility] [address] [place], [place] [phone] [facility] [address] [place] [address] Chronic right hip pain; Chronic right-sided low [...] sciatica documented in this encounter Care Teams Senior Net C Developer Relationship Specialty Start Date End Date Gracie Singer MD [address] [place] [address] PCP - General Family Medicine 05/14/20 documented as of this encounter
--- OUTSIDE RECORDS SUMMARY | 2025-01-07 15:47 | XMS_ITS | Encounter Summary ---
Demographics Address [address] [facility] [address] [place] [address] Mobile Phone Work Phone Preferred Language es Marital Status Orthodox Affiliation Unknown Race Other Race Ethnic Group Unknown Author Organization [employer] Address [address] [facility] 7t [place] [address] Care Team Providers Care Measurement Supervisor Name Role Phone Gracie Singer MD Primary Care Provider + Reason for Visit * Reason Onset Date Comments Med Refill 10/14/2023 Encounter Details Date Type Department Care Team (Late st Contact Info) Description 10/14/2023 Telephone [facility] [address] [place], [place] [phone] Gracie Singer MD [address] [place], [place] [phone] Med Refill Social History Tobacco Use Types Packs/Day Years Used Date Smoking Tobacco: Some Days Cigarettes 0.5 50.5 Started: 07/12/1974 Smokeless Tobacco: [...] 1:18 PM EDT Medication was sent to [facility][id number] on 05/09/23 #90 with 3 refills. * Telephone Encounter - David Gallo - 10/14/2023 1:16 PM EDT TC from pt requesting medication refill. Medications needing refill: simvastatin (Zocor) 20 MG table To be sent to: [facility]/pharmacy #[address] documented in this encounter Plan of Treatment Not on file documented as of this encounter Visit Diagnoses Not on filedocumented in this encounter Care Teams Measurement Supervisor Relationship Specialty Start Date End Date Gracie Singer MD [address] [place] [address] PCP - General Family Medicine 05/14/20 documented as of this encounter
--- OUTSIDE RECORDS SUMMARY | 2025-01-07 15:47 | XMS_ITS | Encounter Summary ---
Author Organization [employer] Address [address] [facility] 7t [place] [address] Care Team Providers Care Caltrans Equipment Operator Name Role Phone Gracie Singer MD Primary Care Provider + Reason for Visit * Reason Onset Date Comments Appointment Request 06/23/2022 Encounter Details Date Type Department Care Team ([facility] st Contact Info) Description 06/23/2022 Telephone [facility] 230 [place], [place] [phone] Gracie Singer MD 230 [place], [place] [phone] Appointment Request Social History Tobacco Use Types [...] somelater the Марина. Please contact pt at [phone] documented in this encounter Plan of Treatment Not on file documented as of this encounter Visit Diagnoses Not on filedocumented in this encounter Care Teams Caltrans Equipment Operator Relationship Specialty Start Date End Date Gracie Singer MD [address] [place] [phone] PCP - General Family Medicine 05/14/20 documented as of this encounter
--- OUTSIDE RECORDS SUMMARY | 2025-01-07 15:47 | XMS_ITS | Encounter Summary ---
Author Organization [employer] Address [address] [facility] 7t [place] [address] Care Team Providers Care Early Childhood Associate Teacher Name Role Phone Gracie Singer MD Primary Care Provider + Reason for Visit * Reason Onset Date Comments triage 08/16/2022 Encounter Details Date Type Department Care Team (Late st Contact Info) Description 08/16/2022 Telephone [facility] 230 [place], [place] [phone] Gracie Singer MD 230 [place], [place] [phone] triage Social History Tobacco Use Types Packs/Day [...] 08/16/2022 1:39 PM EDT Triage call with Appiterate Mechanical Expert ID [id number] Pt sister is phone number listed. Pt [...] isbroken. Advised for Pt to come to [facility] and Pt sister will give [...] now The caller accepted this outcome speaks mongolian documented in this encounter Plan of Treatment Not on file documented as of this encounter Visit Diagnoses Not on filedocumented in this encounter Care Teams Early Childhood Associate Teacher Relationship Specialty Start Date End Date Gracie Singer MD [address] [place] [phone] PCP - General Family Medicine 05/14/20 documented as of this encounter
--- OUTSIDE RECORDS SUMMARY | 2025-01-07 15:47 | XMS_ITS | Encounter Summary ---
Author Organization [employer] Address [address] [facility] [address] 7t [place] [address] Care Team Providers Care Squad Leader Name Role Phone Gracie Singer MD Primary Care Provider + Encounter Details Date Type Department Care Team (Late st Contact Info) Description 08/24/2023 Orders Only [facility] 230 [place], [place] [phone] Provider, MD John Social History Tobacco Use [...] on filedocumented in this encounter Care Teams Squad Leader Relationship Specialty Start Date End Date Gracie Singer MD [address] [place] [phone] PCP - General Family Medicine 05/14/20 documented as of this encounter
--- OUTSIDE RECORDS SUMMARY | 2025-01-07 15:47 | XMS_ITS | Clinical Summary ---
Author Organization [employer] Address [address] [facility] 7t [place] [address] Care Team Providers Care Keller Machine Operator Name Role Phone Gracie Singer MD Primary Care Provider + Allergies No known active allergies Medications acetaminophen (Tylenol) 500 MG tablet take 1-2 tablet (1000MG) by oral route TID as needed; max. 6 tabs/24 hours 7 Active albuterol (2.5 MG/3ML) 0.083% nebulizer solution Inhale 1 vial every 6 (six) hours. 9 Active pneumococcal polysaccharide (Pneumovax 23) 25 MCG/0.5ML [...] mouth at bedtime. 90 tablet 3 4 Active traZODone (Desyrel) 50 MG tabletIndications: Primary insomnia TAKE 1 TABLET BY MOUTH AT BEDTIME 90 tablet 3 4 Active albuterol 108 (90 Base) MCG/ACT inhalerIndications :Mild persistent asthma without complication inhale 2 puffs by Inhalation route 4 times every day as needed for cough, SOB or wheeze 18 g 1 4 Active simvastatin (Zocor) 20 MG tabletIndications: Mixed hyperlipidemia TAKE 1 TABLET BY MOUTH AT BEDTIME 90 tablet 3 5 Active fluticasone furoate (Arnuity Ellipta) 100 MCG/ACT inhaler Inhale 1 puff Once per day. 1 each 5 5 Active SUMAtriptan (Imitrex) 50 MG tabletIndications: Migraine without aura, not refractory TAKE 1 TABLET (50 MG) BY MOUTH 1 (ONE) TIME IF NEEDED FOR MIGRAINE. 9 tablet 2 5 026 Active losartan (Cozaar) 25 MG tabletIndications: Hypertension, unspecified type Take 1 tablet (25 mg) by mouth Once per day. 90 tablet 3 5 026 Active triamcinolone (Kenalog) 0.1 % cream Apply topically if needed each day for rash or irritation. Mix with cerave cream and apply to affected areas 80 g 1 5 Active Active Problems Problem Noted Date Diagnosed Date Pulmonary fibrosis, unspecified (CMS/HCC) 2024 Assessment & Plan (11/13/2024 1:16 PM EDT): [...] ophthalmology at [facility] in [place], will request records No evidence of diabetic [...] scan due to history of heavy smoker> [id number] smoking history Assessment & Plan (03/07/2024 12:35 [...] Counseled to quit smoking, she has nicotoine lillie wit her pt has lung nodules that [...] Description 11/13/2024 11:30 AM EDT Office Visit [address] [address] Gracie Singer MD 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); Hypertension, unspecified type; Lung nodules; Pruritus; Fatty liver; Smoker; Pulmonary fibrosis, unspecified (CMS/HCC) 11/13/2024 Telephone [facility] [address] [place] [address] Gracie Singer MD Record request from Eye Lasik 11/13/2024 Telephone [facility] [address] [place] [address] Gracie Singer MD LUNG SCREENING REF 11/13/2024 Travel 11/12/[address] [address] Gracie Singer MD chart prep 10/31/2024 10:00 AM EDT Clinical Support [address] [address] Denice Mcfarlane RN Hypertension, unspecified type [I10] 10/31/2024 Travel 10/17/2024 10:00 AM EDT Office Visit [address] [address] Judy Haley CNP Hypertension, unspecified type (Primary Dx); Blood pressure alteration 10/17/2024 Results Follow-Up [address] [address] Judy Haley CNP XR Chest 2 Views, Vascular US upper extremity arterial duplex bilateral 10/16/[address] [address] April Longo [place] CHARTPREP 10/16/[address] [address] Gracie Singer MD Nurse Triage 10/11/[address] [address] Gracie Singer MD Nurse Triage from Last 3 Months Immunizations Immunization Administration [...] Every Day Cigarettes 0.5 50.5 Started: 07/12/1974 Passive Smoke Exposure: Current Smokeless [...] 11/13/2025 11/13/2024 Depression Screening 11/13/2025 11/13/2024, 11/14/19 Diabetes: Foot Exam 11/13/2025 11/13/2024, 11/13/2024, 11/13/2024, [...] undrl condition w oth diabetic neuro comp ([facility]) BASIC METABOLIC PANEL Routine 11/13/2024 12:14 PM [...] PM EDT) 12/12/2024 1:16 PM EDT Narrative [facility] - 12/12/2024 2:33 PM EDT [address] [address] Ultrasound Report Signed Patient: Reena Riley MR#: [id number] : 1955 Acct:[id number] Age/Sex: 69 / F ADM Date: 12/12/24 Loc: HO.US Attending Dr: Judy Haley SENIOR C DEVELOPER Ordering Physician: Judy Haley NP Date of Service: 12/12/24 Procedure(s): US arterial duplex UE BI Accession Number(s): [id number] cc: Gracie Singer MD; Judy Haley NP [...] Jonh Paulino MD 12/12/2024 02:29 PM EDT RP Dictated By: Jonh Gould MD Signed By: <Electronically signed by Jonh Chambers MD in OV> 12/12/24 1429 DD/ 1316 TD/TT: 12/12/24 1345 Consumer Relations Specialist: Procedure Note Donotuseinterpreter, Image - 12/12/[address] [address] Ultrasound Report Signed Patient: Lizet RileyR#: [id number] : 5Acct:[id number] Age/Sex: 69 / FADM Date: 12/12/24 Loc: HO.US Attending Dr: Judy Haley NP Ordering Physician: Judy Haley NP Date of Service: 12/12/24 Procedure(s): US arterial duplex UE BI Accession Number(s): [id number] cc: Gracie Singer MD; Judy Haley NP [...] Jonh Paulino MD 12/12/2024 02:29 PM EDT RP Dictated By: Jonh Gould MD Signed By: <Electronically signed by Jonh Chambers MDin OV> 12/12/24 1429 DD/ 1316 TD/TT: 12/12/24 1345 Consumer Relations Specialist: us Judy Haley SIGNALS OFFICER CV VASCULAR PROCEDURES Ed ited Result - Final Performing Organization Address City/[facility]/ZIP Co de Phone Number [facility] [address] [place] [address] * Albumin, Random Urine W/Creatinine (11/13/2024 12:14 PM EDT) Creatinine, Urine 36.99 mg/dL [facility] Microalbumin Urine <5.0 mg/L [facility] Microalbum Creatinine Ratio Ur TNP <30 ug/mg cr [facility] Comment:Unable to calculate albumin/creatinine ratio due to lowmicroalbumin or creatinine result. Urine (Urine, Random) 11/13/2024 12:14 PM EDT 11/13/2024 1:10 PM EDT us Gracie Singer MD LAB URINE ORDERABLES Fin al Result Performing Organization Address [facility]/ZIP Co de Phone Number [facility] [address] [place] [phone] * (ABNORMAL) Basic Metabolic Panel (11/13/2024 12:14 PM EDT) Sodium 141 135 - 145 mmol/L [facility] Potassium 4.2 3.3 - 5.1 mmol/L [facility] Chloride 104 96 - 108 mmol/L [facility] Carbon Dioxide 28 22 - 29 mmol/L [facility] Anion Gap 13 12 - 20 [facility] Urea Nitrogen (BUN) 14 9 - 16 mg/dL [facility] Creatinine, Serum 0.72 0.5 - 1.4 mg/dL [facility] Estimated Glomerular Filt Rate >60 [facility] Comment:Chronic Kidney Disea se: Estimated GFR < 60 mL/min/1.56l8Foqoho Kidney Disease: Estimated GFR < 15 mL/min/1.73m2 Glucose 135(H) 60 - 115 mg/dL [facility] Calcium 9.7 8.4 - 10.2 mg/dL [facility] Blood Venous blood specimen / Unknown 11/13/2024 12:14 PM EDT 11/13/2024 1:04 PM EDT Judy Haley CNP LAB BLOOD ORDERABLES Dolly l Result [facility] [address] [place] [phone] [phone] * (ABNORMAL) POCT HGB A1C (11/13/2024 11:07 AM EDT) Hemoglobin A1C 5.8(A) 4.0 - 5.7 % QC Media Lot # [id number] Lot# Expiration Date [id number] Blood 11/13/2024 11:0 7 AM EDT Result [facility] Gracie Singer MD POINT OF CARE TEST ENTER /EDIT ORDERABLES Final Result * POCT Glucose (11/13/2024 11:05 AM EDT) Glucose Blood, POC 142 60 - 200 mg/dL QC Media Lot # [id number] Lot# Expiration Date [id number] Blood Capillary blood specimen / Unknown 11/13/2024 11:05 AM EDT Gracie Singer MD POINT OF CARE TEST ENTER /EDIT ORDERABLES Final Result * ECG 12 lead (10/17/2024 11:50 AM EDT) Narrative Judy Haley CNP - 10/17/2024 11:50 AM EDT HR 103, NSR, abnormal R progression Judy Haley SIGNALS OFFICER ECG ORDERABLES Final Res ult * XR Chest 2 Views (10/17/2024 10:40 AM EDT) Anatomical Region Laterality Modality Chest Radiographic Susan ging 10/17/2024 10:4 0 AM EDT Narrative 10/17/2024 12:27 PM EDT [facility] [address] [place] [address] XRay Report Signed Patient: Reena Riley MR#: [id number] : 1955 Acct:[id number] Age/Sex: 69 / F ADM Date: 10/17/24 Loc: HO.HHCX Attending Dr: Judy Haley SENIOR C DEVELOPER Ordering Physician: Judy Haley Date of Service: 10/17/24 Procedure(s): XR chest 2V Accession Number(s): [id number] cc: Gracie Singer MD; Judy Haley EXAMINATION: [...] Preet Schwartz MD 10/17/2024 12:24 PM EDT Dictated By: Preet Schwartz MD Signed By: <Electronically signed by Preet Schwartz MD in OV> 10/17/24 1224 DD/ 1040 TD/TT: 10/17/24 1050 Consumer Relations Specialist: Procedure Note Donotuseinterpreter, Image - 10/17/2024 [facility] [address] [place] [address] XRay Report Signed Patient: Felipe Riley#: [id number] : 5Acct:[id number] Age/Sex: 69 / FADM Date: 10/17/24 Loc: HO.HHCX Attending Dr: Judy Haley SENIOR C DEVELOPER Ordering Physician: Judy Haley Date of Service: 10/17/24 Procedure(s): XR chest 2V Accession Number(s): [id number] cc: Gracie Singer MD; Judy Haley EXAMINATION: [...] Preet Schwartz MD 10/17/2024 12:24 PM EDT Dictated By: Preet Schwartz MD Signed By: <Electronically signed by Preet Schwartz MD in OV> 10/17/24 1224 DD/ 1040 TD/TT: 10/17/24 1050 Consumer Relations Specialist: Judy Haley SIGNALS OFFICER IMG XR PROCEDURES Final R esult * Hepatitis C Ab (08/01/2024 11:51 AM EDT) Hepatitis C Antibody Nonreactive Nonreactive [facility] Comment:Antibodies to HCV no t detected; does not exclude early acuteHCV infection. 08/01/2024 11:5 1 AM EDT 08/01/2024 11:51 AM EDT Generic External Data Provider LAB BLOOD ORDERAB LES Final Result Performing Organization Address [facility] Co de Phone Number [facility] [address] [place] [phone] * (ABNORMAL) Lipid Panel, Standard (08/01/2024 11:51 AM EDT) Triglycerides 200(H) <150 mg/dL [facility] Comment:Desirable Triglyceri de: less than 150 mg/dLBorderline High Triglyceride 150-199 mg/dLHigh Triglyceride: 200-499 mg/dLVery High Triglyceride: greater than or equal to 5OO mg/dL Cholesterol 216(H) <200 mg/dL [facility] Comment:Desirable Cholestero l: less than 200 mg/dLBorderline High Cholesterol: 200-239 mg/dLHigh Cholesterol: greater than 239 mg/dL LDL Cholesterol Calculated 126(H) <100 mg/dL [facility] Comment:Desirable LDL: less than 100 mg/dLNear Optimal/Above Optimal LDL: 110- 129 mg/dLBorderline High LDL: 130-159 mg/dLHigh LDL: 160-189 mg/dLVery High LDL: greater than or equal to 190 mg/dL HDL Cholesterol 50 >40 mg/dL [facility] Comment:Desirable HDL: great er than 40 mg/dL Note: This HDL assay may give artificially low results in patients with liver disease. 08/01/2024 11:5 1 AM EDT 08/01/2024 11:51 AM EDT us Generic External Data Provider LAB BLOOD ORDERAB LES Final Result Performing Organization Address City/[facility]/ZIP Co de Phone Number [facility] [address] [place] [phone] * BI Mammogram Screening Tomosynthesis Bilateral (02/29/2024 9:47 AM EST) Anatomical Region Laterality Modality Breast Bilateral Mammography 02/29/2024 9:47 AM EST Narrative 03/06/2024 11:53 AM EST [address] [place] [address] Mammography Report Signed Patient: Reena Love MR#: [id number] 1 : 1955 Acct:[id number] Age/Sex: 68 / F ADM Date: 02/29/24 Loc: HO.MAMMO Attending Dr: Gracie Singer MD Ordering Physician: Gracie Singer MD Results: 1Ne gative Date of Service: 02/29/24 Follow Up: 1 Year From Orig inal Mammogram Procedure(s): MM tomosynthesis screening BI Accession Number(s): [id number] cc: Gracie Singer MD EXAMINATION: MM SCREENING [...] 03/06/24 1150 DD/ 0947 TD/TT: 02/29/24 1001 Consumer Relations Specialist: Procedure Note Donotuseinterpreter, Image - 03/06/[address] [place] [address] Mammography Report Signed Patient: Lizet LoveR#: [id number] 1 : 1955ct:[id number] Age/Sex: 68 / FADM Date: 02/29/24 Loc: HO.MAMMO Attending Dr: Gracie Singer MD Ordering Physician: Gracie Singer MDResults: 1Ne gatbairon Date of Service: 02/29/24Follow Up: 1 Year From Orig ina Mammogram Procedure(s): MM tomosynthesis screening BI Accession Number(s): [id number] cc: Gracie Singer MD EXAMINATION: MM SCREENING [...] by: Lena Church DO 03/06/2024 11:50 AM [facility] Dictated By: Lena Church DO Signed By: <Electronically signed by Lena Church DO in OV> 03/06/24 1150 DD/ 0947 TD/TT: 02/29/24 1001 Consumer Relations Specialist: us Gracie Singer MD IMG BI PROCEDURES Final Result * Hm Colonoscopy (09/24/2020 8:23 AM EDT) us Historical Provider HEALTH MAINTENANCE Final Result from Last 3 Months or Most Recently Relevant to Health Maintenance Insurance [facility] DUAL COMPLETE Advance Directives Documents on File Type Date Recorded Patient Meter/Relay Craftsman Expl anation Advance Directives and Living Will 02/08/2024 2:47 PM Health Care Proxy Care Teams Keller Machine Operator Relationship Specialty Start Date End Date Gracie Singer MD [address] [place] [phone] PCP - General Family Medicine 05/14/20
== END 2025-01-07 15:45 | disposition home or self-care (01) ==
LOC: HO.US 15:44
PROVIDERS: PCP Internal Medicine; Visit Provider Nurse Practitioner Family
DX: N28.1 Cyst of kidney, acquired (principal)
CPT/HCPCS: 76775

== ENCOUNTER → 2025-01-07 15:45 | Outpatient (BNV) | payer OTHER, SELFPAY | PROVIDERS: PCP Internal Medicine; Visit Provider Radiology Diagnostic Radiology | DX: N28.1 Cyst of kidney, acquired (principal) | CPT/HCPCS: 76775 ==

== ENCOUNTER 2025-03-06 09:23 | Outpatient (REF) | payer OTHER, SELFPAY ==
--- NOTE | ~2025-03-06 | MM_ITS ---
EXAMINATION: MM SCREENING DIGITAL BREAST TOMOSYNTHESIS, BILATERAL CLINICAL INFORMATION: Screening. Asymptomatic. COMPARISON: Mammography: Comparison is made with available priors TECHNIQUE: Digital breast mammography with tomosynthesis is performed in both the craniocaudal and mediolateral oblique views along with computer-aided detection (CAD). FINDINGS: There are scattered areas of fibroglandular density. There are no significant masses, abnormal calcifications, or other abnormalities. MM/MM tomosynthesis screening BI IMPRESSION: No mammographic evidence of malignancy. ASSESSMENT: BI-RADS Category 1: Negative RECOMMENDATION: Routine annual mammography screening. 1 year F/U This examination should not preclude the clinical evaluation of a suspicious palpable abnormality. This patient's information was entered into a reminder system with a target due date for their next mammogram. Electronically signed by: Lena Church DO 03/07/2025 12:04 PM ALVARO
== END 2025-03-06 09:24 | disposition home or self-care (01) ==
LOC: HO.MAMMO 09:23
PROVIDERS: PCP Internal Medicine; Visit Provider Internal Medicine
DX: N28.1 Cyst of kidney, acquired (principal); Z12.31 Encounter for screening mammogram for malignant neoplasm of breast
CPT/HCPCS: 77063; 77067; 81003; 99212

== ENCOUNTER → 2025-03-06 10:00 | Outpatient (BNV) | payer OTHER, SELFPAY | PROVIDERS: PCP Internal Medicine; Visit Provider Internal Medicine | DX: Z12.31 Encounter for screening mammogram for malignant neoplasm of breast (principal) | CPT/HCPCS: 77063; 77067 ==

== ENCOUNTER 2025-03-06 10:13 | Outpatient (AMB) | payer OTHER, SELFPAY ==
--- NOTE | 2025-03-06 10:18 | MHC.OFFVIS ---
Intake Visit Reasons: 6M/US/UA Intake Note: Patient is present for 6M/US/UA IMAGIN01/07/25 Urology Medication:NONE Antibiotic Allergy:NONE Blood Thinner:NONE Student Officer Required: Yes Student Officer Services: Student Officer Present Student Officer Name: [id number] Shena Allergies sumatriptan Adverse Reaction (Severe, Verified 03/06/25 10:53) Facial Numbness Medication List - Last Reconciled 03/06/25 by JOHN Fermin- albuterol sulfate 2.5 mg inhalation Q4H PRN albuterol sulfate 90 mcg/actuation (ProAir HFA) 2 puffs inhalation Q4-6H PRN amitriptyline 25 mg PO BEDTIME calcium carbonate-vitamin D3 600 mg-5 mcg (200 unit) 1 tab PO BID cholecalciferol (vitamin D3) (Vitamin D3) 50 mcg PO DAILY [cock up splints As directed] diclofenac sodium 1% 2 grams topical BID ergocalciferol (vitamin D2) 1,250 mcg PO QWEEK fluticasone propionate 220 mcg/actuation (Flovent HFA) 0 mcg inhalation BID fluticasone propionate 50 mcg/actuation 1 spray intranasal DAILY losartan 25 mg PO DAILY omeprazole 20 mg PO DAILY rosuvastatin 5 mg PO DAILY tramadol 50 mg PO BID PRN trazodone 1 tab PO BEDTIME HPI Comments Details: Reena is a very pleasant 69-year-old Maldivian-speaking female patient of Dr. Singer. She has a past medical history of osteopenia, osteoarthritis, migraines, hypercholesteremia, and asthma. She presents to the office today for follow-up of her renal cysts. In discussion with the patient today she reports to be doing and feeling well. She denies having had any bothersome urinary issues or concerns since her last office visit here. Most recent renal ultrasound results reviewed with the patient today. 01/19 renal ultrasound noting bilateral kidneys are normal in echotexture and no hydronephrosis noted bilaterally. Left kidney with simple cyst measuring 1.4 cm similar to prior imaging. Previous workup has also included an MRI 04/21 there is a 1.3 cm cyst at the lower pole of the left kidney. No retroperitoneal lymphadenopathy or ascites is identified in the upper abdomen. The visualized bones demonstrate normal marrow signal intensity. She otherwise denies any bothersome urinary issues. She denies urinary urgency, urinary frequency, incontinence, nocturia, hematuria, dysuria, foul smelling urine, changes to urinary stream, flank pain, fever, and or chills. She is happy with her current voiding parameters. In office urinalysis results reviewed with the patient today. We discussed at length potential causes of renal cysts as well as surveillance monitoring. All questions were answered. She otherwise offers no other issues or concerns at this time. [facility] Medical History Osteopenia Medial epicondylitis Primary osteoarthritis involving multiple joints Numbness and tingling in both hands COVID-19 vaccine administered Arthritis Hx of migraine headaches Elevated cholesterol Asthma Surgical History Hx of LASIK H/O colonoscopy Family History Father Hypertension Mother Liver cancer Social History Household Members: Spouse Alcohol intake: current Alcohol intake frequency: holidays/special occasions only Alcohol type: beer Patient Tobacco Use Status: Current everyday Tobacco user Cigarettes Per Day: 1 Years Smoked: 53 Current occupational status: disabled Review of Systems Const All systems reviewed & are unremarkable except as noted in HPI and below Physical Exam Const General: cooperative, healthy appearing, comfortable, no acute distress, well developed, alert and awake Orientation/consciousness: patient oriented x3 Limitations: no limitations HEENT Head: Yes normal to inspection, Yes normocephalic and Yes atraumatic Ears: hearing grossly normal bilaterally Eyes General: appearance normal, both eyes and all related structures Neck Neck: Yes normal visual inspection and Yes trachea midline Chest Chest palpation & inspection: normal inspection of the chest Resp Effort & Inspection: normal respiratory effort and able to speak in complete sentences Cardio Rate: regular rate GI Inspection: Yes normal to inspection General: Yes no CVA tenderness Back/Spine/Pelvis Back: no CVA tenderness Skin General skin exam: no rashes or lesions noted Neuro General: patient oriented x3 Extrem General: Yes normal to inspection Psych Appearance: grossly normal and well kempt Mental Status: mental status grossly normal Speech and movement: Normal speech and movement present and Clear speech present Affect: normal affect Attitude: cooperative Thought process: Normal thought process present Thought content: Normal thought content present Insight: Fair insight present (Psych) Judgement: Fair judgement present (Psych) Results AMB Urinalysis, Automated UA Leukoctes 0 Michele/uL Last Edit by JERICA Polo on 03/06/25 10:44 UA Nitrite Negative Last Edit by Delroy Son [facility] on 03/06/25 10:44 UA Urobilinogen 0.2 mg/dL Last Edit by Delroy Son [facility] on 03/06/25 10:44 UA Protein 0 mg/dL Last Edit by Delroy Son [facility] on 03/06/25 10:44 UA pH 7.0 Last Edit by Delroy Son [facility] on 03/06/25 10:44 UA Blood 0 Cleve/uL Last Edit by Delroy Son [facility] on 03/06/25 10:44 UA Specific Aurora 1.010 Last Edit by Delroy Son [facility] on 03/06/25 10:44 UA Ketone Negative Last Edit by Delroy Son [facility] on 03/06/25 10:44 UA Bilirubin 0 mg/dL Last Edit by Delroy Son [facility] on 03/06/25 10:44 UA Glucose 0 mg/dL Last Edit by Delroy Son [facility] on 03/06/25 10:44 Results Reviewed Results Reviewed: Laboratory Last Values Urine pH (Auto) 7.0 03/06/25 10:26 Specific Aurora (Auto) 1.010 03/06/25 10:26 Urine Protein (Auto) 0 mg/dL 03/06/25 10:26 Glucose (UA)(Auto) 0 mg/dL 03/06/25 10:26 Urine Ketones (Auto) Negative 03/06/25 10:26 Urine Blood (Auto) 0 Cleve/uL 03/06/25 10:26 Urine Nitrite (Auto) Negative 03/06/25 10:26 Urine Bilirubin (Auto) 0 mg/dL 03/06/25 10:26 Urine Urobilinogen (Auto) 0.2 mg/dL 03/06/25 10:26 Leukocyte Esterase (Auto) 0 Michele/uL 03/06/25 10:26 Procedure(s): US renal BI Renal ultrasound Comparison: CT/TN/SR - CT ABDOMEN PELVIS W IV CON - 08/24/24 07:25 EDT Findings: The kidneys are normal in echotexture bilaterally. No hydronephrosis. The right kidney is normal in size, measuring 9.6cm in length. The left kidney is normal in size, measuring 8.9cm in length. There is a simple cyst in the lower pole measuring 1.4 x 1.1 x 1.1 cm, similar to the prior study. Impression: No acute findings. 1.4 cm left renal simple cyst. Assessment & Plan Assessment & Plan (1) Renal cyst: Code(s): N28.1 - Cyst of kidney, acquired Category: Medical Plan In office urinalysis results reviewed with the patient today; as noted above. Most recent renal imaging results reviewed with the patient today; as noted above Patient currently denies any bothersome urinary issues. Patient reports be happy with current voiding parameters. We discussed potential causes of renal cysts as well as surveillance monitoring. Will obtain renal ultrasound in 1 year All questions were answered. Follow-up in 1 year with imaging to be completed prior; or sooner with any issues, concerns, and or questions. Orders: Orders AMB Urinalysis Automated Today Z13.9 - Encounter for screening, unspecified US renal BI 1 Year N28.1 - Cyst of kidney, acquired Patient Instructions: The patient had an opportunity to ask questions regarding the treatment plan. All questions were answered. Physical exam, labs, and imaging were discussed and reviewed in detail. As well as risks, benefits, and discussion of treatment choices. No major barriers to understanding were identified. The patient expressed understanding and agreement with the above treatment plan. The patient was made aware they should contact our office by phone for worsening of their current condition, the appearance of new symptoms, or with any questions or concerns. Compliance is encouraged with any medications and follow up testing that is ordered. It is a privilege to be allowed the opportunity to participate in? your urological care.? Again, if you have any questions or concerns If you have any questions or concerns please do not hesitate to contact me. The office is [phone]. This note is constructed using voice recognition software. While every effort has been made to ensure accuracy improvement coordinator errors may have been included. Yours sincerely, RADHIKA Fermin Coding Level of Care Code Est Pt Level 3 (49146) Add On Problem Visit Only Diagnoses Renal cyst N28.1
== END 2025-03-06 10:49 | disposition home or self-care (01) ==
LOC: HO.HUSH 10:14
PROVIDERS: PCP Internal Medicine; Visit Provider Nurse Practitioner Family
DX: Z13.9 Encounter for screening, unspecified (principal); N28.1 Cyst of kidney, acquired
CPT/HCPCS: 99213; G2211

== ENCOUNTER 2025-03-19 09:11 | Outpatient (REF) | payer OTHER, SELFPAY ==
--- NOTE | ~2025-03-19 | US_ITS ---
EXAMINATION: US COMPLETE ABDOMEN WITH LIVER ELASTOGRAPHY CLINICAL INFORMATION: Abnormal findings of blood chemistry COMPARISON: None available. TECHNIQUE: Real-time imaging of the abdominal viscera. Noninvasive ultrasound liver fibrosis assessment is performed using Sanju ElastPQ point quantification shear wave elastography (pSWE) with a C5-2 MHz transducer. Multiple elastography samples are obtained. FINDINGS: PANCREAS: The visualized head and body of the pancreas appears unremarkable. Remainder of the pancreas is obscured by bowel gas. ABDOMINAL AORTA: No aortic aneurysm is seen. INFERIOR VENA CAVA: Visualized portions are normal. LIVER: The liver demonstrates normal size, contour. Increased parenchymal echogenicity. Anechoic avascular 1.8 cm cyst in the left lobe and a 0.6 cm cyst in the right lobe. No intrahepatic biliary duct dilatation. The right lobe measures 13.2 cm in length. The left lobe measures 3.7 cm in length. Portal flow is hepatopedal Shear wave liver elastography median stiffness is 1.69 m/s (reference: normal median stiffness is 1.3 m/s or less). IQR/median stiffness to assess sampling precision is 0.06 (reference: good quality data set is IQR/median stiffness of 0.15 or less). GALLBLADDER: The gallbladder is physiologically distended without evidence of stones, sludge, polyps, wall thickening or pericholecystic fluid. COMMON BILE DUCT: Normal in caliber measuring 0.3 cm in diameter. RIGHT KIDNEY: No hydronephrosis. No renal calculi.. The kidney measures 9.1 cm in maximum dimension. LEFT KIDNEY: No hydronephrosis. No pleural anechoic avascular 1.5 cm cyst. No renal calculi. The kidney measures 10.4 cm in maximum dimension. SPLEEN: Multiple calcification seen, which could reflect calcified vessels versus nonspecific calcifications.. The spleen measures 9.4 cm in maximum dimension. FREE FLUID: None seen. US/US abdomen comp w elastography IMPRESSION: 1. There is generalized increase in hepatic echotexture, consistent with fatty infiltration or hepatocellular disease. Please correlate clinically. No focal suspicious hepatic mass or intrahepatic biliary duct dilatation is seen. Anechoic avascular cysts, as detailed above. 2. Liver elastography: Median stiffness 1.69 m/s *Liver Stiffness less than 1.7 m/s: In the absence of other known clinical signs, rules out compensated advanced chronic liver disease. 3. Additional findings as above. REFERENCE: Society of Radiologists in Ultrasound Liver Stiffness Thresholds (2020): LIVER STIFFNESS THRESHOLDS: *Liver Stiffness equal or less than 1.3 m/s: High probability of being normal. *Liver Stiffness less than 1.7 m/s: In the absence of other known clinical signs, rules out compensated advanced chronic liver disease. *Liver Stiffness 1.7-2.1 m/s: Suggestive of compensated advanced chronic liver disease but need further test for confirmation. *Liver Stiffness over 2.1 m/s: Rules in compensated advanced chronic liver disease. *Liver Stiffness over 2.4 m/s: Suggestive of clinically significant portal hypertension. QUALITY OF DATA SET: *IQR/Median value equal or less than 0.15 implies a quality data set. *IQR/Median value over 0.15 implies a poor quality data set. SIGNIFICANT CHANGE FROM PRIOR EXAM: Significant change if liver stiffness measurement is 10% or greater from prior exam. OTHER CONSIDERATIONS: The stage of liver fibrosis may be overestimated in the setting of acute hepatitis, liver inflammation, elevated liver function tests, hepatic vascular congestion, obstructive cholestasis, non-fasting state, and infiltrative diseases such as amyloidosis and lymphoma. In some patients with NAFLD, the liver stiffness thresholds for compensated advanced chronic liver disease may be lower. In causes other than viral hepatitis and NAFLD, liver stiffness thresholds are not well established. Electronically signed by: Zackery Mason MD 03/20/2025 08:58 AM EST
--- OUTSIDE RECORDS SUMMARY | 2025-03-19 09:45 | XMS_ITS ---
Author Name Ashley Terry NP Address [address] [place] [address] Phone [phone] [facility] [employer] [facility] Care Team Providers Care Drag Down Name Role Phone Ashley Terry Unavailable [phone] Ashleigh Núñez Unavailable Unavailable Reason for Referral [...] & Crisis Lifeline by calling or texting [phone] or call CB/PCP specialist for help.Sleep hygiene: [...] care Active 2023-09-16 N/A [facility] 12/03/24Worsening Pain Member to call for the following symptoms: Decreased mobility/ Fall / Increased pain/ Increased pain meds/ Joint swellingPlanned intervention: Tylenol 1,000mg q6h/ Lidoderm patch 4% to affected area/ Voltaren gel to affected area/ Apply heat to affected area Hypertension Active 2024-12-03 N/A [facility] 12/03/24R x: LosartanRecommendations: Take medications at the [...] GERD (gastroesophageal reflux disease) Active 2024-12-03 N/A [facility] 12/03/24Rx: OmeprazoleRecommendations : Take medications at the [...] (do not use for phone, instead use 47779-89) [facility] [place]2022 Hyperlipidemia, unspecifiedInsomnia, unspecifiedUnspecified asthma, uncomplicatedVitamin D deficiency, unspecifiedLow back pain, unspecifiedOpioid dependence, uncomplicatedDry eye syndrome of bilateral lacrimal glands New patient,40-59min; chronic exacerbation, 2 stable chronic or 1 acute illness add add modifier 95 for video (do not use for phone, instead use 23061-76) [facility] [place] 02/[place]20[place] New patient,40-59min; chronic exacerbation, 2 stable chronic or 1 acute illness add add modifier 95 for video (do not use for phone, instead use 44677-61) [facility] [place] 02/[place]/2022 New patient,40-59min; chronic exacerbation, 2 stable chronic or 1 acute illness add add modifier 95 for video (do not use for phone, instead use 43098-46) [facility] [place] 02/[place]/2022 New patient,40-59min; chronic exacerbation, 2 stable chronic or 1 acute illness add add modifier 95 for video (do not use for phone, instead use 10720-49) [facility] [place] 02/01/2022 New patient,40-59min; chronic exacerbation, 2 stable chronic or 1 acute illness add add modifier 95 for video (do not use for phone, instead use 62341-30) [facility] [place] New patient,40-59min; chronic exacerbation, 2 stable chronic or 1 acute illness add add modifier 95 for video (do not use for phone, instead use 35115-69) [facility] New patient,40-59min; chronic exacerbation, 2 stable chronic or 1 acute illness add add modifier 95 for video (do not use for phone, instead use 64358-18) [facility] [place] New patient,40-59min; chronic exacerbation, 2 stable chronic or 1 acute illness add add modifier 95 for video (do not use for phone, instead use 68774-18) [facility] [place] 02/01/2022 Estab. patient 30-39min; chronic exacerbation, 2 stable chronic or 1 acute illness add add modifier 95 for video, (do not use for phone, instead use 42911-17) [facility] [place] 01/24/2023 Hyperlipidemia, unspecifiedInsomnia, unspecifiedPulmonary fibrosis, unspecifiedVitamin D deficiency, unspecifiedSacroiliitis, not elsewhere classifiedOpioid dependence, uncomplicatedDry eye syndrome of bilateral lacrimal glandsOther obesity due to excess caloriesBody mass index (bmi) 31.0-31.9, adultMigraine, unspecified, not intractable, without status migrainosus Estab. patient 30-39min; chronic exacerbation, 2 stable chronic or 1 acute illness add add modifier 95 for video, (do not use for phone, instead use 94942-31) [facility] [place] 01/24/2023 Estab. patient 30-39min; chronic exacerbation, 2 stable chronic or 1 acute illness add add modifier 95 for video, (do not use for phone, instead use 41478-14) [facility] [place] 01/24/2023 Estab. patient 30-39min; chronic exacerbation, 2 stable chronic or 1 acute illness add add modifier 95 for video, (do not use for phone, instead use 01075-00) [facility] Estab. patient 30-39min; chronic exacerbation, 2 stable chronic or 1 acute illness add add modifier 95 for video, (do not use for phone, instead use 83895-31) [facility] [place] 01/24/2023 Estab. patient 30-39min; chronic exacerbation, 2 stable chronic or 1 acute illness add add modifier 95 for video, (do not use for phone, instead use 06979-26) [facility] [place] Estab. patient 30-39min; chronic exacerbation, 2 stable chronic or 1 acute illness add add modifier 95 for video, (do not use for phone, instead use 45227-61) [facility] [place] 09[place]2023 Hyperlipidemia, unspecifiedInsomnia, unspecifiedPulmonary fibrosis, [...] (do not use for phone, instead use 37929-32) [facility] [place] 09/16/2023 Estab. patient 30-39min; chronic exacerbation, 2 stable chronic or 1 acute illness add add modifier 95 for video, (do not use for phone, instead use 53942-04) [facility] [place] Estab. patient 30-39min; chronic exacerbation, 2 stable chronic or 1 acute illness add add modifier 95 for video, (do not use for phone, instead use 12035-11) [facility] [place] Estab. patient 30-39min; chronic exacerbation, 2 stable chronic or 1 acute illness add add modifier 95 for video, (do not use for phone, instead use 91400-63) [facility] [place] Estab. patient 30-39min; chronic exacerbation, 2 stable chronic or 1 acute illness add add modifier 95 for video, (do not use for phone, instead use 58445-02) [facility] [place] Estab. patient 30-39min; chronic exacerbation, 2 stable chronic or 1 acute illness add add modifier 95 for video, (do not use for phone, instead use 13262-13) [facility] [place]20[place] Estab. patient 10-29min; 1 minor problem; add add modifier 95 for video, modifier 93 for phone [facility] ([place] 12/03/2024 Hyperlipidemia, unspecifiedT ype 2 diabetes [...] Current Smoking Status Current every day smoker 2025-03-19 Sex Female History of Procedures Procedures Service Procedure code Service date Servicing provider Phone# New patient,40-59min; chronic exacerbation, 2 stable chronic or 1 acute illness add add modifier 95 for video (do not use for phone, instead use 03651-06) [id number] 2022-02-01 No Data Available No Data Availa [...] (do not use for phone, instead use 97242-75) [id number] 2023-01-24 No Data Available No Data Availa [...] (do not use for phone, instead use 02052-06) 65494 2023-09-16 No Data Available No Data Availa [...] 95 for video, modifier 93 for phone [id number] 2024-12-03 No Data Available No Data Availa [...] acute or disease education needs that may arise.Epznhuu-azswlqdkaounRajdele-ycrjgpcqh-amitriptyline prnManaged-flovent HFAManagedvitamin D dygnedawyqXowvsmi-qsxyycscHttqhdf-akzhvlhu-follow up every 3 monthsManaged-artificial tears 2023-01-24 11:05:42 [...] acute or disease education needs that may arise.Fwxxonz-amgeigxlwhjoVgtuqgd-omwvxwwmb-amitriptyline prnManaged-flovent HFAManagedvitamin D lnnvlpcbkuTzycycr-ulenttnvCyrhyal-muisrbtf-follow up every 3 monthsManaged-artificial tearsBMI: 31.10Lifestyle interventions [...] record. (1123F)Continue to see PCP. [facility] for any acute or disease education needs that may arise.PAIN CONTINGENCY PLANWorsening Pain Member to call for the following symptoms: Decreased mobility/ Fall / Increased pain/ Increased pain meds/ Joint swellingPlanned intervention: Tylenol 1,000mg q6h/ Lidoderm patch 4% to affected area/ Voltaren gel to affected area/ Apply heat to affected areaManaged-atorvastatinDietary interventions, exercise as tolerable, and continue with PCP.Jrliyvq-ayyvkumla-lqxhsrutcocld prnManaged-flovent HFAContinue f/u care with pulmonology.Managedvitamin D supplementManaged-tramadolContinue with PCP.Sixfkfd-ucophxgk-inapfn up every 3 monthsManaged-artificial tearsBMI: 31.10Lifestyle interventions [...] & Crisis Lifeline by calling or texting 148 or call CB/PCP specialist for help.Sleep hygiene: [...] SELECT:Do you have a Durable Power of Assembly [employer]er for Healthcare, or Healthcare Proxy Or Guardianship? [...]
--- OUTSIDE RECORDS SUMMARY | 2025-03-19 09:46 | XMS_ITS | Encounter Summary ---
Author Organization [employer] Address [address] [place] [address] Care Team Providers Care Care Navigator Name Role Phone Gracie Singer MD Primary Care Provider + Encounter Details Date Type Department Care Team (Late st Contact Info) Description 08/24/2023 Orders Only [facility] [address] [place], [place] [phone] Provider, MD John Social History Tobacco Use Types Packs/Day Years Used Date Smoking Tobacco: Some Days Cigarettes 0.5 50.7 Started: 07/12/1975 Smokeless Tobacco: Never Comments:Started at [...] on filedocumented in this encounter Care Teams Care Navigator Relationship Specialty Start Date End Date Gracie Singer MD [address] [place] [id number] PCP - General Family Medicine 05/14/20 documented as of this encounter
--- OUTSIDE RECORDS SUMMARY | 2025-03-19 09:46 | XMS_ITS | Encounter Summary ---
Author Organization [employer] Address [address] [place] [address] Care Team Providers Care Theater Usher Name Role Phone Gracie Singer MD Primary Care Provider + Reason for Visit * Reason Onset Date Comments triage 08/16/2022 Encounter Details Date Type Department Care Team (Late st Contact Info) Description 08/16/2022 Telephone [facility] [address] [place], [place] [phone] Gracie Singer MD [address] [place], [place] [phone] triage Social History Tobacco Use Types Packs/Day [...] 08/16/2022 1:39 PM EDT Triage call with [employer] Tnt Line Supervisor ID [id number] Pt sister is phone number listed. Pt [...] isbroken. Advised for Pt to come to [facility] and Pt sister will give [...] now The caller accepted this outcome speaks frisian documented in this encounter Plan of Treatment Not on file documented as of this encounter Visit Diagnoses Not on filedocumented in this encounter Care Teams Theater Usher Relationship Specialty Start Date End Date Gracie Singer MD [address] [place] [id number] PCP - General Family Medicine 05/14/20 documented as of this encounter
--- OUTSIDE RECORDS SUMMARY | 2025-03-19 09:46 | XMS_ITS | Encounter Summary ---
Author Organization [employer] Address [address] [facility] [address] [facility] [address] [place] [address] Care Team Providers Care Sewer Pipe Sorter Name Role Phone Gracie Singer MD Primary Care Provider + Reason for Visit * Reason Comments Med Refill Encounter Details Date Type Department Care Team ([facility] st Contact Info) Description 11/01/2022 Refill [facility] [address] [place], [place] [phone] [facility] [address] [place] [address] Chronic right hip pain; Chronic right-sided low [...] sciatica documented in this encounter Care Teams Sewer Pipe Sorter Relationship Specialty Start Date End Date Gracie Singer MD [address] [place] [address] PCP - General Family Medicine 05/14/20 documented as of this encounter
--- OUTSIDE RECORDS SUMMARY | 2025-03-19 09:46 | XMS_ITS | Encounter Summary ---
Author Organization [employer] Address [address] [facility] [address] [place] [address] Care Team Providers Care Right Of Way Clearer Name Role Phone Gracie Singer MD Primary Care Provider + Reason for Visit * Reason Onset Date Comments Appointment Request 06/23/2022 Encounter Details Date Type Department Care Team ([facility] st Contact Info) Description 06/23/2022 Telephone [facility] [address] [place], [place] [phone] Gracie Singer MD [address] [place], [place] [phone] Appointment Request Social History Tobacco Use Types [...] somelater the Марина. Please contact pt at [phone] documented in this encounter Plan of Treatment Not on file documented as of this encounter Visit Diagnoses Not on filedocumented in this encounter Care Teams Right Of Way Clearer Relationship Specialty Start Date End Date Gracie Singer MD [address] [place] [phone] PCP - General Family Medicine 05/14/20 documented as of this encounter
--- OUTSIDE RECORDS SUMMARY | 2025-03-19 09:46 | XMS_ITS | Encounter Summary ---
Author Organization [employer] Address [address] [place] [address] Care Team Providers Care Hired Help Name Role Phone Gracie Singer MD Primary Care Provider + Reason for Visit * Reason Onset Date Comments Nurse Triage 10/11/2024 Encounter Details Date Type Department Care Team (Late st Contact Info) Description 10/11/2024 Telephone [facility] [address] [place], [place] [phone] Gracie Singer MD [address] [place], [place] [phone] Nurse Triage Social History Tobacco Use Types Packs/Day Years Used Date Smoking Tobacco: Every Day Cigarettes 0.5 50.7 Started: 07/12/1975 Smokeless Tobacco: [...] on filedocumented in this encounter Care Teams Hired Help Relationship Specialty Start Date End Date Gracie Singer MD [address] [place] [id number] PCP - General Family Medicine 05/14/20 documented as of this encounter
--- OUTSIDE RECORDS SUMMARY | 2025-03-19 09:46 | XMS_ITS | Encounter Summary ---
Author Organization [employer] Address [address] [facility] [address] [place] [address] Care Team Providers Care Implementation Engineer Name Role Phone Gracie Singer MD Primary Care Provider + Reason for Visit * Reason Onset Date Comments Nurse Triage 10/18/2022 Encounter Details Date Type Department Care Team (Late st Contact Info) Description 10/18/2022 Telephone [facility] MED[facility]INE [address] [place], [place] [phone] Gracie Singer MD [address] [place], [place] [phone] Nurse Triage Social History Tobacco Use Types [...] 10/18/2022 11:40 AM EDT Triage call with [place] Operator [place] [id number] Pt reports right hip pain which is [...] accepted this outcome Please contact pt at [phone] (Honduran) documented in this encounter Plan of Treatment Not on file documented as of this encounter Visit Diagnoses Not on filedocumented in this encounter Care Teams Implementation Engineer Relationship Specialty Start Date End Date Gracie Singer MD [address] [place] [phone] PCP - General Family Medicine 05/14/20 documented as of this encounter
--- OUTSIDE RECORDS SUMMARY | 2025-03-19 09:46 | XMS_ITS | Encounter Summary ---
Demographics Address [address] [place] [address] Mobile Phone Work Phone Preferred Language es Marital Status Anabaptist Affiliation Unknown Race Other Race Ethnic Group Unknown Author Organization [employer] Address [address] [facility] 7t [place] [address] Care Team Providers Care Framing Machine Tender Name Role Phone Gracie Singer MD Primary Care Provider + Reason for Visit * Reason Onset Date Comments Med Refill 10/14/2023 Encounter Details Date Type Department Care Team ([facility] st Contact Info) Description 10/14/2023 Telephone [facility] MEDICINE [address] [place], [place] [phone] Gracie Singer MD [address] [place], [place] [phone] Med Refill Social History Tobacco Use Types [...] 1:18 PM EDT Medication was sent to [facility] #[id number] on 05/09/23 #90 with 3 refills. * Telephone Encounter - David Gallo - 10/14/2023 1:16 PM EDT TC from pt requesting medication refill. Medications needing refill: simvastatin (Zocor) 20 MG table To be sent to: [facility]/pharmacy #[address] documented in this encounter Plan of Treatment Not on file documented as of this encounter Visit Diagnoses Not on filedocumented in this encounter Care Teams Framing Machine Tender Relationship Specialty Start Date End Date Gracie Singer MD [address] [place] [address] PCP - General Family Medicine 05/14/20 documented as of this encounter
--- OUTSIDE RECORDS SUMMARY | 2025-03-19 09:46 | XMS_ITS | Clinical Summary ---
Author Organization [employer] Address [address] [facility] [address] [place] [address] Care Team Providers Care Room Designer Name Role Phone Gracie Singer MD Primary [...] ophthalmology at eye and LASIK clinic in [place], will request records No evidence of diabetic [...] 03/30/2023 Overview (03/30/2023): 1cm caudate cyst on [facility] CT scan (Chest CT fu lung nodule) [...] scan due to history of heavy smoker> 68-[id number]-sgie smoking history Assessment & Plan (03/07/2024 12:35 [...] Encounters Date Type Department Care Team Description 03/06/2025 Orders Only [facility] MEDICINE [address] [place] [address] Gracie Singer MD 01/07/2025 Orders Only [facility] External Provider, [facility] from Last 3 Months Immunizations Immunization Administration [...] Every Day Cigarettes 0.5 50.7 Started: 07/12/1974 Passive Smoke Exposure: Current Smokeless [...] 2024 , 01/21/2023, 01/07/2022, Additional history exists Diabetes: Hemoglobin A1C 05/16/2025 025, 08/01/2024, 06/27/2024 SDOH Screening 06/27/2025 06/27/2024 Lipid Panel 08/01/2025 08/01/2024, 07/27, 01/11/2023, Additional history exists Alcohol/Substance Use Screening 11/13/2025 11/13/2024 Depression Screening 11/13/2025 11/13/2024, 11/14/19 25 Diabetes: Foot Exam 11/13/2025 11/13/2024, 11/13/2024, 11/13/2024, Additional history exists Diabetes: Urine Protein Screening 11/13/2025 11/13/2024 Tobacco Screening 11/13/2025 11/13/2024 Mammogram 03/06/2026 03/06/2025, 1206/2023, 01/11/2023, Additional history exists Colonoscopy 09/24/2030 09/24/2020 Colorectal Cancer Screening 09/24/2030 [...] Procedure Name Priority Date/Time Associated Diagnosis Comments BI MAMMOGRAM SCREENING TOMOSYNTHESIS BILATERAL Routine 03/06/2025 9:45 AM EST US RENAL COMPLETE Routine 01/07/2025 4:3 7 PM EDT ALBUMIN, RANDOM URINE W/CREATININE Routine 11/13/2024 12:14 PM EDT 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) POCT GLYCATED HEMOGLOBIN, TOTAL Routine 11/13/2024 11:07 AM EDT 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 [address] Mammography Report Signed Patient: Reena Riley MR#: [id number] : 1955 Acct:[id number] Age/Sex: 69 / F ADM Date: 03/06/25 Loc: [facility] Attending Dr: Gracie Singer MD Ordering Physician: Gracie Singer MD Results: 1Ne gative Date of Service: 03/06/25 Follow Up: 1 Year From [facility] ina Mammogram Procedure(s): MM tomosynthesis screening BI Accession Number(s): [id number] cc: Gracie Singer MD Reason For Exam: SCREENING EXAMINATION: MM SCREENING DIGITAL BREAST TOMOSYNTHESIS, BILATERAL CLINICAL INFORMATION: Screening. Asymptomatic. COMPARISON: Mammography: Comparison is made with available priors TECHNIQUE: Digital breast mammography with tomosynthesis is performed in both the craniocaudal and mediolateral oblique views along with computer-aided detection (CAD). FINDINGS: There are scattered areas of fibroglandular density. There are no significant masses, abnormal calcifications, or other abnormalities. MM/MM tomosynthesis screening BI IMPRESSION: No mammographic evidence of malignancy. ASSESSMENT: BI-RADS Category 1: Negative RECOMMENDATION: Routine annual mammography screening. 1 year F/U This examination should not preclude the clinical evaluation of a suspicious palpable abnormality. This patient's information was entered into a reminder system with a target due date for their next mammogram. Electronically signed by: Lena Church DO 03/07/2025 12:04 PM EST Dictated By: Lena Church DO Signed By: <Electronically signed by Lena Church DO in OV> 03/07/25 1204 DD/ 0945 TD/TT: 03/06/25 1005 Asbestos Removal Supervisor: Procedure Note Donotuseinterpreter, Image - 03/07/[facility] [address] [place] [address] Mammography Report Signed Patient: Felipe Riley#: [id number] : 5Acct:[id number] Age/Sex: 69 / FADM Date: 03/06/25 Loc: HO.MAMMO Attending Dr: Gracie Singer MD Ordering Physician: Gracie Singer MDResults: 1Ne gative Date of Service: 03/06/25Follow Up: 1 Year From [facility] ina Mammogram Procedure(s): MM tomosynthesis screening BI Accession Number(s): [id number] cc: Gracie Singer MD Reason For Exam: SCREENING EXAMINATION: MM SCREENING DIGITAL BREAST TOMOSYNTHESIS, BILATERAL CLINICAL INFORMATION: Screening. Asymptomatic. COMPARISON: Mammography: Comparison is made with available priors TECHNIQUE: Digital breast mammography with tomosynthesis is performed in both the craniocaudal and mediolateral oblique views along with computer-aided detection (CAD). FINDINGS: There are scattered areas of fibroglandular density. There are no significant masses, abnormal calcifications, or other abnormalities. MM/MM tomosynthesis screening BI IMPRESSION: No mammographic evidence of malignancy. ASSESSMENT: BI-RADS Category 1: Negative RECOMMENDATION: Routine annual mammography screening. 1 year F/U This examination should not preclude the clinical evaluation of a suspicious palpable abnormality. This patient's information was entered into a reminder system with a target due date for their next mammogram. Electronically signed by: Lena Church DO 03/07/2025 12:04 PM EST Dictated By: Lena Church DO Signed By: <Electronically signed by Lena Church DO in OV> 03/07/25 1204 DD/ 0945 TD/TT: 03/06/25 1005 Asbestos Removal Supervisor: us Gracie Singer MD IMG BI PROCEDURES Edited Result - Final * US Renal Complete (01/07/2025 4:37 PM EDT) Anatomical Region Laterality Modality Kidney Ultrasound 01/07/2025 4:37 PM EDT Narrative 01/07/2025 4:40 PM EDT [place] [address] Ultrasound Report Signed Patient: Reena Riley MR#: [id number] : 1955 Acct:[id number] Age/Sex: 69 / F ADM Date: 01/07/25 Loc: . Attending Dr: Meenu Carmona [facility] Ordering Physician: Meenu Carmona Date of Service: 01/07/25 Procedure(s): US renal BI Accession Number(s): [id number] cc: Gracie Singer MD; Meenu Carmona LOCKER ROOM SUPERVISORREILLY Reason for Exam: N28.1 - Cyst of kidney, acquired CLINICAL HISTORY: cyst of kidney Renal ultrasound Comparison: CT/CT/SR - CT ABDOMEN PELVIS W IV CON - 08/24/24 07:25 EDT Findings: The kidneys are normal in echotexture bilaterally. No hydronephrosis. The right kidney is normal in size, measuring 9.6cm in length. The left kidney is normal in size, measuring 8.9cm in length. There is a simple cyst in the lower pole measuring 1.4 x 1.1 x 1.1 cm, similar to the prior study. Impression: No acute findings. 1.4 cm left renal simple cyst. This document has been electronically signed by: Ashley Bruner MD on 01/07/2025 16:37:53 Dictated By: Ashley Turcios MD Signed By: <Electronically signed by Ashley Turcios MD in OV> 01/07/25 1639 DD/ 163 TD/TT: 01/07/251636 Asbestos Removal Supervisor: Procedure Note Donotuseinterpreter, Image - 01/07/2025 [place] [address] Ultrasound Report Signed Patient: Felipe Riley#: [id number] : 5Acct:[id number] Age/Sex: 69 / FADM Date: 01/07/25 Loc: HO.US Attending Dr: Meenu GARRIDO Ordering Physician: Meenu Carmona Date of Service: 01/07/25 Procedure(s): US renal BI Accession Number(s): [id number] cc: Gracie Singer MD; Meenu Carmona Reason for Exam: N28.1 - Cyst of kidney, acquired CLINICAL HISTORY: cyst of kidney Renal ultrasound Comparison: CT/CT/SR - CT ABDOMEN PELVIS W IV CON - 08/24/24 07:25 EDT Findings: The kidneys are normal in echotexture bilaterally. No hydronephrosis. The right kidney is normal in size, measuring 9.6cm in length. The left kidney is normal in size, measuring 8.9cm in length. There is a simple cyst in the lower pole measuring 1.4 x 1.1 x 1.1 cm, similar to the prior study. Impression: No acute findings. 1.4 cm left renal simple cyst. This document has been electronically signed by: Ashley Bruner MD on 01/07/2025 16:37:53 Dictated By: Ashley Turcios MD Signed By: <Electronically signed by Ashley Turcios MD in OV> 01/07/25 1639 DD/ 163 TD/TT: 01/07/25 163 Asbestos Removal Supervisor: [facility] External Provider IMG US PROCEDURES Edited Result - Final * Albumin, Random Urine W/Creatinine (11/13/2024 12:14 PM EDT) Creatinine, Urine 36.99 mg/dL [facility] Microalbumin Urine <5.0 mg/L [facility] Microalbum Creatinine Ratio Ur TNP <30 ug/mg cr [facility] Comment:Unable to calculate albumin/creatinine ratio due to lowmicroalbumin or creatinine result. Urine (Urine, Random) 11/13/2024 12:14 PM EDT 11/13/2024 1:10 PM EDT Gracie Singer MD LAB URINE ORDERABLES Fin al Result [facility] [address] [place] [address] [phone] * (ABNORMAL) POCT HGB A1C (11/13/2024 11:07 AM EDT) Hemoglobin A1C 5.8(A) 4.0 - 5.7 % QC Media Lot # [id number] Lot# Expiration Date ,[id number] Blood 11/13/2024 11:0 7 AM EDT Gracie Singer MD POINT OF CARE TEST ENTER /EDIT ORDERABLES Final Result * Hepatitis C Ab (08/01/2024 11:51 AM EDT) Hepatitis C Antibody Nonreactive Nonreactive [facility] Comment:Antibodies to HCV no t detected; does not exclude early acuteHCV infection. 08/01/2024 11:5 1 AM EDT 08/01/2024 11:51 AM EDT Generic External Data Provider LAB BLOOD ORDERAB LES Final Result Performing Organization Address [facility] Co de Phone Number [facility] [address] [place] [address] [phone] * (ABNORMAL) Lipid Panel, Standard (08/01/2024 11:51 AM EDT) Triglycerides 200(H) <150 mg/dL [facility] Comment:Desirable Triglyceri de: less than 150 mg/dLBorderline High Triglyceride 150-199 mg/dLHigh Triglyceride: 200-499 mg/dLVery High Triglyceride: greater than or equal to 5OO mg/dL Cholesterol 216(H) <200 mg/dL [facility] Comment:Desirable Cholestero l: less than 200 mg/dLBorderline High Cholesterol: 200-239 mg/dLHigh Cholesterol: greater than 239 mg/dL LDL Cholesterol Calculated 126(H) <100 mg/dL [facility] Comment:Desirable LDL: less than 100 mg/dLNear Optimal/Above Optimal LDL: 110- 129 mg/dLBorderline High LDL: 130-159 mg/dLHigh LDL: 160-189 mg/dLVery High LDL: greater than or equal to 190 mg/dL HDL Cholesterol 50 >40 mg/dL [facility] Comment:Desirable HDL: great er than 40 mg/dL Note: This HDL assay may give artificially low results in patients with liver disease. 08/01/2024 11:5 1 AM EDT 08/01/2024 11:51 AM EDT us Generic External Data Provider LAB BLOOD ORDERAB LES Final Result Performing Organization Address City/[facility]/ZIP Co de Phone Number [facility] [address] [place] [address] [phone] * Hm Colonoscopy (09/24/2020 8:23 AM EDT) us Historical Provider HEALTH MAINTENANCE Final Result from Last 3 Months or Most Recently Relevant to Health Maintenance Insurance [facility] DUAL COMPLETE [place]IC[place] [phone] * Guarantor: Reena Love Account Type Relation to Patient Date of Phone Billing Address Personal/Family Self [address] [place] [address] Advance Directives Documents on File Type Date Recorded Patient Ink Printer Expl anation Advance Directives and Living Will 02/08/2024 2:47 PM Health Care Proxy Care Teams Room Designer Relationship Specialty Start Date End Date Gracie Singer MD [address] [place] [phone] PCP - General Family Medicine 05/14/20
== END 2025-03-19 09:12 | disposition home or self-care (01) ==
LOC: HO.US 09:11
PROVIDERS: PCP Internal Medicine; Visit Provider Internal Medicine
DX: R79.89 Other specified abnormal findings of blood chemistry (principal)
CPT/HCPCS: 76700; 76981